=== PATIENT | female | born 1960 | race Caucasian/White ===

== ENCOUNTER → 2017-04-28 | Outpatient (CLI) | payer BC, OTHER ==
[~2017-04-28] MED LIST: AMLO5TAB2 PO; ASP81TEC PO; CEPH500C PO; FRSM40T PO; FURO40TA4 PO; HYDR-707 PO; KCL20TCR PO; LISI1TAB10 PO; MELO-195 PO; SITA1TAB6 PO
--- NOTE | 2017-04-30 07:58 | Diagnostic Imaging Report ---
Bilateral screening mammogram The current study was also evaluated with a Computer Aided Detection (CAD) system. Indication: Screening. No current complaints stated on the questionnaire. COMPARISON: 02/25/15 FINDINGS: The breasts are composed of scattered fibroglandular densities. The right breast appears smaller compared to the left breast, this is however stable from multiple prior exams. This is probably a normal variation given the long-term stability. Allowing for technique and positional differences, no suspicious change is seen. IMPRESSION: No significant change. ACR BI-RADS Category 2: Benign findings. Result letter will be mailed to the patient. Note: At least 10% of breast cancer is not imaged by mammography. Dictated by: Dictated on workstation # [id number]
== END ==
LOC: RAD 09:04
PROVIDERS: ATTEND Obstetrics & Gynecology
DX: Z12.31 Encounter for screening mammogram for malignant neoplasm of breast (principal)
CPT/HCPCS: 77067

== ENCOUNTER → 2017-05-13 | Outpatient (CLI) | payer OTHER ==
--- NOTE | 2017-05-13 19:42 | Diagnostic Imaging Report ---
Multiple views of the lumbar spine. INDICATION: Back pain. FINDINGS: There is grade 1 spondylolisthesis of L4 over L5. No definite evidence of spondylolysis. The vertebral body heights are preserved. There is moderate disc height loss at the L4-L5 level. Multilevel small anterior osteophytes are noted. Degenerative sclerotic changes are suggested at the lower facet joints. There are mild degenerative changes and sclerosis with inferior osteophytes at the SI joints. IMPRESSION: Grade 1 spondylolisthesis of L4 over L5. Degenerative disc and facet changes. Dictated by: Dictated on workstation # [id number]
== END ==
LOC: RAD 15:28
PROVIDERS: ATTEND Family Medicine
DX: M51.36 Other intervertebral disc degeneration, lumbar region (principal); M43.16 Spondylolisthesis, lumbar region
CPT/HCPCS: 72100

== ENCOUNTER 2019-01-27 13:00 | Outpatient (RCR) | payer OTHER | END 2019-02-21 14:10 | disposition home or self-care (01) | PROVIDERS: ATTEND Physician Assistant | DX: M54.5 Low back pain (principal) ==

== ENCOUNTER 2019-05-01 08:46 | Outpatient (RCR) | payer OTHER ==
[2019-06-08] MEDS ORDERED: DULA1.5P2 SQ (11:23)
[2019-06-08] MEDS ORDERED: METO50TA15 PO (11:23)
[2019-06-08] MEDS ORDERED: LISI40TA PO (11:23)
[2019-06-08] MEDS ORDERED: POTA8TAB6 PO (11:23)
[2019-06-08] MEDS ORDERED: METF-399 PO (11:23)
[2019-06-08] MEDS ORDERED: ESTR1TAB27 PO (11:23)
[2019-06-08] MEDS ORDERED: HYDR25TA4 PO (11:23)
[2019-06-08] MEDS ORDERED: PRAV20TA3 PO (11:23)
[2019-06-08] MEDS ORDERED: GABA-488 PO (11:23)
== END 2019-07-30 | disposition home or self-care (01) ==
LOC: CARD 08:46
PROVIDERS: ATTEND Internal Medicine Cardiovascular Disease
DX: I10 Essential (primary) hypertension (principal); E78.2 Mixed hyperlipidemia; E11.9 Type 2 diabetes mellitus without complications; E66.01 Morbid (severe) obesity due to excess calories
CPT/HCPCS: 93270; 93306

== ENCOUNTER → 2019-06-07 | Outpatient (CLI) | payer OTHER ==
[~2019-06-07] VITALS: Ht 167.6 cm; Wt 115.2 kg
[~2019-06-07] MED LIST changes: +CATHETER FLUSH 10 ML SYR IV PRN; +DULA1.5P2 SQ; +ESTR1TAB27 PO; +GABA-488 PO; +HYDR25TA4 PO; +LISI40TA PO; +METF-399 PO; +METO50TA15 PO; +POTA8TAB6 PO; +PRAV20TA3 PO
--- NOTE | 2019-06-08 10:45 | STRESS TEST ---
DATE OF SERVICE: 06/07/2019 EXERCISE MYOVIEW STRESS TEST REPORT REFERRING PHYSICIAN: Dr. Laurent. Baseline heart rate is 82. Baseline blood pressure 168/83. Baseline EKG is sinus rhythm with no ischemic changes. IN SUMMARY: The patient was injected with 10.45 mCi of technetium-99 Myoview and the resting images were obtained. Then, the patient started exercising with a baseline heart rate, blood pressure and EKG mentioned above. The patient was able to exercise for 3 minutes on standard Abhishek protocol, achieving maximum heart rate of 160, which is 98% of maximum expected heart rate. With peak exercise level, EKG was showing nondiagnostic changes. Blood pressure 215/70. During recovery, heart rate and blood pressure returned to baseline. EKG returned to baseline. The resting and stress images were reviewed and compared in the short axis, horizontal long axis, and vertical long axis views. Review of the images showed breast attenuation with typical female pattern. No significant ischemia or infarction was seen. SSS is 3, SDS 3, TID value 1.02. On the gated images, the left ventricle appeared to be normal size with normal contractility. Calculated ejection fraction 56%. IN CONCLUSION: 1. Fair exercise tolerance, a total of 3 minutes on standard Abhishek protocol, total of 4.6 METS achieving 98% of maximum expected heart rate. 2. Hypertensive response to exercise with peak blood pressure 215/70, returned to baseline during recovery. 3. Minimal nondiagnostic EKG changes with exercise, returned to baseline during recovery. 4. No significant ischemia or infarction on SPECT images. 5. Normal left ventricular size with normal contractility. Calculated ejection fraction 56%. Job ID: [id number] DocumentID: [id number] Dictated Date: 06/08/2019 08:41:31 Certified Breastfeeding Educator Date: 06/08/2019 10:44:59 Dictated By: DESIRAE ENRIQUEZ MD
== END ==
LOC: CARD 11:10
PROVIDERS: ATTEND Internal Medicine Cardiovascular Disease
DX: I10 Essential (primary) hypertension (principal); E78.2 Mixed hyperlipidemia; E66.01 Morbid (severe) obesity due to excess calories; E11.9 Type 2 diabetes mellitus without complications
CPT/HCPCS: 78452; 93017

== ENCOUNTER 2019-06-08 11:45 | Outpatient (CLI) | payer OTHER ==
[~2019-06-08] VITALS: Ht 167.6 cm; Wt 115.2 kg
[~2019-06-08 11:45] MED LIST changes: -CATHETER FLUSH 10 ML SYR IV PRN
== END 2019-06-08 12:11 | disposition home or self-care (01) ==
LOC: PREOP 11:45
PROVIDERS: ATTEND Surgery
DX: Z01.818 Encounter for other preprocedural examination (principal)

== ENCOUNTER 2019-06-08 12:37 | Outpatient (CLI) | payer OTHER | END 2019-06-08 13:20 | disposition home or self-care (01) | LOC: SLEEP 12:37 | PROVIDERS: ATTEND Internal Medicine Cardiovascular Disease | DX: G47.33 Obstructive sleep apnea (adult) (pediatric) (principal); G47.36 Sleep related hypoventilation in conditions classified elsewhere; I49.9 Cardiac arrhythmia, unspecified; I10 Essential (primary) hypertension ==

== ENCOUNTER 2019-06-13 08:12 | Day surgery (SDC) | payer OTHER ==
[~2019-06-13] VITALS: Ht 167.6 cm; Wt 115.2 kg
--- OUTSIDE RECORDS SUMMARY | 2019-06-13 08:18 | XMS REPORT | CCD ---
Author Author Katerine Laurent Organization Katerine Laurent MD, 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 Name Role Phone PP Unavailable CCM Unavailable Summary Purpose Interface Exchange Insurance Providers Payer name Policy type / Coverage type Covered republican ID Effective Begin Date Effective End Date [employer] Commercial Insurance [id number] 2017 Unknown Family history Father Diagnosis Age At Onset Hypertension Unknown Myocardial infarction Unknown Diabetes mellitus Type 2 Unknown Hypercholesterolemia Unknown Arthritis Unknown Social History Social History Element Codes Description Effective Dates Marital status Unknown Toy 10/06/2017 Number of children Unknown 3 10/06/2017 Employment Unknown 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 Unknown Has never used illegal drugs 10/06/2017 Allergies, Adverse Reactions, Alerts Substance Reaction Codes Entered Date Inactivated Date Status NO KNOWN DRUG ALLERGIES Unknown 10/06/2017 No Inactive Date Active Past Medical History Illness Codes Condition Status Onset Date Resolved Date Essential (primary) hypertension ICD-9: 401.1 ICD-10: I10 Active 10/06/2017 Unknown Type 2 diabetes mellitus with hyperglycemia ICD-9: 250.02 ICD-10: E11.65 Active 12/12/2018 Unknown Type 2 diabetes mellitus without complications ICD-9: 250.00 ICD-10: E11.9 Active 05/10/2018 Unknown Encounter for general adult medical examination with abnormal findings ICD-9: V70.0 ICD-10: Z00.01 Active 10/06/2017 Unknown Localized edema ICD-9: 782.3 ICD-10: R60.0 Active 09/21/2018 Unknown Diabetes Unknown Active 05/10/2018 Unknown Sciatica Unknown Active 11/17/2017 Unknown Sciatica, right side ICD- 9: 724.3 ICD-10: M54.31 Active 11/17/2017 Unknown Problems Condition Codes Effective Dates Condition Status Essential (primary) hypertension ICD-9: 401.1 ICD-10: I10 10/06/2017 Active Type 2 diabetes mellitus with hyperglycemia ICD-9: 250.02 ICD-10: E11.65 12/12/2018 Active Type 2 diabetes mellitus without complications ICD-9: 250.00 ICD-10: E11.9 05/10/2018 Active Encounter for general adult medical examination with abnormal findings ICD-9: V70.0 ICD-10: Z00.01 10/06/2017 Active Localized edema ICD-9: 782.3 ICD-10: R60.0 09/21/2018 Active Diabetes Unknown 05/10/2018 Active Sciatica Unknown 11/17/2017 Active Sciatica, right side ICD- 9: 724.3 ICD-10: M54.31 11/17/2017 Active Medications Medication Codes Instructions Start Date Stop Date Status Fill Instructions metoprolol tartrate 50 mg tablet RxNorm: 845246 1.5 Tablet(s) PO BID 04/06/2019 03/30/2020 Active fill 30 days : DC metoprolol succ metoprolol tartrate 50 mg tablet RxNorm: 637413 1 Tablet(s) PO BID 02/17/2019 04/05/2019 Inactive fill 30 days : DC metoprolol succ metoprolol tartrate 50 mg tablet RxNorm: 554535 1 Tablet(s) PO BID 02/17/2019 02/16/2019 Inactive fill 30 days : DC metoprolol succ pravastatin 20 mg tablet RxNorm: 582192 1 Tablet(s) PO QHS 01/02/2019 12/27/2019 Active Trulicity 1.5 mg/0.5 mL subcutaneous pen injector RxNorm: 0630184 1.5 Milligram(s) SQ QW 12/13/2018 09/02/2020 Active gabapentin 300 mg capsule RxNorm: 906057 1 Capsule(s) PO QPM 12/13/2018 07/10/2019 Active Trulicity 1.5 mg/0.5 mL subcutaneous pen injector RxNorm: 4788120 1.5 Milligram(s) SQ QW 12/12/2018 12/12/2018 Inactive metoprolol succinate ER 50 mg tablet,extended release 24 hr RxNorm: 399153 1 Tablet(s) PO daily 11/23/2018 02/16/2019 Inactive please delete the 25mg metoprolol and fill the 50mg - and also delete the farxiga from her medication list as well - we stopped that medication in October Farxiga 10 mg tablet RxNorm: 1630213 1 TABLET BY MOUTH DAILY 10/19/2018 11/14/2018 Inactive metformin 1,000 mg tablet RxNorm: 835142 1 Tablet(s) PO BID 10/10/2018 10/04/2019 Active lisinopril 40 mg tablet RxNorm: 283706 1 Tablet(s) PO daily 09/21/2018 09/15/2019 Active this is the only dose of lisinopril that she should be taking - 40mg --please delete the other rxs of lisinopril Trulicity 0.75 mg/0.5 mL subcutaneous pen injector RxNorm: 7344723 0.75 Milligram(s) SQ QW 09/21/2018 12/11/2018 Inactive metoprolol succinate ER 25 mg tablet,extended release 24 hr RxNorm: 316247 1 Tablet(s) PO daily 09/21/2018 11/22/2018 Inactive please cancel her amlodipine rx Klor-Con 8 mEq tablet,extended release RxNorm: 736965 1 Tablet(s) PO daily 07/15/2018 10/07/2019 Active amlodipine 10 mg tablet RxNorm: 110722 1 Tablet(s) PO daily 02/14/2018 09/20/2018 Inactive Farxiga 10 mg tablet RxNorm: 8647190 1 Tablet(s) PO daily 01/31/2018 10/18/2018 Inactive pravastatin 20 mg tablet RxNorm: 169273 1 Tablet(s) PO QHS 01/12/2018 01/01/2019 Inactive pravastatin 20 mg tablet RxNorm: 429902 1 Tablet(s) PO QHS 01/12/2018 01/11/2018 Inactive gabapentin 300 mg capsule RxNorm: 873849 1 Capsule(s) PO QPM 11/17/2017 06/14/2018 Inactive lisinopril 40 mg tablet RxNorm: 291607 1 Tablet(s) PO daily 11/17/2017 09/20/2018 Inactive lisinopril 20 mg tablet RxNorm: 850531 1 Tablet(s) PO daily 10/06/2017 11/16/2017 Inactive estradiol 10 mcg vaginal tablet RxNorm: 427683 1 Tablet(s) VAG daily No Start Date Active metformin 1,000 mg tablet RxNorm: 717230 1 Tablet(s) PO BID No Start Date 10/09/2018 Inactive amlodipine 5 mg tablet RxNorm: 440163 1 Tablet(s) PO daily No Start Date 02/13/2018 Inactive lisinopril 10 mg tablet RxNorm: 361843 1 Tablet(s) PO daily No Start Date 10/05/2017 Inactive Farxiga 10 mg tablet RxNorm: 9068142 1 Tablet(s) PO daily No Start Date 01/30/2018 Inactive meloxicam 15 mg tablet RxNorm: 386595 1 Tablet(s) PO daily No Start Date 05/09/2018 Inactive pravastatin 10 mg tablet RxNorm: 895733 1 Tablet(s) PO daily No Start Date 01/11/2018 Inactive Klor-Con 8 mEq tablet,extended release RxNorm: 500808 1 Tablet(s) PO daily No Start Date 07/14/2018 Inactive Medication Administered No Medication Administered data Immunizations Vaccine Codes Date Status Influenza CVX: 141 08/11/2018 completed SHINGARIX CVX: 121 08/11/2018 completed Assessments Condition Codes Effective Dates Type 2 diabetes mellitus with hyperglycemia ICD-10: E11.65 ICD-9: 250.02 04/06/2019 Essential (primary) hypertension ICD-10: I10 ICD-9: 401.1 04/06/2019 Type 2 diabetes mellitus without complications ICD-10: E11.9 ICD-9: 250.00 11/23/2018 Localized edema ICD-10: R60.0 ICD-9: 782.3 09/21/2018 Encounter for general adult medical examination with abnormal findings ICD-10: Z00.01 ICD-9: V70.0 09/21/2018 Sciatica, right side ICD-10: M54.31 ICD-9: 724.3 11/17/2017 Reason For Visit Reason For Visit Effective Dates Notes hypertension 04/06/2019 hypertension 12/12/2018 diabetes mellitus 11/23/2018 diabetes mellitus 09/21/2018 diabetes mellitus 05/10/2018 diabetes mellitus 02/14/2018 diabetes mellitus 11/17/2017 diabetes mellitus 10/06/2017 Results Observation Observation Code Item Item Code Result Date %Hba1C Hrz321 % HbA1c 34074- 6 7.1 % 08/30/2018 %Hba1C Qax751 Gluc Ave 157 mg/dL 08/30/2018 Comp Metabolic Pnc360 NA 140 mEq/L 05/06/2018 Comp Metabolic Kxm089 K 4.5 mEq/L 05/06/2018 Comp Metabolic Kbf686 CL 104 mEq/L 05/06/2018 Comp Metabolic Xvd171 CO2 27.0 mEq/L 05/06/2018 Comp Metabolic Pkd797 ANION GAP 14 05/06/2018 Comp Metabolic Ukz620 GLUCOSE 129 mg/dL 05/06/2018 Comp Metabolic Wyz089 Creat 0.7 mg/dL 05/06/2018 Comp Metabolic Iww122 eGFR 90 ml/min/1.73m2 05/06/2018 Comp Metabolic Tjc061 BUN 14 mg/dL 05/06/2018 Comp Metabolic Zsw717 B/C Ratio 19.7 Ratio 05/06/2018 Comp Metabolic Kul024 CALCIUM 9.4 mg/dL 05/06/2018 Comp Metabolic Qci815 ALK PHOS 51 U/L 05/06/2018 Comp Metabolic Gvi990 AST(SGOT) 18 U/L 05/06/2018 Comp Metabolic Ddk955 ALT(SGPT) 22 U/L 05/06/2018 Comp Metabolic Xhf841 BILI T 0.5 mg/dL 05/06/2018 Comp Metabolic Luv726 ALBUMIN 4.3 g/dL 05/06/2018 Comp Metabolic Lqg989 TPRO 6.9 g/dL 05/06/2018 Comp Metabolic Zrm275 GLOB 2.6 g/dL 05/06/2018 Comp Metabolic Yug680 A/G Ratio 1.6 Ratio 05/06/2018 Comp Metabolic Hqh823 Osmo 282 mOsmo 05/06/2018 %Hba1C Vxp780 % HbA1c 34418- 6 6.6 % 05/06/2018 %Hba1C Kdh255 Gluc Ave 143 mg/dL 05/06/2018 Microalbumin Cri669 MicroAlb <0.7 mg/dL 01/11/2018 Comp Metabolic Gwy740 NA 142 mEq/L 01/11/2018 Comp Metabolic Equ577 K 4.4 mEq/L 01/11/2018 Comp Metabolic Mjf849 CL 104 mEq/L 01/11/2018 Comp Metabolic Art038 CO2 29.0 mEq/L 01/11/2018 Comp Metabolic Mxo624 ANION GAP 13 01/11/2018 Comp Metabolic Ezp821 GLUCOSE 115 mg/dL 01/11/2018 Comp Metabolic Sqj009 Creat 0.6 mg/dL 01/11/2018 Comp Metabolic Rje727 eGFR 108 ml/min/1.73m2 01/11/2018 Comp Metabolic Mss717 BUN 14 mg/dL 01/11/2018 Comp Metabolic Amj395 B/C Ratio 23.0 Ratio 01/11/2018 Comp Metabolic Avz447 CALCIUM 9.5 mg/dL 01/11/2018 Comp Metabolic Bmq372 ALK PHOS 36 U/L 01/11/2018 Comp Metabolic Cel637 AST(SGOT) 19 U/L 01/11/2018 Comp Metabolic Vlg412 ALT(SGPT) 28 U/L 01/11/2018 Comp Metabolic Gfn190 BILI T 0.5 mg/dL 01/11/2018 Comp Metabolic Rks509 ALBUMIN 4.5 g/dL 01/11/2018 Comp Metabolic Kqh602 TPRO 7.1 g/dL 01/11/2018 Comp Metabolic Tlp467 GLOB 2.6 g/dL 01/11/2018 Comp Metabolic Xnw797 A/G Ratio 1.7 Ratio 01/11/2018 Comp Metabolic Cad153 Osmo 285 mOsmo 01/11/2018 Tsh Ord6 TSH (3rd IS) 3.04 uIU/mL 01/11/2018 %Hba1C Ffv719 % HbA1c 37220- 6 6.3 % 01/11/2018 %Hba1C Zkx642 Gluc Ave 134 mg/dL 01/11/2018 Cbc With Differential Ord2 WBC 6.46 K/ul 01/11/2018 Cbc With Differential Ord2 RBC 4.68 M/ul 01/11/2018 Cbc With Differential Ord2 HGB 14.3 g/dl 01/11/2018 Cbc With Differential Ord2 HCT 42.9 % 01/11/2018 Cbc With Differential Ord2 Neut% 57.1 % 01/11/2018 Cbc With Differential Ord2 MCV 91.7 fl 01/11/2018 Cbc With Differential Ord2 Lymph% 32.0 % 01/11/2018 Cbc With Differential Ord2 MCH 30.6 pg 01/11/2018 Cbc With Differential Ord2 [place]% 7.9 % 01/11/2018 Cbc With Differential Ord2 MCHC 33.3 pg 01/11/2018 Cbc With Differential Ord2 Eos% 2.8 % 01/11/2018 Cbc With Differential Ord2 PLT 233 K/ul 01/11/2018 Cbc With Differential Ord2 Baso% 0.2 % 01/11/2018 Cbc With Differential Ord2 RDW 14.0 % 01/11/2018 Cbc With Differential Ord2 Neut ABS# 3.69 K/ul 01/11/2018 Cbc With Differential Ord2 Lymph ABS# 2.07 K/ul 01/11/2018 Cbc With Differential Ord2 [place] ABS# 0.5 K/ul 01/11/2018 Cbc With Differential Ord2 Eos ABS# 0.2 K/ul 01/11/2018 Cbc With Differential Ord2 Baso ABS# 0.0 K/ul 01/11/2018 Lipid Ord30 CHOL 181 mg/dL 01/11/2018 Lipid Ord30 HDL 52.0 mg/dl 01/11/2018 Lipid Ord30 TRIG 205 mg/dL 01/11/2018 Lipid Ord30 LDL 88 mg/dL 01/11/2018 Lipid Ord30 C/HDL 3.5 Ratio 01/11/2018 Review of Systems System Result Effective Dates Constitutional No recent illness 04/06/2019 Constitutional No chills 04/06/2019 Constitutional No fatigue 04/06/2019 Constitutional No fever 04/06/2019 Constitutional No insomnia 04/06/2019 Constitutional No malaise 04/06/2019 Ears/Nose/Throat/Neck No dental pain 04/06/2019 Ears/Nose/Throat/Neck No dizziness 04/06/2019 Ears/Nose/Throat/Neck No dysphagia 04/06/2019 Ears/Nose/Throat/Neck No headache 04/06/2019 Ears/Nose/Throat/Neck No hearing loss 04/06/2019 Ears/Nose/Throat/Neck No nasal allergies 04/06/2019 Ears/Nose/Throat/Neck No sore throat 04/06/2019 Ears/Nose/Throat/Neck No postnasal drip 04/06/2019 Ears/Nose/Throat/Neck No sinus congestion 04/06/2019 Cardiovascular No chest pain/pressure 04/06/2019 Cardiovascular No dyspnea 04/06/2019 Cardiovascular No edema 04/06/2019 Cardiovascular No exercise intolerance 04/06/2019 Cardiovascular No fatigue 04/06/2019 Cardiovascular hypertension 04/06/2019 Cardiovascular No near-syncope/dizziness 04/06/2019 Respiratory No chest tightness 04/06/2019 Respiratory No cough 04/06/2019 Respiratory No dyspnea 04/06/2019 Respiratory No pedal edema 04/06/2019 Gastrointestinal No abdominal pain 04/06/2019 Gastrointestinal No constipation 04/06/2019 Gastrointestinal No diarrhea 04/06/2019 Gastrointestinal No gastroesophageal reflux 04/06/2019 Gastrointestinal No nausea 04/06/2019 Gastrointestinal No vomiting 04/06/2019 Musculoskeletal stiffness 04/06/2019 Musculoskeletal No swelling 04/06/2019 Musculoskeletal No muscle weakness 04/06/2019 Musculoskeletal No myalgias 04/06/2019 Dermatologic No rash 04/06/2019 Dermatologic No sores 04/06/2019 Dermatologic scar 04/06/2019 Neurologic No neck pain 04/06/2019 Neurologic No syncope 04/06/2019 Psychiatric No anxiety 04/06/2019 Psychiatric No depression 04/06/2019 Endocrine diabetes mellitus type 2 04/06/2019 Musculoskeletal back pain 04/06/2019 Constitutional No recent illness 12/12/2018 Constitutional No chills 12/12/2018 Constitutional No fatigue 12/12/2018 Constitutional No fever 12/12/2018 Constitutional No insomnia 12/12/2018 Constitutional No malaise 12/12/2018 Ears/Nose/Throat/Neck No dental pain 12/12/2018 Ears/Nose/Throat/Neck No dizziness 12/12/2018 Ears/Nose/Throat/Neck No dysphagia 12/12/2018 Ears/Nose/Throat/Neck No headache 12/12/2018 Ears/Nose/Throat/Neck No hearing loss 12/12/2018 Ears/Nose/Throat/Neck No nasal allergies 12/12/2018 Ears/Nose/Throat/Neck No sore throat 12/12/2018 Ears/Nose/Throat/Neck No postnasal drip 12/12/2018 Ears/Nose/Throat/Neck No sinus congestion 12/12/2018 Cardiovascular No fatigue 12/12/2018 Cardiovascular hypertension 12/12/2018 Cardiovascular No near-syncope/dizziness 12/12/2018 Respiratory No chest tightness 12/12/2018 Respiratory No cough 12/12/2018 Respiratory No dyspnea 12/12/2018 Respiratory No pedal edema 12/12/2018 Gastrointestinal No abdominal pain 12/12/2018 Gastrointestinal No constipation 12/12/2018 Gastrointestinal No diarrhea 12/12/2018 Gastrointestinal No gastroesophageal reflux 12/12/2018 Gastrointestinal No nausea 12/12/2018 Gastrointestinal No vomiting 12/12/2018 Musculoskeletal No stiffness 12/12/2018 Musculoskeletal No swelling 12/12/2018 Musculoskeletal No muscle weakness 12/12/2018 Musculoskeletal No myalgias 12/12/2018 Dermatologic No rash 12/12/2018 Dermatologic No sores 12/12/2018 Dermatologic scar 12/12/2018 Neurologic No neck pain 12/12/2018 Neurologic No syncope 12/12/2018 Psychiatric No anxiety 12/12/2018 Psychiatric No depression 12/12/2018 Endocrine diabetes mellitus type 2 12/12/2018 Constitutional No recent illness 11/23/2018 Constitutional No chills 11/23/2018 Constitutional No fatigue 11/23/2018 Constitutional No fever 11/23/2018 Constitutional No insomnia 11/23/2018 Constitutional No malaise 11/23/2018 Ears/Nose/Throat/Neck No dental pain 11/23/2018 Ears/Nose/Throat/Neck No dizziness 11/23/2018 Ears/Nose/Throat/Neck No dysphagia 11/23/2018 Ears/Nose/Throat/Neck No headache 11/23/2018 Ears/Nose/Throat/Neck No hearing loss 11/23/2018 Ears/Nose/Throat/Neck No nasal allergies 11/23/2018 Ears/Nose/Throat/Neck No sore throat 11/23/2018 Ears/Nose/Throat/Neck No postnasal drip 11/23/2018 Ears/Nose/Throat/Neck No sinus congestion 11/23/2018 Cardiovascular No chest pain/pressure 11/23/2018 Cardiovascular No dyspnea 11/23/2018 Cardiovascular No edema 11/23/2018 Cardiovascular No exercise intolerance 11/23/2018 Cardiovascular No fatigue 11/23/2018 Cardiovascular hypertension 11/23/2018 Cardiovascular No near-syncope/dizziness 11/23/2018 Respiratory No chest tightness 11/23/2018 Respiratory No cough 11/23/2018 Respiratory No dyspnea 11/23/2018 Respiratory No pedal edema 11/23/2018 Gastrointestinal No abdominal pain 11/23/2018 Gastrointestinal No constipation 11/23/2018 Gastrointestinal No diarrhea 11/23/2018 Gastrointestinal No gastroesophageal reflux 11/23/2018 Gastrointestinal No nausea 11/23/2018 Gastrointestinal No vomiting 11/23/2018 Musculoskeletal No stiffness 11/23/2018 Musculoskeletal No swelling 11/23/2018 Musculoskeletal No muscle weakness 11/23/2018 Musculoskeletal No myalgias 11/23/2018 Dermatologic No rash 11/23/2018 Dermatologic No sores 11/23/2018 Dermatologic scar 11/23/2018 Neurologic No neck pain 11/23/2018 Neurologic No syncope 11/23/2018 Psychiatric No anxiety 11/23/2018 Psychiatric No depression 11/23/2018 Endocrine diabetes mellitus type 2 11/23/2018 Constitutional No recent illness 09/21/2018 Constitutional No chills 09/21/2018 Constitutional No fatigue 09/21/2018 Constitutional No fever 09/21/2018 Constitutional No insomnia 09/21/2018 Constitutional No malaise 09/21/2018 Ears/Nose/Throat/Neck No dental pain 09/21/2018 Ears/Nose/Throat/Neck No dizziness 09/21/2018 Ears/Nose/Throat/Neck No dysphagia 09/21/2018 Ears/Nose/Throat/Neck No headache 09/21/2018 Ears/Nose/Throat/Neck No hearing loss 09/21/2018 Ears/Nose/Throat/Neck No nasal allergies 09/21/2018 Ears/Nose/Throat/Neck No sore throat 09/21/2018 Ears/Nose/Throat/Neck No postnasal drip 09/21/2018 Ears/Nose/Throat/Neck No sinus congestion 09/21/2018 Cardiovascular No chest pain/pressure 09/21/2018 Cardiovascular No dyspnea 09/21/2018 Cardiovascular No edema 09/21/2018 Cardiovascular No exercise intolerance 09/21/2018 Cardiovascular No fatigue 09/21/2018 Cardiovascular hypertension 09/21/2018 Cardiovascular No near-syncope/dizziness 09/21/2018 Respiratory No chest tightness 09/21/2018 Respiratory No cough 09/21/2018 Respiratory No dyspnea 09/21/2018 Respiratory No pedal edema 09/21/2018 Gastrointestinal No abdominal pain 09/21/2018 Gastrointestinal No constipation 09/21/2018 Gastrointestinal No diarrhea 09/21/2018 Gastrointestinal No gastroesophageal reflux 09/21/2018 Gastrointestinal No nausea 09/21/2018 Gastrointestinal No vomiting 09/21/2018 Musculoskeletal No stiffness 09/21/2018 Musculoskeletal No swelling 09/21/2018 Musculoskeletal No muscle weakness 09/21/2018 Musculoskeletal No myalgias 09/21/2018 Dermatologic No rash 09/21/2018 Dermatologic No sores 09/21/2018 Dermatologic scar 09/21/2018 Neurologic No neck pain 09/21/2018 Neurologic No syncope 09/21/2018 Psychiatric No anxiety 09/21/2018 Psychiatric No depression 09/21/2018 Endocrine diabetes mellitus type 2 09/21/2018 Musculoskeletal back pain 09/21/2018 Constitutional No recent illness 05/10/2018 Constitutional No chills 05/10/2018 Constitutional No fatigue 05/10/2018 Constitutional No fever 05/10/2018 Constitutional No insomnia 05/10/2018 Constitutional No malaise 05/10/2018 Ears/Nose/Throat/Neck No dental pain 05/10/2018 Ears/Nose/Throat/Neck No dizziness 05/10/2018 Ears/Nose/Throat/Neck No dysphagia 05/10/2018 Ears/Nose/Throat/Neck No headache 05/10/2018 Ears/Nose/Throat/Neck No hearing loss 05/10/2018 Ears/Nose/Throat/Neck No nasal allergies 05/10/2018 Ears/Nose/Throat/Neck No sore throat 05/10/2018 Ears/Nose/Throat/Neck No postnasal drip 05/10/2018 Ears/Nose/Throat/Neck No sinus congestion 05/10/2018 Cardiovascular No chest pain/pressure 05/10/2018 Cardiovascular No dyspnea 05/10/2018 Cardiovascular No edema 05/10/2018 Cardiovascular No exercise intolerance 05/10/2018 Cardiovascular No fatigue 05/10/2018 Cardiovascular hypertension 05/10/2018 Cardiovascular No near-syncope/dizziness 05/10/2018 Respiratory No chest tightness 05/10/2018 Respiratory No cough 05/10/2018 Respiratory No dyspnea 05/10/2018 Respiratory No pedal edema 05/10/2018 Gastrointestinal No abdominal pain 05/10/2018 Gastrointestinal No constipation 05/10/2018 Gastrointestinal No diarrhea 05/10/2018 Gastrointestinal No gastroesophageal reflux 05/10/2018 Gastrointestinal No nausea 05/10/2018 Gastrointestinal No vomiting 05/10/2018 Musculoskeletal No stiffness 05/10/2018 Musculoskeletal No swelling 05/10/2018 Musculoskeletal No muscle weakness 05/10/2018 Musculoskeletal No myalgias 05/10/2018 Dermatologic No rash 05/10/2018 Dermatologic No sores 05/10/2018 Neurologic No neck pain 05/10/2018 Neurologic No syncope 05/10/2018 Psychiatric No anxiety 05/10/2018 Psychiatric No depression 05/10/2018 Endocrine diabetes mellitus type 2 05/10/2018 Dermatologic scar 05/10/2018 Constitutional No recent illness 02/14/2018 Constitutional No chills 02/14/2018 Constitutional No fatigue 02/14/2018 Constitutional No fever 02/14/2018 Constitutional No insomnia 02/14/2018 Constitutional No malaise 02/14/2018 Ears/Nose/Throat/Neck No dental pain 02/14/2018 Ears/Nose/Throat/Neck No dizziness 02/14/2018 Ears/Nose/Throat/Neck No dysphagia 02/14/2018 Ears/Nose/Throat/Neck No headache 02/14/2018 Ears/Nose/Throat/Neck No hearing loss 02/14/2018 Ears/Nose/Throat/Neck No nasal allergies 02/14/2018 Ears/Nose/Throat/Neck No sore throat 02/14/2018 Ears/Nose/Throat/Neck No postnasal drip 02/14/2018 Ears/Nose/Throat/Neck No sinus congestion 02/14/2018 Cardiovascular No chest pain/pressure 02/14/2018 Cardiovascular No dyspnea 02/14/2018 Cardiovascular No edema 02/14/2018 Cardiovascular No exercise intolerance 02/14/2018 Cardiovascular No fatigue 02/14/2018 Cardiovascular hypertension 02/14/2018 Cardiovascular No near-syncope/dizziness 02/14/2018 Respiratory No chest tightness 02/14/2018 Respiratory No cough 02/14/2018 Respiratory No dyspnea 02/14/2018 Respiratory No pedal edema 02/14/2018 Gastrointestinal No abdominal pain 02/14/2018 Gastrointestinal No constipation 02/14/2018 Gastrointestinal No diarrhea 02/14/2018 Gastrointestinal No gastroesophageal reflux 02/14/2018 Gastrointestinal No nausea 02/14/2018 Gastrointestinal No vomiting 02/14/2018 Musculoskeletal No stiffness 02/14/2018 Musculoskeletal No swelling 02/14/2018 Musculoskeletal No muscle weakness 02/14/2018 Musculoskeletal No myalgias 02/14/2018 Dermatologic No rash 02/14/2018 Dermatologic No sores 02/14/2018 Neurologic No neck pain 02/14/2018 Neurologic No syncope 02/14/2018 Psychiatric No anxiety 02/14/2018 Psychiatric No depression 02/14/2018 Constitutional No recent illness 11/17/2017 Constitutional No chills 11/17/2017 Constitutional No fatigue 11/17/2017 Constitutional No fever 11/17/2017 Constitutional No insomnia 11/17/2017 Constitutional No malaise 11/17/2017 Ears/Nose/Throat/Neck No dental pain 11/17/2017 Ears/Nose/Throat/Neck No dizziness 11/17/2017 Ears/Nose/Throat/Neck No dysphagia 11/17/2017 Ears/Nose/Throat/Neck No headache 11/17/2017 Ears/Nose/Throat/Neck No hearing loss 11/17/2017 Ears/Nose/Throat/Neck No nasal allergies 11/17/2017 Ears/Nose/Throat/Neck No sore throat 11/17/2017 Ears/Nose/Throat/Neck No postnasal drip 11/17/2017 Ears/Nose/Throat/Neck No sinus congestion 11/17/2017 Cardiovascular No chest pain/pressure 11/17/2017 Cardiovascular No dyspnea 11/17/2017 Cardiovascular No edema 11/17/2017 Cardiovascular No exercise intolerance 11/17/2017 Cardiovascular No fatigue 11/17/2017 Cardiovascular hypertension 11/17/2017 Cardiovascular No near-syncope/dizziness 11/17/2017 Respiratory No chest tightness 11/17/2017 Respiratory No cough 11/17/2017 Respiratory No dyspnea 11/17/2017 Respiratory No pedal edema 11/17/2017 Gastrointestinal No abdominal pain 11/17/2017 Gastrointestinal No constipation 11/17/2017 Gastrointestinal No diarrhea 11/17/2017 Gastrointestinal No gastroesophageal reflux 11/17/2017 Gastrointestinal No nausea 11/17/2017 Gastrointestinal No vomiting 11/17/2017 Musculoskeletal No stiffness 11/17/2017 Musculoskeletal No swelling 11/17/2017 Musculoskeletal No muscle weakness 11/17/2017 Musculoskeletal No myalgias 11/17/2017 Dermatologic No rash 11/17/2017 Dermatologic No sores 11/17/2017 Neurologic No neck pain 11/17/2017 Neurologic No syncope 11/17/2017 Psychiatric No anxiety 11/17/2017 Psychiatric No depression 11/17/2017 Constitutional No recent illness 10/06/2017 Constitutional No chills 10/06/2017 Constitutional No fatigue 10/06/2017 Constitutional No fever 10/06/2017 Constitutional No insomnia 10/06/2017 Constitutional No malaise 10/06/2017 Eyes No vision change 10/06/2017 Ears/Nose/Throat/Neck No dental pain 10/06/2017 Ears/Nose/Throat/Neck No dizziness 10/06/2017 Ears/Nose/Throat/Neck No dysphagia 10/06/2017 Ears/Nose/Throat/Neck No headache 10/06/2017 Ears/Nose/Throat/Neck No hearing loss 10/06/2017 Ears/Nose/Throat/Neck No nasal allergies 10/06/2017 Ears/Nose/Throat/Neck No sore throat 10/06/2017 Ears/Nose/Throat/Neck No postnasal drip 10/06/2017 Ears/Nose/Throat/Neck No sinus congestion 10/06/2017 Cardiovascular No chest pain/pressure 10/06/2017 Cardiovascular No dyspnea 10/06/2017 Cardiovascular No edema 10/06/2017 Cardiovascular No exercise intolerance 10/06/2017 Cardiovascular No fatigue 10/06/2017 Cardiovascular No near-syncope/dizziness 10/06/2017 Respiratory No chest tightness 10/06/2017 Respiratory No cough 10/06/2017 Respiratory No dyspnea 10/06/2017 Respiratory No pedal edema 10/06/2017 Gastrointestinal No abdominal pain 10/06/2017 Gastrointestinal No constipation 10/06/2017 Gastrointestinal No diarrhea 10/06/2017 Gastrointestinal No gastroesophageal reflux 10/06/2017 Gastrointestinal No nausea 10/06/2017 Gastrointestinal No vomiting 10/06/2017 Genitourinary/Nephrology No dysuria 10/06/2017 Genitourinary/Nephrology No nocturia 10/06/2017 Genitourinary/Nephrology No urinary incontinence 10/06/2017 Musculoskeletal No stiffness 10/06/2017 Musculoskeletal No swelling 10/06/2017 Musculoskeletal No muscle weakness 10/06/2017 Musculoskeletal No myalgias 10/06/2017 Dermatologic No rash 10/06/2017 Dermatologic No sores 10/06/2017 Neurologic No dizziness 10/06/2017 Neurologic No headache 10/06/2017 Neurologic No neck pain 10/06/2017 Neurologic No syncope 10/06/2017 Psychiatric No anxiety 10/06/2017 Psychiatric No depression 10/06/2017 Cardiovascular hypertension 10/06/2017 Physical Exam Exam Name System Name Item Name Status Result Effective Dates Notes Full Exam - General 1994 Constitutional general appearance Development: well developed 04/06/2019 None Full Exam - General 1994 Constitutional general appearance Development: appears stated age 0504/06/2019 None Full Exam - General 1994 Constitutional general appearance Hygiene/Attention to Grooming: good hygiene 04/06/2019 None Full Exam - General 1994 Eyes conjunctiva/eyelids Overall: conjunctiva clear 04/06/2019 None Full Exam - General 1994 Eyes conjunctiva/eyelids Overall: cornea clear 04/06/2019 None Full Exam - General 1994 Eyes conjunctiva/eyelids Overall: eyelids normal 04/06/2019 None Full Exam - General 1994 Eyes pupils and irises Overall: pupils equal, round, reactive to light and accomodation 04/06/2019 None Full Exam - General 1994 Ears/Nose/Throat otoscopic exam Overall: external auditory canals clear 04/06/2019 None Full Exam - General 1994 Ears/Nose/Throat otoscopic exam Overall: tympanic membranes clear 04/06/2019 None Full Exam - General 1995 Ears/Nose/Throat lips/teeth/gingiva Overall: benign lips 04/06/2019 None Full Exam - General 1994 Ears/Nose/Throat lips/teeth/gingiva Overall: normal dentition 04/06/2019 None Full Exam - General 1995 Ears/Nose/Throat oral cavity/pharynx/larynx Overall: oral mucosa clear 04/06/2019 None Full Exam - General 1994 Ears/Nose/Throat oral cavity/pharynx/larynx Overall: oropharyngeal mucosa clear 04/06/2019 None Full Exam - General 1994 Ears/Nose/Throat oral cavity/pharynx/larynx Overall: hypopharynx benign 04/06/2019 None Full Exam - General 1994 Ears/Nose/Throat oral cavity/pharynx/larynx Overall: no masses 04/06/2019 None Full Exam - General 1994 Respiratory auscultation Overall: breath sounds clear bilaterally 04/06/2019 None Full Exam - General 1994 Respiratory respiratory effort/rhythm Overall: no retractions 04/06/2019 None Full Exam - General 1994 Respiratory respiratory effort/rhythm Overall: normal rate 04/06/2019 None Full Exam - General 1994 Cardiovascular extremities Overall: no clubbing 04/06/2019 None Full Exam - General 1994 Cardiovascular auscultation of heart Overall: regular rate 04/06/2019 None Full Exam - General 1994 Cardiovascular auscultation of heart Overall: normal heart sounds 04/06/2019 None Full Exam - General 1994 Musculoskeletal head and neck Overall: cervical spine benign 04/06/2019 None Full Exam - General 1994 Psychiatric orientation/consciousness Overall: oriented to person, place and time 04/06/2019 None Full Exam - General 1994 Psychiatric mood and affect Overall: normal mood and affect 04/06/2019 None Full Exam - General 1994 Abdomen abdominal exam Overall: no tenderness 04/06/2019 None Full Exam - General 1994 Abdomen abdominal exam Overall: normal bowel sounds 04/06/2019 None Full Exam - General 1994 Neurologic cranial nerves Overall: crainial nerves 2 - 12 grossly intact 04/06/2019 None Full Exam - General 1994 Constitutional general appearance Development: well developed 12/12/2018 None Full Exam - General 1994 Constitutional general appearance Development: appears stated age 0212/12/2018 None Full Exam - General 1994 Constitutional general appearance Hygiene/Attention to Grooming: good hygiene 12/12/2018 None Full Exam - General 1994 Eyes conjunctiva/eyelids Overall: conjunctiva clear 12/12/2018 None Full Exam - General 1994 Eyes conjunctiva/eyelids Overall: cornea clear 12/12/2018 None Full Exam - General 1994 Eyes conjunctiva/eyelids Overall: eyelids normal 12/12/2018 None Full Exam - General 1994 Eyes pupils and irises Overall: pupils equal, round, reactive to light and accomodation 12/12/2018 None Full Exam - General 1995 Ears/Nose/Throat otoscopic exam Overall: external auditory canals clear 12/12/2018 None Full Exam - General 1995 Ears/Nose/Throat otoscopic exam Overall: tympanic membranes clear 12/12/2018 None Full Exam - General 1995 Ears/Nose/Throat lips/teeth/gingiva Overall: benign lips 12/12/2018 None Full Exam - General 1995 Ears/Nose/Throat lips/teeth/gingiva Overall: normal dentition 12/12/2018 None Full Exam - General 1995 Ears/Nose/Throat oral cavity/pharynx/larynx Overall: oral mucosa clear 12/12/2018 None Full Exam - General 1995 Ears/Nose/Throat oral cavity/pharynx/larynx Overall: oropharyngeal mucosa clear 12/12/2018 None Full Exam - General 1995 Ears/Nose/Throat oral cavity/pharynx/larynx Overall: hypopharynx benign 12/12/2018 None Full Exam - General 1995 Ears/Nose/Throat oral cavity/pharynx/larynx Overall: no masses 12/12/2018 None Full Exam - General 1994 Respiratory auscultation Overall: breath sounds clear bilaterally 12/12/2018 None Full Exam - General 1994 Respiratory respiratory effort/rhythm Overall: no retractions 12/12/2018 None Full Exam - General 1994 Respiratory respiratory effort/rhythm Overall: normal rate 12/12/2018 None Full Exam - General 1994 Cardiovascular extremities Overall: no clubbing 12/12/2018 None Full Exam - General 1994 Cardiovascular auscultation of heart Overall: regular rate 12/12/2018 None Full Exam - General 1994 Cardiovascular auscultation of heart Overall: normal heart sounds 12/12/2018 None Full Exam - General 1994 Musculoskeletal head and neck Overall: cervical spine benign 12/12/2018 None Full Exam - General 1994 Psychiatric orientation/consciousness Overall: oriented to person, place and time 12/12/2018 None Full Exam - General 1994 Psychiatric mood and affect Overall: normal mood and affect 12/12/2018 None Full Exam - General 1994 Constitutional general appearance Development: well developed 11/23/2018 None Full Exam - General 1994 Constitutional general appearance Development: appears stated age 0111/23/2018 None Full Exam - General 1994 Constitutional general appearance Hygiene/Attention to Grooming: good hygiene 11/23/2018 None Full Exam - General 1995 Eyes conjunctiva/eyelids Overall: conjunctiva clear 11/23/2018 None Full Exam - General 1995 Eyes conjunctiva/eyelids Overall: cornea clear 11/23/2018 None Full Exam - General 1994 Eyes conjunctiva/eyelids Overall: eyelids normal 11/23/2018 None Full Exam - General 1994 Eyes pupils and irises Overall: pupils equal, round, reactive to light and accomodation 11/23/2018 None Full Exam - General 1994 Ears/Nose/Throat otoscopic exam Overall: external auditory canals clear 11/23/2018 None Full Exam - General 1995 Ears/Nose/Throat otoscopic exam Overall: tympanic membranes clear 11/23/2018 None Full Exam - General 1995 Ears/Nose/Throat lips/teeth/gingiva Overall: benign lips 11/23/2018 None Full Exam - General 1995 Ears/Nose/Throat lips/teeth/gingiva Overall: normal dentition 11/23/2018 None Full Exam - General 1995 Ears/Nose/Throat oral cavity/pharynx/larynx Overall: oral mucosa clear 11/23/2018 None Full Exam - General 1995 Ears/Nose/Throat oral cavity/pharynx/larynx Overall: oropharyngeal mucosa clear 11/23/2018 None Full Exam - General 1994 Ears/Nose/Throat oral cavity/pharynx/larynx Overall: hypopharynx benign 11/23/2018 None Full Exam - General 1994 Ears/Nose/Throat oral cavity/pharynx/larynx Overall: no masses 11/23/2018 None Full Exam - General 1994 Respiratory auscultation Overall: breath sounds clear bilaterally 11/23/2018 None Full Exam - General 1994 Respiratory respiratory effort/rhythm Overall: no retractions 11/23/2018 None Full Exam - General 1994 Respiratory respiratory effort/rhythm Overall: normal rate 11/23/2018 None Full Exam - General 1994 Cardiovascular extremities Overall: no clubbing 11/23/2018 None Full Exam - General 1994 Cardiovascular auscultation of heart Overall: regular rate 11/23/2018 None Full Exam - General 1994 Cardiovascular auscultation of heart Overall: normal heart sounds 11/23/2018 None Full Exam - General 1994 Musculoskeletal head and neck Overall: cervical spine benign 11/23/2018 None Full Exam - General 1994 Psychiatric orientation/consciousness Overall: oriented to person, place and time 11/23/2018 None Full Exam - General 1994 Psychiatric mood and affect Overall: normal mood and affect 11/23/2018 None Full Exam - General 1994 Constitutional general appearance Development: well developed 09/21/2018 None Full Exam - General 1994 Constitutional general appearance Development: appears stated age 1109/21/2018 None Full Exam - General 1994 Constitutional general appearance Hygiene/Attention to Grooming: good hygiene 09/21/2018 None Full Exam - General 1994 Eyes conjunctiva/eyelids Overall: conjunctiva clear 09/21/2018 None Full Exam - General 1994 Eyes conjunctiva/eyelids Overall: cornea clear 09/21/2018 None Full Exam - General 1994 Eyes conjunctiva/eyelids Overall: eyelids normal 09/21/2018 None Full Exam - General 1994 Eyes pupils and irises Overall: pupils equal, round, reactive to light and accomodation 09/21/2018 None Full Exam - General 1994 Ears/Nose/Throat otoscopic exam Overall: external auditory canals clear 09/21/2018 None Full Exam - General 1994 Ears/Nose/Throat otoscopic exam Overall: tympanic membranes clear 09/21/2018 None Full Exam - General 1994 Ears/Nose/Throat lips/teeth/gingiva Overall: benign lips 09/21/2018 None Full Exam - General 1994 Ears/Nose/Throat lips/teeth/gingiva Overall: normal dentition 09/21/2018 None Full Exam - General 1994 Ears/Nose/Throat oral cavity/pharynx/larynx Overall: oral mucosa clear 09/21/2018 None Full Exam - General 1994 Ears/Nose/Throat oral cavity/pharynx/larynx Overall: oropharyngeal mucosa clear 09/21/2018 None Full Exam - General 1994 Ears/Nose/Throat oral cavity/pharynx/larynx Overall: hypopharynx benign 09/21/2018 None Full Exam - General 1994 Ears/Nose/Throat oral cavity/pharynx/larynx Overall: no masses 09/21/2018 None Full Exam - General 1994 Respiratory auscultation Overall: breath sounds clear bilaterally 09/21/2018 None Full Exam - General 1994 Respiratory respiratory effort/rhythm Overall: no retractions 09/21/2018 None Full Exam - General 1994 Respiratory respiratory effort/rhythm Overall: normal rate 09/21/2018 None Full Exam - General 1994 Cardiovascular extremities Overall: no clubbing 09/21/2018 None Full Exam - General 1994 Cardiovascular auscultation of heart Overall: regular rate 09/21/2018 None Full Exam - General 1994 Cardiovascular auscultation of heart Overall: normal heart sounds 09/21/2018 None Full Exam - General 1994 Abdomen abdominal exam Overall: no tenderness 09/21/2018 None Full Exam - General 1994 Abdomen abdominal exam Overall: normal bowel sounds 09/21/2018 None Full Exam - General 1994 Lymphatic neck nodes Overall: anterior cervical chain benign 09/21/2018 None Full Exam - General 1994 Lymphatic neck nodes Overall: posterior cervical chain benign 09/21/2018 None Full Exam - General 1994 Musculoskeletal spine, ribs and pelvis Posture: lordosis 09/21/2018 None Full Exam - General 1994 Musculoskeletal spine, ribs and pelvis Sacroiliac joints: tender right sacroiliac joint 09/21/2018 None Full Exam - General 1994 Musculoskeletal head and neck Overall: head atraumatic 09/21/2018 None Full Exam - General 1994 Musculoskeletal head and neck Overall: cervical spine benign 09/21/2018 None Full Exam - General 1994 Neurologic cranial nerves Overall: crainial nerves 2 - 12 grossly intact 09/21/2018 None Full Exam - General 1994 Psychiatric orientation/consciousness Overall: oriented to person, place and time 09/21/2018 None Full Exam - General 1994 Psychiatric mood and affect Overall: normal mood and affect 09/21/2018 None Full Exam - General 1994 Cardiovascular extremities Edema present: pitting 09/21/2018 trace to ankles Full Exam - General 1994 Constitutional general appearance Development: well developed 05/10/2018 None Full Exam - General 1994 Constitutional general appearance Development: appears stated age 0705/10/2018 None Full Exam - General 1994 Constitutional general appearance Hygiene/Attention to Grooming: good hygiene 05/10/2018 None Full Exam - General 1994 Eyes conjunctiva/eyelids Overall: conjunctiva clear 05/10/2018 None Full Exam - General 1994 Eyes conjunctiva/eyelids Overall: cornea clear 05/10/2018 None Full Exam - General 1994 Eyes conjunctiva/eyelids Overall: eyelids normal 05/10/2018 None Full Exam - General 1994 Eyes pupils and irises Overall: pupils equal, round, reactive to light and accomodation 05/10/2018 None Full Exam - General 1994 Ears/Nose/Throat otoscopic exam Overall: external auditory canals clear 05/10/2018 None Full Exam - General 1994 Ears/Nose/Throat otoscopic exam Overall: tympanic membranes clear 05/10/2018 None Full Exam - General 1994 Ears/Nose/Throat lips/teeth/gingiva Overall: benign lips 05/10/2018 None Full Exam - General 1994 Ears/Nose/Throat lips/teeth/gingiva Overall: normal dentition 05/10/2018 None Full Exam - General 1994 Ears/Nose/Throat oral cavity/pharynx/larynx Overall: oral mucosa clear 05/10/2018 None Full Exam - General 1994 Ears/Nose/Throat oral cavity/pharynx/larynx Overall: oropharyngeal mucosa clear 05/10/2018 None Full Exam - General 1994 Ears/Nose/Throat oral cavity/pharynx/larynx Overall: hypopharynx benign 05/10/2018 None Full Exam - General 1994 Ears/Nose/Throat oral cavity/pharynx/larynx Overall: no masses 05/10/2018 None Full Exam - General 1994 Respiratory auscultation Overall: breath sounds clear bilaterally 05/10/2018 None Full Exam - General 1994 Respiratory respiratory effort/rhythm Overall: no retractions 05/10/2018 None Full Exam - General 1994 Respiratory respiratory effort/rhythm Overall: normal rate 05/10/2018 None Full Exam - General 1994 Cardiovascular extremities Overall: no clubbing 05/10/2018 None Full Exam - General 1994 Cardiovascular auscultation of heart Overall: regular rate 05/10/2018 None Full Exam - General 1994 Cardiovascular auscultation of heart Overall: normal heart sounds 05/10/2018 None Full Exam - General 1994 Abdomen abdominal exam Overall: no tenderness 05/10/2018 None Full Exam - General 1994 Abdomen abdominal exam Overall: normal bowel sounds 05/10/2018 None Full Exam - General 1994 Lymphatic neck nodes Overall: anterior cervical chain benign 05/10/2018 None Full Exam - General 1994 Lymphatic neck nodes Overall: posterior cervical chain benign 05/10/2018 None Full Exam - General 1994 Musculoskeletal spine, ribs and pelvis Posture: lordosis 05/10/2018 None Full Exam - General 1994 Musculoskeletal spine, ribs and pelvis Sacroiliac joints: tender right sacroiliac joint 05/10/2018 None Full Exam - General 1994 Musculoskeletal head and neck Overall: head atraumatic 05/10/2018 None Full Exam - General 1994 Musculoskeletal head and neck Overall: cervical spine benign 05/10/2018 None Full Exam - General 1994 Neurologic deep tendon reflexes Overall: deep tendon reflexes intact 05/10/2018 None Full Exam - General 1994 Neurologic cranial nerves Overall: crainial nerves 2 - 12 grossly intact 05/10/2018 None Full Exam - General 1994 Psychiatric orientation/consciousness Overall: oriented to person, place and time 05/10/2018 None Full Exam - General 1994 Psychiatric mood and affect Overall: normal mood and affect 05/10/2018 None Full Exam - General 1994 Integument inspection of skin Location: back 05/10/2018 scar across lower back Full Exam - General 1994 Constitutional general appearance Development: well developed 02/14/2018 None Full Exam - General 1994 Constitutional general appearance Development: appears stated age 0402/14/2018 None Full Exam - General 1994 Constitutional general appearance Hygiene/Attention to Grooming: good hygiene 02/14/2018 None Full Exam - General 1994 Eyes conjunctiva/eyelids Overall: conjunctiva clear 02/14/2018 None Full Exam - General 1994 Eyes conjunctiva/eyelids Overall: cornea clear 02/14/2018 None Full Exam - General 1994 Eyes conjunctiva/eyelids Overall: eyelids normal 02/14/2018 None Full Exam - General 1994 Eyes pupils and irises Overall: pupils equal, round, reactive to light and accomodation 02/14/2018 None Full Exam - General 1994 Ears/Nose/Throat otoscopic exam Overall: external auditory canals clear 02/14/2018 None Full Exam - General 1994 Ears/Nose/Throat otoscopic exam Overall: tympanic membranes clear 02/14/2018 None Full Exam - General 1994 Ears/Nose/Throat lips/teeth/gingiva Overall: benign lips 02/14/2018 None Full Exam - General 1994 Ears/Nose/Throat lips/teeth/gingiva Overall: normal dentition 02/14/2018 None Full Exam - General 1994 Ears/Nose/Throat oral cavity/pharynx/larynx Overall: oral mucosa clear 02/14/2018 None Full Exam - General 1994 Ears/Nose/Throat oral cavity/pharynx/larynx Overall: oropharyngeal mucosa clear 02/14/2018 None Full Exam - General 1994 Ears/Nose/Throat oral cavity/pharynx/larynx Overall: hypopharynx benign 02/14/2018 None Full Exam - General 1994 Ears/Nose/Throat oral cavity/pharynx/larynx Overall: no masses 02/14/2018 None Full Exam - General 1994 Respiratory auscultation Overall: breath sounds clear bilaterally 02/14/2018 None Full Exam - General 1994 Respiratory respiratory effort/rhythm Overall: no retractions 02/14/2018 None Full Exam - General 1994 Respiratory respiratory effort/rhythm Overall: normal rate 02/14/2018 None Full Exam - General 1994 Cardiovascular extremities Overall: no clubbing 02/14/2018 None Full Exam - General 1994 Cardiovascular auscultation of heart Overall: regular rate 02/14/2018 None Full Exam - General 1994 Cardiovascular auscultation of heart Overall: normal heart sounds 02/14/2018 None Full Exam - General 1994 Abdomen abdominal exam Overall: no tenderness 02/14/2018 None Full Exam - General 1994 Abdomen abdominal exam Overall: normal bowel sounds 02/14/2018 None Full Exam - General 1994 Lymphatic neck nodes Overall: anterior cervical chain benign 02/14/2018 None Full Exam - General 1994 Lymphatic neck nodes Overall: posterior cervical chain benign 02/14/2018 None Full Exam - General 1994 Musculoskeletal spine, ribs and pelvis Posture: lordosis 02/14/2018 None Full Exam - General 1994 Musculoskeletal spine, ribs and pelvis Sacroiliac joints: tender right sacroiliac joint 02/14/2018 None Full Exam - General 1994 Musculoskeletal head and neck Overall: head atraumatic 02/14/2018 None Full Exam - General 1994 Musculoskeletal head and neck Overall: cervical spine benign 02/14/2018 None Full Exam - General 1994 Integument inspection of skin Overall: few scattered moles, no gross abnormalities 02/14/2018 None Full Exam - General 1994 Neurologic deep tendon reflexes Overall: deep tendon reflexes intact 02/14/2018 None Full Exam - General 1994 Neurologic cranial nerves Overall: crainial nerves 2 - 12 grossly intact 02/14/2018 None Full Exam - General 1994 Psychiatric orientation/consciousness Overall: oriented to person, place and time 02/14/2018 None Full Exam - General 1994 Psychiatric mood and affect Overall: normal mood and affect 02/14/2018 None Full Exam - General 1994 Constitutional general appearance Development: well developed 11/17/2017 None Full Exam - General 1994 Constitutional general appearance Development: appears stated age 0111/17/2017 None Full Exam - General 1994 Constitutional general appearance Hygiene/Attention to Grooming: good hygiene 11/17/2017 None Full Exam - General 1994 Eyes conjunctiva/eyelids Overall: conjunctiva clear 11/17/2017 None Full Exam - General 1994 Eyes conjunctiva/eyelids Overall: cornea clear 11/17/2017 None Full Exam - General 1994 Eyes conjunctiva/eyelids Overall: eyelids normal 11/17/2017 None Full Exam - General 1994 Eyes pupils and irises Overall: pupils equal, round, reactive to light and accomodation 11/17/2017 None Full Exam - General 1994 Ears/Nose/Throat otoscopic exam Overall: external auditory canals clear 11/17/2017 None Full Exam - General 1994 Ears/Nose/Throat otoscopic exam Overall: tympanic membranes clear 11/17/2017 None Full Exam - General 1994 Ears/Nose/Throat lips/teeth/gingiva Overall: benign lips 11/17/2017 None Full Exam - General 1994 Ears/Nose/Throat lips/teeth/gingiva Overall: normal dentition 11/17/2017 None Full Exam - General 1994 Ears/Nose/Throat oral cavity/pharynx/larynx Overall: oral mucosa clear 11/17/2017 None Full Exam - General 1994 Ears/Nose/Throat oral cavity/pharynx/larynx Overall: oropharyngeal mucosa clear 11/17/2017 None Full Exam - General 1994 Ears/Nose/Throat oral cavity/pharynx/larynx Overall: hypopharynx benign 11/17/2017 None Full Exam - General 1994 Ears/Nose/Throat oral cavity/pharynx/larynx Overall: no masses 11/17/2017 None Full Exam - General 1994 Respiratory auscultation Overall: breath sounds clear bilaterally 11/17/2017 None Full Exam - General 1994 Respiratory respiratory effort/rhythm Overall: no retractions 11/17/2017 None Full Exam - General 1994 Respiratory respiratory effort/rhythm Overall: normal rate 11/17/2017 None Full Exam - General 1994 Cardiovascular extremities Overall: no clubbing 11/17/2017 None Full Exam - General 1994 Cardiovascular auscultation of heart Overall: regular rate 11/17/2017 None Full Exam - General 1994 Cardiovascular auscultation of heart Overall: normal heart sounds 11/17/2017 None Full Exam - General 1994 Abdomen abdominal exam Overall: no tenderness 11/17/2017 None Full Exam - General 1994 Abdomen abdominal exam Overall: normal bowel sounds 11/17/2017 None Full Exam - General 1994 Lymphatic neck nodes Overall: anterior cervical chain benign 11/17/2017 None Full Exam - General 1994 Lymphatic neck nodes Overall: posterior cervical chain benign 11/17/2017 None Full Exam - General 1994 Musculoskeletal head and neck Overall: head atraumatic 11/17/2017 None Full Exam - General 1994 Musculoskeletal head and neck Overall: cervical spine benign 11/17/2017 None Full Exam - General 1994 Integument inspection of skin Overall: few scattered moles, no gross abnormalities 11/17/2017 None Full Exam - General 1994 Neurologic deep tendon reflexes Overall: deep tendon reflexes intact 11/17/2017 None Full Exam - General 1994 Neurologic cranial nerves Overall: crainial nerves 2 - 12 grossly intact 11/17/2017 None Full Exam - General 1994 Psychiatric orientation/consciousness Overall: oriented to person, place and time 11/17/2017 None Full Exam - General 1994 Psychiatric mood and affect Overall: normal mood and affect 11/17/2017 None Full Exam - General 1994 Musculoskeletal spine, ribs and pelvis Sacroiliac joints: tender right sacroiliac joint 11/17/2017 None Full Exam - General 1994 Musculoskeletal spine, ribs and pelvis Posture: lordosis 11/17/2017 None Full Exam - General 1994 Constitutional general appearance Development: well developed 10/06/2017 None Full Exam - General 1994 Constitutional general appearance Development: appears stated age 1110/06/2017 None Full Exam - General 1994 Constitutional general appearance Hygiene/Attention to Grooming: good hygiene 10/06/2017 None Full Exam - General 1994 Eyes conjunctiva/eyelids Overall: conjunctiva clear 10/06/2017 None Full Exam - General 1994 Eyes conjunctiva/eyelids Overall: cornea clear 10/06/2017 None Full Exam - General 1994 Eyes conjunctiva/eyelids Overall: eyelids normal 10/06/2017 None Full Exam - General 1994 Eyes pupils and irises Overall: pupils equal, round, reactive to light and accomodation 10/06/2017 None Full Exam - General 1994 Ears/Nose/Throat otoscopic exam Overall: external auditory canals clear 10/06/2017 None Full Exam - General 1994 Ears/Nose/Throat otoscopic exam Overall: tympanic membranes clear 10/06/2017 None Full Exam - General 1994 Ears/Nose/Throat lips/teeth/gingiva Overall: benign lips 10/06/2017 None Full Exam - General 1994 Ears/Nose/Throat lips/teeth/gingiva Overall: normal dentition 10/06/2017 None Full Exam - General 1994 Ears/Nose/Throat oral cavity/pharynx/larynx Overall: oral mucosa clear 10/06/2017 None Full Exam - General 1994 Ears/Nose/Throat oral cavity/pharynx/larynx Overall: oropharyngeal mucosa clear 10/06/2017 None Full Exam - General 1994 Ears/Nose/Throat oral cavity/pharynx/larynx Overall: hypopharynx benign 10/06/2017 None Full Exam - General 1994 Ears/Nose/Throat oral cavity/pharynx/larynx Overall: no masses 10/06/2017 None Full Exam - General 1994 Respiratory auscultation Overall: breath sounds clear bilaterally 10/06/2017 None Full Exam - General 1994 Respiratory respiratory effort/rhythm Overall: no retractions 10/06/2017 None Full Exam - General 1994 Respiratory respiratory effort/rhythm Overall: normal rate 10/06/2017 None Full Exam - General 1994 Cardiovascular extremities Overall: no clubbing 10/06/2017 None Full Exam - General 1994 Cardiovascular auscultation of heart Overall: regular rate 10/06/2017 None Full Exam - General 1994 Cardiovascular auscultation of heart Overall: normal heart sounds 10/06/2017 None Full Exam - General 1994 Abdomen abdominal exam Overall: no tenderness 10/06/2017 None Full Exam - General 1994 Abdomen abdominal exam Overall: normal bowel sounds 10/06/2017 None Full Exam - General 1994 Lymphatic neck nodes Overall: anterior cervical chain benign 10/06/2017 None Full Exam - General 1994 Lymphatic neck nodes Overall: posterior cervical chain benign 10/06/2017 None Full Exam - General 1994 Musculoskeletal spine, ribs and pelvis Overall: spine benign 10/06/2017 None Full Exam - General 1994 Musculoskeletal spine, ribs and pelvis Overall: sacroiliac joint benign 10/06/2017 None Full Exam - General 1994 Musculoskeletal spine, ribs and pelvis Overall: good posture 10/06/2017 None Full Exam - General 1994 Musculoskeletal head and neck Overall: head atraumatic 10/06/2017 None Full Exam - General 1994 Musculoskeletal head and neck Overall: cervical spine benign 10/06/2017 None Full Exam - General 1994 Integument inspection of skin Overall: few scattered moles, no gross abnormalities 10/06/2017 None Full Exam - General 1994 Neurologic deep tendon reflexes Overall: deep tendon reflexes intact 10/06/2017 None Full Exam - General 1994 Neurologic cranial nerves Overall: crainial nerves 2 - 12 grossly intact 10/06/2017 None Full Exam - General 1994 Psychiatric orientation/consciousness Overall: oriented to person, place and time 10/06/2017 None Full Exam - General 1994 Psychiatric mood and affect Overall: normal mood and affect 10/06/2017 None Procedures No Procedures data Vital Signs Date Vital 04/06/2019 Blood Pressure 1: 164/94 Code: 8480-6 Blood Pressure 1: 160/90 Code: 8480-6 BMI: 41.0 Code: 66217-1 Heart Rate 1: 84 bpm Height: 5'6" SpO2: 97% Weight: 254 lbs 12/12/2018 Blood Pressure 1: 154/88 Code: 8480-6 BMI: 41.3 Code: 82772-5 Heart Rate 1: 114 bpm Height: 5'6" SpO2: 97% Weight: 256 lbs 11/23/2018 Blood Pressure 1: 178/90 Code: 8480-6 BMI: 40.7 Code: 35421-5 Heart Rate 1: 103 bpm Height: 5'6" SpO2: 98% Weight: 252 lbs 09/21/2018 Blood Pressure 1: 150/82 Code: 8480-6 BMI: 40.0 Code: 34912-3 Heart Rate 1: 91 bpm Height: 5'6" SpO2: 98% Weight: 248 lbs 05/10/2018 Blood Pressure 1: 140/82 Code: 8480-6 BMI: 39.2 Code: 25675-7 Heart Rate 1: 89 bpm Height: 5'6" SpO2: 96% Weight: 242 lbs 10 oz 02/14/2018 Blood Pressure 1: 156/88 Code: 8480-6 BMI: 38.4 Code: 30721-2 Heart Rate 1: 88 bpm Height: 5'6" SpO2: 98% Weight: 238 lbs 12/15/2017 Blood Pressure 1: 172/90 Code: 8480-6 Heart Rate 1: 98 bpm SpO2: 98% 11/17/2017 Blood Pressure 1: 150/84 Code: 8480-6 BMI: 38.7 Code: 36752-7 Heart Rate 1: 91 bpm Height: 5'6" SpO2: 97% Weight: 240 lbs 10/06/2017 Blood Pressure 1: 152/82 Code: 8480-6 BMI: 38.4 Code: 57906-8 Heart Rate 1: 91 bpm Height: 5'6" SpO2: 98% Weight: 238 lbs Functional Status No Functional Status data History of Present Illness Symptom Name Status Result Effective Date Notes Quality chronic 04/06/2019 None Quality primary hypertension 04/06/2019 None Onset and Resolution ongoing 04/06/2019 None Onset of Symptom during adulthood 04/06/2019 None Blood Pressure Values not checking blood pressure at home 04/06/2019 None Alleviating Factors medication 04/06/2019 None Exacerbating Factors stress 04/06/2019 None Pertinent Findings Denies dizziness 04/06/2019 None Pertinent Findings Denies dyspnea 04/06/2019 None Pertinent Findings Denies edema 04/06/2019 None Additional Comments medication use 04/06/2019 None Location lumbar-sacral spine 04/06/2019 None Quality constant 04/06/2019 None Quality chronic 12/12/2018 None Quality primary hypertension 12/12/2018 None Onset and Resolution ongoing 12/12/2018 None Onset of Symptom during adulthood 12/12/2018 None Blood Pressure Values not checking blood pressure at home 12/12/2018 None Alleviating Factors medication 12/12/2018 None Exacerbating Factors stress 12/12/2018 None Pertinent Findings Denies dizziness 12/12/2018 None Pertinent Findings Denies dyspnea 12/12/2018 None Pertinent Findings Denies edema 12/12/2018 None Additional Comments medication use 12/12/2018 None Onset of Symptom onset as an adult 11/23/2018 --diagnosed about 15 years ago Quality non-insulin dependent 11/23/2018 None Quality chronic 11/23/2018 None Alleviating Factors medication 11/23/2018 None Exacerbating Factors diet 11/23/2018 None Pertinent Findings Denies dizziness 11/23/2018 None Pertinent Findings Denies dyspnea 11/23/2018 None Pertinent Findings Denies nausea 11/23/2018 None Quality primary hypertension 11/23/2018 None Onset and Resolution ongoing 11/23/2018 None Onset of Symptom during adulthood 11/23/2018 None Blood Pressure Values not checking blood pressure at home 11/23/2018 None Alleviating Factors medication 11/23/2018 None Exacerbating Factors stress 11/23/2018 None Pertinent Findings Denies dizziness 11/23/2018 None Pertinent Findings Denies dyspnea 11/23/2018 None Pertinent Findings Denies edema 11/23/2018 None Test results Pt checking blood glucose readings, did not bring results to clinic 11/23/2018 None Test results HgbA1c level 7.1 11/23/2018 None Quality chronic 11/23/2018 None Glucose monitoring occasional glucose testing 11/23/2018 -Running around 114 diabetes mellitus Onset of Symptom onset as an adult 09/21/2018 --diagnosed about 14 years ago diabetes mellitus Quality non-insulin dependent 09/21/2018 None diabetes mellitus Quality chronic 09/21/2018 None diabetes mellitus Alleviating Factors medication 09/21/2018 None diabetes mellitus Exacerbating Factors diet 09/21/2018 None diabetes mellitus Pertinent Findings Denies dizziness 09/21/2018 None diabetes mellitus Pertinent Findings Denies dyspnea 09/21/2018 None diabetes mellitus Pertinent Findings Denies nausea 09/21/2018 None hypertension Quality primary hypertension 09/21/2018 None hypertension Onset and Resolution ongoing 09/21/2018 None hypertension Onset of Symptom during adulthood 09/21/2018 None hypertension Alleviating Factors medication 09/21/2018 None hypertension Exacerbating Factors stress 09/21/2018 None hypertension Pertinent Findings Denies dizziness 09/21/2018 None hypertension Pertinent Findings Denies dyspnea 09/21/2018 None hypertension Pertinent Findings Denies edema 09/21/2018 -She does have if she travels often diabetes mellitus Test results Pt checking blood glucose readings, did not bring results to clinic 09/21/2018 None diabetes mellitus Glucose monitoring fasting 09/21/2018 -usually 130s, but this morning was 145 hypertension Blood Pressure Values not checking blood pressure at home 09/21/2018 None diabetes mellitus Test results HgbA1c level 7.1 09/21/2018 None diabetes mellitus Onset of Symptom onset as an adult 05/10/2018 --diagnosed about 14 years ago diabetes mellitus Quality non-insulin dependent 05/10/2018 None diabetes mellitus Quality chronic 05/10/2018 None diabetes mellitus Alleviating Factors medication 05/10/2018 None diabetes mellitus Exacerbating Factors diet 05/10/2018 None diabetes mellitus Pertinent Findings Denies dizziness 05/10/2018 None diabetes mellitus Pertinent Findings Denies dyspnea 05/10/2018 None diabetes mellitus Pertinent Findings Denies nausea 05/10/2018 None hypertension Quality primary hypertension 05/10/2018 None hypertension Onset and Resolution ongoing 05/10/2018 None hypertension Onset of Symptom during adulthood 05/10/2018 None hypertension Blood Pressure Values patient checking blood pressure at home - did not bring in readings 05/10/2018 None hypertension Alleviating Factors medication 05/10/2018 None hypertension Exacerbating Factors stress 05/10/2018 None hypertension Pertinent Findings Denies dizziness 05/10/2018 None hypertension Pertinent Findings Denies dyspnea 05/10/2018 None hypertension Pertinent Findings Denies edema 05/10/2018 --has taken lasix as needed in the past- has 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 diabetes mellitus Test results Pt checking blood glucose readings, did not bring results to clinic 05/10/2018 None diabetes mellitus Blood glucose levels between 60 and 120 05/10/2018 None diabetes mellitus Onset of Symptom onset as an adult 02/14/2018 --diagnosed about 14 years ago diabetes mellitus Quality non-insulin dependent 02/14/2018 None diabetes mellitus Quality chronic 02/14/2018 None diabetes mellitus Alleviating Factors medication 02/14/2018 None diabetes mellitus Exacerbating Factors diet 02/14/2018 None diabetes mellitus Pertinent Findings Denies dizziness 02/14/2018 None diabetes mellitus Pertinent Findings Denies dyspnea 02/14/2018 None diabetes mellitus Pertinent Findings Denies nausea 02/14/2018 None leg pain/sciatica Radiating the right posterior thigh 02/14/2018 None leg pain/sciatica Quality chronic 02/14/2018 None leg pain/sciatica Quality constant 02/14/2018 None leg pain/sciatica Onset and Resolution ongoing 02/14/2018 None leg pain/sciatica Limitation on Activities allows weight bearing activity 02/14/2018 None leg pain/sciatica Frequency of Episodes daily 02/14/2018 None leg pain/sciatica Alleviating Factors medications 02/14/2018 None hypertension Quality primary hypertension 02/14/2018 None hypertension Onset and Resolution ongoing 02/14/2018 None hypertension Onset of Symptom during adulthood 02/14/2018 None hypertension Alleviating Factors medication 02/14/2018 None hypertension Exacerbating Factors stress 02/14/2018 None hypertension Pertinent Findings Denies dizziness 02/14/2018 None hypertension Pertinent Findings Denies dyspnea 02/14/2018 None hypertension Pertinent Findings Denies edema 02/14/2018 --has taken lasix as needed in the past- has 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 diabetes mellitus Test results Pt checking blood glucose readings, did not bring results to clinic 02/14/2018 None diabetes mellitus Glucose monitoring occasional glucose testing 02/14/2018 None hypertension Blood Pressure Values patient checking blood pressure at home - did not bring in readings 02/14/2018 None diabetes mellitus Onset of Symptom onset as an adult 11/17/2017 --diagnosed about 14 years ago diabetes mellitus Quality non-insulin dependent 11/17/2017 None diabetes mellitus Quality chronic 11/17/2017 None diabetes mellitus Alleviating Factors medication 11/17/2017 None diabetes mellitus Exacerbating Factors diet 11/17/2017 None diabetes mellitus Pertinent Findings Denies dizziness 11/17/2017 None diabetes mellitus Pertinent Findings Denies dyspnea 11/17/2017 None diabetes mellitus Pertinent Findings Denies nausea 11/17/2017 None leg pain/sciatica Radiating the right posterior thigh 11/17/2017 None leg pain/sciatica Quality chronic 11/17/2017 None leg pain/sciatica Quality constant 11/17/2017 None leg pain/sciatica Onset and Resolution ongoing 11/17/2017 None leg pain/sciatica Limitation on Activities allows weight bearing activity 11/17/2017 None leg pain/sciatica Frequency of Episodes daily 11/17/2017 None leg pain/sciatica Alleviating Factors medications 11/17/2017 None hypertension Onset and Resolution ongoing 11/17/2017 None hypertension Onset of Symptom during adulthood 11/17/2017 None hypertension Blood Pressure Values not checking blood pressure at home 11/17/2017 None hypertension Alleviating Factors medication 11/17/2017 None hypertension Exacerbating Factors stress 11/17/2017 None hypertension Pertinent Findings Denies edema 11/17/2017 --has taken lasix as needed in the past- has 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 hypertension Quality primary hypertension 11/17/2017 None hypertension Pertinent Findings Denies dizziness 11/17/2017 None hypertension Pertinent Findings Denies dyspnea 11/17/2017 None diabetes mellitus Test results Pt checking blood glucose readings, did not bring results to clinic 11/17/2017 None diabetes mellitus Glucose monitoring occasional glucose testing 11/17/2017 None diabetes mellitus Quality non-insulin dependent 10/06/2017 None leg pain/sciatica Radiating the right posterior thigh 10/06/2017 None diabetes mellitus Onset of Symptom onset as an adult 10/06/2017 --diagnosed about 14 years ago diabetes mellitus Quality chronic 10/06/2017 None diabetes mellitus Test results Pt checking blood glucose readings, did not bring results to clinic 10/06/2017 None diabetes mellitus Glucose monitoring occasional glucose testing 10/06/2017 None diabetes mellitus Alleviating Factors medication 10/06/2017 None diabetes mellitus Exacerbating Factors diet 10/06/2017 None diabetes mellitus Pertinent Findings Denies dizziness 10/06/2017 None diabetes mellitus Pertinent Findings Denies dyspnea 10/06/2017 None diabetes mellitus Pertinent Findings Denies nausea 10/06/2017 None hypertension Onset and Resolution ongoing 10/06/2017 None hypertension Onset of Symptom during adulthood 10/06/2017 None hypertension Blood Pressure Values not checking blood pressure at home 10/06/2017 None hypertension Alleviating Factors medication 10/06/2017 None hypertension Exacerbating Factors stress 10/06/2017 None hypertension Pertinent Findings edema 10/06/2017 --has taken lasix as needed in the past- has 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 leg pain/sciatica Quality chronic 10/06/2017 None leg pain/sciatica Quality constant 10/06/2017 None leg pain/sciatica Onset and Resolution ongoing 10/06/2017 None leg pain/sciatica Limitation on Activities allows weight bearing activity 10/06/2017 None leg pain/sciatica Frequency of Episodes daily 10/06/2017 None leg pain/sciatica Alleviating Factors medications 10/06/2017 None diabetes mellitus Test results HgbA1c level 6.1 10/06/2017 this was done in 08/24 Advance Directives No Advance Directive data Encounters Encounter Performer Location Codes Date ([id number]) [id number] EST. PATIENT, LEVEL IV Diagnosis: Essential (primary) hypertension[ICD10: I10] Diagnosis: Type 2 diabetes mellitus with hyperglycemia[ICD10: E11.65] Katerine Laurent MD, [facility] CPT-4: 76654 04/06/2019 ([id number] 11419 EST. PATIENT, LEVEL IV Diagnosis: Essential (primary) hypertension[ICD10: I10] Diagnosis: Type 2 diabetes mellitus with hyperglycemia[ICD10: E11.65] Katerine Laurent MD, [facility] CPT-4: 00745 12/12/2018 ([id number] EST. PATIENT, LEVEL IV Diagnosis: Essential (primary) hypertension[ICD10: I10] Diagnosis: Type 2 diabetes mellitus without complications[ICD10: E11.9] Katerine Laurent MD, [facility] CPT-4: 83979 11/23/2018 ([id number]) PREV VISIT EST AGE 40-64 Diagnosis: Encounter for general adult medical examination with abnormal findings[ICD10: Z00.01] [facility] CPT-4: 91980 09/21/2018 ([id number]) 09943 EST. PATIENT, LEVEL IV Diagnosis: Essential (primary) hypertension[ICD10: I10] Diagnosis: Type 2 diabetes mellitus without complications[ICD10: E11.9] [facility] CPT-4: 21960 05/10/2018 ([id number]) 14290 EST. PATIENT, LEVEL III Diagnosis: Essential (primary) hypertension[ICD10: I10] Katerine Laurent MD, [facility] CPT-4: 70839 02/14/2018 ([id number]) Miscellaneous no charge Diagnosis: Essential (primary) hypertension[ICD10: I10] [facility] Velasquez MD CPT-4: 69678 12/15/2017 ([id number]) 88508 EST. PATIENT, LEVEL III Diagnosis: Essential (primary) hypertension[ICD10: I10] Diagnosis: Sciatica, right side[ICD10: M54.31] Katerine Laurent MD, [facility] CPT- 4: 02960 11/17/2017 ([id number]) PREV VISIT EST AGE 40-64 Diagnosis: Encounter for general adult medical examination with abnormal findings[ICD10: Z00.01] Katerine Laurent MD, [facility] CPT-4: 46348 10/06/2017 Plan of Care Planned Activity Notes Codes Status Date Visit Plan: Hypertension - uncontrolled - the patient's medications have been modified as documented in the visit note. The patient has been counseled to cut back on salt in diet for a no added salt diet, low fat diet, start an exercise program with low weight bearing exercises and higher aerobic activity for heart health. The patient is to check blood pressure readings as an outpatient and either fax, call, or email the readings to the office next week for practitioner to review. The pt is to call for acute concerns. Increase metoprolol to 75mg twice daily, continue with other current medications. With family hx of CAD - I have recommended a referral to Dr. Tellez - for stress testing and general cardiac eval. Diabetes Mellitus - controlled - per recent FSBS reports. I have recommended for the patient to have follow up labs prior to the next office visit. The patient has been instructed to continue with current medications as previously directed, continue with regular FSBS monitoring to assure continued control of diabetes. Pt to call for any acute concerns, complaints, or if the blood glucose readings are starting to become less controlled. Needs Colonoscopy - referral to Dr. Arciniega 04/06/2019 Patient Education: Patient Medication Summary Completed 04/06/2019 Patient Education: Diabetes Completed 04/06/2019 Care Plan: Referral Order SNOMED-CT : [id number] Pending 04/06/2019 Visit Plan: Hypertension - well controlled - continue with current medications, continue with no added salt diet. Pt has been encouraged to exercise daily. The pt has been advised to call the office if there are any acute concerns about change in blood pressure readings at home. Diabetes Mellitus - Uncontrolled - per recent FSBS reports. I have recommended for the patient to have follow up labs prior to the next office visit. The patient has been instructed to continue with current medications as previously directed, continue with regular FSBS monitoring to assure continued control of diabetes. Pt to call for any acute concerns, complaints, or if the blood glucose readings are starting to become less controlled. I have recommended for the patient to follow more strictly to the diabetic diet as discussed in clinic to allow for greater blood glucose control. increase trulicity to 1.5mL weekly. 12/12/2018 [facility]ment: [phone] [facility] (15 min) Moderate 12/12/2018 Patient Education: Patient Medication Summary Completed 12/12/2018 Patient Education: Diabetes Completed 12/12/2018 Appointment: [facility] [phone] [facility] (15 min) Moderate 11/30/2018 Visit Plan: Hypertension - uncontrolled - the patient's medications have been modified as documented in the visit note. The patient has been counseled to cut back on salt in diet for a no added salt diet, low fat diet, start an exercise program with low weight bearing exercises and higher aerobic activity for heart health. The patient is to check blood pressure readings as an outpatient and either fax, call, or email the readings to the office next week for practitioner to review. The pt is to call for acute concerns. Increase metoprolol to 50mg daily. Diabetes Mellitus - controlled - per recent FSBS reports. I have recommended for the patient to have follow up labs prior to the next office visit. The patient has been instructed to continue with current medications as previously directed, continue with regular FSBS monitoring to assure continued control of diabetes. Pt to call for any acute concerns, complaints, or if the blood glucose readings are starting to become less controlled. 11/23/2018 Appointment: [phone] [facility] (15 min) Moderate 11/23/2018 Patient Education: Patient Medication Summary Completed 11/23/2018 Patient Education: Diabetes Completed 11/23/2018 Appointment: Sel[facility] Luevano [facility]el[facility] [phone] [facility] (30 min) Complex 11/03/2018 Visit Plan: Well Adult - pt was counseled about diet, exercise, and encouraged to follow a heart healthy diet and increase activity level. The patient was instructed to RTC yearly for well adult exams and PRN for acute illnesses. The pt was also instructed to have yearly labs for check of cholesterol, thyroid, chem panel, CBC, and renal functioning. Hypertension - uncontrolled - the patient's medications have been modified as documented in the visit note. The patient has been counseled to cut back on salt in diet for a no added salt diet, low fat diet, start an exercise program with low weight bearing exercises and higher aerobic activity for heart health. The patient is to check blood pressure readings as an outpatient and either fax, call, or email the readings to the office next week for practitioner to review. The pt is to call for acute concerns. if your blood pressure is at or above 160, take 1/2 of an amlodipine start on the metoprolol xl 25mg daily in the morning Diabetes Mellitus - controlled - per recent FSBS reports. I have recommended for the patient to have follow up labs prior to the next office visit. The patient has been instructed to continue with current medications as previously directed, continue with regular FSBS monitoring to assure continued control of diabetes. Pt to call for any acute concerns, complaints, or if the blood glucose readings are starting to become less controlled. Edema - due to amlodipine - stop this medication - use compression socks while seated. 09/21/2018 Appointment: [facility] [phone] [facility] (15 min) Moderate 09/21/2018 Patient Education: Patient Medication Summary Completed 09/21/2018 Patient Education: Diabetes Completed 09/21/2018 Visit Plan: Hypertension - well controlled - continue with current medications, continue with no added salt diet. Pt has been encouraged to exercise daily. The pt has been advised to call the office if there are any acute concerns about change in blood pressure readings at home. Diabetes Mellitus - controlled - per recent FSBS reports. I have recommended for the patient to have follow up labs prior to the next office visit. The patient has been instructed to continue with current medications as previously directed, continue with regular FSBS monitoring to assure continued control of diabetes. Pt to call for any acute concerns, complaints, or if the blood glucose readings are starting to become less controlled. 05/10/2018 Appointment: Katerine Laurent WPtel: [facility] (15 min) Moderate 05/10/2018 Patient Education: Patient Medication Summary Completed 05/10/2018 Appointment: Katerine Laurent WPtel: [phone] [facility] (15 min) Moderate 04/12/2018 Appointment: Katerine Laurent WPtel: [facility] (15 min) Moderate 02/16/2018 Visit Plan: Hypertension - uncontrolled - the patient's medications have been modified as documented in the visit note. The patient has been counseled to cut back on salt in diet for a no added salt diet, low fat diet, start an exercise program with low weight bearing exercises and higher aerobic activity for heart health. The patient is to check blood pressure readings as an outpatient and either fax, call, or email the readings to the office next week for practitioner to review. The pt is to call for acute concerns. Increase amlodipine to 10mg daily. 02/14/2018 Appointment: Katerine Laurent WPtel: [phone] [id number] [place] (15 min) Moderate 02/14/2018 Patient Education: Patient Medication Summary Completed 02/14/2018 Appointment: Nurse Visit 12/15/2017 Patient Education: Patient Medication Summary Completed 12/15/2017 Visit Plan: Hypertension - uncontrolled - the patient's medications have been modified as documented in the visit note. The patient has been counseled to cut back on salt in diet for a no added salt diet, low fat diet, start an exercise program with low weight bearing exercises and higher aerobic activity for heart health. The patient is to check blood pressure readings as an outpatient and either fax, call, or email the readings to the office next week for practitioner to review. The pt is to call for acute concerns. Sciatica- exercises discussed with the patient, pt to continue with antiinflammatories. Pt is to call if the symptoms do not improve or if they worsen. 11/17/2017 Patient Education: Patient Medication Summary Completed 11/17/2017 Appointment: Katerine Laurent WPtel: [id number] (15 min) Moderate 11/10/2017 Visit Plan: Well Adult - pt was counseled about diet, exercise, and encouraged to follow a heart healthy diet and increase activity level. The patient was instructed to RTC yearly for well adult exams and PRN for acute illnesses. The pt was also instructed to have yearly labs for check of cholesterol, thyroid, chem panel, CBC, and renal functioning. Hypertension - uncontrolled - the patient's medications have been modified as documented in the visit note. The patient has been counseled to cut back on salt in diet for a no added salt diet, low fat diet, start an exercise program with low weight bearing exercises and higher aerobic activity for heart health. The patient is to check blood pressure readings as an outpatient and either fax, call, or email the readings to the office next week for practitioner to review. The pt is to call for acute concerns. repeat eval in 1 month on higher dose of lisinopril at 20mg daily, continue with amlodipine 5mg daily. DM - Farxiga and metformin - monitor labs - last hgba1c of 6.1% 10/06/2017 Appointment: [id number] [facility] 10/06/2017 Patient Education: Patient Medication Summary Completed 10/06/2017 Referral: Marcos Tellez Referral Appointment Requested Instructions Comment . Well Adult - pt was counseled about diet, exercise, and encouraged to follow a heart healthy diet and increase activity level. The patient was instructed to RTC yearly for well adult exams and PRN for acute illnesses. The pt was also instructed to have yearly labs for check of cholesterol, thyroid, chem panel, CBC, and renal functioning. Hypertension - uncontrolled - the patient's medications have been modified as documented in the visit note. The patient has been counseled to cut back on salt in diet for a no added salt diet, low fat diet, start an exercise program with low weight bearing exercises and higher aerobic activity for heart health. The patient is to check blood pressure readings as an outpatient and either fax, call, or email the readings to the office next week for practitioner to review. The pt is to call for acute concerns. repeat eval in 1 month on higher dose of lisinopril at 20mg daily, continue with amlodipine 5mg daily. DM - Farxiga and metformin - monitor labs - last hgba1c of 6.1% ask renetta who she would like for you to have a colonoscopy with - then call the office to let me know . Hypertension - uncontrolled - the patient's medications have been modified as documented in the visit note. The patient has been counseled to cut back on salt in diet for a no added salt diet, low fat diet, start an exercise program with low weight bearing exercises and higher aerobic activity for heart health. The patient is to check blood pressure readings as an outpatient and either fax, call, or email the readings to the office next week for practitioner to review. The pt is to call for acute concerns. Increase metoprolol to 75mg twice daily, continue with other current medications. With family hx of CAD - I have recommended a referral to Dr. Tellez - for stress testing and general cardiac eval. Diabetes Mellitus - controlled - per recent FSBS reports. I have recommended for the patient to have follow up labs prior to the next office visit. The patient has been instructed to continue with current medications as previously directed, continue with regular FSBS monitoring to assure continued control of diabetes. Pt to call for any acute concerns, complaints, or if the blood glucose readings are starting to become less controlled. Needs Colonoscopy - referral to Dr. Arciniega . Hypertension - well controlled - continue with current medications, continue with no added salt diet. Pt has been encouraged to exercise daily. The pt has been advised to call the office if there are any acute concerns about change in blood pressure readings at home. Diabetes Mellitus - Uncontrolled - per recent FSBS reports. I have recommended for the patient to have follow up labs prior to the next office visit. The patient has been instructed to continue with current medications as previously directed, continue with regular FSBS monitoring to assure continued control of diabetes. Pt to call for any acute concerns, complaints, or if the blood glucose readings are starting to become less controlled. I have recommended for the patient to follow more strictly to the diabetic diet as discussed in clinic to allow for greater blood glucose control. increase trulicity to 1.5mL weekly. corcidin HBP - a safe decongestant for people with high blood pressure - take when you are having sinus congestion. flonase or nasonex for nasal congestion- this is a steroid nasal spray - use one spray per nostril twice daily. Nasal spray- use twice daily, one spray per nostril twice daily, after 30 minutes, rinse out nose with saline spray.. Use opposite hand per nostril to spray in the nasal steroid allergy spray. . Hypertension - uncontrolled - the patient's medications have been modified as documented in the visit note. The patient has been counseled to cut back on salt in diet for a no added salt diet, low fat diet, start an exercise program with low weight bearing exercises and higher aerobic activity for heart health. The patient is to check blood pressure readings as an outpatient and either fax, call, or email the readings to the office next week for practitioner to review. The pt is to call for acute concerns. Increase metoprolol to 50mg daily. Diabetes Mellitus - controlled - per recent FSBS reports. I have recommended for the patient to have follow up labs prior to the next office visit. The patient has been instructed to continue with current medications as previously directed, continue with regular FSBS monitoring to assure continued control of diabetes. Pt to call for any acute concerns, complaints, or if the blood glucose readings are starting to become less controlled. if your blood pressure is at or above 160, take 1/2 of an amlodipine start on the metoprolol xl 25mg daily in the morning . Well Adult - pt was counseled about diet, exercise, and encouraged to follow a heart healthy diet and increase activity level. The patient was instructed to RTC yearly for well adult exams and PRN for acute illnesses. The pt was also instructed to have yearly labs for check of cholesterol, thyroid, chem panel, CBC, and renal functioning. Hypertension - uncontrolled - the patient's medications have been modified as documented in the visit note. The patient has been counseled to cut back on salt in diet for a no added salt diet, low fat diet, start an exercise program with low weight bearing exercises and higher aerobic activity for heart health. The patient is to check blood pressure readings as an outpatient and either fax, call, or email the readings to the office next week for practitioner to review. The pt is to call for acute concerns. if your blood pressure is at or above 160, take 1/2 of an amlodipine start on the metoprolol xl 25mg daily in the morning Diabetes Mellitus - controlled - per recent FSBS reports. I have recommended for the patient to have follow up labs prior to the next office visit. The patient has been instructed to continue with current medications as previously directed, continue with regular FSBS monitoring to assure continued control of diabetes. Pt to call for any acute concerns, complaints, or if the blood glucose readings are starting to become less controlled. Edema - due to amlodipine - stop this medication - use compression socks while seated. . Hypertension - uncontrolled - the patient's medications have been modified as documented in the visit note. The patient has been counseled to cut back on salt in diet for a no added salt diet, low fat diet, start an exercise program with low weight bearing exercises and higher aerobic activity for heart health. The patient is to check blood pressure readings as an outpatient and either fax, call, or email the readings to the office next week for practitioner to review. The pt is to call for acute concerns. Sciatica- exercises discussed with the patient, pt to continue with antiinflammatories. Pt is to call if the symptoms do not improve or if they worsen. . Hypertension - well controlled - continue with current medications, continue with no added salt diet. Pt has been encouraged to exercise daily. The pt has been advised to call the office if there are any acute concerns about change in blood pressure readings at home. Diabetes Mellitus - controlled - per recent FSBS reports. I have recommended for the patient to have follow up labs prior to the next office visit. The patient has been instructed to continue with current medications as previously directed, continue with regular FSBS monitoring to assure continued control of diabetes. Pt to call for any acute concerns, complaints, or if the blood glucose readings are starting to become less controlled. . Hypertension - uncontrolled - the patient's medications have been modified as documented in the visit note. The patient has been counseled to cut back on salt in diet for a no added salt diet, low fat diet, start an exercise program with low weight bearing exercises and higher aerobic activity for heart health. The patient is to check blood pressure readings as an outpatient and either fax, call, or email the readings to the office next week for practitioner to review. The pt is to call for acute concerns. Increase amlodipine to 10mg daily.
[2019-06-13] MEDS ORDERED: LACTATED RINGERS 1,000 ML IV ONE (08:19)
[2019-06-13 08:20] VITALS: BP 178/92
[2019-06-13] MEDS ORDERED: LACTATED RINGERS 1,000 ML IV STA (08:21)
--- OUTSIDE RECORDS SUMMARY | 2019-06-13 08:21 | XMS REPORT | CCD ---
Author Author Katerine Laurent Organization Katerine Laurent MD, [facility] Address [address] [place] [address] Phone Care Team Providers Care Rose Grader Name Role Phone PP Unavailable CCM Unavailable Summary Purpose Interface Exchange Insurance Providers Payer name Policy type / Coverage type Covered republican ID Effective Begin Date Effective End Date [employer] Commercial Insurance [id number] 2017 Unknown Family history Father Diagnosis Age At Onset Hypertension Unknown Myocardial infarction Unknown Diabetes mellitus Type 2 Unknown Hypercholesterolemia Unknown Arthritis Unknown Social History Social History Element Codes Description Effective Dates Marital status Unknown Toy 10/06/2017 Number of children Unknown 3 10/06/2017 Employment Unknown 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; 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 10/06/[address]: 007109798 Never smoker 10/06/[address]: 536247754 Never drinks alcohol 10/06/2017 Has the patient [...] Instructions metoprolol tartrate 50 mg tablet RxNorm: 762528 1 Tablet(s) PO BID 02/17/2019 06/16/2019 Active fill 30 days : DC metoprolol succ metoprolol tartrate 50 mg tablet RxNorm: 874430 1 Tablet(s) PO BID 02/17/2019 02/16/2019 Inactive fill 30 days : DC metoprolol succ pravastatin 20 mg tablet RxNorm: 768190 1 Tablet(s) PO QHS 01/02/2019 12/27/2019 Active Trulicity 1.5 mg/0.5 mL subcutaneous pen injector RxNorm: 2877711 1.5 Milligram(s) SQ QW 12/13/2018 09/02/2020 Active gabapentin 300 mg capsule RxNorm: 540441 1 Capsule(s) PO QPM 12/13/2018 07/10/2019 Active Trulicity 1.5 mg/0.5 mL subcutaneous pen injector RxNorm: 7209170 1.5 Milligram(s) SQ QW 12/12/2018 12/12/2018 Inactive metoprolol succinate ER 50 mg tablet,extended release 24 hr RxNorm: 886854 1 Tablet(s) PO daily 11/23/2018 02/16/2019 Inactive please delete the 25mg metoprolol and fill the 50mg - and also delete the farxiga from her medication list as well - we stopped that medication in October Farxiga 10 mg tablet RxNorm: 9127684 1 TABLET BY MOUTH DAILY 10/19/2018 11/14/2018 Inactive metformin 1,000 mg tablet RxNorm: 358122 1 Tablet(s) PO BID 10/10/2018 10/04/2019 Active lisinopril 40 mg tablet RxNorm: 486310 1 Tablet(s) PO daily 09/21/2018 09/15/2019 Active this is the only dose of lisinopril that she should be taking - 40mg --please delete the other rxs of lisinopril Trulicity 0.75 mg/0.5 mL subcutaneous pen injector RxNorm: 4792571 0.75 Milligram(s) SQ QW 09/21/2018 12/11/2018 Inactive metoprolol succinate ER 25 mg tablet,extended release 24 hr RxNorm: 511663 1 Tablet(s) PO daily 09/21/2018 11/22/2018 Inactive please cancel her amlodipine rx Klor-Con 8 mEq tablet,extended release RxNorm: 677572 1 Tablet(s) PO daily 07/15/2018 10/07/2019 Active amlodipine 10 mg tablet RxNorm: 005909 1 Tablet(s) PO daily 02/14/2018 09/20/2018 Inactive Farxiga 10 mg tablet RxNorm: 9676464 1 Tablet(s) PO daily 01/31/2018 10/18/2018 Inactive pravastatin 20 mg tablet RxNorm: 626223 1 Tablet(s) PO QHS 01/12/2018 01/01/2019 Inactive pravastatin 20 mg tablet RxNorm: 907028 1 Tablet(s) PO QHS 01/12/2018 01/11/2018 Inactive gabapentin 300 mg capsule RxNorm: 875693 1 Capsule(s) PO QPM 11/17/2017 06/14/2018 Inactive lisinopril 40 mg tablet RxNorm: 734291 1 Tablet(s) PO daily 11/17/2017 09/20/2018 Inactive lisinopril 20 mg tablet RxNorm: 610847 1 Tablet(s) PO daily 10/06/2017 11/16/2017 Inactive estradiol 10 mcg vaginal tablet RxNorm: 804850 1 Tablet(s) VAG daily No Start Date Active metformin 1,000 mg tablet RxNorm: 235670 1 Tablet(s) PO BID No Start Date 10/09/2018 Inactive amlodipine 5 mg tablet RxNorm: 561680 1 Tablet(s) PO daily No Start Date 02/13/2018 Inactive lisinopril 10 mg tablet RxNorm: 064174 1 Tablet(s) PO daily No Start Date 10/05/2017 Inactive Farxiga 10 mg tablet RxNorm: 9663540 1 Tablet(s) PO daily No Start Date 01/30/2018 Inactive meloxicam 15 mg tablet RxNorm: 471039 1 Tablet(s) PO daily No Start Date 05/09/2018 Inactive pravastatin 10 mg tablet RxNorm: 806592 1 Tablet(s) PO daily No Start Date 01/11/2018 Inactive Klor-Con 8 mEq tablet,extended release RxNorm: 360113 1 Tablet(s) PO daily No Start Date 07/14/2018 Inactive Medication Administered No Medication Administered data Immunizations Vaccine Codes Date Status Influenza CVX: 141 08/11/2018 completed SHINGARIX CVX: 121 08/11/2018 completed Assessments Condition Codes Effective Dates Type 2 diabetes mellitus with hyperglycemia ICD-10: E11.65 ICD-9: 250.02 12/12/2018 Essential (primary) hypertension ICD-10: I10 ICD-9: 401.1 12/12/2018 Type 2 diabetes mellitus without complications ICD-10: E11.9 ICD-9: 250.00 11/23/2018 Localized edema ICD-10: R60.0 ICD-9: 782.3 09/21/2018 Encounter for general adult medical examination with abnormal findings ICD-10: Z00.01 ICD-9: V70.0 09/21/2018 Sciatica, right side ICD-10: M54.31 ICD-9: 724.3 11/17/2017 Reason For Visit Reason For Visit Effective Dates Notes hypertension 12/12/2018 diabetes mellitus 11/23/2018 diabetes mellitus 09/21/2018 diabetes mellitus 05/10/2018 diabetes mellitus 02/14/2018 diabetes mellitus 11/17/2017 diabetes mellitus 10/06/2017 Results Observation Observation Code Item Item Code Result Date %Hba1C Dah477 % HbA1c 53476- 6 7.1 % 08/30/2018 %Hba1C Nki851 Gluc Ave 157 mg/dL 08/30/2018 Comp Metabolic Zeo005 NA 140 mEq/L 05/06/2018 Comp Metabolic Vdt126 K 4.5 mEq/L 05/06/2018 Comp Metabolic Lzw676 CL 104 mEq/L 05/06/2018 Comp Metabolic Duf081 CO2 27.0 mEq/L 05/06/2018 Comp Metabolic Ixi540 ANION GAP 14 05/06/2018 Comp Metabolic Dak180 GLUCOSE 129 mg/dL 05/06/2018 Comp Metabolic Rbg681 Creat 0.7 mg/dL 05/06/2018 Comp Metabolic Qyw020 eGFR 90 ml/min/1.73m2 05/06/2018 Comp Metabolic Maj945 BUN 14 mg/dL 05/06/2018 Comp Metabolic Kxr105 B/C Ratio 19.7 Ratio 05/06/2018 Comp Metabolic Zzh263 CALCIUM 9.4 mg/dL 05/06/2018 Comp Metabolic Xno922 ALK PHOS 51 U/L 05/06/2018 Comp Metabolic Qmu052 AST(SGOT) 18 U/L 05/06/2018 Comp Metabolic Ybe725 ALT(SGPT) 22 U/L 05/06/2018 Comp Metabolic Erx299 BILI T 0.5 mg/dL 05/06/2018 Comp Metabolic Pnl967 ALBUMIN 4.3 g/dL 05/06/2018 Comp Metabolic Gai130 TPRO 6.9 g/dL 05/06/2018 Comp Metabolic Toc500 GLOB 2.6 g/dL 05/06/2018 Comp Metabolic Aao654 A/G Ratio 1.6 Ratio 05/06/2018 Comp Metabolic Qwz970 Osmo 282 mOsmo 05/06/2018 %Hba1C Xxn238 % HbA1c 10571- 6 6.6 % 05/06/2018 %Hba1C Uyv172 Gluc Ave 143 mg/dL 05/06/2018 Microalbumin Jkr905 MicroAlb <0.7 mg/dL 01/11/2018 Comp Metabolic Wah401 NA 142 mEq/L 01/11/2018 Comp Metabolic Fod610 K 4.4 mEq/L 01/11/2018 Comp Metabolic Dyb062 CL 104 mEq/L 01/11/2018 Comp Metabolic Tvh652 CO2 29.0 mEq/L 01/11/2018 Comp Metabolic Iax757 ANION GAP 13 01/11/2018 Comp Metabolic Asv393 GLUCOSE 115 mg/dL 01/11/2018 Comp Metabolic Xmv101 Creat 0.6 mg/dL 01/11/2018 Comp Metabolic Vsw144 eGFR 108 ml/min/1.73m2 01/11/2018 Comp Metabolic Mnb916 BUN 14 mg/dL 01/11/2018 Comp Metabolic Heh534 B/C Ratio 23.0 Ratio 01/11/2018 Comp Metabolic Igc416 CALCIUM 9.5 mg/dL 01/11/2018 Comp Metabolic Ggm061 ALK PHOS 36 U/L 01/11/2018 Comp Metabolic Xxm390 AST(SGOT) 19 U/L 01/11/2018 Comp Metabolic Ijf898 ALT(SGPT) 28 U/L 01/11/2018 Comp Metabolic Pxy406 BILI T 0.5 mg/dL 01/11/2018 Comp Metabolic Okk807 ALBUMIN 4.5 g/dL 01/11/2018 Comp Metabolic Get331 TPRO 7.1 g/dL 01/11/2018 Comp Metabolic Bje383 GLOB 2.6 g/dL 01/11/2018 Comp Metabolic Twu495 A/G Ratio 1.7 Ratio 01/11/2018 Comp Metabolic Kqy185 Osmo 285 mOsmo 01/11/2018 Tsh Ord6 TSH (3rd IS) 3.04 uIU/mL 01/11/2018 %Hba1C Swp774 % HbA1c 77498- 6 6.3 % 01/11/2018 %Hba1C Nzv030 Gluc Ave 134 mg/dL 01/11/2018 Cbc With [...] 30.6 pg 01/11/2018 Cbc With Differential Ord2 [place]% 7.9 % 01/11/2018 Cbc With Differential Ord2 [...] 2.07 K/ul 01/11/2018 Cbc With Differential Ord2 [place] ABS# 0.5 K/ul 01/11/2018 Cbc With Differential Ord2 Eos ABS# 0.2 K/ul 01/11/2018 Cbc With Differential Ord2 Baso ABS# 0.0 K/ul 01/11/2018 Lipid Ord30 CHOL 181 mg/dL 01/11/2018 Lipid Ord30 HDL 52.0 mg/dl 01/11/2018 Lipid Ord30 TRIG 205 mg/dL 01/11/2018 Lipid Ord30 LDL 88 mg/dL 01/11/2018 Lipid Ord30 C/HDL 3.5 Ratio 01/11/2018 Review of Systems System Result Effective Dates Constitutional No recent illness 12/12/2018 Constitutional No [...] accomodation 12/12/2018 None Full Exam - General 1994 Ears/Nose/Throat otoscopic exam Overall: external auditory canals clear 12/12/2018 None Full Exam - General 1994 Ears/Nose/Throat otoscopic exam Overall: tympanic membranes clear 12/12/2018 None Full Exam - General 1994 Ears/Nose/Throat lips/teeth/gingiva Overall: benign lips 12/12/2018 None [...] hygiene 11/23/2018 None Full Exam - General 1994 Eyes conjunctiva/eyelids Overall: conjunctiva clear 11/23/2018 None Full Exam - General 1994 Eyes conjunctiva/eyelids Overall: cornea clear 11/23/2018 None Full Exam - General 1994 Eyes conjunctiva/eyelids Overall: eyelids normal 11/23/2018 None Full Exam - General 1994 Eyes pupils and irises Overall: pupils equal, round, reactive to light and accomodation 11/23/2018 None Full Exam - General 1995 Ears/Nose/Throat otoscopic exam Overall: external auditory canals clear 11/23/2018 None Full Exam - General 1994 Ears/Nose/Throat otoscopic exam Overall: tympanic membranes clear 11/23/2018 None Full Exam - General 1995 Ears/Nose/Throat lips/teeth/gingiva Overall: benign lips 11/23/2018 None Full Exam - General 1994 Ears/Nose/Throat lips/teeth/gingiva Overall: normal dentition 11/23/2018 None [...] No Procedures data Vital Signs Date Vital 12/12/2018 Blood Pressure 1: 154/88 Code: 8480-6 BMI: 41.3 Code: 36816-1 Heart Rate 1: 114 bpm Height: 5'6" SpO2: 97% Weight: 256 lbs 11/23/2018 Blood Pressure 1: 178/90 Code: 8480-6 BMI: 40.7 Code: 37342-9 Heart Rate 1: 103 bpm Height: 5'6" SpO2: 98% Weight: 252 lbs 09/21/2018 Blood Pressure 1: 150/82 Code: 8480-6 BMI: 40.0 Code: 73569-7 Heart Rate 1: 91 bpm Height: 5'6" SpO2: 98% Weight: 248 lbs 05/10/2018 Blood Pressure 1: 140/82 Code: 8480-6 BMI: 39.2 Code: 10443-4 Heart Rate 1: 89 bpm Height: 5'6" SpO2: 96% Weight: 242 lbs 10 oz 02/14/2018 Blood Pressure 1: 156/88 Code: 8480-6 BMI: 38.4 Code: 86415-5 Heart Rate 1: 88 bpm Height: 5'6" SpO2: 98% Weight: 238 lbs 12/15/2017 Blood Pressure 1: 172/90 Code: 8480-6 Heart Rate 1: 98 bpm SpO2: 98% 11/17/2017 Blood Pressure 1: 150/84 Code: 8480-6 BMI: 38.7 Code: 03824-2 Heart Rate 1: 91 bpm Height: 5'6" SpO2: 97% Weight: 240 lbs 10/06/2017 Blood Pressure 1: 152/82 Code: 8480-6 BMI: 38.4 Code: 04339-5 Heart Rate 1: 91 bpm Height: 5'6" SpO2: 98% Weight: 238 lbs Functional Status No Functional Status data History of Present Illness Symptom Name Status Result Effective Date Notes Quality chronic 12/12/2018 None Quality primary hypertension [...] Directive data Encounters Encounter Performer Location Codes ([id number]) [id number] EST. PATIENT, LEVEL IV Diagnosis: Essential (primary) hypertension[ICD10: I10] Diagnosis: Type 2 diabetes mellitus with hyperglycemia[ICD10: E11.65] [facility] CPT-4: 69490 12/12/2018 ([id number]) 98837 EST. PATIENT, LEVEL IV Diagnosis: Essential (primary) hypertension[ICD10: I10] Diagnosis: Type 2 diabetes mellitus without complications[ICD10: E11.9] [facility] CPT-4: 62380 11/23/2018 ([id number]) PREV VISIT EST AGE 40-64 Diagnosis: Encounter for general adult medical examination with abnormal findings[ICD10: Z00.01] Katerine Laurent MD, [facility] CPT-4: 05773 09/21/2018 ([id number]) 18788 EST. PATIENT, LEVEL IV Diagnosis: Essential (primary) hypertension[ICD10: I10] Diagnosis: Type 2 diabetes mellitus without complications[ICD10: E11.9] SHAYY Velasquez MD CPT-4: 50515 05/10/2018 ([id number]) 74173 EST. PATIENT, LEVEL III Diagnosis: Essential (primary) hypertension[ICD10: I10] SHAYY Velasquez MD CPT-4: 57437 02/14/2018 ([id number]) Miscellaneous no charge Diagnosis: Essential (primary) hypertension[ICD10: I10] SHAYY Velasquez MD CPT-4: 78517 12/15/2017 ([id number]) 13796 EST. PATIENT, LEVEL III Diagnosis: Essential (primary) hypertension[ICD10: I10] Diagnosis: Sciatica, right side[ICD10: M54.31] Katerine Laurent MD, [facility] CPT- 4: 26679 11/17/2017 ([id number]) PREV VISIT EST AGE 40-64 Diagnosis: Encounter for general adult medical examination with abnormal findings[ICD10: Z00.01] Katerine Laurent MD, [facility] CPT-4: 86514 10/06/2017 Plan of Care Planned Activity Notes Codes Status Date Visit Plan: Hypertension - well controlled - [...] 1.5mL weekly. 12/12/2018 Appointment: [facility]ater[facility] [phone] [facility] [id number] (15 min) Moderate 12/12/2018 Patient Education: Patient Medication Summary Completed 12/12/2018 Patient Education: Diabetes Completed 12/12/2018 Appointment: Katerine Laurent [facility]el[facility] [phone] [facility] [place] (15 min) Moderate 11/30/2018 Visit Plan: Hypertension [...] controlled. 11/23/2018 Appointment: Katerine Laurent [facility] [phone] [facility] [place] (15 min) Moderate 11/23/2018 Patient Education: Patient Medication Summary Completed 11/23/2018 Patient Education: Diabetes Completed 11/23/2018 Appointment: Selene Luevano [facility]Ptel[facility] [phone] [facility] [place] [place] (30 min) Complex 11/03/2018 Visit Plan: Well [...] while seated. 09/21/2018 Appointment: Katerine Laurent WPtel: [address] [place], [place] [id number] (15 min) Moderate 09/21/2018 Patient Education: Patient [...] less controlled. 05/10/2018 Appointment: Katerine Laurent WPtel: [facility] [place] [place] (15 min) Moderate 05/10/2018 Patient Education: Patient Medication Summary Completed 05/10/2018 Appointment: Katerine Laurent WPtel: [phone] [facility] [place] [place] (15 min) Moderate 04/12/2018 Appointment: Katerine Laurent WPtel: [facility] (15 min) Moderate 02/16/2018 Visit Plan: Hypertension [...] 10mg daily. 02/14/2018 Appointment: Katerine Laurent WPtel: [id number] (15 min) Moderate 02/14/2018 Patient Education: Patient [...] Summary Completed 11/17/2017 Appointment: Katerine Laurent WPtel: [facility] [place] [place] (15 min) Moderate 11/10/2017 Visit Plan: Well [...] of 6.1% 10/06/2017 Appointment: Katerine Laurent WPtel: [address] [place], [place] [id number] New Patient 10/06/2017 Patient Education: Patient Medication Summary Completed 10/06/2017 Instructions Comment . Well Adult - pt [...] monitor labs - last hgba1c of 6.1% . Hypertension - well controlled - continue [...]
--- OUTSIDE RECORDS SUMMARY | 2019-06-13 08:22 | XMS REPORT | CCD ---
Author Author Katerine Laurent Organization Katerine Laurent MD, [facility] Address [address] [place] [address] Phone Care Team Providers Care Dining Service Worker Name Role Phone PP Unavailable CCM Unavailable Summary Purpose Interface Exchange Insurance Providers Payer name Policy type / Coverage type Covered republican ID Effective Begin Date Effective End Date AETNA Commercial Insurance [id number] 2017 Unknown Family history Father Diagnosis Age At Onset Hypertension Unknown Myocardial infarction Unknown Diabetes mellitus Type 2 Unknown Hypercholesterolemia Unknown Arthritis Unknown Social History Social History Element Codes Description Effective Dates Marital status Unknown Toy 10/06/2017 Number of children Unknown 3 10/06/2017 Employment Unknown 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; 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 10/06/[address]: 455795572 Never smoker 10/06/[address]: 633153848 Never drinks alcohol 10/06/2017 Has the patient [...] Start Date Stop Date Status Fill Instructions pravastatin 20 mg tablet RxNorm: 949726 1 Tablet(s) PO QHS 01/02/2019 12/27/2019 Active Trulicity 1.5 mg/0.5 mL subcutaneous pen injector RxNorm: 4886700 1.5 Milligram(s) SQ QW 12/13/2018 09/02/2020 Active gabapentin 300 mg capsule RxNorm: 532665 1 Capsule(s) PO QPM 12/13/2018 07/10/2019 Active Trulicity 1.5 mg/0.5 mL subcutaneous pen injector RxNorm: 7587987 1.5 Milligram(s) SQ QW 12/12/2018 12/12/2018 Inactive metoprolol succinate ER 50 mg tablet,extended release 24 hr RxNorm: 025891 1 Tablet(s) PO daily 11/23/2018 06/20/2019 Active please delete the 25mg metoprolol and fill the 50mg - and also delete the farxiga from her medication list as well - we stopped that medication in October Farxiga 10 mg tablet RxNorm: 4309758 1 TABLET BY MOUTH DAILY 10/19/2018 11/14/2018 Inactive metformin 1,000 mg tablet RxNorm: 813553 1 Tablet(s) PO BID 10/10/2018 10/04/2019 Active lisinopril 40 mg tablet RxNorm: 176633 1 Tablet(s) PO daily 09/21/2018 09/15/2019 Active this is the only dose of lisinopril that she should be taking - 40mg --please delete the other rxs of lisinopril Trulicity 0.75 mg/0.5 mL subcutaneous pen injector RxNorm: 7055004 0.75 Milligram(s) SQ QW 09/21/2018 12/11/2018 Inactive metoprolol succinate ER 25 mg tablet,extended release 24 hr RxNorm: 819498 1 Tablet(s) PO daily 09/21/2018 11/22/2018 Inactive please cancel her amlodipine rx Klor-Con 8 mEq tablet,extended release RxNorm: 737482 1 Tablet(s) PO daily 07/15/2018 10/07/2019 Active amlodipine 10 mg tablet RxNorm: 935505 1 Tablet(s) PO daily 02/14/2018 09/20/2018 Inactive Farxiga 10 mg tablet RxNorm: 8573033 1 Tablet(s) PO daily 01/31/2018 10/18/2018 Inactive pravastatin 20 mg tablet RxNorm: 099108 1 Tablet(s) PO QHS 01/12/2018 01/01/2019 Inactive pravastatin 20 mg tablet RxNorm: 215454 1 Tablet(s) PO QHS 01/12/2018 01/11/2018 Inactive gabapentin 300 mg capsule RxNorm: 294349 1 Capsule(s) PO QPM 11/17/2017 06/14/2018 Inactive lisinopril 40 mg tablet RxNorm: 843849 1 Tablet(s) PO daily 11/17/2017 09/20/2018 Inactive lisinopril 20 mg tablet RxNorm: 343644 1 Tablet(s) PO daily 10/06/2017 11/16/2017 Inactive estradiol 10 mcg vaginal tablet RxNorm: 152537 1 Tablet(s) VAG daily No Start Date Active metformin 1,000 mg tablet RxNorm: 361246 1 Tablet(s) PO BID No Start Date 10/09/2018 Inactive amlodipine 5 mg tablet RxNorm: 869231 1 Tablet(s) PO daily No Start Date 02/13/2018 Inactive lisinopril 10 mg tablet RxNorm: 847140 1 Tablet(s) PO daily No Start Date 10/05/2017 Inactive Farxiga 10 mg tablet RxNorm: 8341446 1 Tablet(s) PO daily No Start Date 01/30/2018 Inactive meloxicam 15 mg tablet RxNorm: 970213 1 Tablet(s) PO daily No Start Date 05/09/2018 Inactive pravastatin 10 mg tablet RxNorm: 106522 1 Tablet(s) PO daily No Start Date 01/11/2018 Inactive Klor-Con 8 mEq tablet,extended release RxNorm: 395442 1 Tablet(s) PO daily No Start Date [...] Code Item Item Code Result Date %Hba1C Hay778 % HbA1c 51273- 6 7.1 % 08/30/2018 %Hba1C Piy977 Gluc Ave 157 mg/dL 08/30/2018 Comp Metabolic Lzp225 NA 140 mEq/L 05/06/2018 Comp Metabolic Vap831 K 4.5 mEq/L 05/06/2018 Comp Metabolic Vtq836 CL 104 mEq/L 05/06/2018 Comp Metabolic Krh018 CO2 27.0 mEq/L 05/06/2018 Comp Metabolic Zqc446 ANION GAP 14 05/06/2018 Comp Metabolic Yrn384 GLUCOSE 129 mg/dL 05/06/2018 Comp Metabolic Mya240 Creat 0.7 mg/dL 05/06/2018 Comp Metabolic Sfm451 eGFR 90 ml/min/1.73m2 05/06/2018 Comp Metabolic Uct117 BUN 14 mg/dL 05/06/2018 Comp Metabolic Vvs413 B/C Ratio 19.7 Ratio 05/06/2018 Comp Metabolic Soh279 CALCIUM 9.4 mg/dL 05/06/2018 Comp Metabolic Wpw899 ALK PHOS 51 U/L 05/06/2018 Comp Metabolic Mcy992 AST(SGOT) 18 U/L 05/06/2018 Comp Metabolic Sne787 ALT(SGPT) 22 U/L 05/06/2018 Comp Metabolic Dxl751 BILI T 0.5 mg/dL 05/06/2018 Comp Metabolic Kyu608 ALBUMIN 4.3 g/dL 05/06/2018 Comp Metabolic Vis022 TPRO 6.9 g/dL 05/06/2018 Comp Metabolic Spg774 GLOB 2.6 g/dL 05/06/2018 Comp Metabolic Zds845 A/G Ratio 1.6 Ratio 05/06/2018 Comp Metabolic Won300 Osmo 282 mOsmo 05/06/2018 %Hba1C Slo188 % HbA1c 59194- 6 6.6 % 05/06/2018 %Hba1C Ofw407 Gluc Ave 143 mg/dL 05/06/2018 Microalbumin Zsn791 MicroAlb <0.7 mg/dL 01/11/2018 Comp Metabolic Gzt945 NA 142 mEq/L 01/11/2018 Comp Metabolic Whm968 K 4.4 mEq/L 01/11/2018 Comp Metabolic Myf997 CL 104 mEq/L 01/11/2018 Comp Metabolic Azr907 CO2 29.0 mEq/L 01/11/2018 Comp Metabolic Xkj304 ANION GAP 13 01/11/2018 Comp Metabolic Syv208 GLUCOSE 115 mg/dL 01/11/2018 Comp Metabolic Yja418 Creat 0.6 mg/dL 01/11/2018 Comp Metabolic Lzi137 eGFR 108 ml/min/1.73m2 01/11/2018 Comp Metabolic Mhs818 BUN 14 mg/dL 01/11/2018 Comp Metabolic Cbo150 B/C Ratio 23.0 Ratio 01/11/2018 Comp Metabolic Ryi748 CALCIUM 9.5 mg/dL 01/11/2018 Comp Metabolic Hdl041 ALK PHOS 36 U/L 01/11/2018 Comp Metabolic Cxz108 AST(SGOT) 19 U/L 01/11/2018 Comp Metabolic Ljz069 ALT(SGPT) 28 U/L 01/11/2018 Comp Metabolic Btf968 BILI T 0.5 mg/dL 01/11/2018 Comp Metabolic Eae808 ALBUMIN 4.5 g/dL 01/11/2018 Comp Metabolic Bty282 TPRO 7.1 g/dL 01/11/2018 Comp Metabolic Izy316 GLOB 2.6 g/dL 01/11/2018 Comp Metabolic Ema032 A/G Ratio 1.7 Ratio 01/11/2018 Comp Metabolic Bpk500 Osmo 285 mOsmo 01/11/2018 Tsh Ord6 TSH (3rd IS) 3.04 uIU/mL 01/11/2018 %Hba1C Jwd876 % HbA1c 82706- 6 6.3 % 01/11/2018 %Hba1C Jjt098 Gluc Ave 134 mg/dL 01/11/2018 Cbc With [...] 30.6 pg 01/11/2018 Cbc With Differential Ord2 Sanders% 7.9 % 01/11/2018 Cbc With Differential Ord2 MCHC 33.3 pg 01/11/2018 Cbc With Differential Ord2 Eos% 2.8 % 01/11/2018 Cbc With Differential Ord2 Baso% 0.2 % 01/11/2018 Cbc With Differential Ord2 PLT 233 K/ul 01/11/2018 Cbc With Differential Ord2 Neut ABS# 3.69 K/ul 01/11/2018 Cbc With Differential Ord2 RDW 14.0 % 01/11/2018 Cbc With Differential Ord2 Lymph ABS# 2.07 K/ul 01/11/2018 Cbc With Differential Ord2 Sanders ABS# 0.5 K/ul 01/11/2018 Cbc With Differential [...] lips 12/12/2018 None Full Exam - General 1994 Ears/Nose/Throat lips/teeth/gingiva Overall: normal dentition 12/12/2018 None Full Exam - General 1994 Ears/Nose/Throat oral cavity/pharynx/larynx Overall: oral mucosa clear 12/12/2018 None Full Exam - General 1995 Ears/Nose/Throat oral cavity/pharynx/larynx Overall: oropharyngeal mucosa clear 12/12/2018 None Full Exam - General 1994 Ears/Nose/Throat oral cavity/pharynx/larynx Overall: hypopharynx benign 12/12/2018 [...] General 1994 Ears/Nose/Throat lips/teeth/gingiva Overall: benign lips 11/23/2018 None [...] 1: 154/88 Code: 8480-6 BMI: 41.3 Code: 98381-4 Heart Rate 1: 114 bpm Height: 5'6" SpO2: 97% Weight: 256 lbs 11/23/2018 Blood Pressure 1: 178/90 Code: 8480-6 BMI: 40.7 Code: 95645-4 Heart Rate 1: 103 bpm Height: 5'6" SpO2: 98% Weight: 252 lbs 09/21/2018 Blood Pressure 1: 150/82 Code: 8480-6 BMI: 40.0 Code: 31288-5 Heart Rate 1: 91 bpm Height: 5'6" SpO2: 98% Weight: 248 lbs 05/10/2018 Blood Pressure 1: 140/82 Code: 8480-6 BMI: 39.2 Code: 68572-5 Heart Rate 1: 89 bpm Height: 5'6" SpO2: 96% Weight: 242 lbs 10 oz 02/14/2018 Blood Pressure 1: 156/88 Code: 8480-6 BMI: 38.4 Code: 60092-2 Heart Rate 1: 88 bpm Height: 5'6" SpO2: 98% Weight: 238 lbs 12/15/2017 Blood Pressure 1: 172/90 Code: 8480-6 Heart Rate 1: 98 bpm SpO2: 98% 11/17/2017 Blood Pressure 1: 150/84 Code: 8480-6 BMI: 38.7 Code: 43989-0 Heart Rate 1: 91 bpm Height: 5'6" SpO2: 97% Weight: 240 lbs 10/06/2017 Blood Pressure 1: 152/82 Code: 8480-6 BMI: 38.4 Code: 25028-7 Heart Rate 1: 91 bpm Height: 5'6" [...] data Encounters Encounter Performer Location Codes Date ([id number]) [id number] EST. PATIENT, LEVEL IV Diagnosis: Essential (primary) hypertension[ICD10: I10] Diagnosis: Type 2 diabetes mellitus with hyperglycemia[ICD10: E11.65] [facility] CPT-4: 17620 12/12/2018 ([id number]) 01134 EST. PATIENT, LEVEL IV Diagnosis: Essential (primary) hypertension[ICD10: I10] Diagnosis: Type 2 diabetes mellitus without complications[ICD10: E11.9] [facility] CPT-4: 24948 11/23/2018 ([id number]) PREV VISIT EST AGE 40-64 Diagnosis: Encounter for general adult medical examination with abnormal findings[ICD10: Z00.01] [facility] CPT-4: 20636 09/21/2018 [id number]) [id number] EST. PATIENT, LEVEL IV Diagnosis: Essential (primary) hypertension[ICD10: I10] Diagnosis: Type 2 diabetes mellitus without complications[ICD10: E11.9] [facility] CPT-4: 22152 05/10/2018 ([id number]) 36119 EST. PATIENT, LEVEL III Diagnosis: Essential (primary) hypertension[ICD10: I10] SHAYY Velasquez MD CPT-4: 87178 02/14/2018 ([id number]) Miscellaneous no charge Diagnosis: Essential (primary) hypertension[ICD10: I10] SHAYY Velasquez MD CPT-4: 05781 12/15/2017 ([id number]) 20671 EST. PATIENT, LEVEL III Diagnosis: Essential (primary) hypertension[ICD10: I10] Diagnosis: Sciatica, right side[ICD10: M54.31] SHAYY Velasquez MD CPT- 4: 96761 11/17/2017 ([id number]) PREV VISIT EST AGE 40-64 Diagnosis: Encounter for general adult medical examination with abnormal findings[ICD10: Z00.01] Katerine Laurent MD, [facility] CPT-4: 65104 10/06/2017 Plan of Care Planned Activity Notes [...] weekly. 12/12/2018 [facility]ment[facility] [phone] [facility] (15 min) Moderate 12/12/2018 Patient Education: Patient Medication Summary Completed 12/12/2018 Patient Education: Diabetes Completed 12/12/2018 Appointment: [facility] [phone] [facility] (15 min) Moderate 11/30/2018 Visit Plan: Hypertension [...] controlled. 11/23/2018 Appointment: [facility] [phone] [facility] (15 min) Moderate 11/23/2018 Patient Education: Patient Medication Summary Completed 11/23/2018 Patient Education: Diabetes Completed 11/23/2018 [facility]ment: [facility] [phone] [facility] (30 min) Complex 11/03/2018 Visit Plan: Well [...] while seated. 09/21/2018 Appointment: Katerine Laurent WPtel: [facility] (15 min) Moderate 09/21/2018 Patient Education: Patient [...] less controlled. 05/10/2018 Appointment: Katerine Laurent WPtel: [facility] [place] (15 min) Moderate 05/10/2018 Patient Education: Patient Medication Summary Completed 05/10/2018 Appointment: Katerine Laurent WPtel: [phone] [facility] [place] (15 min) Moderate 04/12/2018 Appointment: Katerine Laurent WPtel: [phone] [facility] (15 min) Moderate 02/16/2018 Visit Plan: [...] daily. 02/14/2018 Appointment: Katerine Laurent WPtel: [phone] [facility] (15 min) Moderate 02/14/2018 Patient Education: Patient [...] Summary Completed 11/17/2017 Appointment: Katerine Laurent WPtel: [phone] [facility] (15 min) Moderate 11/10/2017 Visit Plan: Well [...] 6.1% 10/06/2017 Appointment: [facility] [phone] [facility] New Patient 10/06/2017 Patient Education: Patient Medication [...]
--- OUTSIDE RECORDS SUMMARY | 2019-06-13 08:23 | XMS REPORT | CCD ---
Author Author Katerine Laurent Organization Katerine Laurent MD, [facility] Address [address] [place] [address] Phone Care Team Providers Care Pre K Lead Teacher Name Role Phone PP Unavailable CCM Unavailable Summary Purpose Interface Exchange Insurance Providers Payer name Policy type / Coverage type Covered libertarian ID Effective Begin Date Effective End Date AETNA Commercial Insurance [id number] 2017 Unknown Family history Father Diagnosis Age At Onset Hypertension Unknown Myocardial infarction Unknown Diabetes mellitus Type 2 Unknown Hypercholesterolemia Unknown Arthritis Unknown Social History Social History Element Codes Description Effective Dates Marital status Unknown Toy 10/06/2017 Number of children Unknown 3 10/06/2017 Employment Unknown 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; 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 10/06/[address]: 946366242 Never smoker 10/06/[address]: 525394929 Never drinks alcohol 10/06/2017 Has the patient [...] Start Date Stop Date Status Fill Instructions Trulicity 1.5 mg/0.5 mL subcutaneous pen injector RxNorm: 2330865 1.5 Milligram(s) SQ QW 12/13/2018 09/02/2020 Active gabapentin 300 mg capsule RxNorm: 075849 1 Capsule(s) PO QPM 12/13/2018 07/10/2019 Active Trulicity 1.5 mg/0.5 mL subcutaneous pen injector RxNorm: 6732293 1.5 Milligram(s) SQ QW 12/12/2018 12/12/2018 Inactive metoprolol succinate ER 50 mg tablet,extended release 24 hr RxNorm: 346647 1 Tablet(s) PO daily 11/23/2018 06/20/2019 Active please delete the 25mg metoprolol and fill the 50mg - and also delete the farxiga from her medication list as well - we stopped that medication in October Farxiga 10 mg tablet RxNorm: 8322970 1 TABLET BY MOUTH DAILY 10/19/2018 11/14/2018 Inactive metformin 1,000 mg tablet RxNorm: 122447 1 Tablet(s) PO BID 10/10/2018 10/04/2019 Active lisinopril 40 mg tablet RxNorm: 025700 1 Tablet(s) PO daily 09/21/2018 09/15/2019 Active this is the only dose of lisinopril that she should be taking - 40mg --please delete the other rxs of lisinopril Trulicity 0.75 mg/0.5 mL subcutaneous pen injector RxNorm: 6191744 0.75 Milligram(s) SQ QW 09/21/2018 12/11/2018 Inactive metoprolol succinate ER 25 mg tablet,extended release 24 hr RxNorm: 838149 1 Tablet(s) PO daily 09/21/2018 11/22/2018 Inactive please cancel her amlodipine rx Klor-Con 8 mEq tablet,extended release RxNorm: 413468 1 Tablet(s) PO daily 07/15/2018 10/07/2019 Active amlodipine 10 mg tablet RxNorm: 350577 1 Tablet(s) PO daily 02/14/2018 09/20/2018 Inactive Farxiga 10 mg tablet RxNorm: 2695131 1 Tablet(s) PO daily 01/31/2018 10/18/2018 Inactive pravastatin 20 mg tablet RxNorm: 991733 1 Tablet(s) PO QHS 01/12/2018 01/06/2019 Active pravastatin 20 mg tablet RxNorm: 043861 1 Tablet(s) PO QHS 01/12/2018 01/11/2018 Inactive gabapentin 300 mg capsule RxNorm: 301140 1 Capsule(s) PO QPM 11/17/2017 06/14/2018 Inactive lisinopril 40 mg tablet RxNorm: 647760 1 Tablet(s) PO daily 11/17/2017 09/20/2018 Inactive lisinopril 20 mg tablet RxNorm: 094016 1 Tablet(s) PO daily 10/06/2017 11/16/2017 Inactive estradiol 10 mcg vaginal tablet RxNorm: 470879 1 Tablet(s) VAG daily No Start Date Active metformin 1,000 mg tablet RxNorm: 115743 1 Tablet(s) PO BID No Start Date 10/09/2018 Inactive amlodipine 5 mg tablet RxNorm: 272661 1 Tablet(s) PO daily No Start Date 02/13/2018 Inactive lisinopril 10 mg tablet RxNorm: 399877 1 Tablet(s) PO daily No Start Date 10/05/2017 Inactive Farxiga 10 mg tablet RxNorm: 5920510 1 Tablet(s) PO daily No Start Date 01/30/2018 Inactive meloxicam 15 mg tablet RxNorm: 566320 1 Tablet(s) PO daily No Start Date 05/09/2018 Inactive pravastatin 10 mg tablet RxNorm: 417883 1 Tablet(s) PO daily No Start Date 01/11/2018 Inactive Klor-Con 8 mEq tablet,extended release RxNorm: 105815 1 Tablet(s) PO daily No Start Date [...] Code Item Item Code Result Date %Hba1C Pbl195 % HbA1c 23295- 6 7.1 % 08/30/2018 %Hba1C Efp677 Gluc Ave 157 mg/dL 08/30/2018 Comp Metabolic Ris724 NA 140 mEq/L 05/06/2018 Comp Metabolic Wcc189 K 4.5 mEq/L 05/06/2018 Comp Metabolic Rha394 CL 104 mEq/L 05/06/2018 Comp Metabolic Wpq273 CO2 27.0 mEq/L 05/06/2018 Comp Metabolic Xlt906 ANION GAP 14 05/06/2018 Comp Metabolic Ulh301 GLUCOSE 129 mg/dL 05/06/2018 Comp Metabolic Ypn479 Creat 0.7 mg/dL 05/06/2018 Comp Metabolic Pvd545 eGFR 90 ml/min/1.73m2 05/06/2018 Comp Metabolic Zgt788 BUN 14 mg/dL 05/06/2018 Comp Metabolic Frs213 B/C Ratio 19.7 Ratio 05/06/2018 Comp Metabolic Oeb712 CALCIUM 9.4 mg/dL 05/06/2018 Comp Metabolic Voc893 ALK PHOS 51 U/L 05/06/2018 Comp Metabolic Hrz900 AST(SGOT) 18 U/L 05/06/2018 Comp Metabolic Syp035 ALT(SGPT) 22 U/L 05/06/2018 Comp Metabolic Xmr105 BILI T 0.5 mg/dL 05/06/2018 Comp Metabolic Ppe226 ALBUMIN 4.3 g/dL 05/06/2018 Comp Metabolic Kcf644 TPRO 6.9 g/dL 05/06/2018 Comp Metabolic Qoj835 GLOB 2.6 g/dL 05/06/2018 Comp Metabolic Ugi888 A/G Ratio 1.6 Ratio 05/06/2018 Comp Metabolic Ueu161 Osmo 282 mOsmo 05/06/2018 %Hba1C Rgr192 % HbA1c 04159- 6 6.6 % 05/06/2018 %Hba1C Yog134 Gluc Ave 143 mg/dL 05/06/2018 Microalbumin Fqb377 MicroAlb <0.7 mg/dL 01/11/2018 Comp Metabolic Gov388 NA 142 mEq/L 01/11/2018 Comp Metabolic Grm768 K 4.4 mEq/L 01/11/2018 Comp Metabolic Pxk007 CL 104 mEq/L 01/11/2018 Comp Metabolic Whp074 CO2 29.0 mEq/L 01/11/2018 Comp Metabolic Aka341 ANION GAP 13 01/11/2018 Comp Metabolic Qsq436 GLUCOSE 115 mg/dL 01/11/2018 Comp Metabolic Mzy473 Creat 0.6 mg/dL 01/11/2018 Comp Metabolic Lyu218 eGFR 108 ml/min/1.73m2 01/11/2018 Comp Metabolic Ksk485 BUN 14 mg/dL 01/11/2018 Comp Metabolic Kvj489 B/C Ratio 23.0 Ratio 01/11/2018 Comp Metabolic Jnm866 CALCIUM 9.5 mg/dL 01/11/2018 Comp Metabolic Cez130 ALK PHOS 36 U/L 01/11/2018 Comp Metabolic Guh062 AST(SGOT) 19 U/L 01/11/2018 Comp Metabolic Rmi173 ALT(SGPT) 28 U/L 01/11/2018 Comp Metabolic Cwa797 BILI T 0.5 mg/dL 01/11/2018 Comp Metabolic Kbc910 ALBUMIN 4.5 g/dL 01/11/2018 Comp Metabolic Usd728 TPRO 7.1 g/dL 01/11/2018 Comp Metabolic Urv339 GLOB 2.6 g/dL 01/11/2018 Comp Metabolic Nly308 A/G Ratio 1.7 Ratio 01/11/2018 Comp Metabolic Eea346 Osmo 285 mOsmo 01/11/2018 Tsh Ord6 TSH (3rd IS) 3.04 uIU/mL 01/11/2018 %Hba1C Ooq092 % HbA1c 42517- 6 6.3 % 01/11/2018 %Hba1C Zib787 Gluc Ave 134 mg/dL 01/11/2018 Cbc With [...] 30.6 pg 01/11/2018 Cbc With Differential Ord2 Dent% 7.9 % 01/11/2018 Cbc With Differential Ord2 [...] 2.07 K/ul 01/11/2018 Cbc With Differential Ord2 Dent ABS# 0.5 K/ul 01/11/2018 Cbc With Differential [...] 1994 Ears/Nose/Throat oral cavity/pharynx/larynx Overall: no masses 12/12/2018 [...] 1995 Ears/Nose/Throat oral cavity/pharynx/larynx Overall: hypopharynx benign 11/23/2018 [...] 1: 154/88 Code: 8480-6 BMI: 41.3 Code: 79896-3 Heart Rate 1: 114 bpm Height: 5'6" SpO2: 97% Weight: 256 lbs 11/23/2018 Blood Pressure 1: 178/90 Code: 8480-6 BMI: 40.7 Code: 76794-1 Heart Rate 1: 103 bpm Height: 5'6" SpO2: 98% Weight: 252 lbs 09/21/2018 Blood Pressure 1: 150/82 Code: 8480-6 BMI: 40.0 Code: 21373-5 Heart Rate 1: 91 bpm Height: 5'6" SpO2: 98% Weight: 248 lbs 05/10/2018 Blood Pressure 1: 140/82 Code: 8480-6 BMI: 39.2 Code: 37410-1 Heart Rate 1: 89 bpm Height: 5'6" SpO2: 96% Weight: 242 lbs 10 oz 02/14/2018 Blood Pressure 1: 156/88 Code: 8480-6 BMI: 38.4 Code: 46141-8 Heart Rate 1: 88 bpm Height: 5'6" SpO2: 98% Weight: 238 lbs 12/15/2017 Blood Pressure 1: 172/90 Code: 8480-6 Heart Rate 1: 98 bpm SpO2: 98% 11/17/2017 Blood Pressure 1: 150/84 Code: 8480-6 BMI: 38.7 Code: 71679-6 Heart Rate 1: 91 bpm Height: 5'6" SpO2: 97% Weight: 240 lbs 10/06/2017 Blood Pressure 1: 152/82 Code: 8480-6 BMI: 38.4 Code: 71013-0 Heart Rate 1: 91 bpm Height: 5'6" [...] data Encounters Encounter Performer Location Codes Date ([id number]) 41884 EST. PATIENT, LEVEL IV Diagnosis: Essential (primary) hypertension[ICD10: I10] Diagnosis: Type 2 diabetes mellitus with hyperglycemia[ICD10: E11.65] [facility] CPT-4: 04686 12/12/2018 [id number]) 73533 EST. PATIENT, LEVEL IV Diagnosis: Essential (primary) hypertension[ICD10: I10] Diagnosis: Type 2 diabetes mellitus without complications[ICD10: E11.9] [facility] CPT-4: 60845 11/23/2018 ([id number]) PREV VISIT EST AGE 40-64 Diagnosis: Encounter for general adult medical examination with abnormal findings[ICD10: Z00.01] [facility] CPT-4: 62497 09/21/2018 ([id number]) 74986 EST. PATIENT, LEVEL IV Diagnosis: Essential (primary) hypertension[ICD10: I10] Diagnosis: Type 2 diabetes mellitus without complications[ICD10: E11.9] [facility] CPT-4: 54542 05/10/2018 ([id number]) 41480 EST. PATIENT, LEVEL III Diagnosis: Essential (primary) hypertension[ICD10: I10] [facility] CPT-4: 12119 02/14/2018 ([id number]) Miscellaneous no charge Diagnosis: Essential (primary) hypertension[ICD10: I10] [facility] CPT-4: 71548 12/15/2017 ([id number]) 36304 EST. PATIENT, LEVEL III Diagnosis: Essential (primary) hypertension[ICD10: I10] Diagnosis: Sciatica, right side[ICD10: M54.31] [facility] CPT- 4: 90903 11/17/2017 ([id number]) PREV VISIT EST AGE 40-64 Diagnosis: Encounter for general adult medical examination with abnormal findings[ICD10: Z00.01] [facility] CPT-4: 60034 10/06/2017 Plan of Care Planned Activity Notes [...] 1.5mL weekly. 12/12/2018 Appointment: Kater[facility] Laurent [facility] [place] (15 min) Moderate 12/12/2018 Patient Education: Patient Medication Summary Completed 12/12/2018 Patient Education: Diabetes Completed 12/12/2018 Appointment: Katerine Laurent WPtel: [facility] [place] (15 min) Moderate 11/30/2018 Visit Plan: Hypertension [...] controlled. 11/23/2018 Appointment: [phone] [facility] (15 min) Moderate 11/23/2018 Patient Education: Patient Medication Summary Completed 11/23/2018 Patient Education: Diabetes Completed 11/23/2018 App[facility]ment: [phone] (30 min) Complex 11/03/2018 Visit Plan: Well [...] seated. 09/21/2018 Appointment: Katerine Laurent WPtel: [phone] [facility] (15 min) Moderate 09/21/2018 Patient Education: [...] less controlled. 05/10/2018 Appointment: Katerine Laurent WPtel: [phone] [facility] (15 min) Moderate 05/10/2018 Patient Education: Patient Medication Summary Completed 05/10/2018 Appointment: Katerine Laurent WPtel: [facility] ([facility] min) Moderate 04/12/2018 Appointment: Katerine Laurent WPtel: [facility] (15 min) Moderate 02/16/2018 Visit Plan: [...] 10mg daily. 02/14/2018 Appointment: Katerine Laurent WPtel: [phone] [facility] (15 min) Moderate 02/14/2018 Patient Education: [...] Summary Completed 11/17/2017 Appointment: Katerine Laurent WPtel: [phone] [facility] (15 min) Moderate 11/10/2017 Visit Plan: [...] 6.1% 10/06/2017 App[facility]ment: [phone] [facility] New Patient 10/06/2017 Patient Education: Patient [...]
--- OUTSIDE RECORDS SUMMARY | 2019-06-13 08:24 | XMS REPORT | CCD ---
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 [id number] 2017 Unknown Family history Father Diagnosis Age At Onset Hypertension Unknown Myocardial infarction Unknown Diabetes mellitus Type 2 Unknown Hypercholesterolemia Unknown Arthritis Unknown Social History Social History Element Codes Description Effective Dates Marital status Unknown Toy 10/06/2017 Number of children Unknown 3 10/06/2017 Employment Unknown 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; 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 10/06/[address]: 686858844 Never smoker 10/06/[address]: 578823567 Never drinks alcohol 10/06/2017 Has the patient [...] 1.5 mg/0.5 mL subcutaneous pen injector RxNorm: 5043615 1.5 Milligram(s) SQ QW 12/13/2018 09/02/2020 Active Trulicity 1.5 mg/0.5 mL subcutaneous pen injector RxNorm: 4915129 1.5 Milligram(s) SQ QW 12/12/2018 12/12/2018 Inactive metoprolol succinate ER 50 mg tablet,extended release 24 hr RxNorm: 752587 1 Tablet(s) PO daily 11/23/2018 06/20/2019 Active please delete the 25mg metoprolol and fill the 50mg - and also delete the farxiga from her medication list as well - we stopped that medication in October Farxiga 10 mg tablet RxNorm: 7944631 1 TABLET BY MOUTH DAILY 10/19/2018 11/14/2018 Inactive metformin 1,000 mg tablet RxNorm: 016345 1 Tablet(s) PO BID 10/10/2018 10/04/2019 Active lisinopril 40 mg tablet RxNorm: 212352 1 Tablet(s) PO daily 09/21/2018 09/15/2019 Active this is the only dose of lisinopril that she should be taking - 40mg --please delete the other rxs of lisinopril Trulicity 0.75 mg/0.5 mL subcutaneous pen injector RxNorm: 1645325 0.75 Milligram(s) SQ QW 09/21/2018 12/11/2018 Inactive metoprolol succinate ER 25 mg tablet,extended release 24 hr RxNorm: 261223 1 Tablet(s) PO daily 09/21/2018 11/22/2018 Inactive please cancel her amlodipine rx Klor-Con 8 mEq tablet,extended release RxNorm: 846790 1 Tablet(s) PO daily 07/15/2018 10/07/2019 Active amlodipine 10 mg tablet RxNorm: 703818 1 Tablet(s) PO daily 02/14/2018 09/20/2018 Inactive Farxiga 10 mg tablet RxNorm: 4843877 1 Tablet(s) PO daily 01/31/2018 10/18/2018 Inactive pravastatin 20 mg tablet RxNorm: 306211 1 Tablet(s) PO QHS 01/12/2018 01/06/2019 Active pravastatin 20 mg tablet RxNorm: 055820 1 Tablet(s) PO QHS 01/12/2018 01/11/2018 Inactive gabapentin 300 mg capsule RxNorm: 074159 1 Capsule(s) PO QPM 11/17/2017 06/14/2018 Inactive lisinopril 40 mg tablet RxNorm: 241533 1 Tablet(s) PO daily 11/17/2017 09/20/2018 Inactive lisinopril 20 mg tablet RxNorm: 104600 1 Tablet(s) PO daily 10/06/2017 11/16/2017 Inactive estradiol 10 mcg vaginal tablet RxNorm: 480040 1 Tablet(s) VAG daily No Start Date Active metformin 1,000 mg tablet RxNorm: 939836 1 Tablet(s) PO BID No Start Date 10/09/2018 Inactive amlodipine 5 mg tablet RxNorm: 462004 1 Tablet(s) PO daily No Start Date 02/13/2018 Inactive lisinopril 10 mg tablet RxNorm: 698513 1 Tablet(s) PO daily No Start Date 10/05/2017 Inactive Farxiga 10 mg tablet RxNorm: 5801975 1 Tablet(s) PO daily No Start Date 01/30/2018 Inactive meloxicam 15 mg tablet RxNorm: 287020 1 Tablet(s) PO daily No Start Date 05/09/2018 Inactive pravastatin 10 mg tablet RxNorm: 234746 1 Tablet(s) PO daily No Start Date 01/11/2018 Inactive Klor-Con 8 mEq tablet,extended release RxNorm: 473483 1 Tablet(s) PO daily No Start Date [...] Code Item Item Code Result Date %Hba1C Iac796 % HbA1c 67038- 6 7.1 % 08/30/2018 %Hba1C Eny167 Gluc Ave 157 mg/dL 08/30/2018 Comp Metabolic Zrh664 NA 140 mEq/L 05/06/2018 Comp Metabolic Ptd146 K 4.5 mEq/L 05/06/2018 Comp Metabolic Cxl224 CL 104 mEq/L 05/06/2018 Comp Metabolic Ebh459 CO2 27.0 mEq/L 05/06/2018 Comp Metabolic Wat392 ANION GAP 14 05/06/2018 Comp Metabolic Ebc887 GLUCOSE 129 mg/dL 05/06/2018 Comp Metabolic Kne901 Creat 0.7 mg/dL 05/06/2018 Comp Metabolic Uvz433 eGFR 90 ml/min/1.73m2 05/06/2018 Comp Metabolic Ifa874 BUN 14 mg/dL 05/06/2018 Comp Metabolic Iht121 B/C Ratio 19.7 Ratio 05/06/2018 Comp Metabolic Sjz133 CALCIUM 9.4 mg/dL 05/06/2018 Comp Metabolic Dug555 ALK PHOS 51 U/L 05/06/2018 Comp Metabolic Egi622 AST(SGOT) 18 U/L 05/06/2018 Comp Metabolic Irp954 ALT(SGPT) 22 U/L 05/06/2018 Comp Metabolic Uwj672 BILI T 0.5 mg/dL 05/06/2018 Comp Metabolic Fln424 ALBUMIN 4.3 g/dL 05/06/2018 Comp Metabolic Lwe242 TPRO 6.9 g/dL 05/06/2018 Comp Metabolic Pdb286 GLOB 2.6 g/dL 05/06/2018 Comp Metabolic Onc361 A/G Ratio 1.6 Ratio 05/06/2018 Comp Metabolic Qxx482 Osmo 282 mOsmo 05/06/2018 %Hba1C Usk287 % HbA1c 66034- 6 6.6 % 05/06/2018 %Hba1C Pfs639 Gluc Ave 143 mg/dL 05/06/2018 Microalbumin Qfz146 MicroAlb <0.7 mg/dL 01/11/2018 Comp Metabolic Bbt734 NA 142 mEq/L 01/11/2018 Comp Metabolic Xju781 K 4.4 mEq/L 01/11/2018 Comp Metabolic Jkh960 CL 104 mEq/L 01/11/2018 Comp Metabolic Ntr010 CO2 29.0 mEq/L 01/11/2018 Comp Metabolic Fvo095 ANION GAP 13 01/11/2018 Comp Metabolic Ssg855 GLUCOSE 115 mg/dL 01/11/2018 Comp Metabolic Ltf309 Creat 0.6 mg/dL 01/11/2018 Comp Metabolic Hge249 eGFR 108 ml/min/1.73m2 01/11/2018 Comp Metabolic Xts585 BUN 14 mg/dL 01/11/2018 Comp Metabolic Daf296 B/C Ratio 23.0 Ratio 01/11/2018 Comp Metabolic Png351 CALCIUM 9.5 mg/dL 01/11/2018 Comp Metabolic Sog689 ALK PHOS 36 U/L 01/11/2018 Comp Metabolic Avs864 AST(SGOT) 19 U/L 01/11/2018 Comp Metabolic Zur073 ALT(SGPT) 28 U/L 01/11/2018 Comp Metabolic Vmr653 BILI T 0.5 mg/dL 01/11/2018 Comp Metabolic Sud515 ALBUMIN 4.5 g/dL 01/11/2018 Comp Metabolic Pka073 TPRO 7.1 g/dL 01/11/2018 Comp Metabolic Ytu195 GLOB 2.6 g/dL 01/11/2018 Comp Metabolic Xjr959 A/G Ratio 1.7 Ratio 01/11/2018 Comp Metabolic Apr959 Osmo 285 mOsmo 01/11/2018 Tsh Ord6 TSH (3rd IS) 3.04 uIU/mL 01/11/2018 %Hba1C Cht402 % HbA1c 65290- 6 6.3 % 01/11/2018 %Hba1C Abp097 Gluc Ave 134 mg/dL 01/11/2018 Cbc With [...] 30.6 pg 01/11/2018 Cbc With Differential Ord2 Cannon% 7.9 % 01/11/2018 Cbc With Differential Ord2 Eos% 2.8 % 01/11/2018 Cbc With Differential Ord2 MCHC 33.3 pg 01/11/2018 Cbc With Differential Ord2 PLT 233 K/ul 01/11/2018 Cbc With Differential Ord2 Baso% 0.2 % 01/11/2018 Cbc With Differential Ord2 RDW 14.0 % 01/11/2018 Cbc With Differential Ord2 Neut ABS# 3.69 K/ul 01/11/2018 Cbc With Differential Ord2 Lymph ABS# 2.07 K/ul 01/11/2018 Cbc With Differential Ord2 Cannon ABS# 0.5 K/ul 01/11/2018 Cbc With Differential [...] dentition 11/23/2018 None Full Exam - General 1994 Ears/Nose/Throat oral cavity/pharynx/larynx Overall: oral mucosa clear 11/23/2018 None Full Exam - General 1995 Ears/Nose/Throat oral cavity/pharynx/larynx Overall: oropharyngeal mucosa clear 11/23/2018 None Full Exam - General 1995 Ears/Nose/Throat oral cavity/pharynx/larynx Overall: hypopharynx benign 11/23/2018 None Full Exam - General 1995 Ears/Nose/Throat oral cavity/pharynx/larynx Overall: no masses 11/23/2018 [...] 1: 154/88 Code: 8480-6 BMI: 41.3 Code: 67991-8 Heart Rate 1: 114 bpm Height: 5'6" SpO2: 97% Weight: 256 lbs 11/23/2018 Blood Pressure 1: 178/90 Code: 8480-6 BMI: 40.7 Code: 48690-8 Heart Rate 1: 103 bpm Height: 5'6" SpO2: 98% Weight: 252 lbs 09/21/2018 Blood Pressure 1: 150/82 Code: 8480-6 BMI: 40.0 Code: 37944-7 Heart Rate 1: 91 bpm Height: 5'6" SpO2: 98% Weight: 248 lbs 05/10/2018 Blood Pressure 1: 140/82 Code: 8480-6 BMI: 39.2 Code: 19499-6 Heart Rate 1: 89 bpm Height: 5'6" SpO2: 96% Weight: 242 lbs 10 oz 02/14/2018 Blood Pressure 1: 156/88 Code: 8480-6 BMI: 38.4 Code: 35140-0 Heart Rate 1: 88 bpm Height: 5'6" SpO2: 98% Weight: 238 lbs 12/15/2017 Blood Pressure 1: 172/90 Code: 8480-6 Heart Rate 1: 98 bpm SpO2: 98% 11/17/2017 Blood Pressure 1: 150/84 Code: 8480-6 BMI: 38.7 Code: 73271-8 Heart Rate 1: 91 bpm Height: 5'6" SpO2: 97% Weight: 240 lbs 10/06/2017 Blood Pressure 1: 152/82 Code: 8480-6 BMI: 38.4 Code: 34541-2 Heart Rate 1: 91 bpm Height: 5'6" [...] data Encounters Encounter Performer Location Codes Date ) 96809 EST. PATIENT, LEVEL IV Diagnosis: Essential (primary) hypertension[ICD10: I10] Diagnosis: Type 2 diabetes mellitus with hyperglycemia[ICD10: E11.65] [facility] CPT-4: 22823 12/12/2018 ([id number]) 04261 EST. PATIENT, LEVEL IV Diagnosis: Essential (primary) hypertension[ICD10: I10] Diagnosis: Type 2 diabetes mellitus without complications[ICD10: E11.9] [facility] CPT-4: 35322 11/23/2018 ([id number]) PREV VISIT EST AGE 40-64 Diagnosis: Encounter for general adult medical examination with abnormal findings[ICD10: Z00.01] [facility] CPT-4: 15338 09/21/2018 [id number]) 68727 EST. PATIENT, LEVEL IV Diagnosis: Essential (primary) hypertension[ICD10: I10] Diagnosis: Type 2 diabetes mellitus without complications[ICD10: E11.9] [facility] CPT-4: 52198 05/10/2018 [id number] 22691 EST. PATIENT, LEVEL III Diagnosis: Essential (primary) hypertension[ICD10: I10] [facility] CPT-4: 39372 02/14/2018 ([id number]) Miscellaneous no charge Diagnosis: Essential (primary) hypertension[ICD10: I10] Katerine Laurent MD, [facility] CPT-4: 26779 12/15/2017 ([id number]) 26050 EST. PATIENT, LEVEL III Diagnosis: Essential (primary) hypertension[ICD10: I10] Diagnosis: Sciatica, right side[ICD10: M54.31] SHAYY Velasquez MD CPT- 4: 66188 11/17/2017 ([id number]) PREV VISIT EST AGE 40-64 Diagnosis: Encounter for general adult medical examination with abnormal findings[ICD10: Z00.01] Katerine Laurent MD, [facility] CPT-4: 49561 10/06/2017 Plan of Care Planned Activity Notes [...] 1.5mL weekly. 12/12/2018 Appointment: Katerine Laurent WPtel: [facility] (15 min) Moderate 12/12/2018 Patient Education: Patient Medication Summary Completed 12/12/2018 Patient Education: Diabetes Completed 12/12/2018 Appointment: Katerine Laurent WPtel: [facility] (15 min) Moderate 11/30/2018 Visit Plan: Hypertension [...] less controlled. 11/23/2018 Appointment: [facility]el[facility] [phone] [facility] (15 min) Moderate 11/23/2018 Patient Education: Patient Medication Summary Completed 11/23/2018 Patient Education: Diabetes Completed 11/23/2018 App[facility]ment: Sel[facility] Luevano [phone] (30 min) Complex 11/03/2018 Visit Plan: Well [...] while seated. 09/21/2018 Appointment: Katerine Laurent WPtel: [facility] (15 min) Moderate 09/21/2018 Patient Education: [...] controlled. 05/10/2018 Appointment: Katerine Laurent WPtel: [phone] [facility] [place] (15 min) Moderate 05/10/2018 Patient Education: Patient Medication Summary Completed 05/10/2018 Appointment: Katerine Laurent WPtel: [facility] [place] (15 min) Moderate 04/12/2018 Appointment: Katerine Laurent [facility]Ptel[facility] [phone] [facility] [place] (15 min) Moderate 02/16/2018 Visit Plan: Hypertension [...] daily. 02/14/2018 Appointment: [facility]ater[facility] Laurent [facility]Ptel[facility] [phone] [facility] (15 min) Moderate 02/14/2018 Patient Education: Patient [...] Summary Completed 11/17/2017 Appointment: [facility]Ptel[facility] [phone] [facility] (15 min) Moderate 11/10/2017 Visit Plan: Well [...] 6.1% 10/06/2017 Appointment: [facility]ater[facility] Laurent [facility]Ptel[facility] [phone] [facility] [place] New Patient 10/06/2017 Patient Education: Patient Medication [...]
--- OUTSIDE RECORDS SUMMARY | 2019-06-13 08:25 | XMS REPORT | CCD ---
Author Author Katerine Laurent Organization Katerine Laurent MD, [facility] Address [address] [place] [address] Phone Care Team Providers Care Lay Out And Detail Drafter Name Role Phone PP Unavailable CCM Unavailable Summary Purpose Interface Exchange Insurance Providers Payer name Policy type / Coverage type Covered democrat ID Effective Begin Date Effective End Date AETNA Commercial Insurance [id number] 2017 Unknown Family history Father Diagnosis Age At Onset Hypertension Unknown Myocardial infarction Unknown Diabetes mellitus Type 2 Unknown Hypercholesterolemia Unknown Arthritis Unknown Social History Social History Element Codes Description Effective Dates Marital status Unknown Toy 10/06/2017 Number of children Unknown 3 10/06/2017 Employment Unknown 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; 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 10/06/[address]: 966431983 Never smoker 10/06/[address]: 785111377 Never drinks alcohol 10/06/2017 Has the patient [...] 1.5 mg/0.5 mL subcutaneous pen injector RxNorm: 1480805 1.5 Milligram(s) SQ QW 12/12/2018 09/01/2020 Active metoprolol succinate ER 50 mg tablet,extended release 24 hr RxNorm: 313864 1 Tablet(s) PO daily 11/23/2018 06/20/2019 Active please delete the 25mg metoprolol and fill the 50mg - and also delete the farxiga from her medication list as well - we stopped that medication in October Farxiga 10 mg tablet RxNorm: 8626890 1 TABLET BY MOUTH DAILY 10/19/2018 11/14/2018 Inactive metformin 1,000 mg tablet RxNorm: 267197 1 Tablet(s) PO BID 10/10/2018 10/04/2019 Active lisinopril 40 mg tablet RxNorm: 984990 1 Tablet(s) PO daily 09/21/2018 09/15/2019 Active this is the only dose of lisinopril that she should be taking - 40mg --please delete the other rxs of lisinopril Trulicity 0.75 mg/0.5 mL subcutaneous pen injector RxNorm: 9969737 0.75 Milligram(s) SQ QW 09/21/2018 12/11/2018 Inactive metoprolol succinate ER 25 mg tablet,extended release 24 hr RxNorm: 484125 1 Tablet(s) PO daily 09/21/2018 11/22/2018 Inactive please cancel her amlodipine rx Klor-Con 8 mEq tablet,extended release RxNorm: 302345 1 Tablet(s) PO daily 07/15/2018 10/07/2019 Active amlodipine 10 mg tablet RxNorm: 435852 1 Tablet(s) PO daily 02/14/2018 09/20/2018 Inactive Farxiga 10 mg tablet RxNorm: 4642003 1 Tablet(s) PO daily 01/31/2018 10/18/2018 Inactive pravastatin 20 mg tablet RxNorm: 669925 1 Tablet(s) PO QHS 01/12/2018 01/06/2019 Active pravastatin 20 mg tablet RxNorm: 222710 1 Tablet(s) PO QHS 01/12/2018 01/11/2018 Inactive gabapentin 300 mg capsule RxNorm: 777375 1 Capsule(s) PO QPM 11/17/2017 06/14/2018 Inactive lisinopril 40 mg tablet RxNorm: 021001 1 Tablet(s) PO daily 11/17/2017 09/20/2018 Inactive lisinopril 20 mg tablet RxNorm: 171388 1 Tablet(s) PO daily 10/06/2017 11/16/2017 Inactive estradiol 10 mcg vaginal tablet RxNorm: 982490 1 Tablet(s) VAG daily No Start Date Active metformin 1,000 mg tablet RxNorm: 649113 1 Tablet(s) PO BID No Start Date 10/09/2018 Inactive amlodipine 5 mg tablet RxNorm: 627816 1 Tablet(s) PO daily No Start Date 02/13/2018 Inactive lisinopril 10 mg tablet RxNorm: 073833 1 Tablet(s) PO daily No Start Date 10/05/2017 Inactive Farxiga 10 mg tablet RxNorm: 7080490 1 Tablet(s) PO daily No Start Date 01/30/2018 Inactive meloxicam 15 mg tablet RxNorm: 509016 1 Tablet(s) PO daily No Start Date 05/09/2018 Inactive pravastatin 10 mg tablet RxNorm: 324682 1 Tablet(s) PO daily No Start Date 01/11/2018 Inactive Klor-Con 8 mEq tablet,extended release RxNorm: 610042 1 Tablet(s) PO daily No Start Date [...] Code Item Item Code Result Date %Hba1C Vvl878 % HbA1c 33940- 6 7.1 % 08/30/2018 %Hba1C Sgk418 Gluc Ave 157 mg/dL 08/30/2018 Comp Metabolic Sln697 NA 140 mEq/L 05/06/2018 Comp Metabolic Scg703 K 4.5 mEq/L 05/06/2018 Comp Metabolic Pjx057 CL 104 mEq/L 05/06/2018 Comp Metabolic Yki066 CO2 27.0 mEq/L 05/06/2018 Comp Metabolic Kmi803 ANION GAP 14 05/06/2018 Comp Metabolic Njx202 GLUCOSE 129 mg/dL 05/06/2018 Comp Metabolic Fik472 Creat 0.7 mg/dL 05/06/2018 Comp Metabolic Gqn250 eGFR 90 ml/min/1.73m2 05/06/2018 Comp Metabolic Vso062 BUN 14 mg/dL 05/06/2018 Comp Metabolic Oxx653 B/C Ratio 19.7 Ratio 05/06/2018 Comp Metabolic Nyl717 CALCIUM 9.4 mg/dL 05/06/2018 Comp Metabolic Cik068 ALK PHOS 51 U/L 05/06/2018 Comp Metabolic Wsl959 AST(SGOT) 18 U/L 05/06/2018 Comp Metabolic Esb708 ALT(SGPT) 22 U/L 05/06/2018 Comp Metabolic Jza704 BILI T 0.5 mg/dL 05/06/2018 Comp Metabolic Irr912 ALBUMIN 4.3 g/dL 05/06/2018 Comp Metabolic Oqd575 TPRO 6.9 g/dL 05/06/2018 Comp Metabolic Ons761 GLOB 2.6 g/dL 05/06/2018 Comp Metabolic Cst135 A/G Ratio 1.6 Ratio 05/06/2018 Comp Metabolic Hwm282 Osmo 282 mOsmo 05/06/2018 %Hba1C Lck140 % HbA1c 04021- 6 6.6 % 05/06/2018 %Hba1C Ven062 Gluc Ave 143 mg/dL 05/06/2018 Microalbumin Rle787 MicroAlb <0.7 mg/dL 01/11/2018 Comp Metabolic Djo763 NA 142 mEq/L 01/11/2018 Comp Metabolic Zwv243 K 4.4 mEq/L 01/11/2018 Comp Metabolic Utv363 CL 104 mEq/L 01/11/2018 Comp Metabolic Ffm835 CO2 29.0 mEq/L 01/11/2018 Comp Metabolic Phe401 ANION GAP 13 01/11/2018 Comp Metabolic Ixc098 GLUCOSE 115 mg/dL 01/11/2018 Comp Metabolic Oxv608 Creat 0.6 mg/dL 01/11/2018 Comp Metabolic Vmi126 eGFR 108 ml/min/1.73m2 01/11/2018 Comp Metabolic Fbz243 BUN 14 mg/dL 01/11/2018 Comp Metabolic Pck538 B/C Ratio 23.0 Ratio 01/11/2018 Comp Metabolic Xwz989 CALCIUM 9.5 mg/dL 01/11/2018 Comp Metabolic Ywv483 ALK PHOS 36 U/L 01/11/2018 Comp Metabolic Sop857 AST(SGOT) 19 U/L 01/11/2018 Comp Metabolic Xxm362 ALT(SGPT) 28 U/L 01/11/2018 Comp Metabolic Fwl619 BILI T 0.5 mg/dL 01/11/2018 Comp Metabolic Mcz100 ALBUMIN 4.5 g/dL 01/11/2018 Comp Metabolic Fgi836 TPRO 7.1 g/dL 01/11/2018 Comp Metabolic Sdh678 GLOB 2.6 g/dL 01/11/2018 Comp Metabolic Ksd255 A/G Ratio 1.7 Ratio 01/11/2018 Comp Metabolic Pac429 Osmo 285 mOsmo 01/11/2018 Tsh Ord6 TSH (3rd IS) 3.04 uIU/mL 01/11/2018 %Hba1C Wic420 % HbA1c 66935- 6 6.3 % 01/11/2018 %Hba1C Rzr091 Gluc Ave 134 mg/dL 01/11/2018 Cbc With [...] 30.6 pg 01/11/2018 Cbc With Differential Ord2 [place]% 7.9 % 01/11/2018 Cbc With Differential Ord2 [...] 2.07 K/ul 01/11/2018 Cbc With Differential Ord2 [place] ABS# 0.5 K/ul 01/11/2018 Cbc With Differential [...] 1: 154/88 Code: 8480-6 BMI: 41.3 Code: 93196-2 Heart Rate 1: 114 bpm Height: 5'6" SpO2: 97% Weight: 256 lbs 11/23/2018 Blood Pressure 1: 178/90 Code: 8480-6 BMI: 40.7 Code: 15221-9 Heart Rate 1: 103 bpm Height: 5'6" SpO2: 98% Weight: 252 lbs 09/21/2018 Blood Pressure 1: 150/82 Code: 8480-6 BMI: 40.0 Code: 77438-2 Heart Rate 1: 91 bpm Height: 5'6" SpO2: 98% Weight: 248 lbs 05/10/2018 Blood Pressure 1: 140/82 Code: 8480-6 BMI: 39.2 Code: 80012-1 Heart Rate 1: 89 bpm Height: 5'6" SpO2: 96% Weight: 242 lbs 10 oz 02/14/2018 Blood Pressure 1: 156/88 Code: 8480-6 BMI: 38.4 Code: 93669-0 Heart Rate 1: 88 bpm Height: 5'6" SpO2: 98% Weight: 238 lbs 12/15/2017 Blood Pressure 1: 172/90 Code: 8480-6 Heart Rate 1: 98 bpm SpO2: 98% 11/17/2017 Blood Pressure 1: 150/84 Code: 8480-6 BMI: 38.7 Code: 83708-5 Heart Rate 1: 91 bpm Height: 5'6" SpO2: 97% Weight: 240 lbs 10/06/2017 Blood Pressure 1: 152/82 Code: 8480-6 BMI: 38.4 Code: 95655-9 Heart Rate 1: 91 bpm Height: 5'6" [...] data Encounters Encounter Performer Location Codes Date ([id number]) 30361 EST. PATIENT, LEVEL IV Diagnosis: Essential (primary) hypertension[ICD10: I10] Diagnosis: Type 2 diabetes mellitus with hyperglycemia[ICD10: E11.65] [facility] CPT-4: 63594 12/12/2018 ([id number]) 34292 EST. PATIENT, LEVEL IV Diagnosis: Essential (primary) hypertension[ICD10: I10] Diagnosis: Type 2 diabetes mellitus without complications[ICD10: E11.9] [facility] CPT-4: 51005 11/23/2018 ([id number]) PREV VISIT EST AGE 40-64 Diagnosis: Encounter for general adult medical examination with abnormal findings[ICD10: Z00.01] [facility] CPT-4: 86954 09/21/2018 ([id number]) 22684 EST. PATIENT, LEVEL IV Diagnosis: Essential (primary) hypertension[ICD10: I10] Diagnosis: Type 2 diabetes mellitus without complications[ICD10: E11.9] [facility] CPT-4: 16626 05/10/2018 ([id number]) 42884 EST. PATIENT, LEVEL III Diagnosis: Essential (primary) hypertension[ICD10: I10] [facility] CPT-4: 57854 02/14/2018 ([id number]) Miscellaneous no charge Diagnosis: Essential (primary) hypertension[ICD10: I10] [facility] CPT-4: 57053 12/15/2017 ([id number]) 00906 EST. PATIENT, LEVEL III Diagnosis: Essential (primary) hypertension[ICD10: I10] Diagnosis: Sciatica, right side[ICD10: M54.31] SHAYY Velasquez MD CPT- 4: 36709 11/17/2017 ([id number]) PREV VISIT EST AGE 40-64 Diagnosis: Encounter for general adult medical examination with abnormal findings[ICD10: Z00.01] Katerine Laurent MD, SHAYY CPT-4: 32919 10/06/2017 Plan of Care Planned Activity Notes [...] control. increase trulicity to 1.5mL weekly. 12/12/2018 Patient Education: Patient Medication Summary Completed 12/12/2018 Patient Education: Diabetes Completed 12/12/2018 Appointment: Katerine Laurent WPtel: [address] [place], [place] [address] (15 min) Moderate 11/30/2018 Visit Plan: Hypertension [...] controlled. 11/23/2018 [phone] ([facility] min) Moderate 11/23/2018 Patient Education: Patient Medication Summary Completed 11/23/2018 Patient Education: Diabetes Completed 11/23/2018 Appointment: [facility]ue[phone] [facility] (30 min) Complex 11/03/2018 Visit Plan: Well [...] seated. 09/21/2018 App[facility]ment[phone] [facility] (15 min) Moderate 09/21/2018 Patient Education: Patient [...] controlled. 05/10/2018 Appointment: Katerine Laurent WPtel: [phone] [facility] (15 min) Moderate 05/10/2018 Patient Education: Patient Medication Summary Completed 05/10/2018 App[facility]ment[facility]ine [phone] [facility] [place] (15 min) Moderate 04/12/2018 Appointment: Katerine Laurent WPtel: [facility] (15 min) Moderate 02/16/2018 Visit Plan: Hypertension [...] daily. 02/14/2018 Appointment: [phone] [facility] [place] (15 min) Moderate 02/14/2018 Patient Education: [...] Completed 11/17/2017 Appointment: Katerine Laurent WPtel: [phone] [facility] (15 min) Moderate 11/10/2017 Visit Plan: Well [...] 6.1% 10/06/2017 Appointment: Katerine Laurent WPtel: [phone] [facility] New Patient 10/06/2017 Patient Education: Patient Medication [...]
--- OUTSIDE RECORDS SUMMARY | 2019-06-13 08:25 | XMS REPORT | CCD ---
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 [id number] 2017 Unknown Family history Father Diagnosis Age At Onset Hypertension Unknown Myocardial infarction Unknown Diabetes mellitus Type 2 Unknown Hypercholesterolemia Unknown Arthritis Unknown Social History Social History Element Codes Description Effective Dates Marital status Unknown Toy 10/06/2017 Number of children Unknown 3 10/06/2017 Employment Unknown 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; 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 10/06/[address]: 734259216 Never smoker 10/06/[address]: 522721306 Never drinks alcohol 10/06/2017 Has the patient [...] Active 10/06/2017 Unknown Type 2 diabetes mellitus without complications [...] I10 10/06/2017 Active Type 2 diabetes mellitus without complications [...] Date Stop Date Status Fill Instructions metoprolol succinate ER 50 mg tablet,extended release 24 hr RxNorm: 492007 1 Tablet(s) PO daily 11/23/2018 06/20/2019 Active please delete the 25mg metoprolol and fill the 50mg - and also delete the farxiga from her medication list as well - we stopped that medication in October Farxiga 10 mg tablet RxNorm: 3097935 1 TABLET BY MOUTH DAILY 10/19/2018 11/14/2018 Inactive metformin 1,000 mg tablet RxNorm: 510536 1 Tablet(s) PO BID 10/10/2018 10/04/2019 Active lisinopril 40 mg tablet RxNorm: 610912 1 Tablet(s) PO daily 09/21/2018 09/15/2019 Active this is the only dose of lisinopril that she should be taking - 40mg --please delete the other rxs of lisinopril Trulicity 0.75 mg/0.5 mL subcutaneous pen injector RxNorm: 4426730 0.75 Milligram(s) SQ QW 09/21/2018 04/18/2019 Active metoprolol succinate ER 25 mg tablet,extended release 24 hr RxNorm: 065305 1 Tablet(s) PO daily 09/21/2018 11/22/2018 Inactive please cancel her amlodipine rx Klor-Con 8 mEq tablet,extended release RxNorm: 902052 1 Tablet(s) PO daily 07/15/2018 10/07/2019 Active amlodipine 10 mg tablet RxNorm: 278298 1 Tablet(s) PO daily 02/14/2018 09/20/2018 Inactive Farxiga 10 mg tablet RxNorm: 3305135 1 Tablet(s) PO daily 01/31/2018 10/18/2018 Inactive pravastatin 20 mg tablet RxNorm: 589834 1 Tablet(s) PO QHS 01/12/2018 01/06/2019 Active pravastatin 20 mg tablet RxNorm: 286203 1 Tablet(s) PO QHS 01/12/2018 01/11/2018 Inactive gabapentin 300 mg capsule RxNorm: 069518 1 Capsule(s) PO QPM 11/17/2017 06/14/2018 Inactive lisinopril 40 mg tablet RxNorm: 703698 1 Tablet(s) PO daily 11/17/2017 09/20/2018 Inactive lisinopril 20 mg tablet RxNorm: 187545 1 Tablet(s) PO daily 10/06/2017 11/16/2017 Inactive estradiol 10 mcg vaginal tablet RxNorm: 250683 1 Tablet(s) VAG daily No Start Date Active metformin 1,000 mg tablet RxNorm: 288305 1 Tablet(s) PO BID No Start Date 10/09/2018 Inactive amlodipine 5 mg tablet RxNorm: 537347 1 Tablet(s) PO daily No Start Date 02/13/2018 Inactive lisinopril 10 mg tablet RxNorm: 342409 1 Tablet(s) PO daily No Start Date 10/05/2017 Inactive Farxiga 10 mg tablet RxNorm: 5124038 1 Tablet(s) PO daily No Start Date 01/30/2018 Inactive meloxicam 15 mg tablet RxNorm: 555972 1 Tablet(s) PO daily No Start Date 05/09/2018 Inactive pravastatin 10 mg tablet RxNorm: 772526 1 Tablet(s) PO daily No Start Date 01/11/2018 Inactive Klor-Con 8 mEq tablet,extended release RxNorm: 193997 1 Tablet(s) PO daily No Start Date 07/14/2018 Inactive Medication Administered No Medication Administered data Immunizations Vaccine Codes Date Status Influenza CVX: 141 08/11/2018 completed SHINGARIX CVX: 121 08/11/2018 completed Assessments Condition Codes Effective Dates Essential (primary) hypertension ICD-10: I10 ICD-9: 401.1 11/23/2018 Type 2 diabetes mellitus without complications ICD-10: E11.9 ICD-9: 250.00 11/23/2018 Localized edema ICD-10: R60.0 ICD-9: 782.3 09/21/2018 Encounter for general adult medical examination with abnormal findings ICD-10: Z00.01 ICD-9: V70.0 09/21/2018 Sciatica, right side ICD-10: M54.31 ICD-9: 724.3 11/17/2017 Reason For Visit Reason For Visit Effective Dates Notes diabetes mellitus 11/23/2018 diabetes mellitus 09/21/2018 diabetes mellitus 05/10/2018 diabetes mellitus 02/14/2018 diabetes mellitus 11/17/2017 diabetes mellitus 10/06/2017 Results Observation Observation Code Item Item Code Result Date %Hba1C Pcs085 % HbA1c 81344- 6 7.1 % 08/30/2018 %Hba1C Cuf211 Gluc Ave 157 mg/dL 08/30/2018 Comp Metabolic Mdz850 NA 140 mEq/L 05/06/2018 Comp Metabolic Keu691 K 4.5 mEq/L 05/06/2018 Comp Metabolic Pny655 CL 104 mEq/L 05/06/2018 Comp Metabolic Rzl555 CO2 27.0 mEq/L 05/06/2018 Comp Metabolic Rxo411 ANION GAP 14 05/06/2018 Comp Metabolic Icv952 GLUCOSE 129 mg/dL 05/06/2018 Comp Metabolic Yko508 Creat 0.7 mg/dL 05/06/2018 Comp Metabolic Azv992 eGFR 90 ml/min/1.73m2 05/06/2018 Comp Metabolic Btj444 BUN 14 mg/dL 05/06/2018 Comp Metabolic Llx246 B/C Ratio 19.7 Ratio 05/06/2018 Comp Metabolic Fjs402 CALCIUM 9.4 mg/dL 05/06/2018 Comp Metabolic Zyi926 ALK PHOS 51 U/L 05/06/2018 Comp Metabolic Wmy599 AST(SGOT) 18 U/L 05/06/2018 Comp Metabolic Agm116 ALT(SGPT) 22 U/L 05/06/2018 Comp Metabolic Cck642 BILI T 0.5 mg/dL 05/06/2018 Comp Metabolic Efb655 ALBUMIN 4.3 g/dL 05/06/2018 Comp Metabolic Eqi563 TPRO 6.9 g/dL 05/06/2018 Comp Metabolic Tye493 GLOB 2.6 g/dL 05/06/2018 Comp Metabolic Fpx583 A/G Ratio 1.6 Ratio 05/06/2018 Comp Metabolic Qig157 Osmo 282 mOsmo 05/06/2018 %Hba1C Lvm357 % HbA1c 38381- 6 6.6 % 05/06/2018 %Hba1C Cfm685 Gluc Ave 143 mg/dL 05/06/2018 Microalbumin Ama256 MicroAlb <0.7 mg/dL 01/11/2018 Comp Metabolic Fyz176 NA 142 mEq/L 01/11/2018 Comp Metabolic Fsw171 K 4.4 mEq/L 01/11/2018 Comp Metabolic Oyw591 CL 104 mEq/L 01/11/2018 Comp Metabolic Roy159 CO2 29.0 mEq/L 01/11/2018 Comp Metabolic Vjr267 ANION GAP 13 01/11/2018 Comp Metabolic Tox599 GLUCOSE 115 mg/dL 01/11/2018 Comp Metabolic Quq552 Creat 0.6 mg/dL 01/11/2018 Comp Metabolic Pwo131 eGFR 108 ml/min/1.73m2 01/11/2018 Comp Metabolic Dux767 BUN 14 mg/dL 01/11/2018 Comp Metabolic Ujz726 B/C Ratio 23.0 Ratio 01/11/2018 Comp Metabolic Keu192 CALCIUM 9.5 mg/dL 01/11/2018 Comp Metabolic Aaa554 ALK PHOS 36 U/L 01/11/2018 Comp Metabolic Pgx569 AST(SGOT) 19 U/L 01/11/2018 Comp Metabolic Yfj772 ALT(SGPT) 28 U/L 01/11/2018 Comp Metabolic Aqv681 BILI T 0.5 mg/dL 01/11/2018 Comp Metabolic Mxk222 ALBUMIN 4.5 g/dL 01/11/2018 Comp Metabolic Quq493 TPRO 7.1 g/dL 01/11/2018 Comp Metabolic Oab380 GLOB 2.6 g/dL 01/11/2018 Comp Metabolic Sic132 A/G Ratio 1.7 Ratio 01/11/2018 Comp Metabolic Qdc928 Osmo 285 mOsmo 01/11/2018 Tsh Ord6 TSH (3rd IS) 3.04 uIU/mL 01/11/2018 %Hba1C Ddw121 % HbA1c 07423- 6 6.3 % 01/11/2018 %Hba1C Cdb549 Gluc Ave 134 mg/dL 01/11/2018 Cbc With [...] 30.6 pg 01/11/2018 Cbc With Differential Ord2 Mccurtain% 7.9 % 01/11/2018 Cbc With Differential Ord2 MCHC 33.3 pg 01/11/2018 Cbc With Differential Ord2 Eos% 2.8 % 01/11/2018 Cbc With Differential Ord2 Baso% 0.2 % 01/11/2018 Cbc With Differential Ord2 PLT 233 K/ul 01/11/2018 Cbc With Differential Ord2 RDW 14.0 % 01/11/2018 Cbc With Differential Ord2 Neut ABS# 3.69 K/ul 01/11/2018 Cbc With Differential Ord2 Lymph ABS# 2.07 K/ul 01/11/2018 Cbc With Differential Ord2 Mccurtain ABS# 0.5 K/ul 01/11/2018 Cbc With Differential Ord2 Eos ABS# 0.2 K/ul 01/11/2018 Cbc With Differential Ord2 Baso ABS# 0.0 K/ul 01/11/2018 Lipid Ord30 CHOL 181 mg/dL 01/11/2018 Lipid Ord30 HDL 52.0 mg/dl 01/11/2018 Lipid Ord30 TRIG 205 mg/dL 01/11/2018 Lipid Ord30 LDL 88 mg/dL 01/11/2018 Lipid Ord30 C/HDL 3.5 Ratio 01/11/2018 Review of Systems System Result Effective Dates Constitutional No recent illness 11/23/2018 Constitutional No [...] No Procedures data Vital Signs Date Vital 11/23/2018 Blood Pressure 1: 178/90 Code: 8480-6 BMI: 40.7 Code: 70012-1 Heart Rate 1: 103 bpm Height: 5'6" SpO2: 98% Weight: 252 lbs 09/21/2018 Blood Pressure 1: 150/82 Code: 8480-6 BMI: 40.0 Code: 00055-0 Heart Rate 1: 91 bpm Height: 5'6" SpO2: 98% Weight: 248 lbs 05/10/2018 Blood Pressure 1: 140/82 Code: 8480-6 BMI: 39.2 Code: 12300-3 Heart Rate 1: 89 bpm Height: 5'6" SpO2: 96% Weight: 242 lbs 10 oz 02/14/2018 Blood Pressure 1: 156/88 Code: 8480-6 BMI: 38.4 Code: 44316-5 Heart Rate 1: 88 bpm Height: 5'6" SpO2: 98% Weight: 238 lbs 12/15/2017 Blood Pressure 1: 172/90 Code: 8480-6 Heart Rate 1: 98 bpm SpO2: 98% 11/17/2017 Blood Pressure 1: 150/84 Code: 8480-6 BMI: 38.7 Code: 91968-9 Heart Rate 1: 91 bpm Height: 5'6" SpO2: 97% Weight: 240 lbs 10/06/2017 Blood Pressure 1: 152/82 Code: 8480-6 BMI: 38.4 Code: 00870-2 Heart Rate 1: 91 bpm Height: 5'6" SpO2: 98% Weight: 238 lbs Functional Status No Functional Status data History of Present Illness Symptom Name Status Result Effective Date Notes Onset of Symptom onset as an adult [...] data Encounters Encounter Performer Location Codes Date ([id number]) [id number] EST. PATIENT, LEVEL IV Diagnosis: Essential (primary) hypertension[ICD10: I10] Diagnosis: Type 2 diabetes mellitus without complications[ICD10: E11.9] [facility] CPT-4: 78834 11/23/2018 ([id number]) PREV VISIT EST AGE 40-64 Diagnosis: Encounter for general adult medical examination with abnormal findings[ICD10: Z00.01] [facility] CPT-4: 46014 09/21/2018 ([id number] EST. PATIENT, LEVEL IV Diagnosis: Essential (primary) hypertension[ICD10: I10] Diagnosis: Type 2 diabetes mellitus without complications[ICD10: E11.9] Katerine Laurent MD, [facility] CPT-4: 30232 05/10/2018 ([id number]) [id number] EST. PATIENT, LEVEL III Diagnosis: Essential (primary) hypertension[ICD10: I10] SHAYY Velasquez MD CPT-4: 70721 02/14/2018 ([id number]) Miscellaneous no charge Diagnosis: Essential (primary) hypertension[ICD10: I10] SHAYY Velasquez MD CPT-4: 28277 12/15/2017 ([id number]) 69428 EST. PATIENT, LEVEL III Diagnosis: Essential (primary) hypertension[ICD10: I10] Diagnosis: Sciatica, right side[ICD10: M54.31] [facility] MD, [facility] CPT- 4: 13840 11/17/2017 ([id number]) PREV VISIT EST AGE 40-64 Diagnosis: Encounter for general adult medical examination with abnormal findings[ICD10: Z00.01] [facility], [facility] CPT-4: 36571 10/06/2017 Plan of Care Planned Activity Notes [...] are starting to become less controlled. 11/23/2018 Patient Education: Patient Medication Summary Completed 11/23/2018 Patient Education: Diabetes Completed 11/23/2018 Appointment: Selene Luevano WPtel: [phone] [facility] (30 min) Complex 11/03/2018 Visit Plan: Well [...] seated. 09/21/2018 Appointment[id number] (15 min) Moderate 09/21/2018 Patient Education: Patient [...] less controlled. 05/10/2018 Appointment: Katerine Laurent WPtel: [phone] [facility] [place] (15 min) Moderate 05/10/2018 Patient Education: Patient Medication Summary Completed 05/10/2018 Appointment: Katerine Laurent WPtel: [phone] [facility] [place] (15 min) Moderate 04/12/2018 Appointment: Katerine Laurent WPtel: [phone] [facility] [place] (15 min) Moderate 02/16/2018 Visit Plan: [...] 10mg daily. 02/14/2018 Appointment: Katerine Laurent WPtel: [facility] [place] (15 min) Moderate 02/14/2018 Patient [...] Summary Completed 11/17/2017 Appointment: Katerine Laurent WPtel: [facility] (15 min) Moderate 11/10/2017 Visit Plan: Well [...] of 6.1% 10/06/2017 Appointment: Katerine Laurent WPtel: [address] [place] [address] New Patient 10/06/2017 Patient Education: Patient Medication [...] monitor labs - last hgba1c of 6.1% corcidin HBP - a safe decongestant for [...]
--- OUTSIDE RECORDS SUMMARY | 2019-06-13 08:26 | XMS REPORT | CCD ---
Author Author Katerine Laurent Organization Katerine Laurent MD, [facility] Address [address] [place] [address] Phone Care Team Providers Care Engine Tester Name Role Phone PP Unavailable CCM Unavailable Summary Purpose Interface Exchange Insurance Providers Payer name Policy type / Coverage type Covered libertarian ID Effective Begin Date Effective End Date AETNA Commercial Insurance [id number] 2017 Unknown Family history Father Diagnosis Age At Onset Hypertension Unknown Myocardial infarction Unknown Diabetes mellitus Type 2 Unknown Hypercholesterolemia Unknown Arthritis Unknown Social History Social History Element Codes Description Effective Dates Marital status Unknown Toy 10/06/2017 Number of children Unknown 3 10/06/2017 Employment Unknown 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 Unknown Has never used illegal drugs 10/06/2017 Allergies, Adverse Reactions, Alerts Substance Reaction Codes Entered Date Inactivated Date Status NO KNOWN DRUG ALLERGIES Unknown 10/06/2017 No Inactive Date Active Past Medical History Illness Codes Condition Status Onset Date Resolved Date Encounter for general adult medical examination with abnormal findings ICD-9: V70.0 ICD-10: Z00.01 Active 10/06/2017 Unknown Essential (primary) hypertension ICD-9: 401.1 ICD-10: I10 Active 10/06/2017 Unknown Localized edema ICD-9: 782.3 ICD-10: R60.0 Active 09/21/2018 Unknown Type 2 diabetes mellitus without complications ICD-9: 250.00 ICD-10: E11.9 Active 05/10/2018 Unknown Diabetes Unknown Active 05/10/2018 Unknown Sciatica Unknown Active 11/17/2017 Unknown Sciatica, right side ICD- 9: 724.3 ICD-10: M54.31 Active 11/17/2017 Unknown Problems Condition Codes Effective Dates Condition Status Encounter for general adult medical examination with abnormal findings ICD-9: V70.0 ICD-10: Z00.01 10/06/2017 Active Essential (primary) hypertension ICD-9: 401.1 ICD-10: I10 10/06/2017 Active Localized edema ICD-9: 782.3 ICD-10: R60.0 09/21/2018 Active Type 2 diabetes mellitus without complications ICD-9: 250.00 ICD-10: E11.9 05/10/2018 Active Diabetes Unknown 05/10/2018 Active Sciatica Unknown 11/17/2017 Active Sciatica, right side ICD- 9: 724.3 ICD-10: M54.31 11/17/2017 Active Medications Medication Codes Instructions Start Date Stop Date Status Fill Instructions Farxiga 10 mg tablet RxNorm: 0041342 1 TABLET BY MOUTH DAILY 10/19/2018 10/13/2019 Active metformin 1,000 mg tablet RxNorm: 475500 1 Tablet(s) PO BID 10/10/2018 10/04/2019 Active lisinopril 40 mg tablet RxNorm: 293006 1 Tablet(s) PO daily 09/21/2018 09/15/2019 Active this is the only dose of lisinopril that she should be taking - 40mg --please delete the other rxs of lisinopril Trulicity 0.75 mg/0.5 mL subcutaneous pen injector RxNorm: 2527230 0.75 Milligram(s) SQ QW 09/21/2018 04/18/2019 Active metoprolol succinate ER 25 mg tablet,extended release 24 hr RxNorm: 533104 1 Tablet(s) PO daily 09/21/2018 02/17/2019 Active please cancel her amlodipine rx Klor-Con 8 mEq tablet,extended release RxNorm: 438131 1 Tablet(s) PO daily 07/15/2018 10/07/2019 Active amlodipine 10 mg tablet RxNorm: 824878 1 Tablet(s) PO daily 02/14/2018 09/20/2018 Inactive Farxiga 10 mg tablet RxNorm: 6131558 1 Tablet(s) PO daily 01/31/2018 10/18/2018 Inactive pravastatin 20 mg tablet RxNorm: 457034 1 Tablet(s) PO QHS 01/12/2018 01/06/2019 Active pravastatin 20 mg tablet RxNorm: 853187 1 Tablet(s) PO QHS 01/12/2018 01/11/2018 Inactive gabapentin 300 mg capsule RxNorm: 853581 1 Capsule(s) PO QPM 11/17/2017 06/14/2018 Inactive lisinopril 40 mg tablet RxNorm: 596939 1 Tablet(s) PO daily 11/17/2017 09/20/2018 Inactive lisinopril 20 mg tablet RxNorm: 646744 1 Tablet(s) PO daily 10/06/2017 11/16/2017 Inactive estradiol 10 mcg vaginal tablet RxNorm: 095747 1 Tablet(s) VAG daily No Start Date Active metformin 1,000 mg tablet RxNorm: 305707 1 Tablet(s) PO BID No Start Date 10/09/2018 Inactive amlodipine 5 mg tablet RxNorm: 458217 1 Tablet(s) PO daily No Start Date 02/13/2018 Inactive lisinopril 10 mg tablet RxNorm: 887128 1 Tablet(s) PO daily No Start Date 10/05/2017 Inactive Farxiga 10 mg tablet RxNorm: 4830067 1 Tablet(s) PO daily No Start Date 01/30/2018 Inactive meloxicam 15 mg tablet RxNorm: 225936 1 Tablet(s) PO daily No Start Date 05/09/2018 Inactive pravastatin 10 mg tablet RxNorm: 496303 1 Tablet(s) PO daily No Start Date 01/11/2018 Inactive Klor-Con 8 mEq tablet,extended release RxNorm: 366391 1 Tablet(s) PO daily No Start Date 07/14/2018 Inactive Medication Administered No Medication Administered data Immunizations Vaccine Codes Date Status Influenza CVX: 141 08/11/2018 completed SHINGARIX CVX: 121 08/11/2018 completed Assessments Condition Codes Effective Dates Type 2 diabetes mellitus without complications ICD-10: E11.9 ICD-9: 250.00 09/21/2018 Localized edema ICD-10: R60.0 ICD-9: 782.3 09/21/2018 Encounter for general adult medical examination with abnormal findings ICD-10: Z00.01 ICD-9: V70.0 09/21/2018 Essential (primary) hypertension ICD-10: I10 ICD-9: 401.1 09/21/2018 Sciatica, right side ICD-10: M54.31 ICD-9: 724.3 11/17/2017 Reason For Visit Reason For Visit Effective Dates Notes diabetes mellitus 09/21/2018 diabetes mellitus 05/10/2018 diabetes mellitus 02/14/2018 diabetes mellitus 11/17/2017 diabetes mellitus 10/06/2017 Results Observation Observation Code Item Item Code Result Date %Hba1C Qko146 % HbA1c 43936- 6 7.1 % 08/30/2018 %Hba1C Hjq811 Gluc Ave 157 mg/dL 08/30/2018 Comp Metabolic Urf832 NA 140 mEq/L 05/06/2018 Comp Metabolic Ppu152 K 4.5 mEq/L 05/06/2018 Comp Metabolic Dgf649 CL 104 mEq/L 05/06/2018 Comp Metabolic Yuy695 CO2 27.0 mEq/L 05/06/2018 Comp Metabolic Tiw224 ANION GAP 14 05/06/2018 Comp Metabolic Blo298 GLUCOSE 129 mg/dL 05/06/2018 Comp Metabolic Myz214 Creat 0.7 mg/dL 05/06/2018 Comp Metabolic Wox813 eGFR 90 ml/min/1.73m2 05/06/2018 Comp Metabolic Ful775 BUN 14 mg/dL 05/06/2018 Comp Metabolic Ath100 B/C Ratio 19.7 Ratio 05/06/2018 Comp Metabolic Kfd692 CALCIUM 9.4 mg/dL 05/06/2018 Comp Metabolic Kqp783 ALK PHOS 51 U/L 05/06/2018 Comp Metabolic Pwr288 AST(SGOT) 18 U/L 05/06/2018 Comp Metabolic Jck820 ALT(SGPT) 22 U/L 05/06/2018 Comp Metabolic Ocd705 BILI T 0.5 mg/dL 05/06/2018 Comp Metabolic Fuv775 ALBUMIN 4.3 g/dL 05/06/2018 Comp Metabolic Tmo648 TPRO 6.9 g/dL 05/06/2018 Comp Metabolic Lrh868 GLOB 2.6 g/dL 05/06/2018 Comp Metabolic Tgz172 A/G Ratio 1.6 Ratio 05/06/2018 Comp Metabolic Sdr748 Osmo 282 mOsmo 05/06/2018 %Hba1C Lkp317 % HbA1c 88070- 6 6.6 % 05/06/2018 %Hba1C Nfp775 Gluc Ave 143 mg/dL 05/06/2018 Microalbumin Sag298 MicroAlb <0.7 mg/dL 01/11/2018 Comp Metabolic Yds014 NA 142 mEq/L 01/11/2018 Comp Metabolic Fkr605 K 4.4 mEq/L 01/11/2018 Comp Metabolic Scv455 CL 104 mEq/L 01/11/2018 Comp Metabolic Mjm172 CO2 29.0 mEq/L 01/11/2018 Comp Metabolic Tyl861 ANION GAP 13 01/11/2018 Comp Metabolic Pww644 GLUCOSE 115 mg/dL 01/11/2018 Comp Metabolic Gyr167 Creat 0.6 mg/dL 01/11/2018 Comp Metabolic Mpm006 eGFR 108 ml/min/1.73m2 01/11/2018 Comp Metabolic Fdj925 BUN 14 mg/dL 01/11/2018 Comp Metabolic Pmh858 B/C Ratio 23.0 Ratio 01/11/2018 Comp Metabolic Mcg194 CALCIUM 9.5 mg/dL 01/11/2018 Comp Metabolic Lwm282 ALK PHOS 36 U/L 01/11/2018 Comp Metabolic Hna749 AST(SGOT) 19 U/L 01/11/2018 Comp Metabolic Kop295 ALT(SGPT) 28 U/L 01/11/2018 Comp Metabolic Tlw518 BILI T 0.5 mg/dL 01/11/2018 Comp Metabolic Vzp685 ALBUMIN 4.5 g/dL 01/11/2018 Comp Metabolic Ypb830 TPRO 7.1 g/dL 01/11/2018 Comp Metabolic Rhv940 GLOB 2.6 g/dL 01/11/2018 Comp Metabolic Hej802 A/G Ratio 1.7 Ratio 01/11/2018 Comp Metabolic Cna942 Osmo 285 mOsmo 01/11/2018 Tsh Ord6 TSH (3rd IS) 3.04 uIU/mL 01/11/2018 %Hba1C Wse485 % HbA1c 33039- 6 6.3 % 01/11/2018 %Hba1C Ekh515 Gluc Ave 134 mg/dL 01/11/2018 Cbc With Differential Ord2 WBC 6.46 K/ul 01/11/2018 Cbc With Differential Ord2 RBC 4.68 M/ul 01/11/2018 Cbc With Differential Ord2 HGB 14.3 g/dl 01/11/2018 Cbc With Differential Ord2 HCT 42.9 % 01/11/2018 Cbc With Differential Ord2 Neut% 57.1 % 01/11/2018 Cbc With Differential Ord2 Lymph% 32.0 % 01/11/2018 Cbc With Differential Ord2 MCV 91.7 fl 01/11/2018 Cbc With Differential Ord2 [place]% 7.9 % 01/11/2018 Cbc With Differential Ord2 MCH 30.6 pg 01/11/2018 Cbc With Differential Ord2 Eos% 2.8 % 01/11/2018 Cbc With Differential Ord2 MCHC 33.3 pg 01/11/2018 Cbc With Differential Ord2 Baso% 0.2 % 01/11/2018 Cbc With Differential Ord2 PLT 233 K/ul 01/11/2018 Cbc With Differential Ord2 Neut ABS# 3.69 K/ul 01/11/2018 Cbc With Differential Ord2 RDW 14.0 % 01/11/2018 Cbc With Differential Ord2 Lymph ABS# 2.07 K/ul 01/11/2018 Cbc With Differential Ord2 [place] ABS# 0.5 K/ul 01/11/2018 Cbc With Differential Ord2 Eos ABS# 0.2 K/ul 01/11/2018 Cbc With Differential Ord2 Baso ABS# 0.0 K/ul 01/11/2018 Lipid Ord30 CHOL 181 mg/dL 01/11/2018 Lipid Ord30 HDL 52.0 mg/dl 01/11/2018 Lipid Ord30 TRIG 205 mg/dL 01/11/2018 Lipid Ord30 LDL 88 mg/dL 01/11/2018 Lipid Ord30 C/HDL 3.5 Ratio 01/11/2018 Review of Systems System Result Effective Dates Constitutional No recent illness 09/21/2018 Constitutional No [...] No Procedures data Vital Signs Date Vital 09/21/2018 Blood Pressure 1: 150/82 Code: 8480-6 BMI: 40.0 Code: 24071-6 Heart Rate 1: 91 bpm Height: 5'6" SpO2: 98% Weight: 248 lbs 05/10/2018 Blood Pressure 1: 140/82 Code: 8480-6 BMI: 39.2 Code: 78363-6 Heart Rate 1: 89 bpm Height: 5'6" SpO2: 96% Weight: 242 lbs 10 oz 02/14/2018 Blood Pressure 1: 156/88 Code: 8480-6 BMI: 38.4 Code: 50862-7 Heart Rate 1: 88 bpm Height: 5'6" SpO2: 98% Weight: 238 lbs 12/15/2017 Blood Pressure 1: 172/90 Code: 8480-6 Heart Rate 1: 98 bpm SpO2: 98% 11/17/2017 Blood Pressure 1: 150/84 Code: 8480-6 BMI: 38.7 Code: 39653-6 Heart Rate 1: 91 bpm Height: 5'6" SpO2: 97% Weight: 240 lbs 10/06/2017 Blood Pressure 1: 152/82 Code: 8480-6 BMI: 38.4 Code: 09240-7 Heart Rate 1: 91 bpm Height: 5'6" SpO2: 98% Weight: 238 lbs Functional Status No Functional Status data History of Present Illness Symptom Name Status Result Effective Date Notes diabetes mellitus Onset of Symptom onset as [...] data Encounters Encounter Performer Location Codes Date ([id number]) PREV VISIT EST AGE 40-64 Diagnosis: Encounter for general adult medical examination with abnormal findings[ICD10: Z00.01] Katerine Laurent MD, [facility] CPT-4: 34730 09/21/2018 ([id number]) 66556 EST. PATIENT, LEVEL IV Diagnosis: Essential (primary) hypertension[ICD10: I10] Diagnosis: Type 2 diabetes mellitus without complications[ICD10: E11.9] Katerine Laurent MD, [facility] CPT-4: 20112 05/10/2018 ([id number]) 83103 EST. PATIENT, LEVEL III Diagnosis: Essential (primary) hypertension[ICD10: I10] [facility] Velasquez MD CPT-4: 18712 02/14/2018 ([id number]) Miscellaneous no charge Diagnosis: Essential (primary) hypertension[ICD10: I10] SHAYY Velasquez MD CPT-4: 60590 12/15/2017 ([id number]) 34982 EST. PATIENT, LEVEL III Diagnosis: Essential (primary) hypertension[ICD10: I10] Diagnosis: Sciatica, right side[ICD10: M54.31] Katerine Laurent MD, [facility] CPT- 4: 53659 11/17/2017 ([id number]) PREV VISIT EST AGE 40-64 Diagnosis: Encounter for general adult medical examination with abnormal findings[ICD10: Z00.01] Katerine Laurent MD, [facility] CPT-4: 48081 10/06/2017 Plan of Care Planned Activity Notes Codes Status Date Visit Plan: Well Adult - pt was [...] while seated. 09/21/2018 Appointment: Katerine Laurent WPtel: [address] [place], [place] [id number] (15 min) Moderate 09/21/2018 Patient Education: Patient [...] less controlled. 05/10/2018 Appointment: Katerine Laurent WPtel: [facility] [place] (15 min) Moderate 05/10/2018 Patient Education: Patient Medication Summary Completed 05/10/2018 Appointment: Katerine Laurent WPtel: [facility]5 [facility] [place] (15 min) Moderate 04/12/2018 Appointment: Katerine Laurent WPtel: [phone] [facility] [place] (15 min) Moderate 02/16/2018 Visit Plan: [...] daily. 02/14/2018 Appointment: Katerine Laurent WPtel: [phone] [facility] (15 min) Moderate 02/14/2018 Patient Education: Patient [...] Summary Completed 11/17/2017 [phone] [facility] (15 min) Moderate 11/10/2017 Visit Plan: [...] 6.1% 10/06/2017 App[facility]ment: [facility] [phone] [facility] [place] New Patient 10/06/2017 Patient Education: [...] monitor labs - last hgba1c of 6.1% if your blood pressure is at or [...]
--- OUTSIDE RECORDS SUMMARY | 2019-06-13 08:27 | XMS REPORT | CCD ---
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 2017 Unknown Family history Father Diagnosis Age At Onset Hypertension Unknown Myocardial infarction Unknown Diabetes mellitus Type 2 Unknown Hypercholesterolemia Unknown Arthritis Unknown Social History Social History Element Codes Description Effective Dates Marital status Unknown Toy 10/06/2017 Number of children Unknown 3 10/06/2017 Employment Unknown 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; 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 10/06/[address]: 943218429 Never smoker 10/06/[address]: 847634357 Never drinks alcohol 10/06/2017 Has the patient [...] Start Date Stop Date Status Fill Instructions metformin 1,000 mg tablet RxNorm: 426026 1 Tablet(s) PO BID 10/10/2018 10/04/2019 Active lisinopril 40 mg tablet RxNorm: 825995 1 Tablet(s) PO daily 09/21/2018 09/15/2019 Active this is the only dose of lisinopril that she should be taking - 40mg --please delete the other rxs of lisinopril Trulicity 0.75 mg/0.5 mL subcutaneous pen injector RxNorm: 7335259 0.75 Milligram(s) SQ QW 09/21/2018 04/18/2019 Active metoprolol succinate ER 25 mg tablet,extended release 24 hr RxNorm: 886118 1 Tablet(s) PO daily 09/21/2018 02/17/2019 Active please cancel her amlodipine rx Klor-Con 8 mEq tablet,extended release RxNorm: 007987 1 Tablet(s) PO daily 07/15/2018 10/07/2019 Active amlodipine 10 mg tablet RxNorm: 328862 1 Tablet(s) PO daily 02/14/2018 09/20/2018 Inactive Farxiga 10 mg tablet RxNorm: 8883826 1 Tablet(s) PO daily 01/31/2018 10/27/2018 Active pravastatin 20 mg tablet RxNorm: 342253 1 Tablet(s) PO QHS 01/12/2018 01/06/2019 Active pravastatin 20 mg tablet RxNorm: 903398 1 Tablet(s) PO QHS 01/12/2018 01/11/2018 Inactive gabapentin 300 mg capsule RxNorm: 269456 1 Capsule(s) PO QPM 11/17/2017 06/14/2018 Inactive lisinopril 40 mg tablet RxNorm: 384203 1 Tablet(s) PO daily 11/17/2017 09/20/2018 Inactive lisinopril 20 mg tablet RxNorm: 916871 1 Tablet(s) PO daily 10/06/2017 11/16/2017 Inactive estradiol 10 mcg vaginal tablet RxNorm: 793307 1 Tablet(s) VAG daily No Start Date Active metformin 1,000 mg tablet RxNorm: 321527 1 Tablet(s) PO BID No Start Date 10/09/2018 Inactive amlodipine 5 mg tablet RxNorm: 314106 1 Tablet(s) PO daily No Start Date 02/13/2018 Inactive lisinopril 10 mg tablet RxNorm: 784203 1 Tablet(s) PO daily No Start Date 10/05/2017 Inactive Farxiga 10 mg tablet RxNorm: 5180165 1 Tablet(s) PO daily No Start Date 01/30/2018 Inactive meloxicam 15 mg tablet RxNorm: 388234 1 Tablet(s) PO daily No Start Date 05/09/2018 Inactive pravastatin 10 mg tablet RxNorm: 850215 1 Tablet(s) PO daily No Start Date 01/11/2018 Inactive Klor-Con 8 mEq tablet,extended release RxNorm: 285041 1 Tablet(s) PO daily No Start Date [...] Code Item Item Code Result Date %Hba1C Meh892 % HbA1c 01632- 6 7.1 % 08/30/2018 %Hba1C Vxl442 Gluc Ave 157 mg/dL 08/30/2018 Comp Metabolic Vpy184 NA 140 mEq/L 05/06/2018 Comp Metabolic Wft761 K 4.5 mEq/L 05/06/2018 Comp Metabolic Fff390 CL 104 mEq/L 05/06/2018 Comp Metabolic Eqa414 CO2 27.0 mEq/L 05/06/2018 Comp Metabolic Lor026 ANION GAP 14 05/06/2018 Comp Metabolic Hay323 GLUCOSE 129 mg/dL 05/06/2018 Comp Metabolic Ffx457 Creat 0.7 mg/dL 05/06/2018 Comp Metabolic Nsd199 eGFR 90 ml/min/1.73m2 05/06/2018 Comp Metabolic Pxj714 BUN 14 mg/dL 05/06/2018 Comp Metabolic Lrq934 B/C Ratio 19.7 Ratio 05/06/2018 Comp Metabolic Vuy945 CALCIUM 9.4 mg/dL 05/06/2018 Comp Metabolic Nvc650 ALK PHOS 51 U/L 05/06/2018 Comp Metabolic Zxf347 AST(SGOT) 18 U/L 05/06/2018 Comp Metabolic Rrf793 ALT(SGPT) 22 U/L 05/06/2018 Comp Metabolic Qzn434 BILI T 0.5 mg/dL 05/06/2018 Comp Metabolic Fau566 ALBUMIN 4.3 g/dL 05/06/2018 Comp Metabolic Rhj013 TPRO 6.9 g/dL 05/06/2018 Comp Metabolic Slt855 GLOB 2.6 g/dL 05/06/2018 Comp Metabolic Foi685 A/G Ratio 1.6 Ratio 05/06/2018 Comp Metabolic Jju678 Osmo 282 mOsmo 05/06/2018 %Hba1C Rih834 % HbA1c 24545- 6 6.6 % 05/06/2018 %Hba1C Opr742 Gluc Ave 143 mg/dL 05/06/2018 Microalbumin Dss012 MicroAlb <0.7 mg/dL 01/11/2018 Comp Metabolic Gkx519 NA 142 mEq/L 01/11/2018 Comp Metabolic Scw208 K 4.4 mEq/L 01/11/2018 Comp Metabolic Gnj930 CL 104 mEq/L 01/11/2018 Comp Metabolic Dwf218 CO2 29.0 mEq/L 01/11/2018 Comp Metabolic Pvy684 ANION GAP 13 01/11/2018 Comp Metabolic Vvt629 GLUCOSE 115 mg/dL 01/11/2018 Comp Metabolic Wpt376 Creat 0.6 mg/dL 01/11/2018 Comp Metabolic Duk052 eGFR 108 ml/min/1.73m2 01/11/2018 Comp Metabolic Fra380 BUN 14 mg/dL 01/11/2018 Comp Metabolic Qpq680 B/C Ratio 23.0 Ratio 01/11/2018 Comp Metabolic Ift203 CALCIUM 9.5 mg/dL 01/11/2018 Comp Metabolic Vsp335 ALK PHOS 36 U/L 01/11/2018 Comp Metabolic Ibs844 AST(SGOT) 19 U/L 01/11/2018 Comp Metabolic Xcf196 ALT(SGPT) 28 U/L 01/11/2018 Comp Metabolic Qhp947 BILI T 0.5 mg/dL 01/11/2018 Comp Metabolic Sks146 ALBUMIN 4.5 g/dL 01/11/2018 Comp Metabolic Lrs338 TPRO 7.1 g/dL 01/11/2018 Comp Metabolic Rtr142 GLOB 2.6 g/dL 01/11/2018 Comp Metabolic Ofj113 A/G Ratio 1.7 Ratio 01/11/2018 Comp Metabolic Rst375 Osmo 285 mOsmo 01/11/2018 Tsh Ord6 TSH (3rd IS) 3.04 uIU/mL 01/11/2018 %Hba1C Vde367 % HbA1c 52591- 6 6.3 % 01/11/2018 %Hba1C Pgr846 Gluc Ave 134 mg/dL 01/11/2018 Cbc With [...] 30.6 pg 01/11/2018 Cbc With Differential Ord2 [place]% 7.9 % 01/11/2018 Cbc With Differential Ord2 [...] 2.07 K/ul 01/11/2018 Cbc With Differential Ord2 [place] ABS# 0.5 K/ul 01/11/2018 Cbc With Differential [...] Effective Dates Notes Full Exam - General 1995 Constitutional general appearance Development: well developed 09/21/2018 [...] 1: 150/82 Code: 8480-6 BMI: 40.0 Code: 64252-7 Heart Rate 1: 91 bpm Height: 5'6" SpO2: 98% Weight: 248 lbs 05/10/2018 Blood Pressure 1: 140/82 Code: 8480-6 BMI: 39.2 Code: 56585-7 Heart Rate 1: 89 bpm Height: 5'6" SpO2: 96% Weight: 242 lbs 10 oz 02/14/2018 Blood Pressure 1: 156/88 Code: 8480-6 BMI: 38.4 Code: 18410-4 Heart Rate 1: 88 bpm Height: 5'6" SpO2: 98% Weight: 238 lbs 12/15/2017 Blood Pressure 1: 172/90 Code: 8480-6 Heart Rate 1: 98 bpm SpO2: 98% 11/17/2017 Blood Pressure 1: 150/84 Code: 8480-6 BMI: 38.7 Code: 88984-1 Heart Rate 1: 91 bpm Height: 5'6" SpO2: 97% Weight: 240 lbs 10/06/2017 Blood Pressure 1: 152/82 Code: 8480-6 BMI: 38.4 Code: 31722-6 Heart Rate 1: 91 bpm Height: 5'6" [...] data Encounters Encounter Performer Location Codes Date (20440) PREV VISIT EST AGE 40-64 Diagnosis: Encounter for general adult medical examination with abnormal findings[ICD10: Z00.01] [facility] CPT-4: 85708 09/21/2018 ([id number]) 57733 EST. PATIENT, LEVEL IV Diagnosis: Essential (primary) hypertension[ICD10: I10] Diagnosis: Type 2 diabetes mellitus without complications[ICD10: E11.9] SHAYY Velasquez MD CPT-4: 80245 05/10/2018 ([id number]) 44617 EST. PATIENT, LEVEL III Diagnosis: Essential (primary) hypertension[ICD10: I10] SHAYY Velasquez MD CPT-4: 06363 02/14/2018 ([id number]) Miscellaneous no charge Diagnosis: Essential (primary) hypertension[ICD10: I10] SHAYY Velasquez MD CPT-4: 43570 12/15/2017 ([id number]) 53422 EST. PATIENT, LEVEL III Diagnosis: Essential (primary) hypertension[ICD10: I10] Diagnosis: Sciatica, right side[ICD10: M54.31] SHAYY Velasquez MD CPT- 4: 93233 11/17/2017 ([id number]) PREV VISIT EST AGE 40-64 Diagnosis: Encounter for general adult medical examination with abnormal findings[ICD10: Z00.01] Katerine Laurent MD [facility] CPT-4: 90510 10/06/2017 Plan of Care Planned Activity Notes [...] Appointment: Katerine Laurent WPtel: [phone] [facility] (15 min) Moderate 09/21/2018 Patient Education: Patient [...] controlled. 05/10/2018 App[facility]ment[phone] ([facility]) Moderate 05/10/2018 Patient Education: Patient Medication Summary Completed 05/10/2018 Appointment: [phone] [facility] (15 min) Moderate 04/12/2018 Appointment: Katerine Laurent WPtel: [phone] [facility] (15 min) Moderate 02/16/2018 Visit Plan: Hypertension [...] Appointment: Katerine Laurent WPtel: [phone] [facility] (15 min) Moderate 02/14/2018 Patient Education: Patient [...] Completed 11/17/2017 Appointment: Katerine Laurent WPtel: [phone] [facility] (15 min) Moderate 11/10/2017 Visit Plan: Well [...] of 6.1% 10/06/2017 Appointment: Katerine Laurent WPtel[facility] New Patient 10/06/2017 Patient Education: Patient Medication [...]
--- OUTSIDE RECORDS SUMMARY | 2019-06-13 08:27 | XMS REPORT | CCD ---
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 [id number] 2017 Unknown Family history Father Diagnosis Age At Onset Hypertension Unknown Myocardial infarction Unknown Diabetes mellitus Type 2 Unknown Hypercholesterolemia Unknown Arthritis Unknown Social History Social History Element Codes Description Effective Dates Marital status Unknown Toy 10/06/2017 Number of children Unknown 3 10/06/2017 Employment Unknown 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; 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 10/06/[address]: 223097970 Never smoker 10/06/[address]: 187829889 Never drinks alcohol 10/06/2017 Has the patient [...] Start Date Stop Date Status Fill Instructions lisinopril 40 mg tablet RxNorm: 042617 1 Tablet(s) PO daily 09/21/2018 09/15/2019 Active this is the only dose of lisinopril that she should be taking - 40mg --please delete the other rxs of lisinopril Trulicity 0.75 mg/0.5 mL subcutaneous pen injector RxNorm: 9578650 0.75 Milligram(s) SQ QW 09/21/2018 04/18/2019 Active metoprolol succinate ER 25 mg tablet,extended release 24 hr RxNorm: 715775 1 Tablet(s) PO daily 09/21/2018 02/17/2019 Active please cancel her amlodipine rx Klor-Con 8 mEq tablet,extended release RxNorm: 212554 1 Tablet(s) PO daily 07/15/2018 10/07/2019 Active amlodipine 10 mg tablet RxNorm: 582820 1 Tablet(s) PO daily 02/14/2018 09/20/2018 Inactive Farxiga 10 mg tablet RxNorm: 1045392 1 Tablet(s) PO daily 01/31/2018 10/27/2018 Active pravastatin 20 mg tablet RxNorm: 586810 1 Tablet(s) PO QHS 01/12/2018 01/06/2019 Active pravastatin 20 mg tablet RxNorm: 143405 1 Tablet(s) PO QHS 01/12/2018 01/11/2018 Inactive gabapentin 300 mg capsule RxNorm: 855543 1 Capsule(s) PO QPM 11/17/2017 06/14/2018 Inactive lisinopril 40 mg tablet RxNorm: 488952 1 Tablet(s) PO daily 11/17/2017 09/20/2018 Inactive lisinopril 20 mg tablet RxNorm: 199228 1 Tablet(s) PO daily 10/06/2017 11/16/2017 Inactive metformin 1,000 mg tablet RxNorm: 036600 1 Tablet(s) PO BID No Start Date Active estradiol 10 mcg vaginal tablet RxNorm: 461375 1 Tablet(s) VAG daily No Start Date Active amlodipine 5 mg tablet RxNorm: 323684 1 Tablet(s) PO daily No Start Date 02/13/2018 Inactive lisinopril 10 mg tablet RxNorm: 488834 1 Tablet(s) PO daily No Start Date 10/05/2017 Inactive Farxiga 10 mg tablet RxNorm: 5018298 1 Tablet(s) PO daily No Start Date 01/30/2018 Inactive meloxicam 15 mg tablet RxNorm: 610970 1 Tablet(s) PO daily No Start Date 05/09/2018 Inactive pravastatin 10 mg tablet RxNorm: 055877 1 Tablet(s) PO daily No Start Date 01/11/2018 Inactive Klor-Con 8 mEq tablet,extended release RxNorm: 223679 1 Tablet(s) PO daily No Start Date [...] Code Item Item Code Result Date %Hba1C Xlv491 % HbA1c 37701- 6 7.1 % 08/30/2018 %Hba1C Pxy298 Gluc Ave 157 mg/dL 08/30/2018 Comp Metabolic Uor793 NA 140 mEq/L 05/06/2018 Comp Metabolic Dgv807 K 4.5 mEq/L 05/06/2018 Comp Metabolic Uco509 CL 104 mEq/L 05/06/2018 Comp Metabolic Qxy183 CO2 27.0 mEq/L 05/06/2018 Comp Metabolic Kph192 ANION GAP 14 05/06/2018 Comp Metabolic Ymj692 GLUCOSE 129 mg/dL 05/06/2018 Comp Metabolic Hcl083 Creat 0.7 mg/dL 05/06/2018 Comp Metabolic Qrt763 eGFR 90 ml/min/1.73m2 05/06/2018 Comp Metabolic Tdn338 BUN 14 mg/dL 05/06/2018 Comp Metabolic Amk111 B/C Ratio 19.7 Ratio 05/06/2018 Comp Metabolic Rlt988 CALCIUM 9.4 mg/dL 05/06/2018 Comp Metabolic Uqf870 ALK PHOS 51 U/L 05/06/2018 Comp Metabolic Ynz382 AST(SGOT) 18 U/L 05/06/2018 Comp Metabolic Rog567 ALT(SGPT) 22 U/L 05/06/2018 Comp Metabolic Cyb845 BILI T 0.5 mg/dL 05/06/2018 Comp Metabolic Ngr440 ALBUMIN 4.3 g/dL 05/06/2018 Comp Metabolic Tps699 TPRO 6.9 g/dL 05/06/2018 Comp Metabolic Wku976 GLOB 2.6 g/dL 05/06/2018 Comp Metabolic Khw357 A/G Ratio 1.6 Ratio 05/06/2018 Comp Metabolic Swh093 Osmo 282 mOsmo 05/06/2018 %Hba1C Uvh167 % HbA1c 59972- 6 6.6 % 05/06/2018 %Hba1C Nko400 Gluc Ave 143 mg/dL 05/06/2018 Microalbumin Bag751 MicroAlb <0.7 mg/dL 01/11/2018 Comp Metabolic Nah031 NA 142 mEq/L 01/11/2018 Comp Metabolic Yle099 K 4.4 mEq/L 01/11/2018 Comp Metabolic Rsz714 CL 104 mEq/L 01/11/2018 Comp Metabolic Igf173 CO2 29.0 mEq/L 01/11/2018 Comp Metabolic Iie634 ANION GAP 13 01/11/2018 Comp Metabolic Qdg327 GLUCOSE 115 mg/dL 01/11/2018 Comp Metabolic Jvj901 Creat 0.6 mg/dL 01/11/2018 Comp Metabolic Iki643 eGFR 108 ml/min/1.73m2 01/11/2018 Comp Metabolic Ubu493 BUN 14 mg/dL 01/11/2018 Comp Metabolic Rpe581 B/C Ratio 23.0 Ratio 01/11/2018 Comp Metabolic Rkp750 CALCIUM 9.5 mg/dL 01/11/2018 Comp Metabolic Car419 ALK PHOS 36 U/L 01/11/2018 Comp Metabolic Nkq486 AST(SGOT) 19 U/L 01/11/2018 Comp Metabolic Pnt714 ALT(SGPT) 28 U/L 01/11/2018 Comp Metabolic Xtn734 BILI T 0.5 mg/dL 01/11/2018 Comp Metabolic Tti323 ALBUMIN 4.5 g/dL 01/11/2018 Comp Metabolic Ncc259 TPRO 7.1 g/dL 01/11/2018 Comp Metabolic Eva453 GLOB 2.6 g/dL 01/11/2018 Comp Metabolic Ujo331 A/G Ratio 1.7 Ratio 01/11/2018 Comp Metabolic Dtj756 Osmo 285 mOsmo 01/11/2018 Tsh Ord6 TSH (3rd IS) 3.04 uIU/mL 01/11/2018 %Hba1C Mfb636 % HbA1c 20994- 6 6.3 % 01/11/2018 %Hba1C Oad087 Gluc Ave 134 mg/dL 01/11/2018 Cbc With Differential Ord2 WBC 6.46 K/ul 01/11/2018 Cbc With Differential Ord2 RBC 4.68 M/ul 01/11/2018 Cbc With Differential Ord2 HGB 14.3 g/dl 01/11/2018 Cbc With Differential Ord2 Neut% 57.1 % 01/11/2018 Cbc With Differential Ord2 HCT 42.9 % 01/11/2018 Cbc With Differential Ord2 MCV 91.7 fl 01/11/2018 Cbc With Differential Ord2 Lymph% 32.0 % 01/11/2018 Cbc With Differential Ord2 MCH 30.6 pg 01/11/2018 Cbc With Differential Ord2 [place]% 7.9 % 01/11/2018 Cbc With Differential Ord2 [...] 2.07 K/ul 01/11/2018 Cbc With Differential Ord2 [place] ABS# 0.5 K/ul 01/11/2018 Cbc With Differential [...] 1: 150/82 Code: 8480-6 BMI: 40.0 Code: 84897-4 Heart Rate 1: 91 bpm Height: 5'6" SpO2: 98% Weight: 248 lbs 05/10/2018 Blood Pressure 1: 140/82 Code: 8480-6 BMI: 39.2 Code: 04989-5 Heart Rate 1: 89 bpm Height: 5'6" SpO2: 96% Weight: 242 lbs 10 oz 02/14/2018 Blood Pressure 1: 156/88 Code: 8480-6 BMI: 38.4 Code: 09538-6 Heart Rate 1: 88 bpm Height: 5'6" SpO2: 98% Weight: 238 lbs 12/15/2017 Blood Pressure 1: 172/90 Code: 8480-6 Heart Rate 1: 98 bpm SpO2: 98% 11/17/2017 Blood Pressure 1: 150/84 Code: 8480-6 BMI: 38.7 Code: 72972-8 Heart Rate 1: 91 bpm Height: 5'6" SpO2: 97% Weight: 240 lbs 10/06/2017 Blood Pressure 1: 152/82 Code: 8480-6 BMI: 38.4 Code: 30682-7 Heart Rate 1: 91 bpm Height: 5'6" [...] data Encounters Encounter Performer Location Codes Date ([id number]) PREV VISIT EST AGE 40-64 Diagnosis: Encounter for general adult medical examination with abnormal findings[ICD10: Z00.01] [facility] CPT-4: 98024 09/21/2018 ([id number]) 05889 EST. PATIENT, LEVEL IV Diagnosis: Essential (primary) hypertension[ICD10: I10] Diagnosis: Type 2 diabetes mellitus without complications[ICD10: E11.9] [facility] CPT-4: 69715 05/10/2018 ([id number]) 85019 EST. PATIENT, LEVEL III Diagnosis: Essential (primary) hypertension[ICD10: I10] [facility] MD, [facility] CPT-4: 13626 02/14/2018 ([id number]) Miscellaneous no charge Diagnosis: Essential (primary) hypertension[ICD10: I10] K[facility]ine Laurent MD, [facility] CPT-4: 08673 12/15/2017 ([id number]) 05920 EST. PATIENT, LEVEL III Diagnosis: Essential (primary) hypertension[ICD10: I10] Diagnosis: Sciatica, right side[ICD10: M54.31] K[facility]ine [facility] MD, [facility] CPT- 4: 65999 11/17/2017 ([id number]) PREV VISIT EST AGE 40-64 Diagnosis: Encounter for general adult medical examination with abnormal findings[ICD10: Z00.01] Katerine Laurent MD, [facility] CPT-4: 44423 10/06/2017 Plan of Care Planned Activity Notes [...] - use compression socks while seated. 09/21/2018 Patient Education: Patient Medication Summary Completed [...] less controlled. 05/10/2018 Appointment: Katerine Laurent WPtel: [facility]5 [facility] (15 min) Moderate 05/10/2018 Patient Education: Patient Medication Summary Completed 05/10/2018 Appointment: Katerine Laurenttel: [phone] [facility] (15 min) Moderate 04/12/2018 Appointment: Katerine Laurent WPtel: [facility] (15 min) Moderate 02/16/2018 Visit Plan: Hypertension [...] amlodipine to 10mg daily. 02/14/2018 Appointment: Katerine Laurentl: [phone] [facility] (15 min) Moderate 02/14/2018 Patient Education: Patient [...] Completed 11/17/2017 [phone] ([facility] min) Moderate [...]
--- OUTSIDE RECORDS SUMMARY | 2019-06-13 08:28 | XMS REPORT | CCD ---
Author Author Katerine Laurent Organization [facility] Address [address] [place] [address] Phone Care Team Providers Care Tire Balancer Name Role Phone PP Unavailable CCM Unavailable Summary Purpose Interface Exchange Insurance Providers Payer name Policy type / Coverage type Covered constitution party ID Effective Begin Date Effective End Date AETNA Commercial Insurance [id number] 2017 Unknown Family history Father Diagnosis Age At Onset Hypertension Unknown Myocardial infarction Unknown Diabetes mellitus Type 2 Unknown Hypercholesterolemia Unknown Arthritis Unknown Social History Social History Element Codes Description Effective Dates Marital status Unknown Toy 10/06/2017 Number of children Unknown 3 10/06/2017 Employment Unknown 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 Unknown Has never used illegal drugs 10/06/2017 Allergies, Adverse Reactions, Alerts Substance Reaction Codes Entered Date Inactivated Date Status NO KNOWN DRUG ALLERGIES Unknown 10/06/2017 No Inactive Date Active Past Medical History Illness Codes Condition Status Onset Date Resolved Date Diabetes Unknown Active 05/10/2018 Unknown Essential (primary) hypertension ICD-9: 401.1 ICD-10: I10 Active 10/06/2017 Unknown Type 2 diabetes mellitus without complications ICD-9: 250.00 ICD-10: E11.9 Active 05/10/2018 Unknown Sciatica Unknown Active 11/17/2017 Unknown Sciatica, right side ICD- 9: 724.3 ICD-10: M54.31 Active 11/17/2017 Unknown Encounter for general adult medical examination with abnormal findings ICD-9: V70.0 ICD-10: Z00.01 Active 10/06/2017 Unknown Problems Condition Codes Effective Dates Condition Status Diabetes Unknown 05/10/2018 Active Essential (primary) hypertension ICD-9: 401.1 ICD-10: I10 10/06/2017 Active Type 2 diabetes mellitus without complications ICD-9: 250.00 ICD-10: E11.9 05/10/2018 Active Sciatica Unknown 11/17/2017 Active Sciatica, right side ICD- 9: 724.3 ICD-10: M54.31 11/17/2017 Active Encounter for general adult medical examination with abnormal findings ICD-9: V70.0 ICD-10: Z00.01 10/06/2017 Active Medications Medication Codes Instructions Start Date Stop Date Status Fill Instructions Klor-Con 8 mEq tablet,extended release RxNorm: 589812 1 Tablet(s) PO daily 07/15/2018 10/07/2019 Active amlodipine 10 mg tablet RxNorm: 448740 1 Tablet(s) PO daily 02/14/2018 02/08/2019 Active Farxiga 10 mg tablet RxNorm: 0227185 1 Tablet(s) PO daily 01/31/2018 10/27/2018 Active pravastatin 20 mg tablet RxNorm: 866348 1 Tablet(s) PO QHS 01/12/2018 01/06/2019 Active pravastatin 20 mg tablet RxNorm: 764178 1 Tablet(s) PO QHS 01/12/2018 01/11/2018 Inactive gabapentin 300 mg capsule RxNorm: 942272 1 Capsule(s) PO QPM 11/17/2017 06/14/2018 Inactive lisinopril 40 mg tablet RxNorm: 545892 1 Tablet(s) PO daily 11/17/2017 11/11/2018 Active lisinopril 20 mg tablet RxNorm: 102944 1 Tablet(s) PO daily 10/06/2017 11/16/2017 Inactive metformin 1,000 mg tablet RxNorm: 882403 1 Tablet(s) PO BID No Start Date Active estradiol 10 mcg vaginal tablet RxNorm: 644253 1 Tablet(s) VAG daily No Start Date Active amlodipine 5 mg tablet RxNorm: 174421 1 Tablet(s) PO daily No Start Date 02/13/2018 Inactive lisinopril 10 mg tablet RxNorm: 978066 1 Tablet(s) PO daily No Start Date 10/05/2017 Inactive Farxiga 10 mg tablet RxNorm: 3676065 1 Tablet(s) PO daily No Start Date 01/30/2018 Inactive meloxicam 15 mg tablet RxNorm: 499522 1 Tablet(s) PO daily No Start Date 05/09/2018 Inactive pravastatin 10 mg tablet RxNorm: 444824 1 Tablet(s) PO daily No Start Date 01/11/2018 Inactive Klor-Con 8 mEq tablet,extended release RxNorm: 420824 1 Tablet(s) PO daily No Start Date 07/14/2018 Inactive Medication Administered No Medication Administered data Immunizations Vaccine Codes Date Status Influenza CVX: 141 08/11/2018 completed SHINGARIX CVX: 121 08/11/2018 completed Assessments Condition Codes Effective Dates Type 2 diabetes mellitus without complications ICD-10: E11.9 ICD-9: 250.00 05/10/2018 Essential (primary) hypertension ICD-10: I10 ICD-9: 401.1 05/10/2018 Sciatica, right side ICD-10: M54.31 ICD-9: 724.3 11/17/2017 Encounter for general adult medical examination with abnormal findings ICD-10: Z00.01 ICD-9: V70.0 10/06/2017 Reason For Visit Reason For Visit Effective Dates Notes diabetes mellitus 05/10/2018 diabetes mellitus 02/14/2018 diabetes mellitus 11/17/2017 diabetes mellitus 10/06/2017 Results Observation Observation Code Item Item Code Result Date %Hba1C Pys421 % HbA1c 25528- 6 7.1 % 08/30/2018 %Hba1C Jhc568 Gluc Ave 157 mg/dL 08/30/2018 Comp Metabolic Fvo333 NA 140 mEq/L 05/06/2018 Comp Metabolic Ufs988 K 4.5 mEq/L 05/06/2018 Comp Metabolic Jai370 CL 104 mEq/L 05/06/2018 Comp Metabolic Kfz936 CO2 27.0 mEq/L 05/06/2018 Comp Metabolic Riw725 ANION GAP 14 05/06/2018 Comp Metabolic Kgt738 GLUCOSE 129 mg/dL 05/06/2018 Comp Metabolic Smf139 Creat 0.7 mg/dL 05/06/2018 Comp Metabolic Tuo107 eGFR 90 ml/min/1.73m2 05/06/2018 Comp Metabolic Fgp023 BUN 14 mg/dL 05/06/2018 Comp Metabolic Bio040 B/C Ratio 19.7 Ratio 05/06/2018 Comp Metabolic Bpp330 CALCIUM 9.4 mg/dL 05/06/2018 Comp Metabolic Cag626 ALK PHOS 51 U/L 05/06/2018 Comp Metabolic Zhx674 AST(SGOT) 18 U/L 05/06/2018 Comp Metabolic Xqw833 ALT(SGPT) 22 U/L 05/06/2018 Comp Metabolic Erm013 BILI T 0.5 mg/dL 05/06/2018 Comp Metabolic Pha091 ALBUMIN 4.3 g/dL 05/06/2018 Comp Metabolic Mfa635 TPRO 6.9 g/dL 05/06/2018 Comp Metabolic Pzo350 GLOB 2.6 g/dL 05/06/2018 Comp Metabolic Vny299 A/G Ratio 1.6 Ratio 05/06/2018 Comp Metabolic Kkq555 Osmo 282 mOsmo 05/06/2018 %Hba1C Ppe330 % HbA1c 10134- 6 6.6 % 05/06/2018 %Hba1C Uur237 Gluc Ave 143 mg/dL 05/06/2018 Microalbumin Pbg632 MicroAlb <0.7 mg/dL 01/11/2018 Comp Metabolic Css244 NA 142 mEq/L 01/11/2018 Comp Metabolic Fru012 K 4.4 mEq/L 01/11/2018 Comp Metabolic Pmj525 CL 104 mEq/L 01/11/2018 Comp Metabolic Vtu362 CO2 29.0 mEq/L 01/11/2018 Comp Metabolic Kfz417 ANION GAP 13 01/11/2018 Comp Metabolic Xif381 GLUCOSE 115 mg/dL 01/11/2018 Comp Metabolic Oji672 Creat 0.6 mg/dL 01/11/2018 Comp Metabolic Iet522 eGFR 108 ml/min/1.73m2 01/11/2018 Comp Metabolic Fxa144 BUN 14 mg/dL 01/11/2018 Comp Metabolic Xsa418 B/C Ratio 23.0 Ratio 01/11/2018 Comp Metabolic Rxf002 CALCIUM 9.5 mg/dL 01/11/2018 Comp Metabolic Kyt347 ALK PHOS 36 U/L 01/11/2018 Comp Metabolic Eed866 AST(SGOT) 19 U/L 01/11/2018 Comp Metabolic Jzs244 ALT(SGPT) 28 U/L 01/11/2018 Comp Metabolic Tgr177 BILI T 0.5 mg/dL 01/11/2018 Comp Metabolic Vxl261 ALBUMIN 4.5 g/dL 01/11/2018 Comp Metabolic Vfq575 TPRO 7.1 g/dL 01/11/2018 Comp Metabolic Ajt070 GLOB 2.6 g/dL 01/11/2018 Comp Metabolic Mxc530 A/G Ratio 1.7 Ratio 01/11/2018 Comp Metabolic Jyn766 Osmo 285 mOsmo 01/11/2018 Tsh Ord6 TSH (3rd IS) 3.04 uIU/mL 01/11/2018 %Hba1C Qsb377 % HbA1c 17586- 6 6.3 % 01/11/2018 %Hba1C Vkh678 Gluc Ave 134 mg/dL 01/11/2018 Cbc With [...] 91.7 fl 01/11/2018 Cbc With Differential Ord2 MCH 30.6 pg 01/11/2018 Cbc With Differential Ord2 [place]% 7.9 % 01/11/2018 Cbc With Differential Ord2 [...] 2.07 K/ul 01/11/2018 Cbc With Differential Ord2 [place] ABS# 0.5 K/ul 01/11/2018 Cbc With Differential Ord2 [place] ABS# 0.2 K/ul 01/11/2018 Cbc With Differential Ord2 Baso ABS# 0.0 K/ul 01/11/2018 Lipid Ord30 CHOL 181 mg/dL 01/11/2018 Lipid Ord30 HDL 52.0 mg/dl 01/11/2018 Lipid Ord30 TRIG 205 mg/dL 01/11/2018 Lipid Ord30 LDL 88 mg/dL 01/11/2018 Lipid Ord30 C/HDL 3.5 Ratio 01/11/2018 Review of Systems System Result Effective Dates Constitutional No recent illness 05/10/2018 Constitutional No [...] No Procedures data Vital Signs Date Vital 05/10/2018 Blood Pressure 1: 140/82 Code: 8480-6 BMI: 39.2 Code: 44301-2 Heart Rate 1: 89 bpm Height: 5'6" SpO2: 96% Weight: 242 lbs 10 oz 02/14/2018 Blood Pressure 1: 156/88 Code: 8480-6 BMI: 38.4 Code: 98582-8 Heart Rate 1: 88 bpm Height: 5'6" SpO2: 98% Weight: 238 lbs 12/15/2017 Blood Pressure 1: 172/90 Code: 8480-6 Heart Rate 1: 98 bpm SpO2: 98% 11/17/2017 Blood Pressure 1: 150/84 Code: 8480-6 BMI: 38.7 Code: 63223-3 Heart Rate 1: 91 bpm Height: 5'6" SpO2: 97% Weight: 240 lbs 10/06/2017 Blood Pressure 1: 152/82 Code: 8480-6 BMI: 38.4 Code: 88092-2 Heart Rate 1: 91 bpm Height: 5'6" [...] data Encounters Encounter Performer Location Codes Date ( 77207 EST. PATIENT, LEVEL IV Diagnosis: Essential (primary) hypertension[ICD10: I10] Diagnosis: Type 2 diabetes mellitus without complications[ICD10: E11.9] Katerine Laurent MD, [facility] CPT-4: 46566 05/10/2018 ([id number]) 48461 EST. PATIENT, LEVEL III Diagnosis: Essential (primary) hypertension[ICD10: I10] Katerine Laurent MD, [facility] CPT-4: 48121 02/14/2018 ([id number]) Miscellaneous no charge Diagnosis: Essential (primary) hypertension[ICD10: I10] Katerine Laurent MD, [facility] CPT-4: 32211 12/15/2017 ([id number]) 71466 EST. PATIENT, LEVEL III Diagnosis: Essential (primary) hypertension[ICD10: I10] Diagnosis: Sciatica, right side[ICD10: M54.31] Katerine Laurent MD, [facility] CPT- 4: 66097 11/17/2017 ([id number]) PREV VISIT EST AGE 40-64 Diagnosis: Encounter for general adult medical examination with abnormal findings[ICD10: Z00.01] Katerine Laurent MD, [facility] CPT-4: 96171 10/06/2017 Plan of Care Planned Activity Notes [...] controlled. 05/10/2018 Appointment: Katerine Laurent WPtel: [phone] [facility] [place] (15 min) Moderate 05/10/2018 Patient Education: Patient Medication Summary Completed 05/10/2018 Appointment: Katerine Laurent WPtel: [phone] [facility] [place] (15 min) Moderate 04/12/2018 Appointment: Katerine Laurent WPtel: [phone] [facility] [place] (15 min) Moderate 02/16/2018 [...] 10mg daily. 02/14/2018 Appointment: Katerine Laurent WPtel: [phone] [facility] [place] (15 min) Moderate 02/14/2018 Patient Education: [...] Completed 11/17/2017 Appointment: Katerine Laurent WPtel: [phone] [facility] (15 min) Moderate 11/10/2017 Visit Plan: Well [...] of 6.1% 10/06/2017 Appointment: Katerine Laurent WPtel: [facility] New Patient 10/06/2017 Patient Education: Patient Medication [...] last hgba1c of 6.1% . Hypertension - uncontrolled - the patient's [...]
--- OUTSIDE RECORDS SUMMARY | 2019-06-13 08:28 | XMS REPORT | CCD ---
Author Author [facility] Organization [facility] Address [address] [place] [address] Phone Care Team Providers Care Commercial Management Accountant Name Role Phone PP Unavailable CCM Unavailable Summary Purpose Interface Exchange Insurance Providers Payer name Policy type / Coverage type Covered constitution party ID Effective Begin Date Effective End Date [employer] Commercial Insurance [id number] 2017 Unknown Family history Father Diagnosis Age At Onset Hypertension Unknown Myocardial infarction Unknown Diabetes mellitus Type 2 Unknown Hypercholesterolemia Unknown Arthritis Unknown Social History Social History Element Codes Description Effective Dates Marital status Unknown Toy 10/06/2017 Number of children Unknown 3 10/06/2017 Employment Unknown 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 Unknown Has never used illegal drugs 10/06/2017 Allergies, Adverse Reactions, Alerts Allergies, Adverse Reactions, Alerts data not found Past Medical History Illness Codes Condition Status Onset Date Resolved Date Essential (primary) hypertension ICD-9: 401.1 ICD-10: I10 Active 10/06/2017 Unknown Sciatica Unknown Active 11/17/2017 Unknown Sciatica, right side ICD- 9: 724.3 ICD-10: M54.31 Active 11/17/2017 Unknown Encounter for general adult medical examination with abnormal findings ICD-9: V70.0 ICD-10: Z00.01 Active 10/06/2017 Unknown Problems Condition Codes Effective Dates Condition Status Essential (primary) hypertension ICD-9: 401.1 ICD-10: I10 10/06/2017 Active Sciatica Unknown 11/17/2017 Active Sciatica, right side ICD- 9: 724.3 ICD-10: M54.31 11/17/2017 Active Encounter for general adult medical examination with abnormal findings ICD-9: V70.0 ICD-10: Z00.01 10/06/2017 Active Medications Medication Codes Instructions Start Date Stop Date Status Fill Instructions gabapentin 300 mg capsule RxNorm: 622717 1 Capsule(s) PO QPM 11/17/2017 06/14/2018 Active lisinopril 40 mg tablet RxNorm: 098782 1 Tablet(s) PO daily 11/17/2017 11/11/2018 Active lisinopril 20 mg tablet RxNorm: 460569 1 Tablet(s) PO daily 10/06/2017 11/16/2017 Inactive metformin 1,000 mg tablet RxNorm: 027389 1 Tablet(s) PO BID No Start Date Active amlodipine 5 mg tablet RxNorm: 903863 1 Tablet(s) PO daily No Start Date Active Farxiga 10 mg tablet RxNorm: 0161039 1 Tablet(s) PO daily No Start Date Active meloxicam 15 mg tablet RxNorm: 263887 1 Tablet(s) PO daily No Start Date Active estradiol 10 mcg vaginal tablet RxNorm: 606176 1 Tablet(s) VAG daily No Start Date Active pravastatin 10 mg tablet RxNorm: 258932 1 Tablet(s) PO daily No Start Date Active Klor-Con 8 mEq tablet,extended release RxNorm: 365897 1 Tablet(s) PO daily No Start Date Active lisinopril 10 mg tablet RxNorm: 812638 1 Tablet(s) PO daily No Start Date 10/05/2017 Inactive Medication Administered No Medication Administered data Immunizations No Immunization data Assessments Condition Codes Effective Dates Essential (primary) hypertension ICD-10: I10 ICD-9: 401.1 12/15/2017 Sciatica, right side ICD-10: M54.31 ICD-9: 724.3 11/17/2017 Encounter for general adult medical examination with abnormal findings ICD-10: Z00.01 ICD-9: V70.0 10/06/2017 Reason For Visit Reason For Visit Effective Dates Notes diabetes mellitus 11/17/2017 diabetes mellitus 10/06/2017 Results No Results data Review of Systems System Result Effective Dates Constitutional No recent illness 11/17/2017 Constitutional No [...] No Procedures data Vital Signs Date Vital 12/15/2017 Blood Pressure 1: 172/90 Code: 8480-6 Heart Rate 1: 98 bpm SpO2: 98% 11/17/2017 Blood Pressure 1: 150/84 Code: 8480-6 BMI: 38.7 Code: 94724-9 Heart Rate 1: 91 bpm Height: 5'6" SpO2: 97% Weight: 240 lbs 10/06/2017 Blood Pressure 1: 152/82 Code: 8480-6 BMI: 38.4 Code: 85446-3 Heart Rate 1: 91 bpm Height: 5'6" [...] data Encounters Encounter Performer Location Codes Date () Miscellaneous no charge Diagnosis: Essential (primary) hypertension[ICD10: I10] [facility] CPT-4: 36647 12/15/2017 ([id number]) [id number] EST. PATIENT, LEVEL III Diagnosis: Essential (primary) hypertension[ICD10: I10] Diagnosis: Sciatica, right side[ICD10: M54.31] [facility] CPT- 4: 34079 11/17/2017 ([id number]) PREV VISIT EST AGE 40-64 Diagnosis: Encounter for general adult medical examination with abnormal findings[ICD10: Z00.01] [facility] CPT-4: 17141 10/06/2017 Plan of Care Planned Activity Notes Codes Status Date Patient Education: Patient Medication Summary Completed 12/15/2017 Patient Education: Patient Medication Summary Completed 11/17/2017 Appointment: [facility] WPtel: [address] [place], [place] [id number] (15 min) Moderate 11/10/2017 Appointment: [id number] [facility] 10/06/2017 Patient Education: Patient Medication Summary Completed 10/06/2017 Instructions No Instructions
--- OUTSIDE RECORDS SUMMARY | 2019-06-13 08:29 | XMS REPORT | Continuity of Care Document ---
Author Organization Unknown Address Unknown Phone Unavailable Allergies Active Description Code Type Severity Reaction Onset Reported/Identified Relationship to Patient Clinical Status Yes No Known Drug Allergies [id number] Drug Allergy Unknown N/A 08/30/2013 Yes Sulfa (Sulfonamide Antibiotics) [id number] Drug Allergy Severe BLEEDING 06/08/2019 Yes adhesive [id number] Drug Allergy Moderate BLISTERS 06/08/2019 Medications There is no data. Problems Date Dx Coded Attending Type Code Diagnosis Diagnosed By 10/07/1409 SHILPI SOLIMAN Ot M54.5 LOW BACK PAIN 11/11/2012 Ot 245.0 ACUTE THYROIDITIS 11/11/2012 Ot 250.00 DIAB ÓSCAR WO COMPL, TYPE II OR UNSPEC TY 11/11/2012 Ot 272.4 HYPERLIPIDEMIA NEC/NOS 11/11/2012 Ot 276.8 HYPOPOTASSEMIA 11/11/2012 Ot 288.60 LEUKOCYTOSIS, UNSPECIFIED 11/11/2012 Ot 401.9 HYPERTENSION NOS 11/11/2012 Ot 465.9 ACUTE URI NOS 11/11/2012 Ot 530.81 ESOPHAGEAL REFLUX 11/11/2012 Ot 715.90 OSTEOARTHROS NOS-UNSPEC 09/04/2013 DARYL DO, HIMA S Ot 041.11 METHICILLIN SUSCEPTIBLE STAPHYLOCOCCUS A 09/04/2013 DARYL DO, HIMA S Ot 250.00 DIAB ÓSCAR WO COMPL, TYPE II OR UNSPEC TY 09/04/2013 CARMELONDER DO, HIMA S Ot 272.4 HYPERLIPIDEMIA NEC/NOS 09/04/2013 CARMELONDER DO, HIMA S Ot 276.8 HYPOPOTASSEMIA 09/04/2013 CARMELONDFATEMEH DO, HIMA S Ot 401.9 HYPERTENSION NOS 09/04/2013 CARMELONDFATEMEH DO, HIMA S Ot 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 09/04/2013 CARMELONDFATEMEH DO HIMA S Ot 530.81 ESOPHAGEAL REFLUX 09/04/2013 DARYL ABRAHAM HIMA S Ot 682.2 CELLULITIS OF TRUNK 09/04/2013 HIMA BRITO DO S Ot 682.5 CELLULITIS OF BUTTOCK 09/04/2013 HIMA BRITO DO S Ot 682.6 CELLULITIS OF LEG 09/04/2013 HIMA BRITO DO S Ot 989.5 TOXIC EFFECT VENOM 09/04/2013 HIMA BRITO DO S Ot E000.8 OTHER EXTERNAL CAUSE STATUS 09/04/2013 HIMA BRITO DO Ot E905.1 VENOMOUS SPIDER BITE 09/04/2013 HIMA BRITO DO S Ot V03.82 PROPHYLACTIC VACC AGAINST STREPTOCOCCUS 02/22/2015 RAVEN BRITO DOLINE S Ot 719.45 02/22/2015 RAVEN BRITO DOLINE S Ot 722.52 02/27/2015 SHIRLENE RODAS, SIVA Gomez Ot V76.12 02/27/2015 SIVA GARBER MD, Ot V76.12 04/26/2015 SIVA GARBER MD, Ot V76.12 04/28/2017 RAVEN BRITO DOLINE S Ot 719.45 JOINT PAIN-PELVIS 04/28/2017 RAVEN BRITO DOLINE S Ot 722.52 LUMB/LUMBOSAC DISC DEGEN 04/28/2017 SIVA GARBER MD Ot V76.12 OTH SCREEN MAMMO-MALIGN NEOPLASM OF ZACKERY 04/29/2017 SIVA GARBER MD Ot Z12.31 ENCNTR SCREEN MAMMOGRAM FOR MALIGNANT NE 05/04/2017 SIVA GARBER MD Ot Z12.31 ENCNTR SCREEN MAMMOGRAM FOR MALIGNANT NE 12/06/2018 RAVEN BRITO DOLINE S Ot 719.45 JOINT PAIN-PELVIS 12/06/2018 RAVEN BRITO DOLINE S Ot 722.52 LUMB/LUMBOSAC DISC DEGEN 12/06/2018 SIVA GARBER MD Ot V76.12 OTH SCREEN MAMMO-MALIGN NEOPLASM OF ZACKERY 12/06/2018 SIVA GARBER MD, Ot Z12.31 ENCNTR SCREEN MAMMOGRAM FOR MALIGNANT NE 12/06/2018 DARYL ABRAHAM HIMA S Ot M43.16 SPONDYLOLISTHESIS, LUMBAR REGION 12/06/2018 HIMA BRITO DO Ot M51.36 OTHER INTERVERTEBRAL DISC DEGENERATION, 01/04/2019 MICHAEL ULLOA, SHILPI R Ot M54.5 LOW BACK PAIN 01/04/2019 SWEET PA, SHILPI R Ot M54.5 LOW BACK PAIN 01/24/2019 SWEET PA, SHILPI R Ot M54.5 LOW BACK PAIN 06/07/2019 DIANE GRAJEDA DO Ot Z01.818 ENCOUNTER FOR OTHER PREPROCEDURAL EXAMIN 06/08/2019 DIANE GRAJEDA DO Ot Z01.818 ENCOUNTER FOR OTHER PREPROCEDURAL EXAMIN 06/08/2019 DIANE GRAJEDA DO Ot Z01.818 ENCOUNTER FOR OTHER PREPROCEDURAL EXAMIN 06/09/2019 DESIRAE ENRIQUEZ MD Ot E11.9 TYPE 2 DIABETES MELLITUS WITHOUT COMPLIC 06/09/2019 DESIRAE ENRIQUEZ MD Ot E66.01 MORBID (SEVERE) OBESITY DUE TO EXCESS CA 06/09/2019 DESIRAE ENRIQUEZ MD Ot E78.2 MIXED HYPERLIPIDEMIA 06/09/2019 DESIRAE ENRIQUEZ MD Ot I10 ESSENTIAL (PRIMARY) HYPERTENSION Procedures Code Description Performed By Performed On 86.04 OTHER SKIN SUBQ I D 09/01/2013 Results There is no data. Encounters ACCT No. Visit Date/Time Discharge Status Pt. Type Provider Facility Loc./Unit Complaint [id number] 06/08/2019 12:37:00 06/08/2019 13:20:00 DIS Outpatient DESIRAE ENRIQUEZ MD [facility] SLEEP G47.33 CAMILA [id number] 06/08/2019 11:45:00 06/08/2019 12:11:00 DIS Outpatient DIANE GRAJEDA DO [facility] PREOP COLONOSCOPY [id number] 06/07/2019 11:10:00 06/07/2019 23:59:59 CLS Outpatient DESIRAE ENRIQUEZ MD [facility] CARD HTN [id number] 05/01/2019 08:46:00 05/01/2019 23:59:59 CLS Outpatient DESIRAE ENRIQUEZ MD [facility] CARD HTN [id number] 04/26/2019 07:49:00 04/26/2019 23:59:59 CLS Preadmit ZOE RODAS, DESIRAE Arguello [facility] CARD HTN [id number] 04/06/2019 13:09:00 04/06/2019 23:59:59 CLS Preadmit JORGE HAIDER MD [facility] RAD SCREENING [id number] 01/27/2019 13:00:00 02/21/2019 14:10:00 DIS Outpatient SHILPI SOLIMAN [facility] REHAB BACK PAIN [id number] 05/13/2017 15:28:00 05/13/2017 23:59:59 CLS Outpatient HIMA BRITO DO S [facility] RAD MSUS [id number] 04/28/2017 09:04:00 04/28/2017 23:59:59 CLS Outpatient SIVA GARBER MD [facility] RAD SCREENING Z12.31 [id number] 02/25/2015 07:31:00 02/25/2015 23:59:59 CLS Outpatient SIVA GARBER MD [facility] RAD SCREENING [id number] 08/30/2013 16:41:00 09/04/2013 12:42:00 DIS Inpatient RAVEN BRITO DOLINE S [facility] SURGICAL POSS SPIDER BITE [id number] 08/14/2013 13:17:00 08/14/2013 23:59:59 CLS Outpatient RAVEN BRITO DOLINE S [facility] RAD CORRIE HIP PAIN,LOW BACK PAIN,CORRIE RADICULOPATHY [id number] 06/13/2019 09:40:00 PEN Preadmit DIANE GRAJEDA DO [facility] ENDO SCREENING [id number] 02/22/2015 11:03:00 Document Registration [id number] 11/10/2012 16:00:00 Document Registration
[2019-06-13] MEDS ORDERED: PROPOFOL INJECTION 50 ML IV ONE (09:01)
[2019-06-13] MEDS ORDERED: MIDAZOLAM 2 MG/2 ML (VERSED) VIAL ONE (09:02)
[2019-06-13 09:50] VITALS: BP_SYST 146; BP_SYST 161; BP_DIAS 69; BP_DIAS 78
--- NOTE | 2019-06-13 10:04 | Progress Note-Post Operative ---
Post-Operative Progess Note Surgeon (s)/Shop Tech (s) Surgeon DIANE GRAJEDA DO Shop Tech: na Pre-Operative Diagnosis screening colonoscopy Post-Operative Diagnosis normal colon Procedure & Operative Findings Date of Procedure 06/13/19 Procedure Performed/Findings colonoscopy Anesthesia Type per gang vibrator operator Estimated Blood Loss Estimated blood loss (mL): none Specimens/Packing Specimens Removed na DIANE GRAJEDA DO Jun 13, 2019 10:04
--- NOTE | 2019-06-13 10:06 | Discharge Inst-Simple/Standard ---
Discharge Inst-Standard Patient Instructions/Follow Up Plan of Care/Instructions/FU: repeat colonoscopy in 10 years unless family hx or colon cancer or personal hx of polyps then 5 years. any issues before that be seen at that time. Activity as Tolerated: Yes Discharge Diet: Regular Diet DIANE GRAJEDA DO Jun 13, 2019 10:06
[2019-06-13 10:25] VITALS: BP 178/92
[2019-06-13 10:35] VITALS: BP 178/92
--- NOTE | 2019-06-13 10:41 | Anesthesia-General Post-Op ---
MAC Patient Condition Mental Status/LOC: Same as Preop Cardiovascular: Satisfactory Nausea/Vomiting: Absent Respiratory: Satisfactory Pain: Controlled Complications: Absent Post Op Complications Complications None Follow Up Care/Instructions Patient Instructions None needed. Anesthesiology Discharge Order Discharge Order Patient is doing well, no complaints, stable vital signs, no apparent adverse anesthesia problems. REJI ENGLISH DO Jun 13, 2019 10:41
--- NOTE | 2019-06-13 17:26 | OPERATIVE REPORT ---
DATE OF SERVICE: 06/13/2019 PREOPERATIVE DIAGNOSIS: Screening colonoscopy. POSTOPERATIVE DIAGNOSIS: Normal colon. PROCEDURE PERFORMED: Colonoscopy. SURGEON: Diane Arciniega DO ANESTHESIA: Per DRAW FRAME OPERATOR. ESTIMATED BLOOD LOSS: None. COMPLICATIONS: None. INDICATIONS: The patient is a 58-year-old female needing screening colonoscopy. She understands risks and benefits of procedure and wished to proceed with procedure. Consent was signed in the chart. DESCRIPTION OF PROCEDURE: The patient was taken to the endoscopy suite, placed in left lateral recumbent position. Timeout was performed. Digital rectal exam was performed. No palpable polyps, masses or ulcerations. Scope was inserted in the rectum, advanced all the way to the cecum with minimal difficulty. Prep was adequate with irrigation and suction. Scope was then slowly retracted back. There were no polyps, mass or ulceration of the cecum, ascending, transverse, descending and sigmoid colon. Once in the rectum, scope was retroflexed noting no other pathology. Scope was returned to its normal position, slowly withdrawn until completely removed. The patient tolerated procedure well without any complications. She was taken to recovery room in stable condition. RECOMMENDATIONS: The patient will need repeat colonoscopy in 10 years unless family history of colon cancer or personal history of polyps, which would then be 5 years. Any issues before that be seen at that time. Job ID: [id number] DocumentID: [id number] Dictated Date: 06/13/2019 10:08:30 Electronic Organ Technician Date: 06/13/2019 17:26:01 Dictated By: DIANE ARCINIEGA DO
== END 2019-06-13 10:40 | disposition home or self-care (01) ==
LOC: ENDO 08:12
PROVIDERS: ATTEND Surgery
DX: Z12.11 Encounter for screening for malignant neoplasm of colon (principal); Z80.0 Family history of malignant neoplasm of digestive organs; E11.40 Type 2 diabetes mellitus with diabetic neuropathy, unspecified; I10 Essential (primary) hypertension; E78.5 Hyperlipidemia, unspecified; E66.01 Morbid (severe) obesity due to excess calories; Z79.899 Other long term (current) drug therapy; Z79.84 Long term (current) use of oral hypoglycemic drugs; Z88.2 Allergy status to sulfonamides; Z68.41 Body mass index [BMI] 40.0-44.9, adult
CPT/HCPCS: 82962

== ENCOUNTER → 2019-06-15 | Outpatient (CLI) | payer OTHER ==
--- NOTE | 2019-06-15 18:56 | Diagnostic Imaging Report ---
INDICATION: Routine screening. COMPARISON: Comparison is made with prior mammograms from 04/28/2017 and 02/25/2015. TECHNIQUE: 2-D and 3-D bilateral screening mammography was performed. The current study was also evaluated with a Computer Aided Detection (CAD) system. 3-D tomosynthesis was also performed and reviewed. FINDINGS: Scattered fibroglandular densities are identified bilaterally. The parenchymal pattern is stable. No mass or malignant-appearing microcalcifications are seen. Axillae are unremarkable. Breast asymmetry is again noted with the right breast being smaller. IMPRESSION: No mammographic features suspicious for malignancy are identified. ACR BI-RADS Category 1: Negative. Result letter will be mailed to the patient. Note: At least 10% of breast cancer is not imaged by mammography. Dictated by: Dictated on workstation # [id number]
== END ==
LOC: RAD 10:07
PROVIDERS: ATTEND Family Medicine
DX: Z12.31 Encounter for screening mammogram for malignant neoplasm of breast (principal)
CPT/HCPCS: 77067

== ENCOUNTER 2020-10-04 08:27 | Inpatient (IN) | payer OTHER ==
[2020-10-04] VITALS (7 sets, daily range): BP systolic 91–119; BP diastolic 44–69
[~2020-10-04] VITALS: Ht 167.7 cm; Wt 122.2 kg
[2020-10-04] MEDS ORDERED: LACTATED RINGERS 1,000 ML IV ONE ×2 (08:50)
[2020-10-04] MEDS ORDERED: ACETAMINOPHEN 500 MG TAB (TYLENOL) PO PRN (09:00)
[2020-10-04] MEDS ORDERED: ONDANSETRON 4 MG/2 ML (SDV) Z0FRAN IV PRN ×2 (09:00→15:15)
[2020-10-04 09:09] LABS: ABG BASE EXCESS 2.4 MMOL/L (-2.5-2.5); ABG OXYGEN SATURATION 96 % (94-100); ABG PCO2 38 MMHG (35-45); ABG PH 7.45 (7.37-7.43); ABG PO2 83 MMHG (79-93); ABG TCO2 26.9 MMOL/L (21.0-31.0)
[2020-10-04 09:12] LABS: BASOPHILS % (AUTO) 0 % (0-10); EOSINOPHILS % (AUTO) 0 % (0-10); HEMATOCRIT 38 % (35-52); HEMOGLOBIN 12.6 g/dL (11.5-16.0); LYMPHOCYTES # (AUTO) 0.8 10^3/uL (1.0-4.0); LYMPHOCYTES % (AUTO) 18 % (12-44); MEAN CORPUSCULAR HEMOGLOBIN 30 pg (25-34); MEAN CORPUSCULAR HGB CONC 34 g/dL (32-36); MEAN CORPUSCULAR VOLUME 90 fL (80-99); MEAN PLATELET VOLUME 10.8 fL (9.0-12.2); MONOCYTES # (AUTO) 0.2 10^3/uL (0.0-1.0); MONOCYTES % (AUTO) 5 % (0-12); NEUTROPHILS # (AUTO) 3.4 10^3/uL (1.8-7.8); NEUTROPHILS % (AUTO) 77 % (42-75); PLATELET COUNT 177 10^3/uL (130-400); WHITE BLOOD COUNT 4.4 10^3/uL (4.3-11.0)
[2020-10-04 09:13] LABS: ALLENS TEST YES-POS; INSPIRED O2 4; PATIENT TEMP 101; VENTILATOR NO
[2020-10-04 09:25] LABS: ALBUMIN 3.3 GM/DL (3.2-4.5); CHLORIDE 99 MMOL/L (98-107); POTASSIUM 3.4 MMOL/L (3.6-5.0); SODIUM 136 MMOL/L (135-145)
[2020-10-04 09:26] LABS: CALCIUM 7.6 MG/DL (8.5-10.1)
[2020-10-04 09:27] LABS: FIBRIN DEGRADATION PRODUCTS 0.95 UG/ML (0.00-0.49); GLUCOSE 173 MG/DL (70-105); PROTHROMBIN TIME PATIENT 13.2 SEC (12.2-14.7)
[2020-10-04 09:28] LABS: TOTAL PROTEIN 6.6 GM/DL (6.4-8.2)
[2020-10-04 09:29] LABS: BILIRUBIN,TOTAL 0.4 MG/DL (0.1-1.0); CARBON DIOXIDE 21 MMOL/L (21-32)
[2020-10-04 09:31] LABS: ALKALINE PHOSPHATASE 53 U/L (40-136); CREATININE SERUM 0.92 MG/DL (0.60-1.30); GFR ESTIMATED > 60
--- NOTE | 2020-10-04 09:31 | ED Respiratory ---
General Chief Complaint: Respiratory Problems Stated Complaint: COVID + Nursing Triage Note: PT TO RM 10 BY WHEELCHAIR WITH COMPLAINT OF SOA. PT IS COVID +. SYMPTOMS STARTED 09/26/2020 AND TESTED POSITIVE ON 09/28/2020. PT WAS 77% ON ROOM AIR ON ARRIVAL. PT STATES SOA INCREASED THIS MORNING. Source: patient Exam Limitations: no limitations History of Present Illness Date Seen by Provider: Oct 04, 2020 Time Seen by Provider: 08:28 Initial Comments Patient presents to ER by private conveyance from home with her significant other and chief complaint of shortness of breath, fatigue, weakness, nausea vomiting diarrhea and fevers. She was diagnosed with COVID 19 over the weekend. She is on day 8 of symptoms. She has no history of lung disease and does not smoke cigarettes. She has not been able to eat or drink or take her blood pressure medicine today. No history of heart disease and no chest pain. She is diabetic on 50 units Levemir at night and around 15-20 units NovoLog with meals. She did not take her insulin today. Allergies and Home Medications Allergies Coded Allergies: Sulfa (Sulfonamide Antibiotics) (Verified Allergy, Severe, BLEEDING, 06/08/19) adhesive (Verified Allergy, Intermediate, BLISTERS, 06/08/19) Home Medications Estradiol 1 Mg Tablet, 1 MG PO DAILY, (Reported) Gabapentin 300 Mg Capsule, 300 MG PO HS, (Reported) Hydrochlorothiazide 25 Mg Tablet, 25 MG PO DAILY, (Reported) MEDICATION PUT ON HOLD BY PATIENT Insulin Detemir 100 Unit/1 Ml Insuln.pen, 50 UNITS SC HS, (Reported) Insuln Asp Prt/Insulin Aspart 300 Units/3 Ml Solution, 15-18 UNITS SC AC, (Reported) Lisinopril 40 Mg Tablet, 40 MG PO DAILY, (Reported) Methylcellulose 500 Mg Tablet, 500 MG PO DAILY, (Reported) Metoprolol Tartrate 50 Mg Tablet, 75 MG PO BID, (Reported) TAKES 1 & (50MG) TABS Ondansetron 4 Mg Tab.rapdis, 4 MG PO Q4H PRN for NAUSEA/VOMITING-1ST LINE, (Re ported) Potassium Chloride 8 Meq Tablet.er, 8 MEQ PO DAILY, (Reported) Promethazine/Dextromethorphan 473 Ml Syrup, 5 ML PO Q4 -6H PRN for COUGH, (Reported) Patient Home Medication List Home Medication List Reviewed: Yes Review of Systems Review of Systems Constitutional: chills, fever, malaise, weakness EENTM: No ear discharge, No ear pain Respiratory: cough; No phlegm; short of breath; No wheezing Cardiovascular: No chest pain, No Hx of Intervention, No palpitations Gastrointestinal: No abdominal pain, No constipation; diarrhea, loss of appetite, nausea, vomiting Genitourinary: No discharge, No dysuria Musculoskeletal: No back pain, No joint pain All Other Systems Reviewed Negative Unless Noted: Yes Past Wmptmqh-Mzfaeu-Wjtnoh Hx Patient Social History Alcohol Use: Denies Use Recreational Drug Use: No Smoking Status: Never a Smoker 2nd Hand Smoke Exposure: No Recent Foreign Travel: No Contact w/Someone Who Travel: No Recent Infectious Disease Expo: Yes Recent Hopitalizations: No Immunizations Up To Date Tetanus Booster (TDap): Less than 5yrs PED Vaccines UTD: Yes Date of Pneumonia Vaccine: Sep 04, 2013 Date of Influenza Vaccine: Aug 15, 2018 Seasonal Allergies Seasonal Allergies: No Past Medical History Surgeries: Yes (BILATERAL FEET, BACK) Gallbladder, Hysterectomy, Orthopedic Respiratory: Yes Sleep Apnea Cardiac: Yes (TACHYCARDIA) Hypertension Neurological: No Reproductive Disorders: Yes Genitourinary: No Gastrointestinal: Yes (GALLBLADDER OUT) Musculoskeletal: Yes Chronic Back Pain Endocrine: Yes Diabetes, Insulin dep HEENT: No Cancer: Yes Psychosocial: No Integumentary: No Blood Disorders: Yes Adverse Reaction/Blood Tranf: No Physical Exam Vital Signs - First Documented 10/04/20 08:31 Temp 38.3 Pulse 105 Resp 31 B/P (MAP) 107/62 (77) Pulse Ox 96 O2 Delivery Nasal Cannula O2 Flow Rate 5.00 Capillary Refill : Less Than 3 Seconds Height: 5'6.00" Weight: 254lbs. 0.0oz. 115.347374ag; 42.00 BMI Method: General Appearance: WD/WN, moderate distress Eyes: Bilateral Eye Normal Inspection, Bilateral Eye PERRL, Bilateral Eye EOMI HEENT: PERRL/EOMI, normal ENT inspection; No pharynx normal (mucosa is dry) Neck: full range of motion, supple, normal inspection Respiratory: lungs clear, normal breath sounds, no accessory muscle use, respiratory distress (oxygen sats in the upper 70s on room air with increased work of breathing and tachypnea at 30 breaths per minute.) Cardiovascular: normal peripheral pulses, regular rate, rhythm Gastrointestinal: normal bowel sounds, non tender Extremities: non-tender, normal inspection, normal capillary refill Neurologic/Psychiatric: no motor/sensory deficits, alert, oriented x 3 Skin: normal color, warm/dry Focused Exam Lactate Level 10/04/20 08:55: Lactic Acid Level 1.13 Lactic Acid Level Laboratory Tests Test 10/04/20 08:55 Lactic Acid Level 1.13 MMOL/L (0.50-2.00) Progress/Results/Core Measures Suspected Sepsis Recent Fever Within 48 Hours: Yes Infection Criteria Present: None New/Unexplained Altered Menta: No Sepsis Screen: No Definite Risk SIRS Temperature: Pulse: 105 Respiratory Rate: 31 Laboratory Tests 10/04/20 08:55: White Blood Count 4.4 Blood Pressure 107 /62 Mean: 77 10/04/20 08:55: Lactic Acid Level 1.13 Laboratory Tests 10/04/20 08:55: Creatinine 0.92, INR Comment 1.0, Platelet Count 177, Total Bilirubin 0.4 Results/Orders Lab Results Laboratory Tests Test 10/04/20 08:55 10/04/20 09:07 10/04/20 09:39 Range/Units White Blood Count 4.4 4.3-11.0 10^3/uL Red Blood Count 4.20 3.80-5.11 10^6/uL Hemoglobin 12.6 11.5-16.0 g/dL Hematocrit 38 35-52 % Mean Corpuscular Volume 90 80-99 fL Mean Corpuscular Hemoglobin 30 25-34 pg Mean Corpuscular Hemoglobin Concent 34 32-36 g/dL Red Cell Distribution Width 12.9 10.0-14.5 % Platelet Count 177 130-400 10^3/uL Mean Platelet Volume 10.8 9.0-12.2 fL Immature Granulocyte % (Auto) 1 % Neutrophils (%) (Auto) 77 H 42-75 % Lymphocytes (%) (Auto) 18 12-44 % Monocytes (%) (Auto) 5 0-12 % Eosinophils (%) (Auto) 0 0-10 % Basophils (%) (Auto) 0 0-10 % Neutrophils # (Auto) 3.4 1.8-7.8 10^3/uL Lymphocytes # (Auto) 0.8 L 1.0-4.0 10^3/uL Monocytes # (Auto) 0.2 0.0-1.0 10^3/uL Eosinophils # (Auto) 0.0 0.0-0.3 10^3/uL Basophils # (Auto) 0.0 0.0-0.1 10^3/uL Immature Granulocyte # (Auto) 0.0 0.0-0.1 10^3/uL Prothrombin Time 13.2 12.2-14.7 SEC INR Comment 1.0 0.8-1.4 Activated Partial Thromboplast Time 33 24-35 SEC D-Dimer 0.95 H 0.00-0.49 UG/ML Sodium Level 136 135-145 MMOL/L Potassium Level 3.4 L 3.6-5.0 MMOL/L Chloride Level 99 98-107 MMOL/L Carbon Dioxide Level 21 21-32 MMOL/L Anion Gap 16 H 5-14 MMOL/L Blood Urea Nitrogen 13 7-18 MG/DL Creatinine 0.92 0.60-1.30 MG/DL Estimat Glomerular Filtration Rate > 60 BUN/Creatinine Ratio 14 Glucose Level 173 H 70-105 MG/DL Lactic Acid Level 1.13 0.50-2.00 MMOL/L Calcium Level 7.6 L 8.5-10.1 MG/DL Corrected Calcium 8.2 L 8.5-10.1 MG/DL Total Bilirubin 0.4 0.1-1.0 MG/DL Aspartate Amino Transf (AST/SGOT) 102 H 5-34 U/L Alanine Aminotransferase (ALT/SGPT) 66 H 0-55 U/L Alkaline Phosphatase 53 40-136 U/L C-Reactive Protein High Sensitivity 5.94 H 0.00-0.50 MG/DL Total Protein 6.6 6.4-8.2 GM/DL Albumin 3.3 3.2-4.5 GM/DL Procalcitonin 0.19 H <0.10 NG/ML Blood Gas Puncture Site RT RADIAL Blood Gas Patient Temperature 101 Arterial Blood pH 7.45 H 7.37-7.43 Arterial Blood Partial Pressure CO2 38 35-45 MMHG Arterial Blood Partial Pressure O2 83 79-93 MMHG Arterial Blood HCO3 26 23-27 MMOL/L Arterial Blood Total CO2 26.9 21.0-31.0 MMOL/L Arterial Blood Oxygen Saturation 96 94-100 % Arterial Blood Base Excess 2.4 -2.5-2.5 MMOL/L Luiz Test YES-POS Blood Gas Ventilator Setting NO Blood Gas Inspired Oxygen 4 Urine Color YELLOW Urine Clarity SL CLOUDY Urine pH 6.0 5-9 Urine Specific [place] 1.025 H 1.016-1.022 Urine Protein 2+ H NEGATIVE Urine Glucose (UA) NEGATIVE NEGATIVE Urine Ketones 1+ H NEGATIVE Urine Nitrite NEGATIVE NEGATIVE Urine Bilirubin 1+ H NEGATIVE Urine Urobilinogen 1.0 < = 1.0 MG/DL Urine Leukocyte Esterase NEGATIVE NEGATIVE Urine RBC (Auto) NEGATIVE NEGATIVE Urine RBC NONE /HPF Urine WBC NONE /HPF Urine Squamous Epithelial Cells 5-10 /HPF Urine Crystals NONE /LPF Urine Bacteria MODERATE H /HPF Urine Casts NONE /LPF Urine Mucus NEGATIVE /LPF Urine Culture Indicated CULTURE PENDING Micro Results Microbiology 10/04/20 Influenza Types A,B Antigen (DARLYN) - Final, Complete My Orders Orders - LEO LEE Cbc With Automated Diff (10/04/20 08:50) Comprehensive Metabolic Panel (10/04/20 08:50) Blood Culture (10/04/20 08:50) Urinalysis (10/04/20 08:50) Urine Culture (10/04/20 08:50) Protime With Inr (10/04/20 08:50) Partial Thromboplastin Time (10/04/20 08:50) Chest 1 View, Ap/Pa Only (10/04/20 08:50) Acetaminophen Tablet (Tylenol Tablet) (10/04/20 09:00) Ed Iv/Invasive Line Start (10/04/20 08:50) Ed Iv/Invasive Line Start (10/04/20 08:50) Vital Signs Adult Sepsis Patie Q15M (10/04/20 08:50) Ondansetron Injection (Zofran Injectio (10/04/20 09:00) O2 (10/04/20 08:50) Remove Rings In Anticipation O (10/04/20 08:50) Lactic Acid Analyzer (10/04/20 08:50) Influenza A And B Antigens (10/04/20 08:50) Lactated Ringers (Lr 1000 Ml Iv Solution (10/04/20 08:50) Ed Iv/Invasive Line Start (10/04/20 08:50) Lactated Ringers (Lr 1000 Ml Iv Solution (10/04/20 08:50) Procalcitonin (Pct) (10/04/20 08:50) Fibrin Degradation Products (10/04/20 08:50) Hs C Reactive Protein (10/04/20 08:50) Arterial Blood Gas (10/04/20 09:05) Medications Given in ED Current Medications Medications Dose Ordered Sig/Lavinia Route Start Time Stop Time Status Last Admin Dose Admin Acetaminophen 1,000 mg ONCE PRN PO 10/04/20 09:00 10/04/20 09:02 DC 10/04/20 09:02 1,000 MG Lactated Ringer's 1,000 ml @ 0 mls/hr Q0M ONCE IV 10/04/20 08:50 10/04/20 08:56 DC 10/04/20 09:02 1,000 MLS/HR Lactated Ringer's 1,000 ml @ 0 mls/hr Q0M ONCE IV 10/04/20 08:50 10/04/20 08:56 DC 10/04/20 09:48 1,000 MLS/HR Ondansetron HCl 4 mg PRN PRN IV 10/04/20 09:00 10/04/20 09:03 DC 10/04/20 09:02 4 MG Vital Signs/I&O 10/04/20 10/04/20 08:31 08:35 Temp 38.3 Pulse 105 Resp 31 B/P (MAP) 107/62 (77) Pulse Ox 96 96 O2 Delivery Nasal Cannula Nasal Cannula O2 Flow Rate 5.00 4.00 Capillary Refill : Less Than 3 Seconds Blood Pressure Mean: 77 Progress Note : Time: 09:29 Progress Note Septic workup however we are holding off on antibiotics as she does not have signs of bacterial infection yet. COVID-19. Because of her nausea vomiting and diarrhea with decreased oral intake we are giving her 2 liters of fluids. On pressure is okay around 107 systolic on arrival. Diagnostic Imaging Diagonstic Imaging: Xray Plain Films/CT/US/NM/MRI: chest Comments [facility], [place] NAME: ALFONSO TURNER MED REC#: [id number] PT STATUS: ADM IN : 1960 PHYSICIAN: LEO LEE MD ADMIT DATE: 10/04/20 Signed Date of Exam:10/04/20 CHEST 1 VIEW, AP/PA ONLY INDICATION: Cough and dyspnea Portable AP view of the chest is obtained with comparison made study of 11/11/2012. Overall heart size and pulmonary vascularity remain within normal limits. There is mild groundglass and/or airspace density in the periphery of the left lower lobe. Linear atelectasis or scarring is seen in the right perihilar region. There is no evidence of pneumothorax. IMPRESSION: Findings are compatible with edema and/or infiltrate in the left lower lobe, peripherally. This could be related to atypical pneumonia or pneumonitis. Dictated by: Dictated on workstation # [id number] Dict: 10/04/20 0945 Trans: 10/04/20 1032 [facility] [id number] Interpreted by: ILENE MELENDEZ MD Electronically signed by: ILENE MELENDEZ MD 10/04/20 1032 Reviewed: Reviewed by Me Departure Communication (Admissions) Time/Spoke to Admitting Phy: 11:00 Dr. Baker except the patient to the floor on oxygen and Decadron. Impression Primary Impression: Pneumonia due to COVID-19 virus Additional Impressions: Acute respiratory failure due to COVID-19 Hypoxia Disposition: ADMITTED INPATIENT Condition: Stable Admissions Decision to Admit Reason: Admit from ER (General) Decision to Admit/Date: Oct 04, 2020 Time/Decision to Admit Time: 10:00 Departure-Patient Inst. Referrals: JORGE HAIDER MD (PCP/Family) Primary Care Physician LEO LEE Oct 04, 2020 09:31
[2020-10-04 09:32] LABS: BUN/CREATININE RATIO 14
[2020-10-04 09:34] LABS: ALANINE AMINOTRANSFERASE 66 U/L (0-55)
[2020-10-04 09:47] LABS: CLARITY,URINE SL CLOUDY; COLOR,URINE YELLOW; GLUCOSE, URINE (UA) NEGATIVE (NEGATIVE); KETONES,URINE 1+ (NEGATIVE); LEUKOCYTE ESTERASE ,URINE NEGATIVE (NEGATIVE); NITRITE,URINE NEGATIVE (NEGATIVE); PROTEIN,URINE 2+ (NEGATIVE)
--- NOTE | 2020-10-04 09:48 | Diagnostic Imaging Report ---
INDICATION: Cough and dyspnea Portable AP view of the chest is obtained with comparison made study of 11/11/2012. Overall heart size and pulmonary vascularity remain within normal limits. There is mild groundglass and/or airspace density in the periphery of the left lower lobe. Linear atelectasis or scarring is seen in the right perihilar region. There is no evidence of pneumothorax. IMPRESSION: Findings are compatible with edema and/or infiltrate in the left lower lobe, peripherally. This could be related to atypical pneumonia or pneumonitis. Dictated by: Dictated on workstation # [id number]
[2020-10-04 09:57] LABS: BILIRUBIN,URINE 1+ (NEGATIVE)
[2020-10-04 09:58] LABS: BACTERIA,URINE MODERATE /HPF
[2020-10-04] MEDS ORDERED: ACETAMINOPHEN 325 MG TABLET PO PRN (11:45)
[2020-10-04] MEDS ORDERED: IBUPROFEN 800 MG (MOTRIN) TAB PO PRN (11:45)
[2020-10-04] MEDS ORDERED: PROMETHAZINE 25 MG (PHENERGAN) TAB PO PRN (12:00)
[2020-10-04] MEDS ORDERED: ONDANSETRON 4 MG/2 ML (SDV) Z0FRAN IVP PRN (12:00)
[2020-10-04] MEDS ORDERED: INSU100I29 SC (13:03)
[2020-10-04] MEDS ORDERED: GABA300C PO (13:03)
[2020-10-04] MEDS ORDERED: ESTR1TAB24 PO (13:03)
[2020-10-04] MEDS ORDERED: INSU100I13 SC (13:03)
[2020-10-04] MEDS ORDERED: POTA8TAB53 PO (13:03)
[2020-10-04] MEDS ORDERED: METH500T5 PO (13:03)
[2020-10-04] MEDS ORDERED: CATHETER FLUSH 10 ML SYR IV PRN (13:15)
[2020-10-04] MEDS ORDERED: AZITHROMYCIN INJECTION 500 MG in NS (IVPB) 250 ML IV NR (13:15)
[2020-10-04] MEDS ORDERED: REMDESIVIR INJ 200 MG in NS (IVPB) 210 ML IV SCH (13:45)
[2020-10-04] MEDS: LACTATED RINGERS 1,000 ML IV SCH ×2 (13:51→23:48)
[2020-10-04] MEDS: cefTRIAXone FOR IV USE 2,000 MG in WATER (STERILE) FOR INJECTION 20 ML IV SCH (13:52)
[2020-10-04] MEDS: ENOXAPARIN 40 MG/0.4 ML (LOVENOX) SYR SC SCH ×2 (13:52→23:48)
[2020-10-04] MEDS ORDERED: D-ME473S11 PO (14:06)
[2020-10-04] MEDS ORDERED: HYDR25TA4 PO (14:06)
[2020-10-04] MEDS ORDERED: ONDA4TAB11 PO (14:06)
--- NOTE | 2020-10-04 14:12 | NUR ---
SPOKE WITH THE PT (CALLED HER ROOM PHONE), THE NURSE BROUGHT ME A MED LIST AND I WENT THRU THE EXT MED HISTORY TO COMPLETE THE MED REC HCTZ 25MG- THE NURSE HAD MADE A NOTE ON THE MED LIST THAT THE PT STOPPED TAKING 2 DAYS AGO, WHEN I FOLLOWED UP WITH THE ALFONSO SHE LET ME KNOW SHE QUIT TAKING UNTIL SHE WAS FEELING BETTER AFTER HER COVID DIAGNOSIS (PT WAS WORRIED ABOUT HAVING TO USE THE BATHROOM FREQUENTLY), AND WILL RESUME TAKING THIS SHORTLY. I DID ENTER HCTZ ON THE MED REC BUT INCLUDED IN THE NOTES THAT THE PT HAS THE MED ON HOLD.
[2020-10-04] MEDS ORDERED: ONDANSETRON 4 MG (ZOFRAN) ORAL DISSOLVE TAB PO PRN (15:15)
[2020-10-04] MEDS ORDERED: MELATONIN 3 MG TABLET PO PRN (15:15)
[2020-10-04] MEDS ORDERED: polyethylene glycoL POWDER 17 GM (MIRALAX) PACK PO PRN (15:15)
[2020-10-04] MEDS ORDERED: BISACODYL 10 MG SUPP (DULCOLAX) PR PRN (15:15)
[2020-10-04] MEDS ORDERED: diphenhydrAMINE 25 MG TAB (BENADRYL) PO PRN (15:15)
[2020-10-04] MEDS ORDERED: ANTACID SUSP 30 ML UDC (MYLANTA) PO PRN (15:15)
[2020-10-04] MEDS: RT-ALBUTEROL INHALER HFA (VENTOLIN HFA) 18 GM IH SCH ×2 (15:20→19:55)
--- NOTE | 2020-10-04 15:26 | History & Physical-Hospitalist ---
History of Present Illness HPI/Chief Complaint Cynthia Rodney is a 60 year old female with PMH HTN, T2DM, who presented with shortness of breath. She was diagnosed with COVID-19 about a week ago. She has been having fevers. She has a cough. She has not had an appetite. She denies chest pain. She denies nausea and vomiting. She denies abdominal pain. She denies diarrhea. She denies leg swelling. She has no other complaints or concerns. Source: patient Exam Limitations: no limitations Date Seen 10/04/20 Time Seen by a Provider: 13:00 Attending Physician Melany Velarde MD PCP Katerine Laurent MD Referring Physician Date of Admission Oct 04, 2020 at 10:10 Home Medications & Allergies Home Medications Reviewed patient Home Medication Reconciliation performed by pharmacy medication reconciliations cartography technician and/or nursing. Patients Allergies have been reviewed. Allergies Allergies Coded Allergies Sulfa (Sulfonamide Antibiotics) (Verified Allergy, Severe, BLEEDING, 06/08/19) adhesive (Verified Allergy, Intermediate, BLISTERS, 06/08/19) Past Uobatef-Rlrdcf-Khrwnw Hx Past Med/Social Hx: Reviewed Nursing Past Med/Soc Hx Patient Social History Alcohol Use: Denies Use Recreational Drug Use: No Smoking Status: Never a Smoker 2nd Hand Smoke Exposure: No Recent Foreign Travel: No Contact w/other who traveled: No Recent Hopitalizations: No Recent Infectious Disease Expo: No Immunizations Up To Date Tetanus Booster (TDap): Less than 5yrs Pediatric: Yes Date of Pneumonia Vaccine: Sep 04, 2013 Date of Influenza Vaccine: Aug 15, 2018 Seasonal Allergies Seasonal Allergies: No Past Medical History Surgeries: Gallbladder, Hysterectomy, Orthopedic Cardiac: Hypertension Reproductive: Yes Musculoskeletal: Chronic Back Pain Endocrine: Diabetes, Insulin dep History of Blood Disorders: Yes Adverse Reaction to Blood [place]: No Review of Systems Constitutional: fever, malaise Respiratory: cough, short of breath Cardiovascular: no symptoms reported Gastrointestinal: no symptoms reported Genitourinary: no symptoms reported Musculoskeletal: no symptoms reported Skin: no symptoms reported Psychiatric/Neurological: No Symptoms Reported Physical Exam Physical Exam Vital Signs Vital Signs - First Documented 10/04/20 10/04/20 08:31 13:33 Temp 38.3 Pulse 105 Resp 31 B/P (MAP) 107/62 (77) Pulse Ox 96 O2 Delivery Nasal Cannula O2 Flow Rate 5.00 FiO2 36 Capillary Refill : Less Than 3 Seconds Height, Weight, BMI Height: 5'6.00" Weight: 254lbs. 0.0oz. 115.434278vt; 43.45 BMI Method: General Appearance: No Apparent Distress, Obese HEENT: PERRL/EOMI, Pharynx Normal Neck: Normal Inspection, Supple Respiratory: Lungs Clear, Normal Breath Sounds, No Respiratory Distress Cardiovascular: Regular Rate, Rhythm, No Edema, No Murmur Gastrointestinal: Normal Bowel Sounds, Non Tender, Soft Extremity: Normal Inspection, Non Tender, No Pedal Edema Neurologic/Psychiatric: Alert, Oriented x3, No Motor/Sensory Deficits, Normal Mood/Affect Skin: Normal Color, Warm/Dry Results Results/Procedures Labs Laboratory Tests 10/04/20 08:55 Patient resulted labs reviewed. Imaging: Reviewed Imaging Report Assessment/Plan Admission Diagnosis Acute respiratory failure due to COVID-19 Admission Status: Inpatient Order (span 2 midnights) Reason for Inpatient Admission: Respiratory failure requiring supplemental oxygen Assessment and Plan Acute respiratory failure due to COVID-19 Pneumonia due to COVID-19 Viral sepsis Community acquired pneumonia COVID+ about 8 days prior to admission CXR with left lower lobe infiltrate SIRS+ with fever and tachycardia Procalcitonin mildly increased Started on Rocephin and Azithromycin for possible pneumonia Repeat procalcitonin tomorrow Lactic acid normal Started on Decadron Begin Remdesivir Convalescent plasma ordered, discussed risks/benefits/EUA and patient agrees Supplemental oxygen as needed T2DM with hyperglycemia Levemir Novolog with meals SSI HTN Continue home meds Morbid obesity Clinically significant, no acute management needs Diagnosis/Problems Diagnosis/Problems (1) Acute respiratory failure due to COVID-19 Status: Acute (2) Pneumonia due to COVID-19 virus Status: Acute (3) Viral sepsis Status: Acute (4) CAP (community acquired pneumonia) Status: Acute Qualifiers: Laterality: left Lung location: lower lobe of lung Qualified Codes: J18.9 - Pneumonia, unspecified organism (5) HTN (hypertension) Status: Acute Qualifiers: Hypertension type: essential hypertension Qualified Codes: I10 - Essential (primary) hypertension (6) T2DM (type 2 diabetes mellitus) Status: Chronic Qualifiers: 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
[2020-10-04] MEDS: inSUlin ASPART (NovoLOG) 1 UNIT/0.01 ML (CHARGE PER UNIT) SC SCH ×3 (18:00→21:01)
--- NOTE | 2020-10-04 18:01 | NUR ---
THIS RN PULLED 11 UNITS NOVOLOG PER REQUEST FROM KATHY SANCHEZ. THIS RN DID NOT ADMINISTER THIS MED THIS WAS A COVID PATIENT.
[2020-10-04] MEDS: SENNOSIDES 8.6 MG (SENOKOT) TAB PO SCH (20:58)
[2020-10-04] MEDS: DOCUSATE SODIUM 100 MG (COLACE) CAP PO SCH (20:58)
[2020-10-04] MEDS: meTOprolol TARTRATE 50 MG (LOPRESSOR) TAB PO SCH (20:59)
[2020-10-04] MEDS: GABAPENTIN 300 MG (NEURONTIN) CAP PO SCH (21:01)
[2020-10-05] VITALS (7 sets, daily range): BP systolic 105–135; BP diastolic 44–75
[2020-10-05] MEDS: LACTATED RINGERS 1,000 ML IV SCH ×2 (00:15→06:47)
[2020-10-05 05:37] LABS: BASOPHILS % (AUTO) 0 % (0-10); EOSINOPHILS % (AUTO) 0 % (0-10); HEMATOCRIT 37 % (35-52); HEMOGLOBIN 12.1 g/dL (11.5-16.0); LYMPHOCYTES # (AUTO) 0.8 10^3/uL (1.0-4.0); LYMPHOCYTES % (AUTO) 16 % (12-44); MEAN CORPUSCULAR HEMOGLOBIN 31 pg (25-34); MEAN CORPUSCULAR HGB CONC 33 g/dL (32-36); MEAN CORPUSCULAR VOLUME 93 fL (80-99); MONOCYTES # (AUTO) 0.2 10^3/uL (0.0-1.0); MONOCYTES % (AUTO) 3 % (0-12); NEUTROPHILS # (AUTO) 4.2 10^3/uL (1.8-7.8); NEUTROPHILS % (AUTO) 80 % (42-75); PLATELET COUNT 181 10^3/uL (130-400); WHITE BLOOD COUNT 5.3 10^3/uL (4.3-11.0)
[2020-10-05 05:46] LABS: ALBUMIN 3.2 GM/DL (3.2-4.5); CHLORIDE 101 MMOL/L (98-107); POTASSIUM 3.4 MMOL/L (3.6-5.0); SODIUM 138 MMOL/L (135-145)
[2020-10-05 05:48] LABS: CALCIUM 7.5 MG/DL (8.5-10.1)
[2020-10-05 05:49] LABS: GLUCOSE 155 MG/DL (70-105); TOTAL PROTEIN 6.4 GM/DL (6.4-8.2)
[2020-10-05 05:50] LABS: CARBON DIOXIDE 23 MMOL/L (21-32)
[2020-10-05 05:51] LABS: BILIRUBIN,TOTAL 0.3 MG/DL (0.1-1.0)
[2020-10-05 05:52] LABS: ALKALINE PHOSPHATASE 46 U/L (40-136); CREATININE SERUM 0.78 MG/DL (0.60-1.30); GFR ESTIMATED > 60
[2020-10-05 05:53] LABS: BUN/CREATININE RATIO 18
[2020-10-05 05:55] LABS: ALANINE AMINOTRANSFERASE 49 U/L (0-55)
[2020-10-05] MEDS: inSUlin ASPART (NovoLOG) 1 UNIT/0.01 ML (CHARGE PER UNIT) SC SCH ×7 (06:07→20:58)
[2020-10-05] MEDS: RT-ALBUTEROL INHALER HFA (VENTOLIN HFA) 18 GM IH SCH ×4 (07:12→20:10)
[2020-10-05] MEDS: DOCUSATE SODIUM 100 MG (COLACE) CAP PO SCH ×2 (07:29→20:59)
[2020-10-05] MEDS: SENNOSIDES 8.6 MG (SENOKOT) TAB PO SCH ×2 (07:29→20:59)
[2020-10-05] MEDS: ESTRADIOL 1 MG TAB (ESTRACE) PO SCH (08:36)
[2020-10-05] MEDS: meTOprolol TARTRATE 50 MG (LOPRESSOR) TAB PO SCH ×2 (08:36→20:58)
[2020-10-05] MEDS: AZITHROMYCIN 250 MG TAB (ZITHROMAX) PO SCH (08:36)
[2020-10-05] MEDS: lisINopril 40 MG (PRINIVIL) TABLET PO SCH (08:36)
--- NOTE | 2020-10-05 08:45 | Diagnostic Imaging Report ---
EXAMINATION: Chest 1 view HISTORY: Pneumonia COMPARISON: 10/04/2020 FINDINGS: Right mid and lower zone airspace opacities appear slightly increased. No pleural effusion or pneumothorax. Lung volumes are small. Heart size is normal. IMPRESSION: 1. Slight increase in right mid and lower zone airspace opacities, likely representing pneumonia. Dictated by: Dictated on workstation # [id number]
[2020-10-05] MEDS: REMDESIVIR INJ 100 MG in NS (IVPB) 230 ML IV SCH (12:15)
[2020-10-05] MEDS: cefTRIAXone FOR IV USE 2,000 MG in WATER (STERILE) FOR INJECTION 20 ML IV SCH (12:16)
[2020-10-05] MEDS: ENOXAPARIN 40 MG/0.4 ML (LOVENOX) SYR SC SCH (12:16)
--- NOTE | 2020-10-05 14:02 | Progress Note - Hospitalist ---
Subjective HPI/CC On Admission Date Seen by Provider: Oct 05, 2020 Time Seen by Provider: 11:20 Cynthia Rodney is a 60 year old female with PMH HTN, T2DM, who presented with shortness of breath. She was diagnosed with COVID-19 about a week ago. She has been having fevers. She has a cough. She has not had an appetite. She denies ch est pain. She denies nausea and vomiting. She denies abdominal pain. She denies diarrhea. She denies leg swelling. She has no other complaints or concerns. Subjective/Events-last exam She is feeling about the same today. She just went to the bathroom and is feeling short of breath. She still has a cough. She is still having fevers. She has not been hungry. Focused Exam Lactate Level 10/04/20 08:55: Lactic Acid Level 1.13 Objective Exam Vital Signs Vital Signs Date Time Temp Pulse Resp B/P (MAP) Pulse Ox O2 Delivery O2 Flow Rate FiO2 10/05/20 13:40 38.0 93 98 44 10/05/20 12:00 22 135/75 (95) Nasal Cannula 6.50 Capillary Refill : Less Than 3 Seconds General Appearance: No Apparent Distress, Obese Respiratory: Lungs Clear, Normal Breath Sounds, No Respiratory Distress Cardiovascular: Regular Rate, Rhythm, No Edema, No Murmur Gastrointestinal: Normal Bowel Sounds, Non Tender, Soft Extremity: Normal Inspection, Non Tender, No Pedal Edema Neurologic/Psychiatric: Alert, Oriented x3, No Motor/Sensory Deficits, Normal Mood/Affect Skin: Normal Color, Warm/Dry Results/Procedures Lab Laboratory Tests 10/05/20 05:07 Patient resulted labs reviewed. Imaging: Reviewed Imaging Report Assessment/Plan Assessment and Plan Assess & Plan/Chief Complaint Acute respiratory failure due to COVID-19 Pneumonia due to COVID-19 Viral sepsis Community acquired pneumonia continue Rocephin and Azithromycin for possible bacterial pneumonia continue Decadron and Remdesivir for COVID s/p 1 unit convalescent plasma Supplemental oxygen as needed, increasing requirements, currently on 6 L T2DM with hyperglycemia Levemir Novolog with meals SSI HTN Continue home meds Morbid obesity Clinically significant, no acute management needs DVT Prophylaxis: Lovenox Diagnosis/Problems Diagnosis/Problems (1) Acute respiratory failure due to COVID-19 Status: Acute (2) Pneumonia due to COVID-19 virus Status: Acute (3) Viral sepsis Status: Acute (4) CAP (community acquired pneumonia) Status: Acute Qualifiers: Laterality: left Lung location: lower lobe of lung Qualified Codes: J18.9 - Pneumonia, unspecified organism (5) HTN (hypertension) Status: Acute Qualifiers: Hypertension type: essential hypertension Qualified Codes: I10 - Essential (primary) hypertension (6) T2DM (type 2 diabetes mellitus) Status: Chronic Qualifiers: Diabetes mellitus intermediate card tender insulin use: with fpc use Diabetes mellitus complication status: with hyperglycemia Qualified Codes: E11.65 - Type 2 diabetes mellitus with hyperglycemia; Z79.4 - termite treater (current) use of insulin (7) Morbid obesity Status: Chronic Clinical Quality Measures DVT/VTE Risk/Contraindication: Risk Factor Score Per Nursin RFS Level Per Nursing on Admit: 2=Moderate NICK VELARDE MD Oct 05, 2020 14:02
[2020-10-05] MEDS: GABAPENTIN 300 MG (NEURONTIN) CAP PO SCH (20:58)
[2020-10-05] MEDS: ACETAMINOPHEN 325 MG TABLET PO PRN (20:59)
--- NOTE | 2020-10-05 21:33 | NUR ---
Dr. Baker notified at 2130 to put in an order for RT to set up pts CPAP.
[2020-10-06] MEDS: ENOXAPARIN 40 MG/0.4 ML (LOVENOX) SYR SC SCH ×2 (00:03→11:47)
[2020-10-06 03:25] VITALS: BP 105/69
[2020-10-06] MEDS: RT-ALBUTEROL INHALER HFA (VENTOLIN HFA) 18 GM IH SCH ×6 (05:00→21:52)
[2020-10-06 06:00] LABS: BASOPHILS % (AUTO) 0 % (0-10); EOSINOPHILS % (AUTO) 0 % (0-10); HEMATOCRIT 35 % (35-52); HEMOGLOBIN 11.4 g/dL (11.5-16.0); LYMPHOCYTES # (AUTO) 0.6 10^3/uL (1.0-4.0); LYMPHOCYTES % (AUTO) 13 % (12-44); MEAN CORPUSCULAR HEMOGLOBIN 30 pg (25-34); MEAN CORPUSCULAR HGB CONC 33 g/dL (32-36); MEAN CORPUSCULAR VOLUME 93 fL (80-99); MEAN PLATELET VOLUME 10.9 fL (9.0-12.2); MONOCYTES # (AUTO) 0.2 10^3/uL (0.0-1.0); MONOCYTES % (AUTO) 5 % (0-12); NEUTROPHILS # (AUTO) 3.6 10^3/uL (1.8-7.8); NEUTROPHILS % (AUTO) 82 % (42-75); PLATELET COUNT 185 10^3/uL (130-400); WHITE BLOOD COUNT 4.4 10^3/uL (4.3-11.0)
[2020-10-06 06:19] LABS: CHLORIDE 103 MMOL/L (98-107); POTASSIUM 3.5 MMOL/L (3.6-5.0); SODIUM 140 MMOL/L (135-145)
[2020-10-06] MEDS: inSUlin ASPART (NovoLOG) 1 UNIT/0.01 ML (CHARGE PER UNIT) SC SCH ×7 (06:19→21:50)
[2020-10-06 06:20] LABS: CALCIUM 7.5 MG/DL (8.5-10.1)
--- NOTE | 2020-10-06 06:20 | NUR ---
pt's glucose this AM was 185 - will non admin scheduled 10 units of novolog and give the 5 units Sliding scale
[2020-10-06 06:21] LABS: GLUCOSE 197 MG/DL (70-105)
[2020-10-06 06:23] LABS: BILIRUBIN,TOTAL 0.3 MG/DL (0.1-1.0); CARBON DIOXIDE 24 MMOL/L (21-32)
[2020-10-06 06:25] LABS: ALKALINE PHOSPHATASE 50 U/L (40-136); CREATININE SERUM 0.73 MG/DL (0.60-1.30); GFR ESTIMATED > 60
[2020-10-06] MEDS: RT-ALBUTEROL INHALER HFA (VENTOLIN HFA) 18 GM IH PRN (06:25)
[2020-10-06 06:26] LABS: BUN/CREATININE RATIO 19
[2020-10-06 06:28] LABS: ALANINE AMINOTRANSFERASE 36 U/L (0-55)
[2020-10-06] MEDS: SENNOSIDES 8.6 MG (SENOKOT) TAB PO SCH ×3 (07:33→21:52)
[2020-10-06] MEDS: DOCUSATE SODIUM 100 MG (COLACE) CAP PO SCH ×3 (07:33→21:51)
[2020-10-06] MEDS: lisINopril 40 MG (PRINIVIL) TABLET PO SCH (08:14)
[2020-10-06] MEDS: ESTRADIOL 1 MG TAB (ESTRACE) PO SCH (08:14)
[2020-10-06] MEDS: meTOprolol TARTRATE 50 MG (LOPRESSOR) TAB PO SCH ×2 (08:14→21:51)
[2020-10-06] MEDS: AZITHROMYCIN 250 MG TAB (ZITHROMAX) PO SCH (08:14)
[2020-10-06 08:15] VITALS: BP 98/62
[2020-10-06] MEDS: REMDESIVIR INJ 100 MG in NS (IVPB) 230 ML IV SCH (12:42)
[2020-10-06] MEDS: cefTRIAXone FOR IV USE 2,000 MG in WATER (STERILE) FOR INJECTION 20 ML IV SCH (12:42)
[2020-10-06 13:00] VITALS: BP 110/68
--- NOTE | 2020-10-06 16:54 | Progress Note - Hospitalist ---
Subjective HPI/CC On Admission Date Seen by Provider: Oct 06, 2020 Time Seen by Provider: 11:35 Cynthia Rodney is a 60 year old female with PMH HTN, T2DM, who presented with shortness of breath. She was diagnosed with COVID-19 about a week ago. She has been having fevers. She has a cough. She has not had an appetite. She denies ch est pain. She denies nausea and vomiting. She denies abdominal pain. She denies diarrhea. She denies leg swelling. She has no other complaints or concerns. Subjective/Events-last exam She still does not feel well. She has been short of breath. She denies fevers. She has had a cough. She still has not gotten her appetite back. She has been nauseous. She has not vomitied. Focused Exam Lactate Level 10/04/20 08:55: Lactic Acid Level 1.13 Objective Exam Vital Signs Vital Signs Date Time Temp Pulse Resp B/P (MAP) Pulse Ox O2 Delivery O2 Flow Rate FiO2 10/06/20 14:49 94 Vapotherm 35.00 70 10/06/20 13:00 36.6 75 28 110/68 (82) Capillary Refill : Less Than 3 Seconds General Appearance: No Apparent Distress, Obese Respiratory: Lungs Clear, Normal Breath Sounds, No Respiratory Distress Cardiovascular: Regular Rate, Rhythm, No Edema, No Murmur Gastrointestinal: Normal Bowel Sounds, Non Tender, Soft Extremity: Normal Inspection, Non Tender, No Pedal Edema Neurologic/Psychiatric: Alert, Oriented x3, No Motor/Sensory Deficits, Other ( flat affect) Skin: Normal Color, Warm/Dry Results/Procedures Lab Laboratory Tests 10/06/20 05:40 Patient resulted labs reviewed. Imaging: Reviewed Imaging Report Assessment/Plan Assessment and Plan Assess & Plan/Chief Complaint Acute respiratory failure due to COVID-19 Pneumonia due to COVID-19 Viral sepsis Community acquired pneumonia continue Rocephin and Azithromycin for possible bacterial pneumonia continue Decadron and Remdesivir for COVID s/p 1 unit convalescent plasma Supplemental oxygen as needed, increasing requirements, currently on Vapotherm T2DM with hyperglycemia Levemir Novolog with meals SSI HTN Continue home meds Morbid obesity Clinically significant, no acute management needs DVT Prophylaxis: Lovenox Diagnosis/Problems Diagnosis/Problems (1) Acute respiratory failure due to COVID-19 Status: Acute (2) Pneumonia due to COVID-19 virus Status: Acute (3) Viral sepsis Status: Acute (4) CAP (community acquired pneumonia) Status: Acute Qualifiers: Laterality: left Lung location: lower lobe of lung Qualified Codes: J18.9 - Pneumonia, unspecified organism (5) HTN (hypertension) Status: Acute Qualifiers: Hypertension type: essential hypertension Qualified Codes: I10 - Essential (primary) hypertension (6) T2DM (type 2 diabetes mellitus) Status: Chronic Qualifiers: Diabetes mellitus truck terminal manager insulin use: with truck terminal manager use Diabetes mellitus complication status: with hyperglycemia Qualified Codes: E11.65 - Type 2 diabetes mellitus with hyperglycemia; Z79.4 - custodial (current) use of insulin (7) Morbid obesity Status: Chronic Clinical Quality Measures DVT/VTE Risk/Contraindication: Risk Factor Score Per Nursin RFS Level Per Nursing on Admit: 2=Moderate NICK VELARDE MD Oct 06, 2020 16:54
[2020-10-06 16:57] VITALS: BP 125/62
[2020-10-06 20:38] VITALS: BP 136/60
[2020-10-06] MEDS: GABAPENTIN 300 MG (NEURONTIN) CAP PO SCH (21:51)
[2020-10-06] MEDS: ACETAMINOPHEN 325 MG TABLET PO PRN (21:51)
[2020-10-07] VITALS (17 sets, daily range): BP systolic 102–127; BP diastolic 57–70
[2020-10-07] MEDS: RT-ALBUTEROL INHALER HFA (VENTOLIN HFA) 18 GM IH SCH ×8 (01:04→23:07)
[2020-10-07] MEDS: ENOXAPARIN 40 MG/0.4 ML (LOVENOX) SYR SC SCH ×3 (01:04→22:55)
[2020-10-07] MEDS: inSUlin ASPART (NovoLOG) 1 UNIT/0.01 ML (CHARGE PER UNIT) SC SCH ×7 (06:18→22:38)
[2020-10-07 07:10] LABS: BASOPHILS % (AUTO) 0 % (0-10); EOSINOPHILS % (AUTO) 0 % (0-10); HEMATOCRIT 33 % (35-52); HEMOGLOBIN 10.6 g/dL (11.5-16.0); LYMPHOCYTES # (AUTO) 0.5 10^3/uL (1.0-4.0); LYMPHOCYTES % (AUTO) 15 % (12-44); MEAN CORPUSCULAR HEMOGLOBIN 30 pg (25-34); MEAN CORPUSCULAR HGB CONC 32 g/dL (32-36); MEAN CORPUSCULAR VOLUME 92 fL (80-99); MEAN PLATELET VOLUME 11.4 fL (9.0-12.2); MONOCYTES # (AUTO) 0.2 10^3/uL (0.0-1.0); MONOCYTES % (AUTO) 5 % (0-12); NEUTROPHILS # (AUTO) 2.8 10^3/uL (1.8-7.8); NEUTROPHILS % (AUTO) 79 % (42-75); PLATELET COUNT 180 10^3/uL (130-400); WHITE BLOOD COUNT 3.6 10^3/uL (4.3-11.0)
[2020-10-07 07:40] LABS: ALANINE AMINOTRANSFERASE 29 U/L (0-55); ALBUMIN 2.7 GM/DL (3.2-4.5); ALKALINE PHOSPHATASE 46 U/L (40-136); BILIRUBIN,TOTAL 0.3 MG/DL (0.1-1.0); BUN/CREATININE RATIO 17; CALCIUM 7.6 MG/DL (8.5-10.1); CARBON DIOXIDE 27 MMOL/L (21-32); CHLORIDE 102 MMOL/L (98-107); CREATININE SERUM 0.66 MG/DL (0.60-1.30); GFR ESTIMATED > 60; GLUCOSE 191 MG/DL (70-105); POTASSIUM 3.3 MMOL/L (3.6-5.0); SODIUM 139 MMOL/L (135-145); TOTAL PROTEIN 5.6 GM/DL (6.4-8.2)
[2020-10-07] MEDS: lisINopril 40 MG (PRINIVIL) TABLET PO SCH (08:51)
[2020-10-07] MEDS: ESTRADIOL 1 MG TAB (ESTRACE) PO SCH (08:51)
[2020-10-07] MEDS: meTOprolol TARTRATE 50 MG (LOPRESSOR) TAB PO SCH ×2 (08:51→22:33)
[2020-10-07] MEDS: AZITHROMYCIN 250 MG TAB (ZITHROMAX) PO SCH (08:51)
[2020-10-07] MEDS: SENNOSIDES 8.6 MG (SENOKOT) TAB PO SCH ×2 (09:00→22:31)
[2020-10-07] MEDS: DOCUSATE SODIUM 100 MG (COLACE) CAP PO SCH ×2 (09:00→22:30)
--- NOTE | 2020-10-07 09:50 | Progress Note - Hospitalist ---
Subjective HPI/CC On Admission Date Seen by Provider: Oct 07, 2020 Time Seen by Provider: 09:45 Cynthia Rodney is a 60 year old female with PMH HTN, T2DM, who presented with shortness of breath. She was diagnosed with COVID-19 about a week ago. She has been having fevers. She has a cough. She has not had an appetite. She denies ch est pain. She denies nausea and vomiting. She denies abdominal pain. She denies diarrhea. She denies leg swelling. She has no other complaints or concerns. Subjective/Events-last exam Pt reports feeling ok but is maxxed on vapotherm. Apparently took her oxygen off yesterday to eat and dropped to the 60s. Was 82% this morning on vitals check with lower Vapotherm settings and has been maxxed since. I check pulse ox at bedside and she was 95% on this. Objective Exam Vital Signs Vital Signs Date Time Temp Pulse Resp B/P (MAP) Pulse Ox O2 Delivery O2 Flow Rate FiO2 10/07/20 08:57 96 Vapotherm 40.00 100.00 10/07/20 08:07 100 10/07/20 07:58 36.1 67 20 127/59 (81) Capillary Refill : Less Than 3 Seconds General Appearance: No Apparent Distress, Obese Respiratory: No Accessory Muscle Use, Decreased Breath Sounds, Other (on Vapotherm) Cardiovascular: Regular Rate, Rhythm, No Murmur Gastrointestinal: Normal Bowel Sounds, Non Tender, Soft Neurologic/Psychiatric: Alert, Oriented x3 Results/Procedures Lab Laboratory Tests 10/07/20 05:45 Patient resulted labs reviewed. Imaging: Reviewed Imaging Report Assessment/Plan Assessment and Plan Assess & Plan/Chief Complaint Acute respiratory failure due to COVID-19 Pneumonia due to COVID-19 Viral sepsis Community acquired pneumonia continue Rocephin and Azithromycin for possible bacterial pneumonia continue Decadron and Remdesivir for COVID s/p 1 unit convalescent plasma Has worsened from needing 3lpm on 10/05 to max Vapotherm this morning, will transfer to ICU Discussed with Dr Mcgrath who will see patient in ICU T2DM with hyperglycemia Levemir- most BS still over 180, will increase to 45 units Novolog with meals SSI HTN Continue home meds Morbid obesity Clinically significant, no acute management needs DVT Prophylaxis: Lovenox Diagnosis/Problems Diagnosis/Problems (1) Acute respiratory failure due to COVID-19 Status: Acute (2) Pneumonia due to COVID-19 virus Status: Acute (3) Hypoxia Status: Acute (4) T2DM (type 2 diabetes mellitus) Status: Chronic Qualifiers: Diabetes mellitus terminal clerk insulin use: with care home use Diabetes mellitus complication status: with hyperglycemia Qualified Codes: E11.65 - Type 2 diabetes mellitus with hyperglycemia; Z79.4 - ad terminal makeup operator (current) use of insulin (5) CAP (community acquired pneumonia) Status: Acute Qualifiers: Laterality: left Lung location: lower lobe of lung Qualified Codes: J18.9 - Pneumonia, unspecified organism (6) HTN (hypertension) Status: Acute Qualifiers: Hypertension type: essential hypertension Qualified Codes: I10 - Essential (primary) hypertension (7) Morbid obesity Status: Chronic (8) Viral sepsis Status: Acute Clinical Quality Measures DVT/VTE Risk/Contraindication: Risk Factor Score Per Nursin RFS Level Per Nursing on Admit: 2=Moderate JOSELITO RICH MD Oct 07, 2020 09:50
--- NOTE | 2020-10-07 10:21 | NUR ---
PT TO TRANSFER TO ICU PER DR RICH ORDERS, REPORT CALLED AND GIVEN TO KATHY AVERY. 1024- CALLED PT DAUGHTER HAKEEM BACK AND UPDATED HER ON PT CONDITION AND PT TRANSFERRING TO ICU. 1055 PT TAKEN UP TO ICU5 WITH ALEXIS, FROM RESPIRATORY AT SIDE. ALL BELONGINGS SENT WITH PT
[2020-10-07] MEDS ORDERED: cefTRIAXone 2 GM/20 ML for IV (ROCEPHIN) ONE (13:04)
[2020-10-07] MEDS ORDERED: WATER (STERILE) FOR INJECTION 20 ML ONE (13:05)
[2020-10-07] MEDS: cefTRIAXone FOR IV USE 2,000 MG in WATER (STERILE) FOR INJECTION 20 ML IV SCH (13:30)
[2020-10-07] MEDS: REMDESIVIR INJ 100 MG in NS (IVPB) 230 ML IV SCH (13:30)
[2020-10-07] MEDS: GABAPENTIN 300 MG (NEURONTIN) CAP PO SCH (22:33)
[2020-10-07] MEDS: RT-ALBUTEROL INHALER HFA (VENTOLIN HFA) 18 GM IH PRN (23:06)
[2020-10-08] VITALS (20 sets, daily range): BP systolic 85–125; BP diastolic 50–85
[2020-10-08] MEDS: RT-ALBUTEROL INHALER HFA (VENTOLIN HFA) 18 GM IH SCH ×11 (02:22→21:58)
[2020-10-08 03:39] LABS: BASOPHILS % (AUTO) 0 % (0-10); EOSINOPHILS % (AUTO) 0 % (0-10); HEMATOCRIT 33 % (35-52); HEMOGLOBIN 10.8 g/dL (11.5-16.0); LYMPHOCYTES # (AUTO) 0.8 10^3/uL (1.0-4.0); LYMPHOCYTES % (AUTO) 22 % (12-44); MEAN CORPUSCULAR HEMOGLOBIN 31 pg (25-34); MEAN CORPUSCULAR HGB CONC 32 g/dL (32-36); MEAN CORPUSCULAR VOLUME 95 fL (80-99); MEAN PLATELET VOLUME 11.1 fL (9.0-12.2); MONOCYTES # (AUTO) 0.2 10^3/uL (0.0-1.0); MONOCYTES % (AUTO) 6 % (0-12); NEUTROPHILS # (AUTO) 2.5 10^3/uL (1.8-7.8); NEUTROPHILS % (AUTO) 71 % (42-75); PLATELET COUNT 196 10^3/uL (130-400); WHITE BLOOD COUNT 3.5 10^3/uL (4.3-11.0)
[2020-10-08 03:57] LABS: ALBUMIN 2.8 GM/DL (3.2-4.5); CHLORIDE 103 MMOL/L (98-107); POTASSIUM 3.4 MMOL/L (3.6-5.0); SODIUM 140 MMOL/L (135-145)
[2020-10-08 03:59] LABS: CALCIUM 7.5 MG/DL (8.5-10.1)
[2020-10-08 04:00] LABS: GLUCOSE 187 MG/DL (70-105); TOTAL PROTEIN 5.8 GM/DL (6.4-8.2)
[2020-10-08 04:01] LABS: BILIRUBIN,TOTAL 0.3 MG/DL (0.1-1.0); CARBON DIOXIDE 27 MMOL/L (21-32)
[2020-10-08 04:03] LABS: ALKALINE PHOSPHATASE 40 U/L (40-136); CREATININE SERUM 0.69 MG/DL (0.60-1.30); GFR ESTIMATED > 60
[2020-10-08 04:04] LABS: BUN/CREATININE RATIO 14
[2020-10-08 04:06] LABS: ALANINE AMINOTRANSFERASE 31 U/L (0-55)
[2020-10-08 04:27] LABS: PHOSPHORUS 2.9 MG/DL (2.3-4.7)
[2020-10-08 04:29] LABS: MAGNESIUM 2.7 MG/DL (1.6-2.4)
[2020-10-08] MEDS ORDERED: FUROSEMIDE 40 MG/4 ML INJ (LASIX) ONE (06:07)
--- NOTE | 2020-10-08 06:07 | Pulmonary Consultation ---
History of Present Illness History of Present Illness Date Seen by Provider: Oct 08, 2020 Time Seen by Provider: 06:01 Date of Admission Allergies and Home Medications Allergies Coded Allergies: Sulfa (Sulfonamide Antibiotics) (Verified Allergy, Severe, BLEEDING, 06/08/19) adhesive (Verified Allergy, Intermediate, BLISTERS, 06/08/19) Home Medications Estradiol 1 Mg Tablet, 1 MG PO DAILY, (Reported) Gabapentin 300 Mg Capsule, 300 MG PO HS, (Reported) Hydrochlorothiazide 25 Mg Tablet, 25 MG PO DAILY, (Reported) MEDICATION PUT ON HOLD BY PATIENT Insulin Detemir 100 Unit/1 Ml Insuln.pen, 50 UNITS SC HS, (Reported) Insuln Asp Prt/Insulin Aspart 300 Units/3 Ml Solution, 15-18 UNITS SC AC, (Reported) Lisinopril 40 Mg Tablet, 40 MG PO DAILY, (Reported) Methylcellulose 500 Mg Tablet, 500 MG PO DAILY, (Reported) Metoprolol Tartrate 50 Mg Tablet, 75 MG PO BID, (Reported) TAKES 1 & (50MG) TABS Ondansetron 4 Mg Tab.rapdis, 4 MG PO Q4H PRN for NAUSEA/VOMITING-1ST LINE, (Reported) Potassium Chloride 8 Meq Tablet.er, 8 MEQ PO DAILY, (Reported) Promethazine/Dextromethorphan 473 Ml Syrup, 5 ML PO Q4 -6H PRN for COUGH, (Reported) Past Gvnavtz-Lzxeak-Lmimhg Hx Past Med/Social Hx: Reviewed Nursing Past Med/Soc Hx Patient Social History Alcohol Use: Denies Use Recreational Drug Use: No Smoking Status: Never a Smoker 2nd Hand Smoke Exposure: No Recent Foreign Travel: No Contact w/Someone Who Travel: No Recent Infectious Disease Expo: No Recent Hopitalizations: No Immunizations Up To Date Tetanus Booster (TDap): Less than 5yrs PED Vaccines UTD: Yes Date of Pneumonia Vaccine: Sep 04, 2013 Date of Influenza Vaccine: Aug 04, 2020 Seasonal Allergies Seasonal Allergies: No Past Medical History Surgeries: Yes (BILATERAL FEET, BACK) Gallbladder, Hysterectomy, Orthopedic Respiratory: Yes Sleep Apnea Cardiac: Yes (TACHYCARDIA) Hypertension Neurological: No Reproductive Disorders: Yes Genitourinary: No Gastrointestinal: Yes (GALLBLADDER OUT) Musculoskeletal: Yes Chronic Back Pain Endocrine: Yes Diabetes, Insulin dep HEENT: No Cancer: Yes Psychosocial: No Integumentary: No Blood Disorders: Yes Adverse Reaction/Blood Tranf: No Sepsis Event Evaluation Height, Weight, BMI Height: 5'6.00" Weight: 254lbs. 0.0oz. 115.147269gd; 43.45 BMI Method: Exam Exam Vital Signs Date Time Temp Pulse Resp B/P (MAP) Pulse Ox O2 Delivery O2 Flow Rate FiO2 10/08/20 02:22 96 Vapotherm 40.00 85 10/08/20 01:30 35.7 95 Vapotherm 40.00 85.00 10/08/20 01:00 53 10/07/20 23:07 92 Vapotherm 40.00 90 10/07/20 23:00 88 Vapotherm 40.00 90.00 10/07/20 22:41 36.4 68 107/58 (74) 91 Vapotherm 40.00 85.00 10/07/20 20:00 92 Vapotherm 40.00 85 10/07/20 19:36 93 Vapotherm 40.00 85 10/07/20 19:01 70 10/07/20 18:00 70 30 114/69 (84) 95 Vapotherm 40.00 85.00 10/07/20 17:00 66 34 112/65 (81) 89 Vapotherm 40.00 85.00 10/07/20 16:25 36.9 10/07/20 16:00 63 29 109/66 (80) 92 Vapotherm 40.00 85.00 10/07/20 15:00 64 29 102/65 (77) 92 Vapotherm 40.00 85.00 10/07/20 14:47 Vapotherm 40.00 85.00 10/07/20 14:33 92 Vapotherm 80.00 10/07/20 14:26 94 Vapotherm 40.00 90 10/07/20 14:00 68 32 119/70 (86) 97 Vapotherm 40.00 100.00 10/07/20 13:00 61 29 116/70 (85) 95 Vapotherm 40.00 100.00 10/07/20 12:49 57 10/07/20 12:00 68 27 108/69 (82) 88 Vapotherm 40.00 100.00 10/07/20 11:22 36.3 64 22 123/68 (86) 94 Vapotherm 40.00 100.00 10/07/20 11:03 71 10/07/20 11:00 76 32 123/68 (86) 96 Vapotherm 40.00 100.00 10/07/20 11:00 92 Vapotherm 40.00 100 10/07/20 10:47 91 Vapotherm 40.00 100 10/07/20 08:57 96 Vapotherm 40.00 100.00 10/07/20 08:07 92 Vapotherm 40.00 100 10/07/20 08:00 Vapotherm 40.00 100 10/07/20 07:58 36.1 67 20 127/59 (81) 96 Vapotherm 40.00 100.00 I & O 10/08/20 07:00 Intake Total 1200 ml Output Total 750 ml Balance 450 ml Height & Weight Height: 5'6.00" Weight: 254lbs. 0.0oz. 115.609832jl; 43.45 BMI Method: General Appearance: No Apparent Distress, Obese HEENT: PERRL/EOMI, Pharynx Normal Neck: Normal Inspection, Supple Respiratory: No Accessory Muscle Use, Decreased Breath Sounds, Other (on Vapotherm) Cardiovascular: Regular Rate, Rhythm, No Murmur Capillary Refill: Less Than 3 Seconds Gastrointestinal: normal bowel sounds, non tender Extremity: Normal Inspection, Non Tender, No Pedal Edema Neurologic/Psychiatric: Alert, Oriented x3 Skin: Normal Color, Warm/Dry Results Lab Laboratory Tests 10/07/20 05:45 10/08/20 03:09 Assessment/Plan Assessment/Plan Acute respiratory failure due to COVID-19 -Repeat DDImer , PCT, and BNP -Give 40mg of Lasix x 1 Pneumonia due to COVID-19 Viral sepsis Community acquired pneumonia continue Rocephin and Azithromycin for possible bacterial pneumonia continue Decadron and Remdesivir for COVID s/p 1 unit convalescent plasma T2DM with hyperglycemia Levemir- most BS still over 180, will increase to 45 units Novolog with meals SSI HTN Continue home meds Morbid obesity Clinically significant, no acute management needs DVT Prophylaxis: MEL Forde DO Oct 08, 2020 06:07
[2020-10-08] MEDS ORDERED: FUROSEMIDE 40 MG/4 ML INJ (LASIX) IVP ONE (06:15)
[2020-10-08] MEDS: POTASSIUM CL 10MEQ/50ML IVPB 50 ML IV SCH (06:28)
[2020-10-08] MEDS: MAGNESIUM 1 GM/100 ML IVPB 100 ML IV SCH (06:28)
[2020-10-08] MEDS: KCL 20 MEQ TAB (K-DUR) PO SCH (06:29)
[2020-10-08] MEDS: inSUlin ASPART (NovoLOG) 1 UNIT/0.01 ML (CHARGE PER UNIT) SC SCH ×7 (06:30→20:13)
[2020-10-08] MEDS ORDERED: KCL 20 MEQ TAB (K-DUR) PO SCH (07:00)
[2020-10-08] MEDS ORDERED: KCL 20 MEQ TAB (K-DUR) PO ONE (08:00)
[2020-10-08] MEDS: ESTRADIOL 1 MG TAB (ESTRACE) PO SCH (08:32)
[2020-10-08] MEDS: AZITHROMYCIN 250 MG TAB (ZITHROMAX) PO SCH (08:32)
[2020-10-08] MEDS: PANTOPRAZOLE 40 MG (PROTONIX) VIAL IV SCH (08:32)
[2020-10-08] MEDS: SENNOSIDES 8.6 MG (SENOKOT) TAB PO SCH ×2 (08:32→20:13)
[2020-10-08] MEDS: meTOprolol TARTRATE 50 MG (LOPRESSOR) TAB PO SCH ×2 (08:32→20:09)
[2020-10-08] MEDS: DOCUSATE SODIUM 100 MG (COLACE) CAP PO SCH ×2 (08:32→20:11)
[2020-10-08] MEDS: lisINopril 40 MG (PRINIVIL) TABLET PO SCH (08:32)
[2020-10-08] MEDS: ENOXAPARIN 40 MG/0.4 ML (LOVENOX) SYR SC SCH ×2 (11:58→23:05)
[2020-10-08] MEDS: cefTRIAXone FOR IV USE 2,000 MG in WATER (STERILE) FOR INJECTION 20 ML IV SCH (13:35)
[2020-10-08] MEDS: REMDESIVIR INJ 100 MG in NS (IVPB) 230 ML IV SCH (13:35)
--- NOTE | 2020-10-08 14:33 | NUR ---
[address] E-ICU DR QUESTIONED PT'S ESTRADIOL NEED, DR JESUS ASKED THIS RN TO CHECK WITH PRIMARY TO SEE IF THIS MEDICATION CAN BE STOPPED. THIS RN TALKED WITH DR PORTILLO AND ORDERS RECEIVED TO D/C ESTRADIOL.
--- NOTE | 2020-10-08 15:25 | NUR ---
"RD ASSESSMENT PMHx: HTN; DM; PT INTERACTION: Note pt is currently in COVID isolation, per chart review. Note all diet information for nutrition assessment is per Joleen RN or per chart review. Joleen states current appetite appears good. Note avg PO intake 53% x3d, per chart review. Joleen states no issues with nausea, vomiting, constipation, or diarrhea that she is aware of. Note last BM was 10/05, and pt currently on bowel regimen of colace BID, and senna BID, per chart review. Note unable to determine recent wt hx, per chart review. Note unable to determine current level of DM management, or recent HbA1c, per chart review. ABNORMAL NUTRITION-RELATED LAB VALUES LOW: K 3.4; Ca 7.5; Pro 5.8; alb 2.8; HIGH: glu 187; Mg 2.7; AST 36 Est. kcal needs: 9334-7145 kcal | 15-18 kcal/kg Est. Pro needs: 98-122 g Pro | 0.8-1.0 g Pro/kg PES STATEMENT: Inadequate oral intake (NI-2.1) related to loss of appetite as evidenced by chart review, communication with RN, and avg PO intake 53% x3d. INTERVENTION: Continue with current diet order of CHO 60g/m 3snack diet. Add Glucerna (vary) to meals TID, for increased kcal intake. Provides 220 kcal and 10 g Pro per serving. Did not offer diet education on DM management d/t COVID isolations. Will continue to follow and reassess as pt needs, intake, and status change. Benjamin Dunham, MS RD LD [phone] cell"
[2020-10-08] MEDS: GABAPENTIN 300 MG (NEURONTIN) CAP PO SCH (20:09)
[2020-10-09] VITALS (15 sets, daily range): BP systolic 95–131; BP diastolic 45–77
[2020-10-09] MEDS: RT-ALBUTEROL INHALER HFA (VENTOLIN HFA) 18 GM IH SCH ×6 (01:38→22:01)
[2020-10-09 03:47] LABS: BASOPHILS % (AUTO) 0 % (0-10); EOSINOPHILS % (AUTO) 0 % (0-10); HEMATOCRIT 36 % (35-52); HEMOGLOBIN 11.2 g/dL (11.5-16.0); LYMPHOCYTES # (AUTO) 0.7 10^3/uL (1.0-4.0); LYMPHOCYTES % (AUTO) 17 % (12-44); MEAN CORPUSCULAR HEMOGLOBIN 30 pg (25-34); MEAN CORPUSCULAR HGB CONC 31 g/dL (32-36); MEAN CORPUSCULAR VOLUME 96 fL (80-99); MEAN PLATELET VOLUME 11.1 fL (9.0-12.2); MONOCYTES # (AUTO) 0.3 10^3/uL (0.0-1.0); MONOCYTES % (AUTO) 7 % (0-12); NEUTROPHILS # (AUTO) 3.2 10^3/uL (1.8-7.8); NEUTROPHILS % (AUTO) 75 % (42-75); PLATELET COUNT 231 10^3/uL (130-400); WHITE BLOOD COUNT 4.3 10^3/uL (4.3-11.0)
[2020-10-09 04:06] LABS: CHLORIDE 102 MMOL/L (98-107); POTASSIUM 4.3 MMOL/L (3.6-5.0); SODIUM 138 MMOL/L (135-145)
[2020-10-09 04:07] LABS: CALCIUM 7.6 MG/DL (8.5-10.1)
[2020-10-09 04:08] LABS: GLUCOSE 182 MG/DL (70-105)
[2020-10-09 04:10] LABS: CARBON DIOXIDE 24 MMOL/L (21-32)
[2020-10-09 04:12] LABS: CREATININE SERUM 0.67 MG/DL (0.60-1.30); GFR ESTIMATED > 60; PHOSPHORUS 2.7 MG/DL (2.3-4.7)
[2020-10-09 04:13] LABS: BUN/CREATININE RATIO 18
[2020-10-09 04:14] LABS: MAGNESIUM 2.7 MG/DL (1.6-2.4)
[2020-10-09] MEDS: KCL 20 MEQ TAB (K-DUR) PO SCH (07:03)
[2020-10-09] MEDS: MAGNESIUM 1 GM/100 ML IVPB 100 ML IV SCH (07:03)
[2020-10-09] MEDS: POTASSIUM CL 10MEQ/50ML IVPB 50 ML IV SCH (07:03)
[2020-10-09] MEDS: inSUlin ASPART (NovoLOG) 1 UNIT/0.01 ML (CHARGE PER UNIT) SC SCH ×7 (07:03→21:57)
[2020-10-09] MEDS: PANTOPRAZOLE 40 MG (PROTONIX) VIAL IV SCH (09:31)
[2020-10-09] MEDS: meTOprolol TARTRATE 50 MG (LOPRESSOR) TAB PO SCH ×2 (09:32→21:55)
[2020-10-09] MEDS: lisINopril 40 MG (PRINIVIL) TABLET PO SCH (09:32)
[2020-10-09] MEDS: DOCUSATE SODIUM 100 MG (COLACE) CAP PO SCH ×2 (09:35→21:54)
[2020-10-09] MEDS: SENNOSIDES 8.6 MG (SENOKOT) TAB PO SCH ×2 (09:35→21:54)
[2020-10-09] MEDS: ENOXAPARIN 40 MG/0.4 ML (LOVENOX) SYR SC SCH (12:30)
[2020-10-09] MEDS ORDERED: WATER (STERILE) FOR INJECTION 20 ML ONE (13:23)
[2020-10-09] MEDS ORDERED: cefTRIAXone 2 GM/20 ML for IV (ROCEPHIN) ONE (13:23)
[2020-10-09] MEDS: cefTRIAXone FOR IV USE 2,000 MG in WATER (STERILE) FOR INJECTION 20 ML IV SCH (13:37)
[2020-10-09] MEDS ORDERED: FUROSEMIDE 40 MG/4 ML INJ (LASIX) ONE (13:37)
[2020-10-09] MEDS ORDERED: FUROSEMIDE 40 MG/4 ML INJ (LASIX) IVP ONE (13:45)
[2020-10-09] MEDS: GABAPENTIN 300 MG (NEURONTIN) CAP PO SCH (21:56)
[2020-10-10] VITALS (18 sets, daily range): BP systolic 90–135; BP diastolic 48–75
[2020-10-10] MEDS: ENOXAPARIN 40 MG/0.4 ML (LOVENOX) SYR SC SCH ×3 (00:36→22:53)
[2020-10-10 03:44] LABS: BASOPHILS % (AUTO) 0 % (0-10); EOSINOPHILS % (AUTO) 1 % (0-10); HEMATOCRIT 35 % (35-52); LYMPHOCYTES # (AUTO) 0.8 10^3/uL (1.0-4.0); LYMPHOCYTES % (AUTO) 18 % (12-44); MEAN CORPUSCULAR HEMOGLOBIN 30 pg (25-34); MEAN CORPUSCULAR HGB CONC 32 g/dL (32-36); MEAN CORPUSCULAR VOLUME 94 fL (80-99); MEAN PLATELET VOLUME 11.7 fL (9.0-12.2); MONOCYTES # (AUTO) 0.3 10^3/uL (0.0-1.0); MONOCYTES % (AUTO) 7 % (0-12); NEUTROPHILS # (AUTO) 3.4 10^3/uL (1.8-7.8); NEUTROPHILS % (AUTO) 73 % (42-75); PLATELET COUNT 180 10^3/uL (130-400); WHITE BLOOD COUNT 4.7 10^3/uL (4.3-11.0)
[2020-10-10 03:48] LABS: CHLORIDE 99 MMOL/L (98-107); POTASSIUM 4.3 MMOL/L (3.6-5.0); SODIUM 135 MMOL/L (135-145)
[2020-10-10 03:50] LABS: CALCIUM 7.7 MG/DL (8.5-10.1); GLUCOSE 163 MG/DL (70-105)
[2020-10-10 03:52] LABS: CARBON DIOXIDE 25 MMOL/L (21-32)
[2020-10-10 03:54] LABS: CREATININE SERUM 0.71 MG/DL (0.60-1.30); GFR ESTIMATED > 60; PHOSPHORUS 3.5 MG/DL (2.3-4.7)
[2020-10-10 03:55] LABS: BUN/CREATININE RATIO 21
[2020-10-10 03:56] LABS: MAGNESIUM 2.5 MG/DL (1.6-2.4)
[2020-10-10] MEDS: inSUlin ASPART (NovoLOG) 1 UNIT/0.01 ML (CHARGE PER UNIT) SC SCH ×7 (07:18→20:27)
[2020-10-10] MEDS: MAGNESIUM 1 GM/100 ML IVPB 100 ML IV SCH (07:18)
[2020-10-10] MEDS: POTASSIUM CL 10MEQ/50ML IVPB 50 ML IV SCH (07:18)
[2020-10-10] MEDS: KCL 20 MEQ TAB (K-DUR) PO SCH (07:18)
[2020-10-10] MEDS: RT-ALBUTEROL INHALER HFA (VENTOLIN HFA) 18 GM IH SCH ×5 (07:56→22:40)
[2020-10-10] MEDS: DOCUSATE SODIUM 100 MG (COLACE) CAP PO SCH ×2 (09:17→20:23)
[2020-10-10] MEDS: lisINopril 40 MG (PRINIVIL) TABLET PO SCH (09:17)
[2020-10-10] MEDS: meTOprolol TARTRATE 50 MG (LOPRESSOR) TAB PO SCH ×2 (09:17→20:23)
[2020-10-10] MEDS: SENNOSIDES 8.6 MG (SENOKOT) TAB PO SCH ×2 (09:17→20:23)
[2020-10-10] MEDS: PANTOPRAZOLE 40 MG (PROTONIX) VIAL IV SCH (09:17)
--- NOTE | 2020-10-10 11:14 | Pulmonary Progress Note ---
Subjective Date Seen by a Provider: Oct 09, 2020 (late note. ) Time Seen by a Provider: 11:13 Subjective/Events-last exam Pt is requiring Vapotherm Sepsis Event Evaluation Height, Weight, BMI Height: 5'6.00" Weight: 254lbs. 0.0oz. 115.662554ln; 43.45 BMI Method: Exam Exam Vital Signs Date Time Temp Pulse Resp B/P (MAP) Pulse Ox O2 Delivery O2 Flow Rate FiO2 10/10/20 10:44 93 High Flow N/C 10.00 10/10/20 08:15 96 Vapotherm 25.00 60 10/10/20 07:56 93 Vapotherm 25.00 55 10/10/20 07:48 36.3 10/10/20 06:00 55 23 117/67 (84) 93 Vapotherm 30.00 60.00 10/10/20 05:00 50 19 127/75 (92) 95 Vapotherm 30.00 60.00 10/10/20 04:00 49 19 119/64 (82) 95 Vapotherm 30.00 60.00 10/10/20 03:00 50 19 117/66 (83) 94 Vapotherm 30.00 60.00 10/10/20 02:00 47 20 102/58 (73) 96 Vapotherm 30.00 60.00 10/10/20 01:00 50 10/10/20 01:00 47 18 124/57 (79) 94 Vapotherm 30.00 60.00 10/10/20 00:00 53 21 123/73 (90) 94 Vapotherm 30.00 60.00 10/09/20 23:00 70 24 131/66 (87) 94 Vapotherm 30.00 60.00 10/09/20 22:01 93 Vapotherm 25.00 60 10/09/20 22:00 65 16 105/77 (86) 95 Vapotherm 30.00 60.00 10/09/20 21:00 57 26 105/70 (82) 96 Vapotherm 30.00 60.00 10/09/20 20:00 62 26 117/68 (84) 95 Vapotherm 30.00 60.00 10/09/20 20:00 93 Vapotherm 25.00 60 10/09/20 19:00 71 25 95/65 (75) 95 Vapotherm 30.00 60.00 10/09/20 19:00 71 10/09/20 18:43 93 Vapotherm 25.00 60 10/09/20 16:00 64 25 106/71 (83) 93 Vapotherm 30.00 60.00 10/09/20 15:50 36.1 10/09/20 15:03 96 Vapotherm 30.00 60 10/09/20 12:43 63 10/09/20 12:00 57 19 116/67 (83) 94 Vapotherm 30.00 60.00 10/09/20 11:18 97 Vapotherm 30.00 65 I & O 10/10/20 07:00 Intake Total 1535 ml Output Total 2800 ml Balance -1265 ml Height & Weight Height: 5'6.00" Weight: 254lbs. 0.0oz. 115.940530lh; 43.45 BMI Method: General Appearance: No Apparent Distress, Obese HEENT: PERRL/EOMI, Pharynx Normal Neck: Normal Inspection, Supple Respiratory: No Accessory Muscle Use, Decreased Breath Sounds, Other (on Vapotherm) Cardiovascular: Regular Rate, Rhythm, No Murmur Capillary Refill: Less Than 3 Seconds Gastrointestinal: normal bowel sounds, non tender Extremity: Normal Inspection, Non Tender, No Pedal Edema Neurologic/Psychiatric: Alert, Oriented x3 Skin: Normal Color, Warm/Dry Results Lab Laboratory Tests 10/09/20 03:14 10/10/20 03:17 Assessment/Plan Assessment/Plan Acute respiratory failure due to COVID-19 -Repeat DDImer , PCT, and BNP -Give 40mg of Lasix x 1 Pneumonia due to COVID-19 Viral sepsis Community acquired pneumonia continue Rocephin and Azithromycin for possible bacterial pneumonia continue Decadron and Remdesivir for COVID s/p 1 unit convalescent plasma T2DM with hyperglycemia Levemir- most BS still over 180, will increase to 45 units Novolog with meals SSI HTN Continue home meds Morbid obesity Clinically significant, no acute management needs DVT Prophylaxis: MEL Forde DO Oct 10, 2020 11:14
--- NOTE | 2020-10-10 11:18 | Pulmonary Progress Note ---
Subjective Time Seen by a Provider: 11:14 Subjective/Events-last exam PT continues to require Vapotherm. Sepsis Event Evaluation Height, Weight, BMI Height: 5'6.00" Weight: 254lbs. 0.0oz. 115.157189ns; 43.45 BMI Method: Exam Exam Vital Signs Date Time Temp Pulse Resp B/P (MAP) Pulse Ox O2 Delivery O2 Flow Rate FiO2 10/10/20 10:44 93 High Flow N/C 10.00 10/10/20 08:15 96 Vapotherm 25.00 60 10/10/20 07:56 93 Vapotherm 25.00 55 10/10/20 07:48 36.3 10/10/20 06:00 55 23 117/67 (84) 93 Vapotherm 30.00 60.00 10/10/20 05:00 50 19 127/75 (92) 95 Vapotherm 30.00 60.00 10/10/20 04:00 49 19 119/64 (82) 95 Vapotherm 30.00 60.00 10/10/20 03:00 50 19 117/66 (83) 94 Vapotherm 30.00 60.00 10/10/20 02:00 47 20 102/58 (73) 96 Vapotherm 30.00 60.00 10/10/20 01:00 50 10/10/20 01:00 47 18 124/57 (79) 94 Vapotherm 30.00 60.00 10/10/20 00:00 53 21 123/73 (90) 94 Vapotherm 30.00 60.00 10/09/20 23:00 70 24 131/66 (87) 94 Vapotherm 30.00 60.00 10/09/20 22:01 93 Vapotherm 25.00 60 10/09/20 22:00 65 16 105/77 (86) 95 Vapotherm 30.00 60.00 10/09/20 21:00 57 26 105/70 (82) 96 Vapotherm 30.00 60.00 10/09/20 20:00 62 26 117/68 (84) 95 Vapotherm 30.00 60.00 10/09/20 20:00 93 Vapotherm 25.00 60 10/09/20 19:00 71 25 95/65 (75) 95 Vapotherm 30.00 60.00 10/09/20 19:00 71 10/09/20 18:43 93 Vapotherm 25.00 60 10/09/20 16:00 64 25 106/71 (83) 93 Vapotherm 30.00 60.00 10/09/20 15:50 36.1 10/09/20 15:03 96 Vapotherm 30.00 60 10/09/20 12:43 63 10/09/20 12:00 57 19 116/67 (83) 94 Vapotherm 30.00 60.00 10/09/20 11:18 97 Vapotherm 30.00 65 I & O 10/10/20 07:00 Intake Total 1535 ml Output Total 2800 ml Balance -1265 ml Height & Weight Height: 5'6.00" Weight: 254lbs. 0.0oz. 115.522733yp; 43.45 BMI Method: General Appearance: No Apparent Distress, Obese HEENT: PERRL/EOMI, Pharynx Normal Neck: Normal Inspection, Supple Respiratory: No Accessory Muscle Use, Decreased Breath Sounds, Other (on Vapotherm) Cardiovascular: Regular Rate, Rhythm, No Murmur Capillary Refill: Less Than 3 Seconds Gastrointestinal: normal bowel sounds, non tender Extremity: Normal Inspection, Non Tender, No Pedal Edema Neurologic/Psychiatric: Alert, Oriented x3 Skin: Normal Color, Warm/Dry Results Lab Laboratory Tests 10/09/20 03:14 10/10/20 03:17 Assessment/Plan Assessment/Plan Acute respiratory failure due to COVID-19 -Repeat 40mg of Lasix x 1 Pneumonia due to COVID-19 Viral sepsis Community acquired pneumonia Rocephin and s/p Azithromycin Decadron and s/p Remdesivir s/p 1 unit convalescent plasma T2DM with hyperglycemia Levemir- most BS still over 180, will increase to 45 units Novolog with meals SSI HTN Continue home meds Morbid obesity Clinically significant, no acute management needs DVT Prophylaxis: MEL Forde DO Oct 10, 2020 11:18
[2020-10-10] MEDS ORDERED: FUROSEMIDE 40 MG/4 ML INJ (LASIX) IVP NR (11:30)
--- NOTE | 2020-10-10 11:57 | Diagnostic Imaging Report ---
Portable erect AP chest at 1133 Indication: Shortness of breath The heart size is within normal limits and stable when compared to 10/05/2020. The alveolar/interstitial pulmonary infiltrates seen on the prior study are again evident and not significantly changed. As on the prior exam there is greater involvement of the left lung. There is still no significant pleural effusion identified. The mediastinum is not widened. The osseous structures are intact. IMPRESSION: There is persistent involvement of both lungs by pneumonia/atelectasis, particularly the left lung. When compared to the prior study there has been no significant change. Dictated by: Dictated on workstation # [id number]
--- NOTE | 2020-10-10 12:45 | NUR ---
ORDERS RECEIVED TO HOLD LASIX AT THIS TIME FROM DR PORTILLO DUE TO DECREASED BP. BP NOTED AT 95/67
[2020-10-10] MEDS: cefTRIAXone FOR IV USE 2,000 MG in WATER (STERILE) FOR INJECTION 20 ML IV SCH (13:58)
--- NOTE | 2020-10-10 15:45 | NUR ---
REPORT RECEIVED FROM GENA CONSTRUCTION ENGINEERING MANAGER
--- NOTE | 2020-10-10 16:00 | NUR ---
PT TRANSFERRED TO ROOM 426 VIA W/C ACCOMPANIED BY THIS RN AND Alicia TEJEDA RN. ALL PERSONAL BELONGINGS SENT DOWN WITH PT. PT TRANSFERRED ON . REPORT GIVEN TO MARYAN CHAVEZ PRIOR TO TRANSFER.
[2020-10-10] MEDS: GABAPENTIN 300 MG (NEURONTIN) CAP PO SCH (20:23)
[2020-10-11] MEDS: RT-ALBUTEROL INHALER HFA (VENTOLIN HFA) 18 GM IH SCH ×6 (03:41→23:36)
[2020-10-11 04:14] VITALS: BP 114/56
[2020-10-11] MEDS: inSUlin ASPART (NovoLOG) 1 UNIT/0.01 ML (CHARGE PER UNIT) SC SCH ×5 (06:37→20:16)
[2020-10-11 08:00] VITALS: BP 135/68
[2020-10-11] MEDS: meTOprolol TARTRATE 50 MG (LOPRESSOR) TAB PO SCH ×2 (09:34→20:02)
[2020-10-11] MEDS: SENNOSIDES 8.6 MG (SENOKOT) TAB PO SCH ×2 (09:34→20:07)
[2020-10-11] MEDS: lisINopril 40 MG (PRINIVIL) TABLET PO SCH (09:34)
[2020-10-11] MEDS: PANTOPRAZOLE 40 MG (PROTONIX) VIAL IV SCH (09:34)
[2020-10-11] MEDS: DOCUSATE SODIUM 100 MG (COLACE) CAP PO SCH ×2 (09:35→20:06)
[2020-10-11] MEDS ORDERED: cefTRIAXone 2 GM/20 ML for IV (ROCEPHIN) ONE (11:59)
[2020-10-11 12:00] VITALS: BP 128/66
[2020-10-11] MEDS: ENOXAPARIN 40 MG/0.4 ML (LOVENOX) SYR SC SCH (12:24)
[2020-10-11] MEDS: cefTRIAXone FOR IV USE 2,000 MG in WATER (STERILE) FOR INJECTION 20 ML IV SCH (13:43)
--- NOTE | 2020-10-11 14:21 | Progress Note - Hospitalist ---
Subjective HPI/CC On Admission Date Seen by Provider: Oct 11, 2020 Time Seen by Provider: 14:16 Cynthia Rodney is a 60 year old female with PMH HTN, T2DM, who presented with shortness of breath. She was diagnosed with COVID-19 about a week ago. She has been having fevers. She has a cough. She has not had an appetite. She denies chest pain. She denies nausea and vomiting. She denies abdominal pain. She denies diarrhea. She denies leg swelling. She has no other complaints or concerns. Subjective/Events-last exam Pt reports doing better. Down to 6lpm HFNC. Objective Exam Vital Signs Vital Signs Date Time Temp Pulse Resp B/P (MAP) Pulse Ox O2 Delivery O2 Flow Rate FiO2 10/11/20 12:00 35.7 65 16 128/66 (86) 96 High Flow N/C 8.00 10/10/20 08:15 60 Capillary Refill : Less Than 3 SecondsLess Than 3 Seconds General Appearance: No Apparent Distress, WD/WN, Obese Respiratory: Lungs Clear, No Accessory Muscle Use, No Respiratory Distress Cardiovascular: Regular Rate, Rhythm, No Murmur Gastrointestinal: Normal Bowel Sounds, Non Tender, Soft Neurologic/Psychiatric: Alert, Oriented x3, Normal Mood/Affect Results/Procedures Lab Patient resulted labs reviewed. Imaging: Reviewed Imaging Report Assessment/Plan Assessment and Plan Assess & Plan/Chief Complaint Acute respiratory failure due to COVID-19 Pneumonia due to COVID-19 Viral sepsis Community acquired pneumonia Rocephin and s/p Azithromycin Decadron and s/p Remdesivir s/p 1 unit convalescent plasma Doing much better and down to 6lpm MAT protocol T2DM with hyperglycemia Levemir 45 unit SSI HTN Continue home meds Morbid obesity Clinically significant, no acute management needs DVT Prophylaxis: Lovenox Diagnosis/Problems Diagnosis/Problems (1) Acute respiratory failure due to COVID-19 Status: Acute (2) Pneumonia due to COVID-19 virus Status: Acute (3) Hypoxia Status: Acute (4) T2DM (type 2 diabetes mellitus) Status: Chronic Qualifiers: Diabetes mellitus intermediate accountant insulin use: with intermediate accountant use Diabetes mellitus complication status: with hyperglycemia Qualified Codes: E11.65 - Type 2 diabetes mellitus with hyperglycemia; Z79.4 - long term acute care registered nurse (current) use of insulin (5) CAP (community acquired pneumonia) Status: Acute Qualifiers: Laterality: left Lung location: lower lobe of lung Qualified Codes: J18.9 - Pneumonia, unspecified organism (6) HTN (hypertension) Status: Acute Qualifiers: Hypertension type: essential hypertension Qualified Codes: I10 - Essential (primary) hypertension (7) Morbid obesity Status: Chronic (8) Viral sepsis Status: Acute Clinical Quality Measures DVT/VTE Risk/Contraindication: Risk Factor Score Per Nursin RFS Level Per Nursing on Admit: 2=Moderate JOSELITO RICH MD Oct 11, 2020 14:21
--- NOTE | 2020-10-11 14:39 | NUR ---
"RD ASSESSMENT PMHx: HTN; DM; PT INTERACTION: Note pt is currently in COVID isolation, per chart review. Note all diet information for nutrition follow-up is per Julio RN, or per chart review. Julio states current appetite is good. Note avg PO intake 78% x3d, per chart review. Julio states no issues with n/v/c/d that she is aware of. Note last BM ws 10/11, and pt currently on bowel regimen of colace BID, and senna BID, per chart review. ABNORMAL NUTRITION-RELATED LAB VALUES LOW: Ca 7.7; HIGH: glu 163; Mg 2.5; Est. kcal needs: 3172-3083 kcal | 15-18 kcal/kg Est. Pro needs: 98-122 g Pro | 0.8-1.0 g Pro/kg PES STATEMENT: Given current PO intake, no nutrition diagnosis at this time (NO-1.1). INTERVENTION: Continue with current diet order of CHO 60g/m 3snack diet. DC current supplementation order of Glucerna with meals. Pt's avg PO intake >75%, per chart review. Will continue to follow and reassess as pt needs, intake, and status change. Benjamin Dunham, MS RD LD [phone] cell"
[2020-10-11 15:35] VITALS: BP 140/63
[2020-10-11 19:13] VITALS: BP 160/73
[2020-10-11] MEDS: GABAPENTIN 300 MG (NEURONTIN) CAP PO SCH (20:02)
[2020-10-11 23:35] VITALS: BP 114/59
[2020-10-12] MEDS: RT-ALBUTEROL INHALER HFA (VENTOLIN HFA) 18 GM IH SCH ×6 (02:13→21:10)
[2020-10-12 03:06] VITALS: BP 143/65
[2020-10-12] MEDS: inSUlin ASPART (NovoLOG) 1 UNIT/0.01 ML (CHARGE PER UNIT) SC SCH ×4 (06:27→20:07)
[2020-10-12 07:48] VITALS: BP 148/66
[2020-10-12] MEDS: PANTOPRAZOLE 40 MG (PROTONIX) VIAL IV SCH (08:41)
[2020-10-12] MEDS: lisINopril 40 MG (PRINIVIL) TABLET PO SCH (08:41)
[2020-10-12] MEDS: meTOprolol TARTRATE 50 MG (LOPRESSOR) TAB PO SCH ×2 (08:41→20:06)
[2020-10-12] MEDS: SENNOSIDES 8.6 MG (SENOKOT) TAB PO SCH (08:43)
[2020-10-12] MEDS: DOCUSATE SODIUM 100 MG (COLACE) CAP PO SCH (08:43)
[2020-10-12] MEDS: ENOXAPARIN 40 MG/0.4 ML (LOVENOX) SYR SC SCH ×2 (11:23)
--- NOTE | 2020-10-12 11:28 | Progress Note - Hospitalist ---
Subjective HPI/CC On Admission Date Seen by Provider: Oct 12, 2020 Time Seen by Provider: 11:24 Cynthia Rodney is a 60 year old female with PMH HTN, T2DM, who presented with shortness of breath. She was diagnosed with COVID-19 about a week ago. She has been having fevers. She has a cough. She has not had an appetite. She denies chest pain. She denies nausea and vomiting. She denies abdominal pain. She denies diarrhea. She denies leg swelling. She has no other complaints or concerns. Subjective/Events-last exam Pt reports feeling well. Took a shower this morning and feeling better. Had increasing oxygen requirement overnight. Objective Exam Vital Signs Vital Signs Date Time Temp Pulse Resp B/P (MAP) Pulse Ox O2 Delivery O2 Flow Rate FiO2 10/12/20 09:02 95 High Flow N/C 9.00 10/12/20 07:48 35.8 55 18 148/66 (93) 10/10/20 08:15 60 Capillary Refill : Less Than 3 SecondsLess Than 3 Seconds General Appearance: No Apparent Distress, Obese Respiratory: Lungs Clear, No Accessory Muscle Use, Other (on 10lpm HFNC) Cardiovascular: Regular Rate, Rhythm, No Murmur Neurologic/Psychiatric: Alert, Oriented x3 Results/Procedures Lab Patient resulted labs reviewed. Imaging: Reviewed Imaging Report Assessment/Plan Assessment and Plan Assess & Plan/Chief Complaint Acute respiratory failure due to COVID-19 Pneumonia due to COVID-19 Viral sepsis Community acquired pneumonia s/p Rocephin and Azithromycin Decadron and s/p Remdesivir s/p 1 unit convalescent plasma Doing much better still but had a backstep last night, up to 10lpm when I was in room but I was able to titrate down to 8lpm and she maintained a sat of 96%. Discussed with nurse who will continue to titrate MAT protocol CRYS johnson T2DM with hyperglycemia Levemir 45 unit SSI HTN Continue home meds Morbid obesity Clinically significant, no acute management needs DVT Prophylaxis: Lovenox Diagnosis/Problems Diagnosis/Problems (1) Acute respiratory failure due to COVID-19 Status: Acute (2) Pneumonia due to COVID-19 virus Status: Acute (3) Hypoxia Status: Acute (4) T2DM (type 2 diabetes mellitus) Status: Chronic Qualifiers: Diabetes mellitus terminal carman insulin use: with terminal carman use Diabetes mellitus complication status: with hyperglycemia Qualified Codes: E11.65 - Type 2 diabetes mellitus with hyperglycemia; Z79.4 - care home (current) use of insulin (5) CAP (community acquired pneumonia) Status: Acute Qualifiers: Laterality: left Lung location: lower lobe of lung Qualified Codes: J18.9 - Pneumonia, unspecified organism (6) HTN (hypertension) Status: Acute Qualifiers: Hypertension type: essential hypertension Qualified Codes: I10 - Essential (primary) hypertension (7) Morbid obesity Status: Chronic (8) Viral sepsis Status: Acute Clinical Quality Measures DVT/VTE Risk/Contraindication: Risk Factor Score Per Nursin RFS Level Per Nursing on Admit: 2=Moderate JOSELITO RICH MD Oct 12, 2020 11:28
[2020-10-12] MEDS ORDERED: SENNOSIDES 8.6 MG (SENOKOT) TAB PO PRN (11:30)
[2020-10-12] MEDS ORDERED: DOCUSATE SODIUM 100 MG (COLACE) CAP PO PRN (11:30)
[2020-10-12 11:35] VITALS: BP 121/58
[2020-10-12 19:47] VITALS: BP 137/63
[2020-10-12] MEDS: GABAPENTIN 300 MG (NEURONTIN) CAP PO SCH (20:07)
[2020-10-13] MEDS: RT-ALBUTEROL INHALER HFA (VENTOLIN HFA) 18 GM IH SCH ×4 (02:37→19:06)
[2020-10-13] MEDS: ENOXAPARIN 40 MG/0.4 ML (LOVENOX) SYR SC SCH ×2 (05:46→12:56)
[2020-10-13] MEDS: inSUlin ASPART (NovoLOG) 1 UNIT/0.01 ML (CHARGE PER UNIT) SC SCH ×4 (06:17→20:22)
[2020-10-13 07:15] VITALS: BP 130/68
[2020-10-13] MEDS: lisINopril 40 MG (PRINIVIL) TABLET PO SCH (08:17)
[2020-10-13] MEDS: meTOprolol TARTRATE 50 MG (LOPRESSOR) TAB PO SCH ×2 (08:17→20:22)
[2020-10-13] MEDS: PANTOPRAZOLE 40 MG (PROTONIX) VIAL IV SCH (08:17)
--- NOTE | 2020-10-13 13:40 | Progress Note - Hospitalist ---
Subjective HPI/CC On Admission Date Seen by Provider: Oct 13, 2020 Time Seen by Provider: 13:37 Cynthia Rodney is a 60 year old female with PMH HTN, T2DM, who presented with shortness of breath. She was diagnosed with COVID-19 about a week ago. She has been having fevers. She has a cough. She has not had an appetite. She denies chest pain. She denies nausea and vomiting. She denies abdominal pain. She denies diarrhea. She denies leg swelling. She has no other complaints or concerns. Subjective/Events-last exam Pt reports feeling much better. Down to 3lpm. No complaints. Hopeful to DC home tomorrow. Objective Exam Vital Signs Vital Signs Date Time Temp Pulse Resp B/P (MAP) Pulse Ox O2 Delivery O2 Flow Rate FiO2 10/13/20 09:20 92 Nasal Cannula 3.00 10/13/20 07:15 36.1 63 17 130/68 (88) 10/10/20 08:15 60 Capillary Refill : Less Than 3 SecondsLess Than 3 Seconds General Appearance: No Apparent Distress, WD/WN, Obese Respiratory: Lungs Clear, No Respiratory Distress Cardiovascular: Regular Rate, Rhythm, No Murmur Gastrointestinal: Normal Bowel Sounds, Non Tender, Soft Neurologic/Psychiatric: Alert, Oriented x3 Results/Procedures Lab Patient resulted labs reviewed. Imaging: Reviewed Imaging Report Assessment/Plan Assessment and Plan Assess & Plan/Chief Complaint Acute respiratory failure due to COVID-19 Pneumonia due to COVID-19 Viral sepsis Community acquired pneumonia s/p Rocephin and Azithromycin Decadron and s/p Remdesivir s/p 1 unit convalescent plasma Doing much better today MAT protocol Home oxygen study ordered T2DM with hyperglycemia Levemir 45 unit SSI HTN Continue home meds Morbid obesity Clinically significant, no acute management needs DVT Prophylaxis: Lovenox Diagnosis/Problems Diagnosis/Problems (1) Acute respiratory failure due to COVID-19 Status: Acute (2) Pneumonia due to COVID-19 virus Status: Acute (3) Hypoxia Status: Acute (4) T2DM (type 2 diabetes mellitus) Status: Chronic Qualifiers: Diabetes mellitus skilled nursing insulin use: with medical terminologist use Diabetes mellitus complication status: with hyperglycemia Qualified Codes: E11.65 - Type 2 diabetes mellitus with hyperglycemia; 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
--- NOTE | 2020-10-13 15:01 | NUR ---
pt was placed on room air for 1 minute. pt 02 sat dropped to 88%. pt was then placed on 3l nc and pt saturation came up to 90%. Addendum: 10/13/20 at 1501 by KALEE QUEZADA RT Amended: Links added.
[2020-10-13 19:53] VITALS: BP 139/63
[2020-10-13] MEDS: GABAPENTIN 300 MG (NEURONTIN) CAP PO SCH (20:21)
[2020-10-14] MEDS: RT-ALBUTEROL INHALER HFA (VENTOLIN HFA) 18 GM IH PRN ×2 (02:34→09:58)
[2020-10-14] MEDS ORDERED: RT-ALBUTEROL INHALER HFA (VENTOLIN HFA) 18 GM IH SCH (03:00)
[2020-10-14] MEDS: ENOXAPARIN 40 MG/0.4 ML (LOVENOX) SYR SC SCH ×2 (06:03→12:23)
[2020-10-14] MEDS: inSUlin ASPART (NovoLOG) 1 UNIT/0.01 ML (CHARGE PER UNIT) SC SCH ×2 (06:03→12:24)
[2020-10-14] MEDS ORDERED: FLU QUADRIvalent (3YOA+) 60 mcg/0.5 ml 2020-21 (AFLURIA) IM ONE (07:00)
[2020-10-14 08:08] VITALS: BP 179/75
[2020-10-14] MEDS: lisINopril 40 MG (PRINIVIL) TABLET PO SCH (08:44)
[2020-10-14] MEDS: meTOprolol TARTRATE 50 MG (LOPRESSOR) TAB PO SCH (08:45)
[2020-10-14] MEDS: PANTOPRAZOLE 40 MG (PROTONIX) VIAL IV SCH (08:46)
--- NOTE | 2020-10-14 10:00 | NUR ---
CM/SS: Visited with pt (via phone due to COVID status) as to her plan for discharge. Pt is needing oxygen and need to determine medical equipment company. Plan: Pt to be discharged to home with home oxygen, no other needs identified. Summary: Pt is eager to return home today. Pt is explained the companies that her insurance covers for insurance. Pt prefers the one that is closest to her home. The preferred, closest to her home is [facility] out of [facility]. Pt reports she lives outside of [place], [place]. Information is faxed to [place] fax [phone] - telephone [phone]. Telephone call to [facility] to let them know that the information is being faxed over and a portable will be needed and that discharge is planned for today. This worker will follow up.
[2020-10-14 14:15] VITALS: BP 179/75
--- NOTE | 2020-10-14 21:30 | Discharge Summary ---
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 (5) CAP (community acquired pneumonia) Status: Acute Qualifiers: Qualified Codes: J18.9 - Pneumonia, unspecified organism (6) HTN (hypertension) Status: Acute Qualifiers: Qualified Codes: I10 - Essential (primary) hypertension (7) Morbid obesity Status: Chronic (8) Viral sepsis Status: Acute Hospital Course Date of Admission: Oct 04, 2020 at 10:10 Admission Diagnosis : Acute respiratory failure due to COVID-19 Family Physician/Provider: Jorge Laurent MD Date of Discharge: 10/14/20 Discharge Diagnosis: Acute respiratory failure due to COVID-19 Hospital Course: Cynthia Rodney is a 60 year old female who was admitted with acute respiratory failure due to COVID-19. She was treated with Decadron, Remdesivir, and convalescent plasma. She required significant amounts of supplemental oxygen which continued to increase and she was eventually transferred to the ICU. She w as requiring maximal amounts of Vapotherm. She was treated for a secondary bacterial pneumonia for which she received a course of antibiotics. Her oxygen requirement improved, but she was still requiring 3 L continuously at the time of discharge. She should follow up with her PCP in a week or two. Labs and Pending Lab Test: Laboratory Tests 10/14/20 06:01: Glucometer 137H 10/14/20 10:42: Glucometer 187H Microbiology 10/08/20 MRSA Screen - Final, Complete MRSA not isolated 10/04/20 Urine Culture - Final, Complete 3 or more isolates 10/04/20 Blood Culture - Final, Complete No growth Home Meds Active Reported Promethazine-Dm Syrup (Promethazine/Dextromethorphan) 473 Ml Syrup 5 Ml PO Q4 - 6H PRN Ondansetron Odt (Ondansetron) 4 Mg Tab.rapdis 4 Mg PO Q4H PRN Hydrochlorothiazide 25 Mg Tablet 25 Mg PO DAILY MEDICATION PUT ON HOLD BY PATIENT Citrucel (Methylcellulose) 500 Mg Tablet 500 Mg PO DAILY K-Tab ER (Potassium Chloride) 8 Meq Tablet.er 8 Meq PO DAILY Estradiol Tablet (Estradiol) 1 Mg Tablet 1 Mg PO DAILY Levemir Flextouch (Insulin Detemir) 100 Unit/1 Ml Insuln.pen 50 Units SC HS Neurontin (Gabapentin) 300 Mg Capsule 300 Mg PO HS Novolog Mix 70-30 Flexpen Syrn (Insuln Asp Prt/Insulin Aspart) 300 Units/3 Ml Solution 15-18 Units SC AC Metoprolol Tartrate 50 Mg Tablet 75 Mg PO BID TAKES 1 & (50MG) TABS Lisinopril 40 Mg Tablet 40 Mg PO DAILY Assessment/Pt Instructions Take medications as prescribed. Follow up with your PCP. Return with worsening shortness of breath or if you feel like you are getting worse. Discharge Planning: <30 minutes discharge planning Discharge Instructions Discharge Diet: No Restrictions Activity as Tolerated: Yes Consultations Pulmonology Discharge Physical Examination Vital Signs Vital Signs Date Time Temp Pulse Resp B/P (MAP) Pulse Ox O2 Delivery O2 Flow Rate FiO2 10/14/20 14:15 35.9 65 18 179/75 92 Nasal Cannula 3.00 10/13/20 22:57 36 General Appearance: No Apparent Distress, Obese Respiratory: Lungs Clear, Normal Breath Sounds, No Respiratory Distress Cardiovascular: Regular Rate, Rhythm, No Edema, No Murmur Gastrointestinal: Normal Bowel Sounds, Non Tender, Soft Extremity: Normal Inspection, Non Tender, No Pedal Edema Skin: Normal Color, Warm/Dry Neurologic/Psychiatric: Alert, Oriented x3, No Motor/Sensory Deficits, Normal Mood/Affect Allergies: Coded Allergies: Sulfa (Sulfonamide Antibiotics) (Verified Allergy, Severe, BLEEDING, 06/08/19) adhesive (Verified Allergy, Intermediate, BLISTERS, 06/08/19) Copy Copies To 1: JORGE LAURENT MD Discharge Summary Date of Admission Oct 04, 2020 at 10:10 Date of Discharge Oct 14, 2020 at 14:15 Discharge Date: Oct 14, 2020 Discharge Time: 14:15 Admission Diagnosis Acute respiratory failure due to COVID-19 Consults/Procedures Consulations Pulmonology Discharge Diagnosis Acute respiratory failure due to COVID-19 (1) Acute respiratory failure due to COVID-19 Status: Acute (2) Pneumonia due to COVID-19 virus Status: Acute (3) Hypoxia Status: Acute (4) T2DM (type 2 diabetes mellitus) Status: Chronic Qualifiers: Qualified Codes: E11.65 - Type 2 diabetes mellitus with hyperglycemia; Z79.4 - skilled nursing (current) use of insulin (5) CAP (community acquired pneumonia) Status: Acute Qualifiers: Qualified Codes: J18.9 - Pneumonia, unspecified organism (6) HTN (hypertension) Status: Acute Qualifiers: Qualified Codes: I10 - Essential (primary) hypertension (7) Morbid obesity Status: Chronic (8) Viral sepsis Status: Acute Clinical Quality Measures DVT/VTE Risk/Contraindication: Risk Factor Score Per Nursin RFS Level Per Nursing on Admit: 2=Moderate NICK VELARDE MD Oct 14, 2020 21:29
== END 2020-10-14 14:15 | disposition home or self-care (01) | DRG 871 ==
LOC: EDUNIT# 08:27 → ER 08:29 → 4TH 10:10 → EDLOC 10:10 → 4TH 10-05 16:14 → ICU 10-07 10:55 → 4TH 10-10 15:58
PROVIDERS: ADMIT Internal Medicine; ATTEND Internal Medicine
PROC: XW033E5 Introduction of Remdesivir Anti-infective into Peripheral Vein, Percutaneous Approach, New Technology Group 5 (ICD-10-PCS; principal; 2020-10-04)
PROC: XW13325 Transfusion of Convalescent Plasma (Nonautologous) into Peripheral Vein, Percutaneous Approach, New Technology Group 5 (ICD-10-PCS; 2020-10-04)
DX: A41.89 Other specified sepsis (principal); U07.1 COVID-19; J12.89 Other viral pneumonia; J96.00 Acute respiratory failure, unspecified whether with hypoxia or hypercapnia; J15.9 Unspecified bacterial pneumonia; Z68.41 Body mass index [BMI] 40.0-44.9, adult; E66.01 Morbid (severe) obesity due to excess calories; E11.65 Type 2 diabetes mellitus with hyperglycemia; I10 Essential (primary) hypertension; G47.30 Sleep apnea, unspecified; M54.9 Dorsalgia, unspecified; Z79.4 Long term (current) use of insulin; Z73.0 Burn-out; Z90.710 Acquired absence of both cervix and uterus
CPT/HCPCS: 36415; 71045; 80048; 80053; 81000; 82805; 82962; 83605; 83735; 83880; 84100; 84145; 85025; 85379; 85610; 85730; 86141; 86900; 86901; 87040; 87081; 87088; 87804; 93005; 94640; 94664; 94760; 94761; 96361; 96374; 96375

== ENCOUNTER → 2020-10-28 | Outpatient (CLI) | payer OTHER ==
[~2020-10-28] MED LIST changes: +D-ME473S11 PO; +ESTR1TAB24 PO; +GABA300C PO; +INSU100I13 SC; +INSU100I29 SC; +METH500T5 PO; +ONDA4TAB11 PO; +POTA8TAB53 PO
--- NOTE | 2020-10-28 12:25 | Diagnostic Imaging Report ---
INDICATION: Covid pneumonia. EXAMINATION: PA and lateral views of the chest are obtained with comparison made to the examination of 10/10/2020. FINDINGS: Overall heart size and pulmonary vascularity remain within normal limits. Predominantly peripheral patchy infiltrates again seen in both lungs. There has been minimal change. No pneumothorax is identified. There is no significant pleural fluid. IMPRESSION: Stable subacute or chronic infiltrates involving the periphery of both lungs. No significant changes identified. Dictated by: Dictated on workstation # [id number]
== END ==
LOC: RAD 11:27
PROVIDERS: ATTEND Nurse Practitioner Family
DX: R91.8 Other nonspecific abnormal finding of lung field (principal); R05 Cough
CPT/HCPCS: 71046

== ENCOUNTER → 2020-11-04 | Outpatient (CLI) | payer OTHER ==
--- NOTE | 2020-11-04 12:47 | Diagnostic Imaging Report ---
INDICATION: COVID patient with persistent oxygen requirements. PA and lateral chest obtained at 12:40 p.m. and compared to 10/28/2020. Heart and mediastinal silhouette are normal in appearance. The bilateral infiltrates have not shown appreciable change compared to the prior study. There is no pneumothorax or pleural fluid. IMPRESSION: No change in bilateral infiltrates compared to 10/28/2020. No pneumothorax or pleural fluid. Dictated by: Dictated on workstation # [id number]
== END ==
LOC: RAD 11:49
PROVIDERS: ATTEND Nurse Practitioner Family
DX: U07.1 COVID-19 (principal)
CPT/HCPCS: 71046

== ENCOUNTER → 2020-11-12 | Outpatient (CLI) | payer OTHER ==
[~2020-11-12] MED LIST changes: +CATHETER FLUSH 10 ML SYR IV PRN; +HOLD METFORMIN - RECEIVED CONTRAST 20 ML VIAL IV SCH; +IOHEXOL 350 MG/ML 100 ML (OMNIPAQUE 350) VIAL IV ONE; +NS 100 ML (IVPB) BAG IV ONE
--- NOTE | 2020-11-12 12:11 | Diagnostic Imaging Report ---
INDICATION: Shortness of breath, history of Covid infection in September. TECHNIQUE: Multiple contiguous axial images were obtained through the chest after uneventful bolus administration of intravenous contrast. 3D reconstructed CTA MIP acquisitions were also performed. Auto Exposure Controls were utilized during the CT exam to meet ALARA standards for radiation dose reduction. There is no prior chest CTA for comparison. FINDINGS: The thoracic aorta shows no evidence of aneurysm or dissection. The great vessel origins are patent. The pulmonary parenchymal vessels are well-opacified with no CT evidence of pulmonary emboli. There is no pleural or pericardial fluid. There are some minimal nodes in mediastinal which do not appear of pathologic size. There are no enlarged axillary nodes. Visualized portions of the upper abdomen demonstrated fatty infiltration of the liver and evidence of previous cholecystectomy. Lung parenchymal windows demonstrate some fibrotic scarring and groundglass opacities in the lung bases. There is no discrete mass lesion. There is some mild groundglass infiltrates in the lung apices. IMPRESSION: No CT evidence of pulmonary emboli or aortic dissection or aneurysm. There are scattered groundglass opacities and areas of parenchymal scarring in the lung bases with some scattered areas of groundglass opacity in the apices. These findings are likely related to patient's known Covid infection. There is no pleural fluid or overt mass lesion. Dictated by: Dictated on workstation # [id number]
== END ==
LOC: RAD 10:41
PROVIDERS: ATTEND Nurse Practitioner Family
DX: R06.02 Shortness of breath (principal); Z86.16 Personal history of COVID-19
CPT/HCPCS: 71275

== ENCOUNTER → 2021-02-18 | Outpatient (CLI) | payer OTHER ==
[~2021-02-18] MED LIST changes: -CATHETER FLUSH 10 ML SYR IV PRN; -HOLD METFORMIN - RECEIVED CONTRAST 20 ML VIAL IV SCH; -IOHEXOL 350 MG/ML 100 ML (OMNIPAQUE 350) VIAL IV ONE; -LISI40TA PO; +LISI40TA9 PO; -NS 100 ML (IVPB) BAG IV ONE; -POTA8TAB53 PO; +POTA8TAB54 PO
[2021-02-18 11:23] LABS: ALANINE AMINOTRANSFERASE 22 U/L (0-55); ALBUMIN 4.1 GM/DL (3.2-4.5); ALKALINE PHOSPHATASE 45 U/L (40-136); BILIRUBIN,TOTAL 0.4 MG/DL (0.1-1.0); BUN/CREATININE RATIO 15; CALCIUM 9.2 MG/DL (8.5-10.1); CARBON DIOXIDE 26 MMOL/L (21-32); CHLORIDE 105 MMOL/L (98-107); CHOLESTEROL 253 MG/DL (< 200); CREATININE SERUM 0.82 MG/DL (0.60-1.30); GFR ESTIMATED > 60; GLUCOSE 138 MG/DL (70-105); HDL CHOLESTEROL 45 MG/DL (40-60); POTASSIUM 3.9 MMOL/L (3.6-5.0); SODIUM 140 MMOL/L (135-145); TOTAL PROTEIN 7.6 GM/DL (6.4-8.2); TRIGLYCERIDES 187 MG/DL (<150); VLDL CHOLESTEROL 37 MG/DL (5-40)
== END ==
LOC: LAB 10:47
PROVIDERS: ATTEND Internal Medicine Cardiovascular Disease
DX: E78.2 Mixed hyperlipidemia (principal)
CPT/HCPCS: 36415; 80053; 80061

== ENCOUNTER → 2021-02-18 | Outpatient (CLI) | payer OTHER ==
[~2021-02-18] MED LIST changes: +CATHETER FLUSH 10 ML SYR IV PRN; +HOLD METFORMIN - RECEIVED CONTRAST 20 ML VIAL IV SCH; +IOHEXOL 350 MG/ML 100 ML (OMNIPAQUE 350) VIAL IV ONE; +NS 100 ML (IVPB) BAG IV ONE
--- NOTE | 2021-02-18 12:49 | Diagnostic Imaging Report ---
PROCEDURE: CT chest with contrast only. TECHNIQUE: Multiple contiguous axial images were obtained through the chest after administration of intravenous contrast. Auto Exposure Controls were utilized during the CT exam to meet ALARA standards for radiation dose reduction. DATE: February 18, 2021. COMPARISON: CT chest November 12, 2020. INDICATION: 60-year-old female, history of prior COVID 19 infection. Shortness of breath. FINDINGS: There is no pulmonary nodule. There is no lung mass. There are dependent predominantly linear opacities in the right and left lower lobes most likely relating to mild atelectasis and/or scarring. There is no bronchiectasis. There is no additional lung opacification. The central airways are patent. There is no pneumothorax. There is no pleural effusion. There is air in the main pulmonary artery likely relating to recent venous access. There is no identified pulmonary embolus. The main pulmonary artery is normal in caliber. The heart is not enlarged. There is no pericardial effusion. There is no abnormally enlarged mediastinal, hilar, or axillary lymph node meeting CT size criteria for adenopathy. The patient is status post cholecystectomy. The common bile duct measures 12 mm in diameter which is unchanged since the comparison exam. There is probable diffuse fatty infiltration of the liver. Additional evaluation of the imaged portions of the upper abdomen is unremarkable. There is no identified acute bony abnormality. IMPRESSION: CT CHEST. 1. Mild dependent linear opacities in the right and left lower lobes likely relating to mild atelectasis and/or scarring. 2. No acute cardiopulmonary abnormality currently. 3. Probable diffuse fatty infiltration of the liver. Report was faxed to Derek Hernadez nurse Infection Control by markos at 12:47pm. Dictated by: Dictated on workstation # [id number]
== END ==
LOC: RAD 12:15
PROVIDERS: ATTEND Nurse Practitioner Family
DX: R91.8 Other nonspecific abnormal finding of lung field (principal); Z86.16 Personal history of COVID-19
CPT/HCPCS: 71260

== ENCOUNTER → 2021-02-18 | Outpatient (CLI) | payer OTHER ==
[~2021-02-18] MED LIST changes: -CATHETER FLUSH 10 ML SYR IV PRN; -HOLD METFORMIN - RECEIVED CONTRAST 20 ML VIAL IV SCH; -IOHEXOL 350 MG/ML 100 ML (OMNIPAQUE 350) VIAL IV ONE; -NS 100 ML (IVPB) BAG IV ONE
== END ==
LOC: LAB 10:41
PROVIDERS: ATTEND Nurse Practitioner Family
DX: E11.65 Type 2 diabetes mellitus with hyperglycemia (principal)
CPT/HCPCS: 36415; 83036

== ENCOUNTER → 2021-03-27 | Outpatient (CLI) | payer OTHER ==
--- NOTE | 2021-03-28 09:34 | Diagnostic Imaging Report ---
INDICATION: Routine screening. Comparison is made prior mammogram 06/15/2019 and 04/28/2017. 2-D and 3-D bilateral screening mammography was performed with CAD. Scattered fibroglandular densities are identified bilaterally. The parenchymal pattern is stable. No mass or malignant appearing microcalcifications are seen. Axillae are unremarkable. IMPRESSION: BI-RADS Category 1 No mammographic features suspicious for malignancy are identified. ACR BI-RADS Category 1: Negative. Result letter will be mailed to the patient. Note: At least 10% of breast cancer is not imaged by mammography. Dictated by: Dictated on workstation # [id number]
== END ==
LOC: RAD 13:22
PROVIDERS: ATTEND Obstetrics & Gynecology
DX: Z12.31 Encounter for screening mammogram for malignant neoplasm of breast (principal)
CPT/HCPCS: 77063; 77067

== ENCOUNTER 2021-04-08 06:12 | Outpatient (CLI) | payer OTHER ==
[~2021-04-08] VITALS: Ht 167.7 cm; Wt 120.5 kg
[2021-04-08] MEDS ORDERED: PRAV40TA2 PO (13:03)
[2021-04-08] MEDS ORDERED: BACL10TA PO (13:03)
[2021-04-08] MEDS ORDERED: NAPR500T8 PO (13:03)
[2021-04-08] MEDS ORDERED: ASPI-999 PO (13:03)
[2021-04-08] MEDS ORDERED: ESTR0.62 PO (13:03)
[2021-04-11] MEDS ORDERED: OXYC1TAB87 PO (11:15)
[2021-04-11] MEDS ORDERED: DOCU-143 PO (11:15)
== END 2021-04-08 13:21 | disposition home or self-care (01) ==
LOC: PREOP 06:12
PROVIDERS: ATTEND Obstetrics & Gynecology
DX: Z01.818 Encounter for other preprocedural examination (principal)

== ENCOUNTER 2021-04-11 11:52 | Day surgery (SDC) | payer OTHER ==
[2021-04-11] VITALS (9 sets, daily range): BP systolic 104–177; BP diastolic 64–93
[~2021-04-11] VITALS: Ht 167.7 cm; Wt 120.5 kg
--- NOTE | 2021-04-11 11:10 | Progress Note-Post Operative ---
Post-Operative Progess Note Surgeon (s)/Safety And Security Manager (s) Surgeon SIVA GARBER MD Safety And Security Manager: Monica Pre-Operative Diagnosis Vaginal prolapse and stress urinary incontinence Post-Operative Diagnosis Same Procedure & Operative Findings Date of Procedure 04/11/21 Procedure Performed/Findings Anterior and posterior vaginal repairs with enterocele repair and sacrospinous ligament suspension as well as pubovaginal sling and cystoscopy by Dr. Kylie gruber Anesthesia Type GETA Estimated Blood Loss Estimated blood loss (mL): 150cc Specimens/Packing Specimens Removed none Packing: Kerlix gauze in the vagina SIVA GARBER MD Apr 11, 2021 11:10
--- NOTE | 2021-04-11 11:10 | Progress Note-Pre Operative ---
Pre-Operative Progress Note H&P Reviewed The H&P was reviewed, patient examined and no changes noted. Date Seen by Provider: Apr 11, 2021 Time Seen by Provider: 14:40 Date H&P Reviewed: Apr 11, 2021 Time H&P Reviewed: 14:40 Pre-Operative Diagnosis: Vaginal prolapse and stress urinary incontinence SIVA GARBER MD Apr 11, 2021 11:09
--- NOTE | 2021-04-11 11:15 | Discharge Inst-Surgical ---
Discharge Inst-Surgical Depart Medication/Instructions New, Converted or Re-Newed RX: RX on Chart Consults/Follow Up Patient Instructions: As direct Orders & Referrals Follow Up Appt: Call to make follow up appt. for patient in 4 weeks. Activity: Rest for 24 hours, than as tolerated. Wound Care: May remove Band-Aid tomorrow. Replace as desired. Keep incisions clean and dry. Wash daily with soap and water. Please call in RX to patient pharmacy. Diet: As tolerated-Clear Liquids only if nauseated. Tomorrow, may shower or tub bathe as desired. No driving for 24 hours, no alcoholic beverages for 24 hours, and nothing per vagina (no tampons, douching, or intercourse) for 8 weeks. Patient to return to the clinic as soon as possible for: Temperature greater than 101F, Severe Pain, Foul discharge from incision or vagina, Excessive Bleeding (more than a period). Activity Activity as Tolerated: No Diet Discharge Diet: No Restrictions SIVA GARBER MD Apr 11, 2021 11:15
[~2021-04-11 11:52] MED LIST changes: +ASPI-999 PO; +BACL10TA PO; +BENZOCAINE/MENTHOL (DERMOPLAST) 56 ML CAN TP PRN; +DOCU-143 PO; +ESTR0.62 PO; +ESTROGENS CONJ INJECTION 25 MG in WATER (STERILE) FOR INJECTION 5 ML IV ONE; +KETOROLAC 30 MG/ML VIAL IVP SCH; +NAPR500T8 PO; +ONDANSETRON 4 MG/2 ML (SDV) Z0FRAN IVP PRN; +OXYC1TAB87 PO; +PRAV40TA2 PO; +oxyCODONE/APAP 5/325MG (PERCOCET 5) TABLET PO PRN
[2021-04-11] MEDS ORDERED: ceFAZolin INJECTION 1,000 MG in WATER (STERILE) FOR INJECTION 10 ML IV ONE (12:00)
[2021-04-11] MEDS ORDERED: ESTRADIOL VAGINAL CREAM 42.5 GM (ESTRACE) VG ONE (13:09)
[2021-04-11] MEDS: LACTATED RINGERS 1,000 ML IV PRN ×2 (13:23→16:05)
[2021-04-11 13:24] LABS: BASOPHILS % (AUTO) 0 % (0-10); EOSINOPHILS # (AUTO) 0.1 10^3/uL (0.0-0.3); EOSINOPHILS % (AUTO) 2 % (0-10); HEMATOCRIT 39 % (35-52); LYMPHOCYTES % (AUTO) 29 % (12-44); MEAN CORPUSCULAR HEMOGLOBIN 30 pg (25-34); MEAN CORPUSCULAR HGB CONC 34 g/dL (32-36); MEAN CORPUSCULAR VOLUME 89 fL (80-99); MEAN PLATELET VOLUME 10.3 fL (9.0-12.2); MONOCYTES # (AUTO) 0.5 10^3/uL (0.0-1.0); MONOCYTES % (AUTO) 7 % (0-12); NEUTROPHILS # (AUTO) 4.1 10^3/uL (1.8-7.8); NEUTROPHILS % (AUTO) 61 % (42-75); PLATELET COUNT 217 10^3/uL (130-400); WHITE BLOOD COUNT 6.8 10^3/uL (4.3-11.0)
[2021-04-11] MEDS ORDERED: ROCURONIUM 10 MG/ML 5 ML SYRINGE IV ONE (13:31)
[2021-04-11] MEDS ORDERED: ONDANSETRON 4 MG/2 ML (SDV) Z0FRAN ONE (13:31)
[2021-04-11] MEDS ORDERED: LIDOCAINE PF 2% 5 ML (XYLOCAINE) VIAL ONE (13:31)
[2021-04-11] MEDS ORDERED: proPOfol 200 MG/20 ML (DIPRIVAN) VIAL IV ONE (13:31)
[2021-04-11] MEDS ORDERED: fentaNYL INJ 100 MCG/2 ML AMP ONE ×3 (13:32→17:20)
[2021-04-11] MEDS ORDERED: MIDAZOLAM 2 MG/2 ML (VERSED) VIAL ONE (13:33)
--- NOTE | 2021-04-11 15:28 | Progress Note-Post Operative ---
Post-Operative Progess Note Surgeon (s)/Elementary School Band Director (s) Surgeon ROSMERY VALDIVIA MD Elementary School Band Director: SIVA GARBER MD Pre-Operative Diagnosis GUERDA Post-Operative Diagnosis SAME Procedure & Operative Findings Date of Procedure 04/11/21 Procedure Performed/Findings PVS AND CYSTOSCOPY Anesthesia Type GENERAL Estimated Blood Loss Estimated blood loss (mL): NEGLIGIBLE Specimens/Packing Specimens Removed NONE PackinGM ESTRACE VAGINAL PACK ROSMERY VALDIVIA MD Apr 11, 2021 15:28
[2021-04-11] MEDS ORDERED: SEVOFLURANE (ULTANE) 15 ML INHAL SOLN ONE ×2 (15:47→16:21)
--- NOTE | 2021-04-11 16:27 | Anesthesia-General Post-Op ---
General Patient Condition Mental Status/LOC: Same as Preop Cardiovascular: Satisfactory Nausea/Vomiting: Absent Respiratory: Satisfactory Pain: Controlled Complications: Absent Post Op Complications Complications None Follow Up Care/Instructions Patient Instructions None needed. Anesthesia/Patient Condition Patient Condition Patient is doing well, no complaints, stable vital signs, no apparent adverse anesthesia problems. No complications reported per nursing. JONATHON CANTRELL CRNA Apr 11, 2021 16:27
[2021-04-11] MEDS ORDERED: KETOROLAC 30 MG/ML VIAL ONE (16:29)
[2021-04-11] MEDS ORDERED: ONDANSETRON 4 MG/2 ML (SDV) Z0FRAN IVP PRN (16:30)
[2021-04-11] MEDS ORDERED: morphine INJ 10 MG/ML 1ML (SYR OR VIAL) IVP ONE (16:30)
[2021-04-11] MEDS ORDERED: PROMETHAZINE INJ 25 MG/ML (PHENERGAN) AMP IVP ONE (16:30)
[2021-04-11] MEDS ORDERED: MEPERIDINE (DEMEROL) INJ 50 MG/ML IVP ONE (16:30)
[2021-04-11] MEDS ORDERED: HYDROmorphone 2 MG/ML VIAL (DILAUDID) IV ONE (16:30)
[2021-04-11] MEDS: fentaNYL INJ 100 MCG/2 ML AMP IVP PRN ×2 (17:32→18:30)
[2021-04-11] MEDS ORDERED: D5 LR IV SOLUTION 1,000 ML IV ONE (17:47)
[2021-04-11] MEDS: D5 LR IV SOLUTION 1,000 ML IV SCH (17:58)
--- NOTE | 2021-04-11 21:27 | OPERATIVE REPORT ---
DATE OF SERVICE: 04/11/2021 PREOPERATIVE DIAGNOSIS: On my part, stress urinary incontinence. POSTOPERATIVE DIAGNOSIS: On my part, stress urinary incontinence. OPERATION PERFORMED: Pubovaginal sling and cystoscopy. SURGEON: Rosmery Valdivia MD. ASSISTANT WOMEN'S TENNIS COACH: Joaquín Guerra MD ANESTHESIA: General. COMPLICATIONS: None. DESCRIPTION OF PROCEDURE: After Dr. Guerra performed the first part of his surgery that he will dictate, I passed the Desara II sling device on both sides using the described technique. The sling was sitting nicely under the mid urethra with no tension, no twist and passage of a curved hemostat easily between it and the underlying urethra. I removed the Stanley catheter to perform cystoscopy to confirm the integrity of the ureters, bladder, urethra and no foreign body. I left the bladder half full, removed the cystoscope, performed the manual Valsalva maneuver that was negative. Reinserted the Stanley catheter draining clear urine and fluid. Estimated blood loss on my part negligible and Dr. Guerra proceeded with the rest of his surgery that he will dictate. Job ID: [id number] DocumentID: [id number] Dictated Date: 04/11/2021 15:30:13 Bean Picker Date: 04/11/2021 21:26:18 Dictated By: ROSMERY VALDIVIA MD
[2021-04-11] MEDS: KETOROLAC 30 MG/ML VIAL IVP SCH (22:04)
--- NOTE | 2021-04-11 22:15 | OPERATIVE REPORT ---
DATE OF SERVICE: 04/11/2021 PREOPERATIVE DIAGNOSIS: Vaginal prolapse and stress urinary incontinence. POSTOPERATIVE DIAGNOSIS: Vaginal prolapse and stress urinary incontinence. OPERATIVE PROCEDURE: Anterior and posterior vaginal repairs with enterocele repair as well as sacrospinous ligament suspension with Dr. Elise doing a pubovaginal sling and cystoscopy. OPERATIVE DESCRIPTION: With the patient in supine position under satisfactory general anesthesia, she was repositioned in dorsal lithotomy position in the Luiz stirrups and prepped and draped in the usual fashion for vaginal surgery. Stanley catheter was placed in the urinary bladder. Weighted speculum placed in posterior fornix of vagina. Anterior repair was affected by placing Jessica clamps on the anterior vaginal wall and then opening the vaginal wall in the midline opening that opening extend from the vaginal cuff to approximately 1.5 cm from the urethral meatus. The bladder was carefully dissected off the muscularis of the vagina back to the pubic rami bilaterally. Endopelvic fascia and bladder wall were then plicated with 2-0 Vicryl sutures, elevating the bladder and lengthening the urethra. Dr. Elise resumed care of the patient at this time for a pubovaginal sling and cystoscopy. I remained to assist. On completion of Dr. Elise's portion of procedure, he indicated that the bladder had no indications of trauma and both ureters were effluxing, he left the Stanley catheter to dependent drainage and I resumed care of the patient. Redundant anterior vaginal wall muscularis mucosa was removed sharply. Vaginal wall was closed with a running locked suture of 2-0 Vicryl. Hemostasis was complete. Good support was evident. Posterior repair was then affected by placing Jessica clamps on the perineum and the hymenal ring at 5 and 7 o'clock position, an inverted triangle of skin was removed from the perineal body and upright triangle from the posterior vaginal floor. Digital rectal exam and blunt dissection was then used to dissect to the apex of the vagina developing the rectovaginal space. The apex was examined for an enterocele and there was a small one. At this point, dissection was carried over to the right rectal pillar to the right ischial spine and sacrospinous ligament. The Capio device was loaded and a suture of 2-0 Ethibond was placed through the sacrospinous ligament, approximately a centimeter medial to the ischial spine. An attempt was made to place a second suture; however, the Capio device failed, we proceeded with one suture in place. The Linda retractor was placed anteriorly. Ba retractor posteriorly. The rectovaginal space was exposed. The enterocele was obliterated with 2-0 Vicryl pursestring suture and then the rectovaginal space itself was obliterated with additional sutures of 2-0 Vicryl. The right perineal body was restored with 2-0 Vicryl. Sponge and needle counts were correct at this point, redundant posterior vaginal muscularis mucosa was removed sharply. Vaginal wall was then closed with a running locked suture of 3-0 Vicryl Rapide, that closure was continued past the hymenal ring down on the perineal body then back up subcutaneous to the hymenal ring where the suture was tied. There was no bleeding from either suture line. At this point, the sacrospinous ligament suspension suture was tied, elevating the apex of vagina well back up into the pelvis. That suture was cut short and the vagina was filled with Estrace vaginal cream and a pack of Kerlix gauze was placed. Digital rectal exam did demonstrate that there was one suture through the rectal mucosa approximately of one-eighth of an inch palpable in the rectum. Metzenbaum scissors were passed through the anus into the rectum and under digital direction that suture was cut, hence retracting the tissue and leaving no sutures into or through the rectal mucosa. Sponge and needle counts were correct at this point, blood loss was around 100 to 150 mL. The patient tolerated the procedure well and was uneventfully awakened from her general anesthesia and transferred to recovery room in stable condition. Job ID: [id number] DocumentID: [id number] Dictated Date: 04/11/2021 16:09:52 Ball Shagger Date: 04/11/2021 22:15:33 Dictated By: SIVA GARBER MD
[2021-04-12 00:10] VITALS: BP 129/61
[2021-04-12 04:30] VITALS: BP 131/58
[2021-04-12] MEDS: KETOROLAC 30 MG/ML VIAL IVP SCH (04:43)
[2021-04-12] MEDS: D5 LR IV SOLUTION 1,000 ML IV SCH (04:43)
[2021-04-12 08:05] VITALS: BP 127/61
[2021-04-12] MEDS ORDERED: DOCUSATE SODIUM 100 MG (COLACE) CAP PO SCH (09:00)
--- NOTE | 2021-04-12 10:14 | Progress Note - Urology ---
Progress Note-Urology Progress Notes/Assess & Plan Progress/Assessment & Plan DOING VERY WELL. VOIDING, EMPTYING AND CONTROLLING WELL HOME WITH INSTRUCTIONS Final Diagnosis GUERDA ROSMERY VALDIVIA MD Apr 12, 2021 10:14
[2021-04-12] MEDS ORDERED: IBUPROFEN 800 MG (MOTRIN) TAB PO ONE (10:27)
[2021-04-12] MEDS ORDERED: CIPR-225 PO (10:47)
[2021-04-12 11:50] VITALS: BP 127/61
[2021-04-12] MEDS ORDERED: IBUPROFEN 800 MG (MOTRIN) TAB PO SCH (16:00)
== END 2021-04-12 11:50 | disposition home or self-care (01) ==
LOC: SDC 11:52 → WS 17:10 → SDC 04-12 11:50
PROVIDERS: ATTEND Obstetrics & Gynecology
DX: N81.6 Rectocele (principal); E11.9 Type 2 diabetes mellitus without complications; E66.01 Morbid (severe) obesity due to excess calories; I10 Essential (primary) hypertension; G47.33 Obstructive sleep apnea (adult) (pediatric); N39.3 Stress incontinence (female) (male); R33.9 Retention of urine, unspecified; Z91.048 Other nonmedicinal substance allergy status; Z79.4 Long term (current) use of insulin; Z79.899 Other long term (current) drug therapy; Z68.41 Body mass index [BMI] 40.0-44.9, adult; Z99.81 Dependence on supplemental oxygen; Z90.710 Acquired absence of both cervix and uterus; Z88.2 Allergy status to sulfonamides; Z79.82 Long term (current) use of aspirin; Z79.1 Long term (current) use of non-steroidal anti-inflammatories (NSAID); Z80.3 Family history of malignant neoplasm of breast
CPT/HCPCS: 36415; 82947; 85025; 87081

== ENCOUNTER → 2021-05-05 | Outpatient (CLI) | payer OTHER ==
[~2021-05-05] MED LIST changes: -BENZOCAINE/MENTHOL (DERMOPLAST) 56 ML CAN TP PRN; +CIPR-225 PO; -ESTROGENS CONJ INJECTION 25 MG in WATER (STERILE) FOR INJECTION 5 ML IV ONE; -KETOROLAC 30 MG/ML VIAL IVP SCH; -ONDANSETRON 4 MG/2 ML (SDV) Z0FRAN IVP PRN; -oxyCODONE/APAP 5/325MG (PERCOCET 5) TABLET PO PRN
== END ==
LOC: LABNPT 07:09
PROVIDERS: ATTEND Nurse Practitioner Family
DX: Z53.9 Procedure and treatment not carried out, unspecified reason (principal)
CPT/HCPCS: 87635

== ENCOUNTER → 2021-05-06 | Outpatient (CLI) | payer OTHER ==
--- NOTE | 2021-05-06 11:17 | Diagnostic Imaging Report ---
PROCEDURE: US left lower extremity venous. TECHNIQUE: Multiple real-time grayscale images were obtained over the left lower extremity in various projections. Additional duplex Doppler and color Doppler images were also obtained. INDICATION: Left leg pain and swelling EXAMINATION: Grayscale and color Doppler evaluation of the deep veins of the left lower extremity were performed with waveform analysis. FINDINGS: Continuous venous flow is present. No intraluminal filling defect is identified. There is normal compressibility and response to augmentation. No abnormal perivascular fluid collection is identified. IMPRESSION: No ultrasound evidence of left lower extremity deep venous thrombosis. Dictated by: Dictated on workstation # [id number]
== END ==
LOC: RAD 10:09
PROVIDERS: ATTEND Obstetrics & Gynecology
DX: M79.662 Pain in left lower leg (principal); M79.89 Other specified soft tissue disorders

== ENCOUNTER → 2021-05-06 | Outpatient (CLI) | payer OTHER | LOC: RAD 09:27 | DX: Z53.9 Procedure and treatment not carried out, unspecified reason (principal) ==

== ENCOUNTER → 2021-06-02 | Outpatient (CLI) | payer OTHER | LOC: LABNPT 06:20 | PROVIDERS: ATTEND Nurse Practitioner Family | DX: Z01.812 Encounter for preprocedural laboratory examination (principal); Z20.822 Contact with and (suspected) exposure to COVID-19 | CPT/HCPCS: 87635 ==

== ENCOUNTER 2021-06-04 19:57 | Outpatient (CLI) | payer OTHER | END 2021-06-05 05:25 | disposition home or self-care (01) | LOC: SLEEP 19:57 | PROVIDERS: ATTEND Nurse Practitioner Family | DX: G47.33 Obstructive sleep apnea (adult) (pediatric) (principal) | CPT/HCPCS: 95811 ==

== ENCOUNTER → 2021-08-13 | Outpatient (CLI) | payer OTHER ==
[~2021-08-13] MED LIST changes: +RT-ALBUTEROL SULF 2.5 MG/3 ML PRE-MIX VIAL INH ONE
== END ==
LOC: RT 14:15
PROVIDERS: ATTEND Nurse Practitioner Family
DX: R06.00 Dyspnea, unspecified (principal)
CPT/HCPCS: 94060; 94726; 94729

== ENCOUNTER → 2021-10-22 | Outpatient (CLI) | payer OTHER ==
[~2021-10-22] MED LIST changes: -RT-ALBUTEROL SULF 2.5 MG/3 ML PRE-MIX VIAL INH ONE
--- NOTE | 2021-10-22 08:52 | Diagnostic Imaging Report ---
PROCEDURE: MRI lumbar spine. TECHNIQUE: Multiplanar, multisequence MRI of the lumbar spine was performed without contrast. INDICATION: Chronic low back pain. Patient has prior history of lumbar spine surgery Since prior MRI from 08/14/2013 patient has undergone lumbar spine surgery. There is a postoperative changes of posterior instrumented fusion with vertical stabilization rods and pedicle screws transfixing L4 and L5 levels. There is normal lumbar lordotic curvature. There is minimal anterolisthesis of L4 on L5. Vertebral body heights are maintained. The marrow signal intensity is unremarkable. No geographic marrow lesion or acute compression fracture seen. There is some generalized disc desiccation and degenerative change noted. Greatest disc space narrowing is noted at L5-S1. The conus is unremarkable at the L1 level. T12-L1: Central canal and neural foramina are widely patent. L1-L2: Central canal is widely patent. Neural foramina appear patent. L2-L3: Disc/osteophyte complex significantly narrows the lateral recesses bilaterally. There is some ligament thickening. Central canal is patent. A far lateral broad-based disc bulging does result in neural foraminal narrowing bilaterally but greatest on the right. L3-L4: A broad-based disc/osteophyte complex indents the ventral thecal sac. There is also ligament thickening and hypertrophic facet changes resulting in moderate trefoil stenosis of the central canal. There is severe bilateral lateral recess stenosis. There is also significant bilateral neural foraminal stenosis. L4-L5: Postoperative changes are again noted. Central canal is patent. Neural foramina appear patent. L5-S1: Hypertrophic facet changes are noted. Central canal is patent. There does appear to be moderate bilateral neural foraminal stenosis. Paraspinous tissues are unremarkable. IMPRESSION: 1. Postop changes posterior instrumented fusion L4-L5. 2. Multilevel lumbar spondylosis with multilevel central canal, lateral recess and neural foraminal stenosis described level by level above. Dictated by: Dictated on workstation # [id number]
== END ==
LOC: RAD 08:00
PROVIDERS: ATTEND Physician Assistant
DX: M47.27 Other spondylosis with radiculopathy, lumbosacral region (principal); M48.061 Spinal stenosis, lumbar region without neurogenic claudication; M51.16 Intervertebral disc disorders with radiculopathy, lumbar region; Z98.1 Arthrodesis status
CPT/HCPCS: 72148

== ENCOUNTER → 2022-03-19 | Outpatient (CLI) | payer OTHER | LOC: CARD 09:00 | PROVIDERS: ATTEND Internal Medicine Cardiovascular Disease | DX: Z51.11 Encounter for antineoplastic chemotherapy (principal); I11.9 Hypertensive heart disease without heart failure | CPT/HCPCS: 93306 ==

== ENCOUNTER → 2022-04-15 | Outpatient (CLI) | payer OTHER ==
[~2022-04-15] VITALS: Ht 167 cm; Wt 102.0 kg
[~2022-04-15] MED LIST changes: +CATHETER FLUSH 10 ML SYR IVP PRN
[2022-04-15 09:16] VITALS: BP 198/95
--- NOTE | 2022-04-15 13:30 | Cardiology Stress Test Report ---
Stress Test Report Date of Procedure/Referring: Date of Procedure: Apr 15, 2022 PCP Admitting Physician Admitting Physician: Attending Physician: Deisrae Tellez MD Indications: HTN Baseline Heart Rate: 68 Baseline Blood Pressure: Blood Pressure Systolic: 198 Blood Pressure Diastolic: 95 Vital Signs Date Time Temp Pulse Resp B/P (MAP) Pulse Ox O2 Delivery O2 Flow Rate FiO2 04/15/22 09:16 74 20 198/95 (129) 97 Room Air Baseline Vital Signs Vital Signs Date Time Temp Pulse Resp B/P (MAP) Pulse Ox O2 Delivery O2 Flow Rate FiO2 04/15/22 09:16 74 20 198/95 (129) 97 Room Air Baseline EKG: Baseline EKG: NSR Summary: After explaining the procedure and details to the patient, she signed the consent and was brought to the stress nuclear laboratory. Patient exercised on standard Abhishek protocol, EKG, heart rate and blood pressure were monitored continuously, resting and stress doses of radio tracer were injected, imaging was acquired and reviewed in the short axis, horizontal long axis and vertical long axis views Patient was able to exercise for a total of 3 minutes on Abhishek protocol, METs 4.6 Maximum heart rate 145 Maximum blood pressure 234/105 Stress EKG, Minimal nondiagnostic changes Recovery EKG, Return to baseline TID: 0.99 SSS: 0 SDS: 0 EF: 58 Conclusion: 1. Fair exercise tolerance for a total of 3 minutes on standard Abhishek protocol, 4.6 METS achieving 90% of maximum expected heart rate 2. Appropriate heart rate response to exercise with severe hypertensive response to exercise with peak blood pressure 234/105 return to baseline during recovery 3. Nondiagnostic EKG changes with exercise return to baseline during recovery 4. Normal left ventricular size, ejection fraction 58% DESIRAE TELLEZ MD Apr 15, 2022 13:30
== END ==
LOC: CARD 08:00
PROVIDERS: ATTEND Internal Medicine Cardiovascular Disease
DX: I10 Essential (primary) hypertension (principal)
CPT/HCPCS: 78452; 93017; A9502

== ENCOUNTER 2023-03-08 13:29 | Outpatient (CLI) | payer OTHER ==
[~2023-03-08 13:29] MED LIST changes: -CATHETER FLUSH 10 ML SYR IVP PRN; -D-ME473S11 PO; -INSU100I29 SC; +INSU100I30 SC; +PROM473S15 PO
== END 2023-03-08 14:15 ==
LOC: SLEEP 13:29
PROVIDERS: ATTEND Otolaryngology Otolaryngology/Facial Plastic Surgery
DX: G47.33 Obstructive sleep apnea (adult) (pediatric) (principal); G47.36 Sleep related hypoventilation in conditions classified elsewhere
CPT/HCPCS: G0399

== ENCOUNTER 2023-04-02 05:37 | Outpatient (CLI) | payer OTHER ==
[~2023-04-02] VITALS: Ht 167.7 cm; Wt 80.0 kg
[2023-04-02] MEDS ORDERED: BACI1TAB8 PO (14:17)
[2023-04-02] MEDS ORDERED: AMLO-250 PO (14:17)
[2023-04-02] MEDS ORDERED: SEMA2PEN SQ (14:17)
[2023-04-02] MEDS ORDERED: PSYL0.4C2 PO (14:17)
[2023-04-02] MEDS ORDERED: LOSA100T57 PO (14:17)
[2023-04-02] MEDS ORDERED: CALC-867 PO (14:17)
[2023-04-02] MEDS ORDERED: BIOT10004 PO (14:17)
[2023-04-02] MEDS ORDERED: NF-ALLE180 PO (14:17)
[2023-04-02] MEDS ORDERED: GABA-486 PO (14:17)
[2023-04-02] MEDS ORDERED: OMEP20CA18 PO (14:17)
[2023-04-02] MEDS ORDERED: FOLI200T11 PO (14:17)
[2023-04-02] MEDS ORDERED: FOLI0.8C PO (14:17)
== END 2023-04-02 14:41 ==
LOC: PREOP 05:37
PROVIDERS: ATTEND Obstetrics & Gynecology
DX: Z01.818 Encounter for other preprocedural examination (principal)

== ENCOUNTER 2023-04-09 07:07 | Emergency (ER) | payer OTHER ==
[~2023-04-09] VITALS: Ht 167 cm; Wt 80.0 kg
[~2023-04-09 07:07] MED LIST changes: +AMLO-250 PO; +BACI1TAB8 PO; +BIOT10004 PO; +CALC-867 PO; +FOLI0.8C PO; +FOLI200T11 PO; +GABA-486 PO; +LOSA100T57 PO; +NF-ALLE180 PO; +OMEP20CA18 PO; +PSYL0.4C2 PO; +SEMA2PEN SQ
[2023-04-09] MEDS ORDERED: morphine INJ 10 MG/ML 1ML (SYR OR VIAL) IVP STA (07:27)
[2023-04-09] MEDS ORDERED: ONDANSETRON 4 MG/2 ML (SDV) Z0FRAN IVP ONE (07:30)
--- NOTE | 2023-04-09 07:30 | ED Abdominal Pain ---
General Chief Complaint: Abdominal/GI Problems Stated Complaint: ABD AND LOWER BACK PAIN Nursing Triage Note: PT CO OF ABD PAIN R LOWER ABD. PT STATES HAS HURT ON AND OFF BUT WORSE TODAY RATES PAIN 10/10. PT STATES DOES HAVE SOME BLOOD IN URINE AT TIMES. PT STATES DOES HAVE SOME MESH THAT HAS TO BE PUSHED BACK UP INTO VAGINAL AREA AT TIMES. PT STATES SCHEDULED TO HAVE REMOVED ON WEDNESDAY. Source of Information: Patient Exam Limitations: No Limitations History of Present Illness Date Seen by Provider: Apr 09, 2023 Time Seen by Provider: 07:16 Initial Comments 62-year-old female with past medical history of partial hysterectomy, bladder sling, and gastric bypass coming in due to right lower quadrant pain. Is been going off and on for months, worsening this week. Typically goes away early in the morning, its not going away this morning. Pain is also becoming more severe and sharp. For this reason, she presented to the ER. Slightly nauseous but no vomiting. Had a normal bowel movement this morning that was nonbloody. Denies any fever that she knows of, dysuria, vaginal discharge or bleeding, chest pain, shortness of breath, weakness, numbness, rash, or any other concerns. She does endorse intermittent hematuria, she believes this has happened since having the bladder sling and it is typically very faint. Denies any prior history of kidney stones. Allergies and Home Medications Allergies Coded Allergies: Sulfa (Sulfonamide Antibiotics) (Verified Allergy, Severe, BLEEDING, 04/02/23) adhesive (Verified Allergy, Intermediate, BLISTERS, 04/02/23) Patient Home Medication List Home Medication List Reviewed: Yes Amlodipine Besylate (Amlodipine Besylate) 5 Mg Tablet, 5 MG PO DAILY, (Reported) Entered as Reported by: Sherry Sterling on 04/02/23 141 Aspirin (Aspirin) 81 Mg Tab.chew, 81 MG PO DAILY, (Reported) Entered as Reported by: YESSICA CRUM on 04/08/21 1303 Bacillus Coagulans/Vitamin D3 (Probiotic 2 Billion Gummies) 2 Billion Cell-5 Mcg Tab.chew, 1 EACH PO DAILY, (Reported) Entered as Reported by: Sherry Sterling on 04/02/23 1417 Baclofen (Baclofen) 10 Mg Tablet, 10 MG PO Q8H, (Reported) Entered as Reported by: YESSICA CRUM on 04/08/21 1303 Biotin (Biotin) 1,000 Mcg Tab.chew, 1,000 MCG PO DAILY, (Reported) Entered as Reported by: Sherry Sterling on 04/02/23 141 Calcium Phosphate Trib/Vit D3 (Calcium + Vitamin D3 Gummies) 250 Mg Calcium-5 Mcg (200 Unit) Tab.chew, 1 EACH PO DAILY, (Reported) Entered as Reported by: Sherry Sterling on 04/02/231416 Estradiol (Estradiol Tablet) 1 Mg Tablet, 1 MG PO DAILY, (Reported) Entered as Reported by: ANITA BUSCH on 10/04/20 130 Estrogens, Conjugated (Premarin) 0.625 Mg Tablet, 0.5 APPLIC PO DAILY PRN, (Reported) Entered as Reported by: YESSICA CRUM on 04/08/21 130 Fexofenadine HCl (Fexofenadine HCl) 180 Mg Tablet, 180 MG PO DAILY, (Reported) Entered as Reported by: Sherry Sterling on 04/02/231416 Folic Acid (Folic Acid) 0.8 Mg Capsule, 0.8 MG PO DAILY, (Reported) Entered as Reported by: Sherry Sterling on 04/02/231416 Folic Acid/Multivit-Minerals (Women's Multivitamin Gummies) 200 Mcg Tab.chew, 200 MCG PO DAILY, (Reported) Entered as Reported by: Sherry Sterling on 04/02/231416 Gabapentin (Neurontin) 300 Mg Capsule, 300 MG PO HS, (Reported) Entered as Reported by: ANITA BUSCH on 10/04/20 130 Gabapentin (Gabapentin) 100 Mg Capsule, 100 MG PO DAILY, (Reported) Entered as Reported by: Sherry Sterling on 04/02/231416 Losartan Potassium (Losartan Potassium) 100 Mg Tablet, 100 MG PO DAILY, (Reported) Entered as Reported by: Sherry Sterling on 04/02/231416 Metoprolol Tartrate (Metoprolol Tartrate) 50 Mg Tablet, 200 MG PO BID, (Reported) Entered as Reported by: ELAN KIRKPATRICK on 06/08/19 112 Naproxen (Naproxen) 500 Mg Tablet.dr, 500 MG PO EVERY OTHER DAY, (Reported) Entered as Reported by: YESSICA CRUM on 04/08/21 130 Omeprazole (Omeprazole) 20 Mg Capsule.dr, 20 MG PO DAILY, (Reported) Entered as Reported by: Sherry Sterling on 04/02/23 141 Psyllium Husk (Metamucil) 0.4 Gram Capsule, 0.4 GM PO DAILY, (Reported) Entered as Reported by: Sherry Sterling on 04/02/23 141 Semaglutide (Ozempic) 2 Mg/0.75 Ml (8 Mg/3 Ml) Pen.injctr, 2 MG SQ WEEK, (Reported) Entered as Reported by: Sherry Sterling on 04/02/23 1417 Discontinued Medications Ciprofloxacin HCl (Cipro) 500 Mg Tablet, 500 MG PO BID Discontinued Reason: No Longer Taking Prescribed by: BINH ROSS on 04/12/21 1047 Docusate Sodium (Colace) 100 Mg Capsule, 100 MG PO BID Discontinued Reason: No Longer Taking Prescribed by: SIVA LOBO on 04/11/21 1115 Hydrochlorothiazide (Hydrochlorothiazide) 25 Mg Tablet, 25 MG PO DAILY, (Reported) Discontinued Reason: No Longer Taking Entered as Reported by: ANITA BUSCH on 10/04/20 1406 Insulin Detemir (Levemir Flextouch) 100 Unit/1 Ml Insuln.pen, 50 UNITS SC HS, (Reported) Discontinued Reason: No Longer Taking Entered as Reported by: ANITA BUSCH on 10/04/20 1303 Insuln Asp Prt/Insulin Aspart (Novolog Mix 70-30 Flexpen Syrn) 300 Units/3 Ml Solution, 15-18 UNITS SC AC, (Reported) Discontinued Reason: No Longer Taking Entered as Reported by: ANITA BUSCH on 10/04/20 1303 Lisinopril (Lisinopril) 40 Mg Tablet, 40 MG PO DAILY, (Reported) Discontinued Reason: No Longer Taking Entered as Reported by: ELAN KIRKPATRICK on 06/08/19 1123 Oxycodone HCl/Acetaminophen (Percocet 5-325 mg Tablet) 1 Each Tablet, 1 TAB PO Q4H Discontinued Reason: No Longer Taking Prescribed by: SIVA LOBO on 04/11/21 1115 Potassium Chloride (K-Tab ER) 8 Meq Tablet.er, 8 MEQ PO DAILY, (Reported) Discontinued Reason: No Longer Taking Entered as Reported by: ANITA BUSCH on 10/04/20 1303 Pravastatin Sodium (Pravastatin Sodium) 40 Mg Tablet, 40 MG PO DAILY, (Reported) Discontinued Reason: No Longer Taking Entered as Reported by: YESSICA CRUM on 04/08/21 1303 Review of Systems Review of Systems Constitutional: No fever EENTM: No Symptoms Reported Respiratory: No Symptoms Reported Cardiovascular: No Symptoms Reported Gastrointestinal: See HPI Genitourinary: See HPI Musculoskeletal: no symptoms reported Skin: no symptoms reported Psychiatric/Neurological: No Symptoms Reported Endocrine: No Symptoms Reported Hematologic/Lymphatic: No Symptoms Reported Past Usjuhjg-Nhyiyh-Qhqesl Hx Patient Social History Tobacco Use?: No Substance use?: No Alcohol Use?: No Pt feels they are or have been: No Immunizations Up To Date Tetanus Booster (TDap): Less than 5yrs PED Vaccines UTD: Yes First/Initial COVID19 Vaccinat: 01/23/21 Second COVID19 Vaccination Ramiro: 02/20/21 Third COVID19 Vaccination Date: 04/28/22 Seasonal Allergies Seasonal Allergies: No Past Medical History Surgery/Hospitalization HX: PARTIAL HYST, BARIATRIC SURG, DIABETES, BLADDER SLING. 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 Sexually Transmitted Disease: No Genitourinary: No (BLADDER SLING) Gastrointestinal: Yes Gastroesophageal Reflux, Chronic Constipation, Hiatal Hernia, Gall Bladder Disease Musculoskeletal: Yes Degenerate Disk Disease, Chronic Back Pain Endocrine: Yes Diabetes, Insulin dep, Diabetes, Non-Insulin dep HEENT: No Loss of Vision: Denies Hearing Impairment: Denies Cancer: No Psychosocial: No Integumentary: No Blood Disorders: Yes Adverse Reaction/Blood Tranf: No Physical Exam Vital Signs Vital Signs - First Documented 04/09/23 07:14 Temp 35.9 Pulse 71 Resp 18 B/P (MAP) 183/99 (127) Pulse Ox 100 O2 Delivery Room Air Capillary Refill : Less Than 3 Seconds Height/Weight/BMI Height: 5'6.00" Weight: 254lbs. 0.0oz. [id number]; 28.00 BMI Method: General Appearance: WD/WN, no apparent distress HEENT: PERRL/EOMI, normal ENT inspection, pharynx normal Neck: non-tender, full range of motion, supple, normal inspection Respiratory: chest non-tender, lungs clear, normal breath sounds, no respirat ory distress, no accessory muscle use Cardiovascular: regular rate, rhythm, no edema, no murmur Gastrointestinal: normal bowel sounds, soft; No distended, No guarding, No rebound; tenderness Extremities: normal range of motion, non-tender, normal inspection, no pedal edema, no calf tenderness, normal capillary refill Back: normal inspection, CVA tenderness (R); No CVA tenderness (L) Neurologic/Psychiatric: no motor/sensory deficits, alert, normal mood/affect Skin: normal color, warm/dry Progress/Results/Core Measures Results/Orders Lab Results Laboratory Tests Test 04/09/23 07:20 04/09/23 07:30 Range/Units White Blood Count 9.4 4.3-11.0 10^3/uL Red Blood Count 4.45 3.80-5.11 10^6/uL Hemoglobin 13.9 11.5-16.0 g/dL Hematocrit 41 35-52 % Mean Corpuscular Volume 93 80-99 fL Mean Corpuscular Hemoglobin 31 25-34 pg Mean Corpuscular Hemoglobin Concent 34 32-36 g/dL Red Cell Distribution Width 12.5 10.0-14.5 % Platelet Count 217 130-400 10^3/uL Mean Platelet Volume 10.4 9.0-12.2 fL Immature Granulocyte % (Auto) 0 % Neutrophils (%) (Auto) 73 42-75 % Lymphocytes (%) (Auto) 18 12-44 % Monocytes (%) (Auto) 7 0-12 % Eosinophils (%) (Auto) 1 0-10 % Basophils (%) (Auto) 0 0-10 % Neutrophils # (Auto) 6.9 1.8-7.8 10^3/uL Lymphocytes # (Auto) 1.7 1.0-4.0 10^3/uL Monocytes # (Auto) 0.7 0.0-1.0 10^3/uL Eosinophils # (Auto) 0.1 0.0-0.3 10^3/uL Basophils # (Auto) 0.0 0.0-0.1 10^3/uL Immature Granulocyte # (Auto) 0.0 0.0-0.1 10^3/uL Sodium Level 143 135-145 MMOL/L Potassium Level 3.8 3.6-5.0 MMOL/L Chloride Level 106 98-107 MMOL/L Carbon Dioxide Level 27 21-32 MMOL/L Anion Gap 10 5-14 MMOL/L Blood Urea Nitrogen 13 7-18 MG/DL Creatinine 0.77 0.60-1.30 MG/DL Estimat Glomerular Filtration Rate 88 BUN/Creatinine Ratio 17 Glucose Level 116 H 70-105 MG/DL Calcium Level 9.4 8.5-10.1 MG/DL Corrected Calcium 9.2 8.5-10.1 MG/DL Total Bilirubin 0.6 0.1-1.0 MG/DL Aspartate Amino Transf (AST/SGOT) 27 5-34 U/L Alanine Aminotransferase (ALT/SGPT) 34 0-55 U/L Alkaline Phosphatase 53 40-136 U/L Total Protein 7.0 6.4-8.2 GM/DL Albumin 4.2 3.2-4.5 GM/DL Lipase 21 8-78 U/L Urine Color YELLOW Urine Clarity CLEAR Urine pH 6.0 5-9 Urine Specific [place] <=1.005 1.016-1.022 Urine Protein NEGATIVE NEGATIVE Urine Glucose (UA) NEGATIVE NEGATIVE Urine Ketones NEGATIVE NEGATIVE Urine Nitrite NEGATIVE NEGATIVE Urine Bilirubin NEGATIVE NEGATIVE Urine Urobilinogen 0.2 < = 1.0 MG/DL Urine Leukocyte Esterase NEGATIVE NEGATIVE Urine RBC (Auto) 1+ H NEGATIVE Urine RBC 5-10 H /HPF Urine WBC 2-5 /HPF Urine Squamous Epithelial Cells 5-10 /HPF Urine Crystals PRESENT H /LPF Urine Amorphous Sediment FEW BERENICE URATES H /LPF Urine Bacteria TRACE /HPF Urine Casts NONE /LPF Urine Mucus SMALL H /LPF Urine Culture Indicated NO My Orders Orders - ROSIE IRWIN MD Ed Iv/Invasive Line Start (04/09/23 07:27) Cbc With Automated Diff (04/09/23 07:27) Comprehensive Metabolic Panel (04/09/23 07:27) Lipase (04/09/23 07:27) Ua Culture If Indicated (04/09/23 07:27) Morphine Injection (Morphine Injection (04/09/23 07:27) Ondansetron Injection (Zofran Injectio (04/09/23 07:30) Ct Abd/Pelvis Wo(Kidney Stone) (04/09/23 07:57) Ceftriaxone Iv/Im (Rocephin Iv/Im) (04/09/23 08:45) Medications Given in ED Current Medications Medications Dose Ordered Sig/Lavinia Route Start Time Stop Time Status Last Admin Dose Admin Ceftriaxone Sodium 1000 mg/ Sodium Chloride 50 ml @ 100 mls/hr ONCE ONCE IV 04/09/23 08:45 04/09/23 09:14 04/09/23 08:48 100 MLS/HR Ondansetron HCl 4 mg ONCE ONCE IVP 04/09/23 07:30 04/09/23 07:31 DC 04/09/23 07:46 4 MG Vital Signs/I&O 04/09/23 07:14 Temp 35.9 Pulse 71 Resp 18 B/P (MAP) 183/99 (127) Pulse Ox 100 O2 Delivery Room Air Blood Pressure Mean: 127 Progress Progress Note : Progress Note 62-year-old female with above history coming in due to right lower quadrant abdominal pain. ABCs were intact and vitals were stable on presentation. Physical exam with some tenderness in the right lower quadrant, but also has CVA tenderness on the right. Given the blood in her urine that she is describing, I am suspicious for a kidney stone. I did a [id number] ultrasound showing hydronephrosis on the right, CT abdomen pelvis without contrast therefore ordered. On my interpretation I see obvious hydronephrosis and UVJ stone. She was given Zofran and morphine via IV for pain and nausea. There is some stranding on the CT, we will give her ceftriaxone followed by a prescription for an antibiotic. No obvious infection on the urine sample. Urinalysis does show blood, she has a normal white blood cell count, and normal kidney function. I believe she is otherwise stable for discharge with outpatient follow-up with urology. She was sent home with strict return precautions Diagnostic Imaging Diagonstic Imaging: CT (abd/pelvis) Comments [facility]. [place], [place] NAME: ALFONSO TURNER Henny [facility] REC#: [id number] PT STATUS: REG ER : 1960 PHYSICIAN: ROSIE IRWIN MD ADMIT DATE: 06/02/23/ER Draft Date of Exam:04/09/23 CT ABD/PELVIS WO(KIDNEY STONE) PROCEDURE: CT urinary tract, rule out kidney stone. TECHNIQUE: Multiple contiguous axial images were obtained through the abdomen and pelvis without the use of intravenous contrast. Auto Exposure Controls were utilized during the CT exam to meet ALARA standards for radiation dose reduction. INDICATION: Right lower quadrant pain as well as upper abdominal pain and hematuria. No prior studies are available for comparison. FINDINGS: The lung bases are clear. Postop changes from gastric bypass surgery are noted. The liver is unremarkable. The gallbladder surgically absent. There is no biliary ductal dilatation. Pancreas and spleen are unremarkable. No adrenal mass is identified. The right kidney is enlarged. There are several tiny nonobstructing calculi in the lower pole calyx. There is significant right-sided hydronephrosis and hydroureter. The dilated right ureter is traced into the pelvis. There is a stone at the UVJ measuring 5 mm. No other ureteral calculi are identified. Aorta is calcified but nonaneurysmal. Bowel loops are normal caliber. There is no obstruction. There is no ascites. Uterus is surgically absent. There appears to be a cyst in the left ovary measuring 3.5 cm. Postoperative changes posterior instrument fusion at the L4-L5 level is noted. IMPRESSION: Small nonobstructing right renal calculi. In addition, there is a 5 mm right UVJ calculus producing moderate right-sided hydroureteronephrosis with right renal enlargement and perinephric inflammatory stranding. Dictated on workstation # [id number] Dict: 04/09/23 0820 Trans: 04/09/23 0831 [id number] Interpreted by: SARAH JOVEL MD Electronically signed by: Departure Impression Primary Impression: Ureterolithiasis Disposition: HOME, SELF-CARE Condition: Stable Departure-Patient Inst. Decision time for Depature: 09:00 Referrals: JORGE HAIDER MD (PCP/Family) Primary Care Physician Patient Instructions: Kidney stones in adults Add. Discharge Instructions: You do have a kidney stone on the right that is 5 mm and blocking the flow of urine out of your kidney. This is likely been there for months. You can take the hydrocodone as needed for pain. If you get approval from the surgeon in regards to your bladder sling, you can take ibuprofen 600 mg every 6 hours as well which will help significantly with the pain. An antibiotic was also sent since there are some findings on the CT where your kidney could be infected. Please follow-up with the urologist of your choosing as soon as possible. Scripts Cefdinir (Cefdinir) 300 Mg Capsule 300 MG PO BID for 10 Days, #20 CAP 0 Refills Prov: ROSIE IRWIN MD 04/09/23 Tamsulosin HCl (Flomax) 0.4 Mg Cap 0.4 MG PO DAILY for 30 Days, #30 CAP Prov: ROSIE IRWIN MD 04/09/23 Ondansetron (Ondansetron Odt) 4 Mg Tab.rapdis 4 MG SL Q6H PRN for NAUSEA/VOMITING for 5 Days, #20 TAB Prov: ROSIE IRWIN MD 04/09/23 Hydrocodone/Acetaminophen (Hydrocodone-Acetamin 5-325 mg) 5 Mg-325 Mg Tablet 1 TAB PO Q6H PRN for PAIN-MODERATE (5-7) for 5 Days, #20 TAB Prov: ROSIE IRWIN MD 04/09/23 Work/School Note: Work Release Form Date Seen in the Emergency Department: Apr 09, 2023 Return to Work: Apr 10, 2023 Restrictions: No Restrictions ROSIE IRWIN MD Apr 09, 2023 07:30
[2023-04-09 07:33] LABS: BASOPHILS % (AUTO) 0 % (0-10); EOSINOPHILS # (AUTO) 0.1 10^3/uL (0.0-0.3); EOSINOPHILS % (AUTO) 1 % (0-10); HEMATOCRIT 41 % (35-52); HEMOGLOBIN 13.9 g/dL (11.5-16.0); LYMPHOCYTES # (AUTO) 1.7 10^3/uL (1.0-4.0); LYMPHOCYTES % (AUTO) 18 % (12-44); MEAN CORPUSCULAR HEMOGLOBIN 31 pg (25-34); MEAN CORPUSCULAR HGB CONC 34 g/dL (32-36); MEAN CORPUSCULAR VOLUME 93 fL (80-99); MEAN PLATELET VOLUME 10.4 fL (9.0-12.2); MONOCYTES # (AUTO) 0.7 10^3/uL (0.0-1.0); MONOCYTES % (AUTO) 7 % (0-12); NEUTROPHILS # (AUTO) 6.9 10^3/uL (1.8-7.8); NEUTROPHILS % (AUTO) 73 % (42-75); PLATELET COUNT 217 10^3/uL (130-400); WHITE BLOOD COUNT 9.4 10^3/uL (4.3-11.0)
[2023-04-09 07:36] LABS: BILIRUBIN,URINE NEGATIVE (NEGATIVE); CLARITY,URINE CLEAR; COLOR,URINE YELLOW; GLUCOSE, URINE (UA) NEGATIVE (NEGATIVE); KETONES,URINE NEGATIVE (NEGATIVE); LEUKOCYTE ESTERASE ,URINE NEGATIVE (NEGATIVE); NITRITE,URINE NEGATIVE (NEGATIVE); PROTEIN,URINE NEGATIVE (NEGATIVE)
[2023-04-09 07:41] LABS: ALBUMIN 4.2 GM/DL (3.2-4.5)
[2023-04-09 07:42] LABS: POTASSIUM 3.8 MMOL/L (3.6-5.0)
[2023-04-09 07:43] LABS: CALCIUM 9.4 MG/DL (8.5-10.1)
[2023-04-09 07:46] LABS: BILIRUBIN,TOTAL 0.6 MG/DL (0.1-1.0)
[2023-04-09 07:48] LABS: CREATININE SERUM 0.77 MG/DL (0.60-1.30)
[2023-04-09 07:50] LABS: AMORPHOUS SEDIMENT,UR FEW AMOR URATES /LPF; BACTERIA,URINE TRACE /HPF
--- NOTE | 2023-04-09 08:31 | Diagnostic Imaging Report ---
PROCEDURE: CT urinary tract, rule out kidney stone. TECHNIQUE: Multiple contiguous axial images were obtained through the abdomen and pelvis without the use of intravenous contrast. Auto Exposure Controls were utilized during the CT exam to meet ALARA standards for radiation dose reduction. INDICATION: Right lower quadrant pain as well as upper abdominal pain and hematuria. No prior studies are available for comparison. FINDINGS: The lung bases are clear. Postop changes from gastric bypass surgery are noted. The liver is unremarkable. The gallbladder surgically absent. There is no biliary ductal dilatation. Pancreas and spleen are unremarkable. No adrenal mass is identified. The right kidney is enlarged. There are several tiny nonobstructing calculi in the lower pole calyx. There is significant right-sided hydronephrosis and hydroureter. The dilated right ureter is traced into the pelvis. There is a stone at the UVJ measuring 5 mm. No other ureteral calculi are identified. Aorta is calcified but nonaneurysmal. Bowel loops are normal caliber. There is no obstruction. There is no ascites. Uterus is surgically absent. There appears to be a cyst in the left ovary measuring 3.5 cm. Postoperative changes posterior instrument fusion at the L4-L5 level is noted. IMPRESSION: Small nonobstructing right renal calculi. In addition, there is a 5 mm right UVJ calculus producing moderate right-sided hydroureteronephrosis with right renal enlargement and perinephric inflammatory stranding. Dictated by: Dictated on workstation # [id number]
[2023-04-09] MEDS ORDERED: cefTRIAXone IV/IM 1,000 MG in NS (IVPB) 50 ML IV ONE (08:45)
[2023-04-09] MEDS ORDERED: CEFD300C3 PO (08:55)
[2023-04-09] MEDS ORDERED: TMSL.4C PO (08:55)
[2023-04-09] MEDS ORDERED: ACHD5005 PO (08:55)
[2023-04-09] MEDS ORDERED: ONDA4TAB11 SL (08:55)
[2023-04-09 09:07] VITALS: BP 141/80
== END 2023-04-09 09:07 | disposition home or self-care (01) ==
LOC: EDUNIT# 07:07 → ER 07:09
DX: N13.2 Hydronephrosis with renal and ureteral calculous obstruction (principal); G47.30 Sleep apnea, unspecified; Z98.84 Bariatric surgery status; Z88.2 Allergy status to sulfonamides; Z99.89 Dependence on other enabling machines and devices
CPT/HCPCS: 36415; 74176; 80053; 81000; 83690; 85025

== ENCOUNTER 2023-04-12 05:53 | Day surgery (SDC) | payer OTHER ==
[2023-04-12] VITALS (11 sets, daily range): BP systolic 125–172; BP diastolic 66–95
[~2023-04-12] VITALS: Ht 167.7 cm; Wt 80.0 kg
[~2023-04-12 05:53] MED LIST changes: +ACHD5005 PO; +CEFD300C3 PO; -LOSA100T57 PO; +LOSA100T58 PO; +ONDA4TAB11 SL; +TMSL.4C PO
[2023-04-12] MEDS ORDERED: LACTATED RINGERS 1,000 ML IV PRN (06:45)
[2023-04-12] MEDS ORDERED: ceFAZolin INJECTION 1,000 MG in NS (IVPB) 50 ML IV ONE (06:45)
[2023-04-12] MEDS ORDERED: NS (IVPB) 50 ML ONE (06:47)
[2023-04-12] MEDS ORDERED: ceFAZolin INJECTION 1,000 MG ONE (06:47)
[2023-04-12 06:51] LABS: BASOPHILS % (AUTO) 1 % (0-10); EOSINOPHILS # (AUTO) 0.1 10^3/uL (0.0-0.3); EOSINOPHILS % (AUTO) 3 % (0-10); HEMATOCRIT 35 % (35-52); HEMOGLOBIN 11.8 g/dL (11.5-16.0); LYMPHOCYTES # (AUTO) 1.5 10^3/uL (1.0-4.0); LYMPHOCYTES % (AUTO) 30 % (12-44); MEAN CORPUSCULAR HEMOGLOBIN 32 pg (25-34); MEAN CORPUSCULAR HGB CONC 34 g/dL (32-36); MEAN CORPUSCULAR VOLUME 93 fL (80-99); MEAN PLATELET VOLUME 10.5 fL (9.0-12.2); MONOCYTES # (AUTO) 0.4 10^3/uL (0.0-1.0); MONOCYTES % (AUTO) 9 % (0-12); NEUTROPHILS # (AUTO) 2.9 10^3/uL (1.8-7.8); NEUTROPHILS % (AUTO) 58 % (42-75); PLATELET COUNT 170 10^3/uL (130-400); WHITE BLOOD COUNT 5.1 10^3/uL (4.3-11.0)
[2023-04-12] MEDS ORDERED: proPOfol 200 MG/20 ML (DIPRIVAN) VIAL IV ONE (07:04)
[2023-04-12] MEDS ORDERED: LIDOCAINE PF 2% 5 ML (XYLOCAINE) VIAL ONE (07:04)
[2023-04-12] MEDS ORDERED: fentaNYL INJ 100 MCG/2 ML AMP ONE (07:04)
[2023-04-12] MEDS ORDERED: ONDANSETRON 4 MG/2 ML (SDV) Z0FRAN ONE (07:04)
--- NOTE | 2023-04-12 07:04 | Progress Note-Pre Operative ---
Pre-Operative Progress Note Date H&P Reviewed: Apr 12, 2023 Time H&P Reviewed: 07:00 History & Physical: H&P Reviewed, Changes noted below Changes from last HP Pt has HO of renal stones dxd on 04/09/23 Pre-Operative Diagnosis: Extrusion of TVT mesh into the vagina LUPE TEAGUE DO Apr 12, 2023 07:04
[2023-04-12] MEDS ORDERED: LIDOCAINE/EPI 1%-1:100,000 (XYLOCAINE) 20ML ONE (07:11)
[2023-04-12] MEDS ORDERED: ESTRADIOL VAGINAL CREAM 42.5 GM (ESTRACE) VG ONE ×2 (07:11→07:37)
[2023-04-12] MEDS ORDERED: LIDOCAINE/EPI 1%-1:100,000 (XYLOCAINE) 20ML INJ ONE (07:35)
[2023-04-12] MEDS ORDERED: SEVOFLURANE (ULTANE) 15 ML INHAL SOLN ONE (07:46)
[2023-04-12] MEDS ORDERED: KETOROLAC 30 MG/ML VIAL ONE (07:49)
--- NOTE | 2023-04-12 08:03 | Operative Report ---
Operative Report Date of Procedure/Surgery Apr 12, 2023 Surgeon (s) LUPE TEAGUE DO Validation Scientist (s): NA Post-Operative Diagnosis Mesh extrusion into the vagina Procedure Performed Removal of vaginal mesh Description of Procedure Anesthesia Type: General (LMA) Estimated blood loss (mL): Minimal Specimen(s) collected/removed None Packing: Vaginal packing with estrogen cream Description of the Procedure Informed consent is was obtained and signed and patient was taken to the OR [facility]. 1 placed under general LMA anesthesia placed in the dorsolithotomy position prepped and draped usual sterile fashion. A timeout was performed. A pelvic exam under anesthesia revealed about 3 cm of transvaginal tape mesh extruding into the vagina. The bladder was drained for approximately 200 cc of clear yellow urine. A weighted speculum was placed into the posterior vaginal vault and the mesh that had been extruded into the vagina was visualized. There is a good 3 cm of mesh extruded into the vagina inserting at 2 and 10:00. Where the mesh was inserting into the vagina of the area was injected with 1% lidocaine with epi for a total of 8 cc. Once this was done and Metzenbaum scissors were used to undermine the vaginal mucosa to get beyond the edges of the mesh. Once the vaginal mucosa was undermined on both sides the mesh was cut and removed from the vagina. The area was palpated to make sure that the mesh was unable to be palpated. The edges of the vagina were then reapproximated with 3-0 Rapide. 2 interrupted stitches on the left side and 1 interrupted stitch on the right side. The weighted speculum was then removed and estrogen cream coated vaginal packing was then inserted. The patient tolerated well. All the counts were correct x2. Fluids 500 EBL minimal Urine output 200 Findings of the Procedure 3 cm of TVT tape extruding into the vagina Allergies and Home Medications Allergies Coded Allergies: Sulfa (Sulfonamide Antibiotics) (Verified Allergy, Severe, BLEEDING, 04/02/23) adhesive (Verified Allergy, Intermediate, BLISTERS, 04/02/23) Patient Home Medication List Home Medication List Reviewed: Yes Amlodipine Besylate (Amlodipine Besylate) 5 Mg Tablet, 5 MG PO DAILY, (Reported) Entered as Reported by: Sherry Sterling on 04/02/23 8738 Last Action: Reviewed Aspirin (Aspirin) 81 Mg Tab.chew, 81 MG PO DAILY, (Reported) Entered as Reported by: YESSICA CRUM on 04/08/21 130 Last Action: Reviewed Bacillus Coagulans/Vitamin D3 (Probiotic 2 Billion Gummies) 2 Billion Cell-5 Mcg Tab.chew, 1 EACH PO DAILY, (Reported) Entered as Reported by: Sherry Sterling on 04/02/231416 Last Action: Reviewed Baclofen (Baclofen) 10 Mg Tablet, 10 MG PO Q8H, (Reported) Entered as Reported by: YESSICA CRUM on 04/08/21 130 Last Action: Reviewed Biotin (Biotin) 1,000 Mcg Tab.chew, 1,000 MCG PO DAILY, (Reported) Entered as Reported by: Sherry Sterling on 04/02/231416 Last Action: Reviewed Calcium Phosphate Trib/Vit D3 (Calcium + Vitamin D3 Gummies) 250 Mg Calcium-5 Mcg (200 Unit) Tab.chew, 1 EACH PO DAILY, (Reported) Entered as Reported by: Sherry Sterling on 04/02/231416 Last Action: Reviewed Cefdinir (Cefdinir) 300 Mg Capsule, 300 MG PO BID Prescribed by: ROSIE IRWIN on 04/09/23 0855 Last Action: Reviewed Estradiol (Estradiol Tablet) 1 Mg Tablet, 1 MG PO DAILY, (Reported) Entered as Reported by: ANITA BUSCH on 10/04/201302 Last Action: Reviewed Estrogens, Conjugated (Premarin) 0.625 Mg Tablet, 0.5 APPLIC PO DAILY PRN, (Reported) Entered as Reported by: YESSICA CRUM on 04/08/21 130 Last Action: Reviewed Fexofenadine HCl (Fexofenadine HCl) 180 Mg Tablet, 180 MG PO DAILY, (Reported) Entered as Reported by: Sherry Sterling on 04/02/231416 Last Action: Reviewed Folic Acid (Folic Acid) 0.8 Mg Capsule, 0.8 MG PO DAILY, (Reported) Entered as Reported by: Sherry Sterling on 04/02/231416 Last Action: Reviewed Folic Acid/Multivit-Minerals (Women's Multivitamin Gummies) 200 Mcg Tab.chew, 200 MCG PO DAILY, (Reported) Entered as Reported by: Sherry Sterling on 04/02/231416 Last Action: Reviewed Gabapentin (Neurontin) 300 Mg Capsule, 300 MG PO HS, (Reported) Entered as Reported by: ANITA BUSCH on 10/04/20 1303 Last Action: Reviewed Gabapentin (Gabapentin) 100 Mg Capsule, 100 MG PO DAILY, (Reported) Entered as Reported by: Sherry Sterling on 04/02/231416 Last Action: Reviewed Hydrocodone/Acetaminophen (Hydrocodone-Acetamin 5-325 mg) 5 Mg-325 Mg Tablet, 1 TAB PO Q6H PRN for PAIN-MODERATE (5-7) Prescribed by: ROSIE IRWIN on 04/09/23 0856 Last Action: Reviewed Losartan Potassium (Losartan Potassium) 100 Mg Tablet, 100 MG PO DAILY, (Repo rted) Entered as Reported by: Sherry Sterling on 04/02/231416 Last Action: Reviewed Metoprolol Tartrate (Metoprolol Tartrate) 50 Mg Tablet, 200 MG PO BID, (Reported) Entered as Reported by: ELAN KIRKPATRICK on 06/08/19 112 Last Action: Reviewed Naproxen (Naproxen) 500 Mg Tablet.dr, 500 MG PO EVERY OTHER DAY, (Reported) Entered as Reported by: YESSICA CRUM on 04/08/21 130 Last Action: Reviewed Omeprazole (Omeprazole) 20 Mg Capsule.dr, 20 MG PO DAILY, (Reported) Entered as Reported by: Sherry Sterling on 04/02/231416 Last Action: Reviewed Ondansetron (Ondansetron Odt) 4 Mg Tab.rapdis, 4 MG SL Q6H PRN for NAUSEA/VOMITING Prescribed by: ROSIE IRWIN on 04/09/23854 Last Action: Reviewed Psyllium Husk (Metamucil) 0.4 Gram Capsule, 0.4 GM PO DAILY, (Reported) Entered as Reported by: Sherry Sterling on 04/02/231416 Last Action: Reviewed Semaglutide (Ozempic) 2 Mg/0.75 Ml (8 Mg/3 Ml) Pen.injctr, 2 MG SQ WEEK, (Reported) Entered as Reported by: Sherry Sterling on 04/02/231416 Last Action: Reviewed Tamsulosin HCl (Flomax) 0.4 Mg Cap, 0.4 MG PO DAILY Prescribed by: ROSIE IRWIN on 04/09/23854 Last Action: Reviewed LUPE TEAGUE DO Apr 12, 2023 08:03
--- NOTE | 2023-04-12 08:13 | Discharge Inst-Simple/Standard ---
Discharge Inst-Standard Reconcile Patient Problems Problems Reviewed?: Yes Discharge Medications New, Converted or Re-Newed RX: Other (Pt ahs RX ) Patient Instructions/Follow Up Plan of Care/Instructions/FU: f/u in 2wk Activity as Tolerated: Yes Discharge Diet: No Restrictions Return to The Hospital For: increased pain, bleeding or fever. LUPE TEAGUE DO Apr 12, 2023 08:13
--- NOTE | 2023-04-12 10:01 | Anesthesia-General Post-Op ---
General Patient Condition Mental Status/LOC: Same as Preop Cardiovascular: Satisfactory Nausea/Vomiting: Absent Respiratory: Satisfactory Pain: Controlled Complications: Absent Post Op Complications Complications None Follow Up Care/Instructions Patient Instructions None needed. Anesthesia/Patient Condition Patient Condition Patient is doing well, no complaints, stable vital signs, no apparent adverse anesthesia problems. No complications reported per nursing. ELISABET AVITIA CRNA Apr 12, 2023 10:01
== END 2023-04-12 09:51 | disposition home or self-care (01) ==
LOC: SDC 05:53
PROVIDERS: ATTEND Obstetrics & Gynecology
DX: T83.721A Exposure of implanted vaginal mesh into vagina, initial encounter (principal); T83.711A Erosion of implanted vaginal mesh to surrounding organ or tissue, initial encounter; N90.89 Other specified noninflammatory disorders of vulva and perineum; N94.810 Vulvar vestibulitis; E66.01 Morbid (severe) obesity due to excess calories; Z68.28 Body mass index [BMI] 28.0-28.9, adult
CPT/HCPCS: 36415; 82947; 85025; 87081

== ENCOUNTER → 2023-05-07 | Outpatient (CLI) | payer OTHER ==
--- NOTE | 2023-05-07 15:23 | Diagnostic Imaging Report ---
Indication: Routine screening. Comparison is made with prior mammograms 03/27/2021 and 06/25/2019. 2-D and 3-D bilateral screening mammography was performed with CAD. Both breasts are heterogeneously dense, limiting the sensitivity of mammography. No mass or malignant-appearing microcalcifications are seen. Axillae are unremarkable. IMPRESSION: BI-RADS Category 1 No mammographic features suspicious for malignancy are identified. ACR BI-RADS Category 1: Negative. Result letter will be mailed to the patient. Note: At least 10% of breast cancer is not imaged by mammography. Dictated by: Dictated on workstation # [id number]
== END ==
LOC: RAD 09:57
PROVIDERS: ATTEND Physician Assistant
DX: Z12.31 Encounter for screening mammogram for malignant neoplasm of breast (principal); N20.0 Calculus of kidney; N13.30 Unspecified hydronephrosis
CPT/HCPCS: 77063; 77067

== ENCOUNTER 2023-06-22 14:37 | Emergency (ER) | payer OTHER ==
[~2023-06-22] VITALS: Ht 169 cm; Wt 77.0 kg
[2023-06-22] MEDS ORDERED: NS IV 1000 ML 1,000 ML IV SCH (15:00)
--- NOTE | 2023-06-22 15:08 | ED Back Pain ---
General Chief Complaint: Back Problems Stated Complaint: LOWER BACK PAIN | HX OF KIDNEY STONES Nursing Triage Note: PT STATES LT FLANK PAIN FOR ABOUT AN HOUR, HX OF A STONE ON RT SIDE IN FEBRUARY Source of Information: Patient Exam Limitations: No Limitations (MIGNON RAMÍREZ APRN) History of Present Illness Date Seen by Provider: Jun 22, 2023 Time Seen by Provider: 14:54 Initial Comments 62-year-old female presents to the ER with complaint of left flank pain for the last hour. She states she has also noticed increased urination today. She reports some dysuria. Denies fevers and abdominal pain. Reports history of kidney stones, states this pain feels the same. (MIGNON RAMÍREZ APRN) Allergies and Home Medications Allergies Coded Allergies: Sulfa (Sulfonamide Antibiotics) (Verified Allergy, Severe, BLEEDING, 04/02/23) adhesive (Verified Allergy, Intermediate, BLISTERS, 04/02/23) Patient Home Medication List Home Medication List Reviewed: Yes (MIGNON RAMÍREZ APRN) Amlodipine Besylate (Amlodipine Besylate) 5 Mg Tablet, 5 MG PO DAILY, (Reported) Entered as Reported by: Sherry Sterling on 04/02/23 1417 Aspirin (Aspirin) 81 Mg Tab.chew, 81 MG PO DAILY, (Reported) Entered as Reported by: YESSICA CRUM on 04/08/21 1303 Bacillus Coagulans/Vitamin D3 (Probiotic 2 Billion Gummies) 2 Billion Cell-5 Mcg Tab.chew, 1 EACH PO DAILY, (Reported) Entered as Reported by: Sherry Sterling on 04/02/23 141 Baclofen (Baclofen) 10 Mg Tablet, 10 MG PO Q8H, (Reported) Entered as Reported by: YESSICA CRUM on 04/08/21 1303 Biotin (Biotin) 1,000 Mcg Tab.chew, 1,000 MCG PO DAILY, (Reported) Entered as Reported by: Sherry Sterling on 04/02/23 141 Calcium Phosphate Trib/Vit D3 (Calcium + Vitamin D3 Gummies) 250 Mg Calcium-5 Mcg (200 Unit) Tab.chew, 1 EACH PO DAILY, (Reported) Entered as Reported by: Sherry Sterling on 04/02/23 141 Cefdinir (Cefdinir) 300 Mg Capsule, 300 MG PO BID Prescribed by: ROSIE IRWIN on 04/09/23 0855 Cefuroxime Axetil (Cefuroxime) 500 Mg Tablet, 500 MG PO BID Prescribed by: Mignon Brown on 06/22/23 1651 Estradiol (Estradiol Tablet) 1 Mg Tablet, 1 MG PO DAILY, (Reported) Entered as Reported by: ANITA BUSCH on 10/04/20 1303 Estrogens, Conjugated (Premarin) 0.625 Mg Tablet, 0.5 APPLIC PO DAILY PRN, (Reported) Entered as Reported by: YESSICA CRUM on 04/08/21 1303 Fexofenadine HCl (Fexofenadine HCl) 180 Mg Tablet, 180 MG PO DAILY, (Reported) Entered as Reported by: Sherry Sterling on 04/02/23 141 Folic Acid (Folic Acid) 0.8 Mg Capsule, 0.8 MG PO DAILY, (Reported) Entered as Reported by: Sherry Sterling on 04/02/23 141 Folic Acid/Multivit-Minerals (Women's Multivitamin Gummies) 200 Mcg Tab.chew, 200 MCG PO DAILY, (Reported) Entered as Reported by: Sherry Sterling on 04/02/23 141 Gabapentin (Neurontin) 300 Mg Capsule, 300 MG PO HS, (Reported) Entered as Reported by: ANITA BUSCH on 10/04/20 1303 Gabapentin (Gabapentin) 100 Mg Capsule, 100 MG PO DAILY, (Reported) Entered as Reported by: Sherry Sterling on 04/02/23 141 Hydrocodone/Acetaminophen (Hydrocodone-Acetamin 5-325 mg) 5 Mg-325 Mg Tablet, 1 TAB PO Q6H PRN for PAIN-MODERATE (5-7) Prescribed by: ROSIE IRWIN on 04/09/23 0856 Hydrocodone/Acetaminophen (Hydrocodone-Acetamin 5-325 mg) 5 Mg-325 Mg Tablet, 1 TAB PO Q4H PRN for PAIN-MODERATE (5-7) Prescribed by: Mignon Brown on 06/22/23 1652 Losartan Potassium (Losartan Potassium) 100 Mg Tablet, 100 MG PO DAILY, (Reported) Entered as Reported by: Sherry Sterling on 04/02/23 141 Metoprolol Tartrate (Metoprolol Tartrate) 50 Mg Tablet, 200 MG PO BID, (Reported) Entered as Reported by: ELAN KIRKPATRICK on 06/08/19 1123 Naproxen (Naproxen) 500 Mg Tablet.dr, 500 MG PO EVERY OTHER DAY, (Reported) Entered as Reported by: YESSICA CRUM on 04/08/21 1303 Omeprazole (Omeprazole) 20 Mg Capsule.dr, 20 MG PO DAILY, (Reported) Entered as Reported by: Sherry Sterling on 04/02/23 1417 Ondansetron (Ondansetron Odt) 4 Mg Tab.rapdis, 4 MG SL Q6H PRN for NAUSEA/VOMITING Prescribed by: ROSIE IRWIN on 04/09/23 0855 Ondansetron (Ondansetron Odt) 4 Mg Tab.rapdis, 4 MG SL Q4H PRN for NAUSEA /VOMITING Prescribed by: Mignon Brown on 06/22/23 1651 Psyllium Husk (Metamucil) 0.4 Gram Capsule, 0.4 GM PO DAILY, (Reported) Entered as Reported by: Sherry Sterling on 04/02/23 1417 Semaglutide (Ozempic) 2 Mg/0.75 Ml (8 Mg/3 Ml) Pen.injctr, 2 MG SQ WEEK, (Reported) Entered as Reported by: Sherry Sterling on 04/02/23 1417 Tamsulosin HCl (Flomax) 0.4 Mg Cap, 0.4 MG PO DAILY Prescribed by: ROSIE IRWIN on 04/09/23 0855 Tamsulosin HCl (Flomax) 0.4 Mg Cap, 0.4 MG PO DAILY Prescribed by: Mignon Brown on 06/22/23 1651 Review of Systems Constitutional: see HPI (MIGNON RAMÍREZ APRN) Past Qtbehvw-Iifqem-Wxdvsf Hx Patient Social History Tobacco Use?: No Substance use?: No Alcohol Use?: No (MIGNON RAMÍREZ APRN) Immunizations Up To Date Tetanus Booster (TDap): Less than 5yrs PED Vaccines UTD: Yes First/Initial COVID19 Vaccinat: 01/23/21 Second COVID19 Vaccination Ramiro: 02/20/21 Third COVID19 Vaccination Date: 04/28/22 (MIGNON RAMÍREZ APRN) Seasonal Allergies Seasonal Allergies: No (MIGNON RAMÍREZ APRN) Past Medical History Surgery/Hospitalization HX: PARTIAL HYST, BARIATRIC SURG, DIABETES, BLADDER SLING. 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 HOLE History: Hysterectomy Sexually Transmitted Disease: No Genitourinary: No (BLADDER SLING) Gastrointestinal: Yes Gastroesophageal Reflux, Chronic Constipation, Hiatal Hernia, Gall Bladder Disease Musculoskeletal: Yes Degenerate Disk Disease, Chronic Back Pain Endocrine: Yes Diabetes, Insulin dep, Diabetes, Non-Insulin dep HEENT: No Loss of Vision: Denies Hearing Impairment: Denies Cancer: No Psychosocial: No Integumentary: No Blood Disorders: Yes Adverse Reaction/Blood Tranf: No (MIGNON RAMÍREZ APRN) Physical Exam Vital Signs Vital Signs - First Documented 06/22/23 14:43 Temp 36.7 Pulse 77 Resp 22 B/P (MAP) 183/89 (120) Pulse Ox 100 O2 Delivery Room Air (SHILPI MAYO MD) Vital Signs Capillary Refill : Less Than 3 Seconds (MIGNON RAMÍREZ APRN) Height, Weight, BMI Height: 5'6.00" Weight: 254lbs. 0.0oz. 115.110377py; 26.00 BMI Method: General Appearance: WD/WN, Mild Distress Neck: Normal Inspection, Supple Cardiovascular: Regular Rate, Rhythm Respiratory: Lungs Clear, Normal Breath Sounds, No Accessory Muscle Use, No Respiratory Distress Gastrointestinal: Normal Bowel Sounds, Soft, Tenderness (Generalized) Extremity: Normal Inspection, Normal Range of Motion Neurologic/Psychiatric: Alert, Normal Mood/Affect Skin: Normal Color, Warm/Dry (MIGNON RAMÍREZ APRN) Progress/Results/Core Measures Results/Orders Lab Results Laboratory Tests Test 06/22/23 14:55 06/22/23 15:00 Range/Units Urine Color YELLOW Urine Clarity CLEAR Urine pH 8.0 5-9 Urine Specific Brandon 1.020 1.016-1.022 Urine Protein NEGATIVE NEGATIVE Urine Glucose (UA) NEGATIVE NEGATIVE Urine Ketones NEGATIVE NEGATIVE Urine Nitrite NEGATIVE NEGATIVE Urine Bilirubin NEGATIVE NEGATIVE Urine Urobilinogen 0.2 < = 1.0 MG/DL Urine Leukocyte Esterase NEGATIVE NEGATIVE Urine RBC (Auto) NEGATIVE NEGATIVE Urine RBC RARE /HPF Urine WBC RARE /HPF Urine Squamous Epithelial Cells 5-10 /HPF Urine Crystals PRESENT H /LPF Urine Amorphous Sediment FEW BERENICE PHOSPHATE H /LPF Urine Bacteria TRACE /HPF Urine Casts NONE /LPF Urine Mucus MODERATE H /LPF Urine Culture Indicated NO White Blood Count 5.9 4.3-11.0 10^3/uL Red Blood Count 4.50 3.80-5.11 10^6/uL Hemoglobin 13.9 11.5-16.0 g/dL Hematocrit 42 35-52 % Mean Corpuscular Volume 93 80-99 fL Mean Corpuscular Hemoglobin 31 25-34 pg Mean Corpuscular Hemoglobin Concent 33 32-36 g/dL Red Cell Distribution Width 12.5 10.0-14.5 % Platelet Count 222 130-400 10^3/uL Mean Platelet Volume 10.1 9.0-12.2 fL Immature Granulocyte % (Auto) 0 % Neutrophils (%) (Auto) 57 42-75 % Lymphocytes (%) (Auto) 31 12-44 % Monocytes (%) (Auto) 8 0-12 % Eosinophils (%) (Auto) 3 0-10 % Basophils (%) (Auto) 1 0-10 % Neutrophils # (Auto) 3.4 1.8-7.8 10^3/uL Lymphocytes # (Auto) 1.8 1.0-4.0 10^3/uL Monocytes # (Auto) 0.4 0.0-1.0 10^3/uL Eosinophils # (Auto) 0.2 0.0-0.3 10^3/uL Basophils # (Auto) 0.1 0.0-0.1 10^3/uL Immature Granulocyte # (Auto) 0.0 0.0-0.1 10^3/uL Sodium Level 144 135-145 MMOL/L Potassium Level 3.8 3.6-5.0 MMOL/L Chloride Level 107 98-107 MMOL/L Carbon Dioxide Level 27 21-32 MMOL/L Anion Gap 10 5-14 MMOL/L Blood Urea Nitrogen 12 7-18 MG/DL Creatinine 0.76 0.60-1.30 MG/DL Estimat Glomerular Filtration Rate 89 BUN/Creatinine Ratio 16 Glucose Level 90 70-105 MG/DL Calcium Level 10.0 8.5-10.1 MG/DL Corrected Calcium 9.6 8.5-10.1 MG/DL Total Bilirubin 0.5 0.1-1.0 MG/DL Aspartate Amino Transf (AST/SGOT) 29 5-34 U/L Alanine Aminotransferase (ALT/SGPT) 32 0-55 U/L Alkaline Phosphatase 60 40-136 U/L Total Protein 7.9 6.4-8.2 GM/DL Albumin 4.5 3.2-4.5 GM/DL (SHILPI MAYO MD) Vital Signs/I&O 06/22/23 06/22/23 06/22/23 06/22/23 14:43 15:17 16:19 17:08 Temp 36.7 36.7 36.7 36.7 Pulse 77 72 Resp 22 20 B/P (MAP) 183/89 (120) 147/86 Pulse Ox 100 100 O2 Delivery Room Air Room Air (SHILPI MAYO MD) Blood Pressure Mean: 120 Progress Progress Note : Progress Note Patient seen and evaluated, lying in bed, mild distress. Based on exam and symptoms, differential diagnosis includes but is not limited to nephrolithiasis, pyelonephritis, urinary tract infection, musculoskeletal pain. Work-up initiated including CBC, CMP, UA, CT abdomen pelvis. IV fluids ordered as well as Zofran and Toradol. 1647 Labs and imaging reviewed. CBC grossly normal. CMP grossly normal. Urinalysis negative for RBCs. Negative for nitrates, leukocytes, shows rare WBCs, 5-10 squamous epithelial cells, trace bacteria. CT shows mild left hydronephrosis and hydroureter due to a partially obstructing 2 mm stone at the left UVJ. There is also additional bilateral nonobstructing renal stones on both sides. She also has a left adnexal cyst that has decreased in size. Results discussed with patient. Will discharge with antibiotic due to history of diabetes, pain medication, nausea medication, and Flomax. Discharge instructions and return precautions provided. (MIGNON RAMÍREZ APRN) Diagnostic Imaging Diagonstic Imaging: CT Plain Films/CT/US/NM/MRI: abdomen, pelvis Comments [facility], [place] NAME: ALFONSO TURNER [facility] REC#: [id number] PT STATUS: REG ER : 1960 PHYSICIAN: MIGNON RAMÍREZ APRN ADMIT DATE: 06/22/23/ER Signed Date of Exam:06/22/23 CT ABD/PELVIS WO(KIDNEY STONE) CT ABD/PELVIS WO(KIDNEY STONE) TECHNIQUE: Unenhanced CT imaging of the abdomen and pelvis was performed. 2-D reformats are created and submitted for interpretation. Automatic exposure controls were utilized to optimize patient dose. INDICATION: Left flank pain. COMPARISON: 04/09/2023 FINDINGS: Lower chest: The lung bases are clear. No pericardial or pleural effusion. Peritoneum: No free intraperitoneal air or fluid collection to indicate abscess. Liver and biliary system: Unenhanced liver is normal. Cholecystectomy. Spleen and Pancreas: Spleen is normal. Unenhanced pancreas is grossly normal. Adrenals: Normal. tract: There are multiple bilateral nonobstructing renal stones. A punctate 2 mm stone is now present at the left UVJ resulting in mild hydronephrosis and hydroureter. No right-sided obstructive uropathy. Urinary bladder is decompressed, limiting assessment. Simple appearing left adnexal cyst has decreased in size now measuring 3.0 cm. GI tract: Radha-en-Y gastric bypass. No bowel obstruction. No pericolonic inflammatory changes. The appendix is normal. Vasculature and Lymph nodes: Normal caliber aorta. No abdominal or pelvic lymphadenopathy. Musculoskeletal: No concerning osseous lesion. IMPRESSION: 1. Mild left hydronephrosis and hydroureter due to a partially obstructing 2 mm stone at the left UVJ. 2. There are additional bilateral nonobstructing renal stones on both sides. Dictated by: Dictated on workstation # [id number] Dict: 06/22/23 1554 Trans: 06/22/23 1700 [facility] [id number] Interpreted by: ROMELIA JACKMAN MD Electronically signed by: ROMELIA JACKMAN MD 06/22/23 170 (MIGNON RAMÍREZ APRN) Departure Impression Primary Impression: Nephrolithiasis Disposition: 01 HOME, SELF-CARE Condition: Stable Departure-Patient Inst. Decision time for Depature: 16:47 (MIGNON RAMÍREZ APRN) Referrals: JORGE HAIDER MD (PCP/Family) Primary Care Physician Patient Instructions: Kidney stones in adults Add. Discharge Instructions: Strain your urine and collect kidney stone to take to the urologist. Complete full course of antibiotic as directed. Take Slinger as needed for pain. You may also take 800 mg of ibuprofen every 8 hours with food as needed for pain. Take Zofran as needed for nausea and vomiting. Both Slinger and Zofran can cause constipation, so only take when needed. Take Flomax once a day until you pass the kidney stone. Follow-up with the urologist as scheduled. Return for severe pain, inability to urinate, fever, or any other new, concerning, or worsening symptoms. All discharge instructions reviewed with patient and/or family. Voiced understanding. Scripts Cefuroxime Axetil (Cefuroxime) 500 Mg Tablet 500 MG PO BID for 5 Days, #10 TAB 0 Refills Prov: MIGNON RAMÍREZ APRN 06/22/23 Ondansetron (Ondansetron Odt) 4 Mg Tab.rapdis 4 MG SL Q4H PRN for NAUSEA/VOMITING, #15 TAB 0 Refills Prov: MIGNON RAMÍREZ APRN 06/22/23 Hydrocodone/Acetaminophen (Hydrocodone-Acetamin 5-325 mg) 5 Mg-325 Mg Tablet 1 TAB PO Q4H PRN for PAIN-MODERATE (5-7), #15 TAB 0 Refills Prov: MIGNON RAMÍREZ APRN 06/22/23 Tamsulosin HCl (Flomax) 0.4 Mg Cap 0.4 MG PO DAILY for 14 Days, #14 CAP 0 Refills Prov: MIGNON RAMÍREZ APRN 06/22/23 ATTENDING PHYSICIAN NOTE: I was physically present as attending physician in the emergency department during the care of this patient. I briefly discussed the medication regimen for this patient with Mignon Ramírez NP. I did not personally interview or examine this patient, and I was not otherwise directly involved in the decision making or delivery of care for this patient. (SHILPI MAYO MD) MIGNON RAMÍREZ APRN Jun 22, 2023 15:08 SHILPI MAYO MD Jun 24, 2023 04:47
[2023-06-22 15:12] LABS: BASOPHILS # (AUTO) 0.1 10^3/uL (0.0-0.1); BASOPHILS % (AUTO) 1 % (0-10); EOSINOPHILS # (AUTO) 0.2 10^3/uL (0.0-0.3); EOSINOPHILS % (AUTO) 3 % (0-10); HEMATOCRIT 42 % (35-52); HEMOGLOBIN 13.9 g/dL (11.5-16.0); LYMPHOCYTES # (AUTO) 1.8 10^3/uL (1.0-4.0); LYMPHOCYTES % (AUTO) 31 % (12-44); MEAN CORPUSCULAR HEMOGLOBIN 31 pg (25-34); MEAN CORPUSCULAR HGB CONC 33 g/dL (32-36); MEAN CORPUSCULAR VOLUME 93 fL (80-99); MEAN PLATELET VOLUME 10.1 fL (9.0-12.2); MONOCYTES # (AUTO) 0.4 10^3/uL (0.0-1.0); MONOCYTES % (AUTO) 8 % (0-12); NEUTROPHILS # (AUTO) 3.4 10^3/uL (1.8-7.8); NEUTROPHILS % (AUTO) 57 % (42-75); PLATELET COUNT 222 10^3/uL (130-400); WHITE BLOOD COUNT 5.9 10^3/uL (4.3-11.0)
[2023-06-22 15:15] LABS: CLARITY,URINE CLEAR; COLOR,URINE YELLOW; GLUCOSE, URINE (UA) NEGATIVE (NEGATIVE); KETONES,URINE NEGATIVE (NEGATIVE); NITRITE,URINE NEGATIVE (NEGATIVE); PROTEIN,URINE NEGATIVE (NEGATIVE)
[2023-06-22] MEDS ORDERED: KETOROLAC INJ 30 MG/ML VIAL IVP ONE (15:15)
[2023-06-22] MEDS ORDERED: ONDANSETRON 4 MG/2 ML (SDV) Z0FRAN IVP ONE (15:15)
[2023-06-22 15:16] LABS: AMORPHOUS SEDIMENT,UR FEW AMOR PHOSPHATE /LPF; BACTERIA,URINE TRACE /HPF; BILIRUBIN,URINE NEGATIVE (NEGATIVE); LEUKOCYTE ESTERASE ,URINE NEGATIVE (NEGATIVE); RBC,URINE RARE /HPF; WBC,URINE RARE /HPF
[2023-06-22 15:18] LABS: ALBUMIN 4.5 GM/DL (3.2-4.5); POTASSIUM 3.8 MMOL/L (3.6-5.0)
[2023-06-22 15:20] LABS: TOTAL PROTEIN 7.9 GM/DL (6.4-8.2)
[2023-06-22 15:22] LABS: BILIRUBIN,TOTAL 0.5 MG/DL (0.1-1.0)
[2023-06-22 15:24] LABS: CREATININE SERUM 0.76 MG/DL (0.60-1.30)
--- NOTE | 2023-06-22 16:00 | Diagnostic Imaging Report ---
CT ABD/PELVIS WO(KIDNEY STONE) TECHNIQUE: Unenhanced CT imaging of the abdomen and pelvis was performed. 2-D reformats are created and submitted for interpretation. Automatic exposure controls were utilized to optimize patient dose. INDICATION: Left flank pain. COMPARISON: 04/09/2023 FINDINGS: Lower chest: The lung bases are clear. No pericardial or pleural effusion. Peritoneum: No free intraperitoneal air or fluid collection to indicate abscess. Liver and biliary system: Unenhanced liver is normal. Cholecystectomy. Spleen and Pancreas: Spleen is normal. Unenhanced pancreas is grossly normal. Adrenals: Normal. tract: There are multiple bilateral nonobstructing renal stones. A punctate 2 mm stone is now present at the left UVJ resulting in mild hydronephrosis and hydroureter. No right-sided obstructive uropathy. Urinary bladder is decompressed, limiting assessment. Simple appearing left adnexal cyst has decreased in size now measuring 3.0 cm. GI tract: Radha-en-Y gastric bypass. No bowel obstruction. No pericolonic inflammatory changes. The appendix is normal. Vasculature and Lymph nodes: Normal caliber aorta. No abdominal or pelvic lymphadenopathy. Musculoskeletal: No concerning osseous lesion. IMPRESSION: 1. Mild left hydronephrosis and hydroureter due to a partially obstructing 2 mm stone at the left UVJ. 2. There are additional bilateral nonobstructing renal stones on both sides. Dictated by: Dictated on workstation # [id number]
[2023-06-22] MEDS ORDERED: fentaNYL INJECTION 100 MCG/2 ML VIAL IVP ONE (16:15)
[2023-06-22] MEDS ORDERED: ONDA4TAB11 SL (16:51)
[2023-06-22] MEDS ORDERED: ACHD5005 PO (16:51)
[2023-06-22] MEDS ORDERED: CEFU500T63 PO (16:51)
[2023-06-22] MEDS ORDERED: TMSL.4C PO (16:51)
[2023-06-22 17:08] VITALS: BP 147/86
== END 2023-06-22 17:10 | disposition home or self-care (01) ==
LOC: EDUNIT# 14:37 → ER 14:38
DX: N13.2 Hydronephrosis with renal and ureteral calculous obstruction (principal); G47.30 Sleep apnea, unspecified; E11.9 Type 2 diabetes mellitus without complications; Z79.4 Long term (current) use of insulin; Z99.89 Dependence on other enabling machines and devices; Z88.2 Allergy status to sulfonamides
CPT/HCPCS: 36415; 74176; 80053; 81000; 85025

== ENCOUNTER 2023-07-17 06:49 | Emergency (ER) | payer OTHER ==
[~2023-07-17] VITALS: Ht 167 cm; Wt 77.1 kg
[~2023-07-17 06:49] MED LIST changes: +CEFU500T63 PO
--- NOTE | 2023-07-17 07:21 | ED GU-Female ---
General Chief Complaint: Abdominal/GI Problems Stated Complaint: POSS KIDNEY STONE,LEFT SIDE Source: patient Exam Limitations: no limitations History of Present Illness Date Seen by Provider: Jul 17, 2023 Time Seen by Provider: 07:02 Initial Comments Here with report of left flank pain that started this morning at about 4 AM and is associated with nausea. Has history of kidney stones and had one approximately a month ago very similar to same side. CT scan at that time noted multiple small stones in both kidneys. She has follow-up with urology on Wednesday. She states that she is peeing small amounts frequently but denies blood. Denies diarrhea. She did take a dose of her nausea medicine this morni ng and that helped. She has nausea and pain medicines at home but does not have antibiotic or Flomax. She would like new prescription for those if needed. Timing/Duration: this morning Severity/Quality: moderate Location: left flank Radiation: none Activities at Onset: none Modifying Factors: Worsens With Urinating Associated Symptoms: dysuria; No fever/chills; urinary frequency Allergies and Home Medications Allergies Coded Allergies: Sulfa (Sulfonamide Antibiotics) (Verified Allergy, Severe, BLEEDING, 04/02/23) adhesive (Verified Allergy, Intermediate, BLISTERS, 04/02/23) Patient Home Medication List Home Medication List Reviewed: Yes Amlodipine Besylate (Amlodipine Besylate) 5 Mg Tablet, 5 MG PO DAILY, (Reported) Entered as Reported by: Sherry Sterling on 04/02/23 141 Aspirin (Aspirin) 81 Mg Tab.chew, 81 MG PO DAILY, (Reported) Entered as Reported by: YESSICA CRUM on 04/08/21 1303 Bacillus Coagulans/Vitamin D3 (Probiotic 2 Billion Gummies) 2 Billion Cell-5 Mcg Tab.chew, 1 EACH PO DAILY, (Reported) Entered as Reported by: Sherry Sterling on 04/02/23 141 Baclofen (Baclofen) 10 Mg Tablet, 10 MG PO Q8H, (Reported) Entered as Reported by: YESSICA CRUM on 04/08/21 1303 Biotin (Biotin) 1,000 Mcg Tab.chew, 1,000 MCG PO DAILY, (Reported) Entered as Reported by: Sherry Sterling on 04/02/23 1417 Calcium Phosphate Trib/Vit D3 (Calcium + Vitamin D3 Gummies) 250 Mg Calcium-5 Mcg (200 Unit) Tab.chew, 1 EACH PO DAILY, (Reported) Entered as Reported by: Sherry Sterling on 04/02/23 141 Cefdinir (Cefdinir) 300 Mg Capsule, 300 MG PO BID Prescribed by: ROSIE IRWIN on 04/09/23 0855 Cefuroxime Axetil (Cefuroxime) 500 Mg Tablet, 500 MG PO BID Prescribed by: Mignon Brown on 06/22/23 1651 Cephalexin (Cephalexin) 500 Mg Capsule, 500 MG PO BID Prescribed by: MARI ELLIS on 07/17/23 0728 Estradiol (Estradiol Tablet) 1 Mg Tablet, 1 MG PO DAILY, (Reported) Entered as Reported by: ANITA BUSCH on 10/04/20 1303 Estrogens, Conjugated (Premarin) 0.625 Mg Tablet, 0.5 APPLIC PO DAILY PRN, (Reported) Entered as Reported by: YESSICA CRUM on 04/08/21 1303 Fexofenadine HCl (Fexofenadine HCl) 180 Mg Tablet, 180 MG PO DAILY, (Reported) Entered as Reported by: Sherry Sterling on 04/02/23 141 Folic Acid (Folic Acid) 0.8 Mg Capsule, 0.8 MG PO DAILY, (Reported) Entered as Reported by: Sherry Sterling on 04/02/23 141 Folic Acid/Multivit-Minerals (Women's Multivitamin Gummies) 200 Mcg Tab.chew, 200 MCG PO DAILY, (Reported) Entered as Reported by: Sherry Sterling on 04/02/23 141 Gabapentin (Neurontin) 300 Mg Capsule, 300 MG PO HS, (Reported) Entered as Reported by: ANITA BUSCH on 10/04/20 1303 Gabapentin (Gabapentin) 100 Mg Capsule, 100 MG PO DAILY, (Reported) Entered as Reported by: Sherry Sterling on 04/02/23 141 Hydrocodone/Acetaminophen (Hydrocodone-Acetamin 5-325 mg) 5 Mg-325 Mg Tablet, 1 TAB PO Q6H PRN for PAIN-MODERATE (5-7) Prescribed by: ROSIE IRWIN on 04/09/23 0856 Hydrocodone/Acetaminophen (Hydrocodone-Acetamin 5-325 mg) 5 Mg-325 Mg Tablet, 1 TAB PO Q4H PRN for PAIN-MODERATE (5-7) Prescribed by: Mignon Brown on 06/22/23 165 Losartan Potassium (Losartan Potassium) 100 Mg Tablet, 100 MG PO DAILY, (Reported) Entered as Reported by: Sherry Sterling on 04/02/23 141 Metoprolol Tartrate (Metoprolol Tartrate) 50 Mg Tablet, 200 MG PO BID, (Reported) Entered as Reported by: ELAN KIRKPATRICK on 06/08/19 1123 Naproxen (Naproxen) 500 Mg Tablet.dr, 500 MG PO EVERY OTHER DAY, (Reported) Entered as Reported by: YESSICA CRUM on 04/08/21 1303 Omeprazole (Omeprazole) 20 Mg Capsule.dr, 20 MG PO DAILY, (Reported) Entered as Reported by: Sherry Sterling on 04/02/23 141 Ondansetron (Ondansetron Odt) 4 Mg Tab.rapdis, 4 MG SL Q6H PRN for NAUSEA/VOMITING Prescribed by: ROSIE IRWIN on 04/09/23 0855 Ondansetron (Ondansetron Odt) 4 Mg Tab.rapdis, 4 MG SL Q4H PRN for NAUSEA/VOMITING Prescribed by: Mignon Brown on 06/22/231650 Psyllium Husk (Metamucil) 0.4 Gram Capsule, 0.4 GM PO DAILY, (Reported) Entered as Reported by: Sherry Sterling on 04/02/23 141 Semaglutide (Ozempic) 2 Mg/0.75 Ml (8 Mg/3 Ml) Pen.injctr, 2 MG SQ WEEK, (Reported) Entered as Reported by: Sherry Sterling on 04/02/23 141 Tamsulosin HCl (Flomax) 0.4 Mg Cap, 0.4 MG PO DAILY Prescribed by: ROSIE IRWIN on 04/09/23 0855 Tamsulosin HCl (Flomax) 0.4 Mg Cap, 0.4 MG PO DAILY Prescribed by: Mignon Brown on 06/22/23 165 Tamsulosin HCl (Flomax) 0.4 Mg Cap, 0.4 MG PO DAILY Prescribed by: MARI ELLIS on 07/17/23 0728 Review of Systems Review of Systems Constitutional: No chills, No fever EENTM: no symptoms reported Respiratory: no symptoms reported Cardiovascular: no symptoms reported Gastrointestinal: nausea; No vomiting Genitourinary: see HPI Musculoskeletal: no symptoms reported Past Lsttkmy-Mcmrui-Sudxmy Hx Patient Social History Tobacco Use?: No Substance use?: No Alcohol Use?: No Pt feels they are or have been: No Immunizations Up To Date Tetanus Booster (TDap): Less than 5yrs PED Vaccines UTD: Yes First/Initial COVID19 Vaccinat: 01/23/21 Second COVID19 Vaccination Ramiro: 02/20/21 Third COVID19 Vaccination Date: 04/28/22 Seasonal Allergies Seasonal Allergies: No Past Medical History Surgery/Hospitalization HX: PARTIAL HYST, BARIATRIC SURG, DIABETES, BLADDER SLING. 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 Sexually Transmitted Disease: No Genitourinary: No (BLADDER SLING) Gastrointestinal: Yes Gastroesophageal Reflux, Chronic Constipation, Hiatal Hernia, Gall Bladder Disease Musculoskeletal: Yes Degenerate Disk Disease, Chronic Back Pain Endocrine: Yes Diabetes, Insulin dep, Diabetes, Non-Insulin dep HEENT: No Loss of Vision: Denies Hearing Impairment: Denies Cancer: No Psychosocial: No Integumentary: No Blood Disorders: Yes Adverse Reaction/Blood Tranf: No Family Medical History Reviewed Nursing Family Hx Physical Exam Vital Signs Vital Signs - First Documented 07/17/23 07:13 Temp 35.3 Pulse 79 Resp 16 B/P (MAP) 145/88 (107) Pulse Ox 98 Capillary Refill : Height, Weight, BMI Height: 5'6.00" Weight: 254lbs. 0.0oz. 115.750303le; 26.00 BMI Method: General Appearance: WD/WN, no apparent distress Cardiovascular: regular rate, rhythm, no murmur Respiratory: lungs clear, normal breath sounds Gastrointestinal: non tender, soft Back: normal inspection, no CVA tenderness, no vertebral tenderness Neurologic/Psychiatric: alert, oriented x 3 Progress/Results/Core Measures Suspected Sepsis SIRS Temperature: Pulse: Respiratory Rate: Blood Pressure / Mean: Results/Orders Lab Results Laboratory Tests Test 07/17/23 07:17 Range/Units Urine Color YELLOW Urine Clarity CLEAR Urine pH 6.0 5-9 Urine Specific [place] <=1.005 1.016-1.022 Urine Protein NEGATIVE NEGATIVE Urine Glucose (UA) NEGATIVE NEGATIVE Urine Ketones NEGATIVE NEGATIVE Urine Nitrite NEGATIVE NEGATIVE Urine Bilirubin NEGATIVE NEGATIVE Urine Urobilinogen 0.2 < = 1.0 MG/DL Urine Leukocyte Esterase NEGATIVE NEGATIVE Urine RBC (Auto) 3+ H NEGATIVE Urine RBC 0-2 /HPF Urine WBC NONE /HPF Urine Squamous Epithelial Cells RARE /HPF Urine Crystals PRESENT H /LPF Urine Calcium Oxalate Crystals RARE H /LPF Urine Bacteria FEW H /HPF Urine Casts NONE /LPF Urine Mucus NEGATIVE /LPF Urine Culture Indicated NO My Orders Orders - MARI ELLIS MD Ua Culture If Indicated (07/17/23 07:13) Vital Signs/I&O 07/17/23 07:13 Temp 35.3 Pulse 79 Resp 16 B/P (MAP) 145/88 (107) Pulse Ox 98 Capillary Refill : Progress Note : Progress Note Seen and evaluated. I have reviewed previous CT scan and UA as well as labs. CT scan does note multiple small stones in bilateral kidneys. Labs from previous were grossly normal for CBC and CMP. UA did not show infection on last visit. Given that she has known stones small and she has urology appointment on Wednesday, it is reasonable to just do UA and then prescription for cephalexin and Flomax. This was discussed with the patient and she agrees. UA ordered. Monitor patient. 0803: UA does show few red blood cells but otherwise no signs of infection. Discharged home with return precautions. Patient verbalized understanding instructions and agreement with plan. Departure Impression Primary Impression: Ureterolithiasis Disposition: HOME, SELF-CARE Condition: Stable Departure-Patient Inst. Decision time for Depature: 07:25 Referrals: JORGE HAIDER MD (PCP/Family) Primary Care Physician Patient Instructions: Kidney Stone, Adult ED Add. Discharge Instructions: All discharge instructions reviewed with patient and/or family. Voiced understanding. Conditions as directed. Follow-up with urologist as scheduled on Wednesday. You may take Tylenol/acetaminophen 1000 mg every 6-8 hours as needed for pain. You may also take ibuprofen 4 mg every 8 hours as needed for pain. Drink plenty of fluids. Return for worse pain, fever, vomiting, weakness, breathing problems or other concerns as needed. Scripts Tamsulosin HCl (Flomax) 0.4 Mg Cap 0.4 MG PO DAILY for 14 Days, #14 CAP 0 Refills Prov: MARI ELLIS MD 07/17/23 Cephalexin (Cephalexin) 500 Mg Capsule 500 MG PO BID for 7 Days, #14 CAP 0 Refills Prov: MARI ELLIS MD 07/17/23 MARI ELLIS MD Jul 17, 2023 07:21
[2023-07-17] MEDS ORDERED: CEPH500C PO (07:28)
[2023-07-17] MEDS ORDERED: TMSL.4C PO (07:28)
[2023-07-17 07:53] LABS: CLARITY,URINE CLEAR; COLOR,URINE YELLOW; GLUCOSE, URINE (UA) NEGATIVE (NEGATIVE); PROTEIN,URINE NEGATIVE (NEGATIVE)
[2023-07-17 07:54] LABS: BACTERIA,URINE FEW /HPF; BILIRUBIN,URINE NEGATIVE (NEGATIVE); KETONES,URINE NEGATIVE (NEGATIVE); LEUKOCYTE ESTERASE ,URINE NEGATIVE (NEGATIVE); NITRITE,URINE NEGATIVE (NEGATIVE); RBC,URINE 0-2 /HPF; SQUAMOUS EPITHELIAL CELL,UR RARE /HPF
[2023-07-17 07:55] LABS: CALCIUM OXALATE CRYSTALS,UR RARE /LPF
[2023-07-17 08:06] VITALS: BP 145/88
== END 2023-07-17 08:06 | disposition home or self-care (01) ==
LOC: EDUNIT# 06:49 → ER 06:51
DX: N20.2 Calculus of kidney with calculus of ureter (principal); G47.30 Sleep apnea, unspecified; Z99.89 Dependence on other enabling machines and devices; Z88.2 Allergy status to sulfonamides
CPT/HCPCS: 81000; 99282

== ENCOUNTER 2023-08-05 05:35 | Outpatient (CLI) | payer OTHER ==
[~2023-08-05] VITALS: Ht 167.7 cm; Wt 77.3 kg
== END 2023-08-06 09:35 | disposition home or self-care (01) ==
LOC: PREOP 05:35
PROVIDERS: ATTEND Specialist
DX: Z01.818 Encounter for other preprocedural examination (principal)

== ENCOUNTER 2023-08-13 05:48 | Day surgery (SDC) | payer OTHER ==
[~2023-08-13] VITALS: Ht 167.7 cm; Wt 77.3 kg
[2023-08-13 06:05] VITALS: BP 160/83
[2023-08-13] MEDS ORDERED: MOXIFLOXACIN OPHTH SOLN 5 MG/ML 0.5 ML SYRINGE OP ONE (06:15)
[2023-08-13] MEDS ORDERED: LIDOCAINE PF 1% 2 ML VIAL IR PRN (06:15)
[2023-08-13] MEDS ORDERED: POVIDONE IODINE OPHTH SOLN 5% 30 ML OP ONE (06:15)
[2023-08-13] MEDS ORDERED: TIMOLOL 0.5% (CATARACTS) 0.3 ML BTL OU PRN (06:15)
[2023-08-13] MEDS: TETRACAINE 0.5% OPHTH SOLN 4 ML BTL (SINGLE DOSE ONLY) OU PRN ×4 (06:16→06:35)
[2023-08-13] MEDS: TROPICAMIDE 1% OPH SOLN (MYDRIACYL) 15 ML BTL OP SCH ×3 (06:24→06:37)
[2023-08-13] MEDS: PHENYLEPHRINE 10% OPHTH SOLN 5 ML BTL OU SCH ×3 (06:24→06:37)
[2023-08-13] MEDS ORDERED: MIDAZOLAM INJ 2 MG/2 ML VIAL ONE (06:55)
--- NOTE | 2023-08-13 07:02 | Ophthalmologist Pre-Op Note ---
Pre-Operative Progress Note H&P Reviewed The H&P was reviewed, patient examined and no changes noted. Date H&P Reviewed: Aug 13, 2023 Time H&P Reviewed: 06:55 Pre-Op Dx Cataract, Right Eye IKE FONSECA MD Aug 13, 2023 07:02
--- NOTE | 2023-08-13 07:19 | Ophthalmology Operative Report ---
Cataract removal/placement IOL PREOPERATIVE DIAGNOSIS: Cataract Right Eye POSTOPERATIVE DIAGNOSIS: Cataract Right Eye PROCEDURE: Cataract removal and placement of posterior chamber implant, right eye SURGEON: Matthew Fonseca ANESTHESIA: Topical with sedation COMPLICATIONS: None ESTIMATED BLOOD LOSS: Minimal DESCRIPTION OF PROCEDURE: After proper informed consent was obtained, the patient, a 62 female, was taken to the Operating Room and the right eye was anesthetized with tetracaine. The right eye was then prepped and draped in the usual manner. A wire lid speculum was placed. A paracentesis was made at the left hand position. Preservative free lidocaine was injected into the anterior chamber followed by viscoelastic. A clear corneal incision was made in the temporal position. A capsulorrhexis was preformed and the central nuclear and cortical material were removed. The posterior capsule was polished and Brandt 22.5 [id number] IOL was placed into the capsular bag. The residual viscoelastic was aspirated and balanced saline solution was injected into the anterior chamber. Moxifloxacin was injected into the anterior chamber. The wound was checked and found to be water tight. The patient tolerated the procedure well without complications. MATTHEW FONSECA MD Aug 13, 2023 07:19
[2023-08-13 07:26] VITALS: BP 149/79
--- NOTE | 2023-08-13 11:31 | Anesthesia-General Post-Op ---
MAC Patient Condition Mental Status/LOC: Same as Preop Cardiovascular: Satisfactory Nausea/Vomiting: Absent Respiratory: Satisfactory Pain: Controlled Complications: Absent Post Op Complications Complications None Follow Up Care/Instructions Patient Instructions None needed. Anesthesiology Discharge Order Discharge Order Patient is doing well, no complaints, stable vital signs, no apparent adverse anesthesia problems. No complications reported per nursing. JONATHON CANTRELL CRNA Aug 13, 2023 11:30
== END 2023-08-13 07:28 | disposition home or self-care (01) ==
LOC: SDC 05:48
PROVIDERS: ATTEND Specialist
DX: E11.36 Type 2 diabetes mellitus with diabetic cataract (principal); H25.9 Unspecified age-related cataract; Z79.85 Long-term (current) use of injectable non-insulin antidiabetic drugs
CPT/HCPCS: 66984; 82947; V2632

== ENCOUNTER → 2023-10-04 | Outpatient (CLI) | payer OTHER | END | disposition home or self-care (01) | LOC: PREOP 05:31 | PROVIDERS: ATTEND Obstetrics & Gynecology | DX: Z01.818 Encounter for other preprocedural examination (principal) ==